=== PATIENT | female | born 1955 | race Caucasian/White ===

== ENCOUNTER → 2016-04-03 | Outpatient (CLI) | payer MEDICARE ==
[2016-04-03 09:31] LABS: ANION GAP 12 (5-19); BLOOD UREA NITROGEN 47 mg/dL (7-20); CALCIUM 9.4 mg/dL (8.4-10.2); CARBON DIOXIDE 25 mmol/L (22-30); CHLORIDE 102 mmol/L (98-107); CREATININE RESULT 1.12 mg/dL (0.52-1.25); SODIUM 138.7 mmol/L (137-145)
[2016-04-03 09:49] LABS: GLUCOSE 431 mg/dL (75-110)
[2016-04-04 11:38] LABS: CREATININE URINE 48.3 mg/dL (Not Estab.); MICROALBUMIN URINE 85.2 ug/mL (Not Estab.)
== END ==
LOC: OD 07:01
PROVIDERS: ATTEND Internal Medicine Nephrology
DX: N18.2 Chronic kidney disease, stage 2 (mild) (principal); R80.1 Persistent proteinuria, unspecified; E55.9 Vitamin D deficiency, unspecified
CPT/HCPCS: 36415; 80048; 82043; 82306; 82570

== ENCOUNTER → 2016-06-16 | Outpatient (CLI) | payer MEDICARE | LOC: OD 09:14 | PROVIDERS: ATTEND Family Medicine | DX: E11.65 Type 2 diabetes mellitus with hyperglycemia (principal) | CPT/HCPCS: 36415; 83036 ==

== ENCOUNTER 2016-06-18 10:12 | Inpatient (IN) | payer MEDICARE ==
--- NOTE | 2016-06-18 10:25 | ER Document Report ---
Addendum entered and electronically signed by VLAD GREGORIO NP 06/18/16 12:31 : Course - Re-evaluation Re-evalutation: 06/18/16 12:30 Patient reports having vomited prior to having the syncopal episode. Patient vomited once in the lobby. Additional medications ordered. - Vital Signs Vital signs: Temp Pulse Resp BP Pulse Ox 97.4 F 93 18 145/81 H 100 06/18/16 10:23 06/18/16 10:23 06/18/16 10:23 06/18/16 10:23 06/18/16 10:23 - Laboratory Result Diagrams: 06/18/16 11:02 06/18/16 11:02 Laboratory results interpreted by me: 06/18/16 11:02 Potassium 3.5 L Chloride 93 L Carbon Dioxide 31 H BUN 32 H Original Note: ED Medical Screen (RME) - General Stated Complaint: SYNCOPE Mode of Arrival: Medic Information source: Patient Notes: Patient called EMS for syncopal episode. Patient reports that she had felt dizzy with nausea and vomiting. Accu-Chek per EMS was 220. Complains of generalized weakness. Patient states that she has right occipital headache pain after passing out and hitting her head on the floor. hx: Diabetes, chronic kidney disease I have greeted and performed a rapid initial assessment of this patient. A comprehensive ED assessment and evaluation of the patient, analysis of test results and completion of the medical decision making process will be conducted by additional ED providers. TRAVEL OUTSIDE OF THE [place] IN LAST 30 DAYS: No - Related Data Allergies/Adverse Reactions: No Known Allergies Allergy (Verified 06/18/16 10:28) Past Medical History - Past Medical History Cardiac Medical History: Reports: Hx Hypercholesterolemia, Hx Hypertension Endocrine Medical History: Reports: Hx Diabetes Mellitus Type 2 Past Surgical History: Reports: Hx Section - x2 - Immunizations Hx Diphtheria, Pertussis, Tetanus Vaccination: Yes Physical Exam - Vital signs Vitals: Temp Pulse Resp BP Pulse Ox 97.4 F 93 18 145/81 H 100 06/18/16 10:23 06/18/16 10:23 06/18/16 10:23 06/18/16 10:23 06/18/16 10:23 - Neurological Neuro grossly intact: Yes Cognition: Normal [place] Coma Scale Eye Opening: Spontaneous [place] Coma Scale Verbal: Oriented [place] Coma Scale Motor: Obeys Commands [place] Coma Scale Total: 15 Course - Vital Signs Vital signs: Temp Pulse Resp BP Pulse Ox 97.4 F 93 18 145/81 H 100 06/18/16 10:23 06/18/16 10:23 06/18/16 10:23 06/18/16 10:23 06/18/16 10:23
[2016-06-18 11:20] LABS: ABSOLUTE EOSINOPHILS # (AUTO) 0.1 10^3/uL (0.0-0.6); ABSOLUTE LYMPHOCYTES (AUTO) 2.1 10^3/uL (0.5-4.7); ABSOLUTE MONOCYTES (AUTO) 0.5 10^3/uL (0.1-1.4); ABSOLUTE NEUT (AUTO) 5.7 10^3/uL (1.7-8.2); BASOPHILS % (AUTO) 0.4 % (0-2); EOSINOPHILS % (AUTO) 0.7 % (0-6); HEMATOCRIT 38.1 % (36.0-47.0); HGB HCT DIFFERENCE 0.9; LYMPHOCYTES % (AUTO) 25.2 % (13-45); MEAN CORPUSCULAR HEMOGLOBIN 28.8 pg (27.0-33.4); MEAN CORPUSCULAR HGB CONC 34.1 g/dL (32.0-36.0); MEAN CORPUSCULAR VOLUME 85 fl (80-97); MONOCYTES % (AUTO) 6.1 % (3-13); RED BLOOD COUNT 4.52 10^6/uL (3.72-5.28); RED CELL DISTRIBUTION WIDTH 13.2 % (11.5-14.0); SEGMENTED NEUTROPHILS % (AUTO) 67.6 % (42-78); WHITE BLOOD COUNT 8.5 10^3/uL (4.0-10.5)
[2016-06-18 11:28] LABS: ALANINE AMINOTRANSFERASE 19 U/L (9-52); ALBUMIN 3.7 g/dL (3.5-5.0); ALKALINE PHOSPHATASE 92 U/L (38-126); ANION GAP 15 (5-19); ASPARTATE AMINO TRANSFERASE 18 U/L (14-36); BILIRUBIN,DIRECT 0.2 mg/dL (0.0-0.4); BILIRUBIN,TOTAL 0.4 mg/dL (0.2-1.3); BLOOD UREA NITROGEN 32 mg/dL (7-20); CALCIUM 9.6 mg/dL (8.4-10.2); CARBON DIOXIDE 31 mmol/L (22-30); CHLORIDE 93 mmol/L (98-107); CREATINE KINASE 32 U/L (30-135); CREATININE RESULT 0.91 mg/dL (0.52-1.25); GLUCOSE 91 mg/dL (75-110); LIPASE 87.3 U/L (23-300); MAGNESIUM 1.9 mg/dL (1.6-2.3); POTASSIUM 3.5 mmol/L (3.6-5.0); SODIUM 139.4 mmol/L (137-145); TOTAL PROTEIN 6.9 g/dL (6.3-8.2)
[2016-06-18 11:40] LABS: CREATINE KINASE MB 1.04 ng/mL (<4.55)
[2016-06-18 11:42] LABS: TROPONIN I < 0.012 ng/mL
[2016-06-18] MEDS ORDERED: ONDANSETRON 4 MG TAB.RAPDIS PO ONE (12:23)
--- NOTE | 2016-06-18 13:16 | EKG REPORT ---
SEVERITY:- ABNORMAL ECG - SINUS RHYTHM LEFT ANTERIOR FASCICULAR BLOCK PROBABLE LVH WITH SECONDARY REPOL ABNRM : Confirmed by: Edi Jenkins MD 18-Jun-2016 13:16:12
--- NOTE | 2016-06-18 14:39 | ER Document Report ---
ED General <ABILIO STRONG - Last Filed: 06/18/16 17:02> - General Time seen by provider: 14:10 Mode of Arrival: Medic Information source: Patient TRAVEL OUTSIDE OF THE [place] IN LAST 30 DAYS: No - HPI Onset: Other - see HPI note Associated symptoms: Diarrhea, Headache, Nausea, Vomiting, Weakness, Other - dizzy <CEZAR SARABIA - Last Filed: 06/18/16 17:11> - General Chief Complaint: Syncope Stated Complaint: SYNCOPE Notes: Patient is a 60 year old female presenting to the emergency department for syncope. Patient states she had a "blacking out" episode today; patient states she was going to get some grapes from the kitchen and woke up on the ground in her daughter's bedroom. Patient also had a syncopal event yesterday. Patient has had multiple episodes of vomiting, nausea, and diarrhea over the past month. Patient complains that she has been falling every other day or so over the past month; patient states she does not always "black out" when she falls. Patient has some weakness and is very dizzy like she is going to fall down. During exam, patient states she is still nauseous but hungry and she has a headache. Patient's blood glucose level was 220 via EMS. Patient has a history of diabetes mellitus and is on 2 insulin shots. Patient denies any loss of vision, dysuria, chest pain, or shortness of breath. Patient has no known allergies. Patient's PCP is Dr. Holloway. 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 denies: Chest pain Respiratory: No symptoms reported Gastrointestinal: See HPI, Nausea, Vomiting Genitourinary: No symptoms reported. denies: Dysuria Female Genitourinary: No symptoms reported Musculoskeletal: No symptoms reported Skin: No symptoms reported Hematologic/Lymphatic: No symptoms reported Neurological/Psychological: See HPI, Weakness, Gait changes, Headaches -: Yes All other systems reviewed and negative <CEZAR SARABIA - Last Filed: 06/18/16 17:11> Physical Exam <ABILIO STRONG - Last Filed: 06/18/16 17:02> - Vital signs Interpretation: Hypertensive <CEZAR SARABIA - Last Filed: 06/18/16 17:11> - Vital signs Vitals: Temp Pulse Resp BP Pulse Ox 97.4 F 93 18 145/81 H 100 06/18/16 10:23 06/18/16 10:23 06/18/16 10:23 06/18/16 10:23 06/18/16 10:23 - Notes Notes: GENERAL: Well-appearing, well-nourished and in no acute distress HEAD: Atraumatic, normocephalic EYES: Pupils equal round and reactive to light, mild persistent horizontal nystagmus, sclera anicteric, no conjunctival injection or discharge ENT: Nares patent, oropharynx clear without exudates. Dry mucous membranes. NECK: Normal range of motion, supple, no carotid bruits LUNGS: Breath sounds clear to auscultation bilaterally and equal. No wheezes rales or rhonchi HEART: Normal S1S2, Regular rate and rhythm without murmurs, Equal peripheral pulses ABDOMEN: Soft, non-tender, No appreciable mass EXTREMITIES: Normal range of motion, no calf tenderness, Negative Homans, no edema NEUROLOGICAL: GCS 15, Cranial nerves II-XII intact. Normal speech without aphasia, No Pronator Drift, 5/5 RUE strength, 5/5 RLE strength, 5/5 LUE strength , 5/5 LLE strength, No cerebellar abnormalities including normal finger-nose testing, ataxic with the tendency to fall to the right PSYCH: Normal mood, normal affect SKIN: Warm, Dry, no cyanosis, Cap refill < 2 sec (CEZAR SARABIA) Course - Laboratory Result Diagrams: 06/18/16 11:02 06/18/16 11:02 - EKG Interpretation by Me EKG shows normal: Sinus rhythm Rate: Normal Rhythm: NSR [place]/QRS: Left axis deviation, LAHB/LAFB Heart block present: No: 1st Degree, Mobitz 1, Mobitz 2, CHB (3rd degree block) <ABILIO STRONG - Last Filed: 06/18/16 17:02> - Laboratory Result Diagrams: 06/18/16 11:02 06/18/16 11:02 - Consults Dr. Rizzo Time consulted: 16:50 Dr. Palma Time consulted: 16:51 Consulted provider: will see as inpatient <CEZAR SARABIA - Last Filed: 06/18/16 17:11> - Re-evaluation Re-evalutation: 06/18/16 15:21 Patient was very ataxic on her road test. She would've fallen without help with ambulation. This was prior to her fluid bolus and orthostatics are pending at this point. Unclear cause for her vomiting and diarrhea for the last week but her abdomen seems benign. (ABILIO STRONG) - Vital Signs Vital signs: Temp Pulse Resp BP Pulse Ox 97.4 F 94 18 114/83 100 06/18/16 10:23 06/18/16 16:26 06/18/16 10:23 06/18/16 16:26 06/18/16 16:00 - Laboratory Laboratory results interpreted by me: 06/18/16 11:02 Potassium 3.5 L Chloride 93 L Carbon Dioxide 31 H BUN 32 H - EKG Interpretation by Me Additional EKG results interpreted by me: 06/18/16 14:42 Poor R-wave progression anteriorly with inverted T waves in 1 and aVL ( ABILIO STRONG) - Consults Dr. Rizzo Reason for consultation: 06/18/16 16:[address] Rizzo for possible admission; told to contact Dr. Palma for next admission. (CEZAR SARABIA) Dr. Palma Reason for consultation: 06/18/16 16:[address] Palma for possible admission; he will call back. 06/18/16 16:[address] Palma; patient will be admitted. (CEZAR SARABIA) Discharge - Discharge Admitting Provider: Hospitalist - Dr. Juan A Palma <ABILIO STRONG - Last Filed: 06/18/16 17:02> <CEZAR SARABIA - Last Filed: 06/18/16 17:11> - Discharge Clinical Impression: Syncope and collapse, Ataxia, Prerenal azotemia, Dehydration Referrals: KINJAL HOLLOWAY MD [Primary Care Provider] - Follow up as needed Scribe Attestation: 06/18/16 17:02 I personally performed the services described in the documentation, reviewed and edited the documentation which was dictated to the scribe in my presence, and it accurately records my words and actions. (ABILIO STRONG) Scribe Documentation - Scribe Written by Scrhernan:: Cezar Sarabia 06/18/16 16:15 acting as scribe for :: Melissa <CEZAR SARABIA - Last Filed: 06/18/16 17:11>
[2016-06-18] MEDS ORDERED: NORMAL SALINE 1000 ML 1,000 ML IV ONE (14:40)
[2016-06-18] MEDS ORDERED: ONDANSETRON HCL INJ/PF 4 MG/2 ML SDV IV ONE (14:40)
[2016-06-18] MEDS ORDERED: POTASSI CL 20 MEQ/NS 1L 1,000 ML IV PRN (17:48)
[2016-06-18] MEDS ORDERED: ACETAMINOPHEN 325 MG TABLET PO PRN (17:48)
[2016-06-18] MEDS ORDERED: ONDANSETRON HCL INJ/PF 4 MG/2 ML SDV IV PRN (17:53)
[2016-06-18] MEDS ORDERED: GLUCAGON,HUMAN RECOMB 1 MG INJ IM PRN (17:55)
[2016-06-18] MEDS ORDERED: DEXTROSE 40% GEL 15 GM TUBE PO PRN ×2 (17:55)
[2016-06-18] MEDS ORDERED: DEXTROSE 50%-WATER 25 GM/50 ML DISP.SYRIN IV PRN ×2 (17:55)
--- NOTE | 2016-06-18 18:06 | PDOC H&P ---
History of Present Illness Admission Date/PCP: KINJAL CABRERA MD Patient complains of: weakness and "passing out" History of Present Illness: IGLESIA BLANCHARD is a 60 year old female presents to the emergency department from home after an episode where she apparently blacked out. She states that last month she has not felt well with intermittent nausea and vomiting, frequent high blood sugars in the 500s and occasional low sugars in the 50s, frequent stools occurring about every other day she'll have 3-6 loose bowel movements daily and decreased oral intake. She's noted over the last week postural dizziness particularly when standing she's felt like she might pass out, couple of times she's lost her balance, but today she actually went into another room and when she stood the next thing she knew she awoke on her back with a headache. She denies fevers, chills, chest pain, palpitations, abdominal pain, hematuria, dysuria, melena, hematochezia, numbness or tingling, slurred speech, difficulty swallowing, sore throat, odynophagia, swollen glands, night sweats. Evaluation in the emergency department and demonstrates profound orthostasis and clinical evidence of volume depletion and so we were asked to admit for further evaluation and management. 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 Endocrine Medical History: Reports: Diabetes Mellitus Type 2 Past Surgical History Past Surgical History: Reports: Section - x2, Orthopedic Surgery - Toe amputation for osteomyelitis Social History Information Source: Patient Smoking Status: Never Smoker Frequency of Alcohol Use: None Hx Recreational Drug Use: No Hx Prescription Drug Abuse: No - Advance Directive Resuscitation Status: Full Code Family History Family History: None Parental Family History Reviewed: Yes Children Family History Reviewed: Yes Sibling(s) Family History Reviewed.: Yes Medication/Allergy Home Medications: Amlodipine Besylate 5 mg PO DAILY 01/21/15 Aspirin [Ecotrin 81 mg EC Tablet] 81 mg PO DAILY 01/21/15 Ergocalciferol (Vitamin D2) [Drisdol 50,000 unit (1.25MG) Capsule] 1 cap PO Q7D 01/21/15 Levothyroxine Sodium 88 mcg PO DAILY 01/21/15 Lisinopril 20 mg PO BID 01/21/15 Omeprazole [Prilosec] 40 mg PO DAILY 01/21/15 Oxycodone HCl/Acetaminophen [Oxycodone-Acetaminophen 10-325] 1 each PO Q4H PRN 01/21/15 Insulin Glargine,Hum.rec.anlog [Lantus Insulin 100 Unit/mL] 30 unit SUBCUT QHS # 0 insuln.pen 01/24/15 Insulin Glargine,Hum.rec.anlog [Lantus Insulin 100 Unit/mL] 38 unit SUBCUT DAILY #0 insuln.pen 01/24/15 Clindamycin 600 mg/D5w RTU [Cleocin RTU 600 mg/D5w 50 ml Premix Bag] 600 mg IV Q8 10 Days 01/31/15 Diphenhydramine HCl [Benadryl 50 mg Capsule] 50 mg PO Q6 5 Days 01/31/15 Famotidine [Pepcid 20 mg Tablet] 20 mg PO DAILY #5 tablet 01/31/15 Prednisone 3 tab PO DAILY 5 Days 01/31/15 Allergies/Adverse Reactions: No Known Allergies Allergy (Verified 06/18/16 10:28) Review of Systems Constitutional: ABSENT: chills, fever(s), headache(s), weight gain, weight loss Eyes: ABSENT: visual disturbances Ears: ABSENT: hearing changes Cardiovascular: ABSENT: chest pain, dyspnea on exertion, edema, orthropnea, palpitations Respiratory: ABSENT: cough, hemoptysis Gastrointestinal: PRESENT: diarrhea, nausea, vomiting. ABSENT: abdominal pain, constipation, hematemesis, hematochezia Genitourinary: ABSENT: dysuria, hematuria Musculoskeletal: ABSENT: joint swelling Integumentary: ABSENT: rash, wounds Neurological: PRESENT: syncope, weakness. ABSENT: abnormal gait, abnormal speech, confusion, dizziness, focal weakness, numbness Psychiatric: ABSENT: anxiety, depression Endocrine: ABSENT: cold intolerance, heat intolerance, polydipsia, polyuria Hematologic/Lymphatic: ABSENT: easy bleeding, easy bruising Physical Exam Vital Signs: Temp Pulse Resp BP Pulse Ox 97.4 F 94 18 114/83 100 06/18/16 10:23 06/18/16 16:26 06/18/16 10:23 06/18/16 16:06/18/16 16:00 Intake & Output 06/17/16 06/18/16 06/19/16 06:59 06:59 06:59 Weight 60.9 kg PHYSICAL EXAM GENERAL: NAD; well developed, well nourished; no obese; alert and oriented to person, place, time, situation HEENT: normocephalic, atraumatic; EOMI, PERRLA, no conjunctival injection, no scleral icterus; oral mucosa very dry; neck supple, no LAD, normal ROM RESPIRATORY: no accessory muscle use, no increased WOB, good air entry bilaterally; no wheezes, rales, rhonchi; no inspiratory crackles CARDIO: no JVD; RRR; soft 2/6 systolic murmur; no tachycardia VASCULAR: no carotid bruit; no abdominal bruit; no pallor; 2+ radial, DP pulse ; normal capillary refill GI: soft; nondistended; normal bowel sounds; no hepato spleno megaly; no rebound, rigidity, guarding; nontenderd NEURO: normal patella reflexes; normal sensation; no dysarthria; no nystagmus ; tongue protrudes midline; normal finger to nose; MSK: 5/5 strength; normal ROM hips; no tenderness EXTREMITIES: no calf tender; no palpable cords in calf; no clubbing, cyanosis , pedal edema PSYCH: normal affect, normal mood SKIN: warm; dry; no petechiae; no telengectasias; no jaundice; no rash Results Laboratory Results: 06/18/16 11:02 06/18/16 11:02 06/18/16 06/18/16 11:02 11:02 WBC 8.5 RBC 4.52 Hgb 13.0 Hct 38.1 MCV 85 MCH 28.8 MCHC 34.1 RDW 13.2 Plt Count 258 Seg Neutrophils % 67.6 Lymphocytes % 25.2 Monocytes % 6.1 Eosinophils % 0.7 Basophils % 0.4 Absolute Neutrophils 5.7 Absolute Lymphocytes 2.1 Absolute Monocytes 0.5 Absolute Eosinophils 0.1 Absolute Basophils 0.0 Sodium 139.4 Potassium 3.5 L Chloride 93 L Carbon Dioxide 31 H Anion Gap 15 BUN 32 H Creatinine 0.91 Est GFR ( Amer) > 60 Est GFR (Non-Af Amer) > 60 Glucose 91 Calcium 9.6 Magnesium 1.9 Total Bilirubin 0.4 AST 18 ALT 19 Alkaline Phosphatase 92 Total Protein 6.9 Albumin 3.7 Lipase 87.3 06/18/16 06/18/16 11:02 11:02 Creatine Kinase 32 CK-MB (CK-2) 1.04 Troponin I < 0.012 Impressions: Chest X-Ray 06/18/16 10:30 IMPRESSION: NO SIGNIFICANT RADIOGRAPHIC FINDING IN THE CHEST. Head CT 06/18/16 12:32 IMPRESSION: NORMAL BRAIN CT WITHOUT CONTRAST. Status: Imported from PACS Assessment & Plan - Diagnosis (1) Dehydration Is this a current diagnosis for this admission?: YesPlan: Etiology remains unclear but trying to piece together the events of the last month my suspicion is with a hemoglobin A1c of 14.0 that her sugars have been running rampantly [id number] leading to polyuria and ultimately dehydration. Fortunately she is not showing any renal insufficiency though her CBC does show hemoconcentration as she is normally mildly anemic. Plan is to admit for IV fluid hydration through the night with careful hemodynamic monitoring and monitor her volume status. (2) Syncope and collapse Is this a current diagnosis for this admission?: YesPlan: Severe orthostasis found in the emergency department likely accounts for her postural dizziness and even syncope. Again I believe this is related to rampant hyperglycemia. We'll check carotid Dopplers as she is clearly at risk for peripheral arterial disease and check a morning lipid panel. CT of the head is negative for any intracranial abnormality as well as any evidence of contusions. EKG is nondiagnostic for ischemic changes. At her first set of cardiac enzymes completely normal. (3) Diabetes Qualifiers: Diabetes mellitus type: type 2 Diabetes mellitus complication status: with unspecified complications Diabetes mellitus correction insulin use: with correction use Qualified Code(s): E11.8 - Type 2 diabetes mellitus with unspecified complications; Z79.4 - USP (current) use of insulin Is this a current diagnosis for this admission?: YesPlan: Very poorly controlled with hemoglobin A1c greater than 14. Will start with a basal bolus regimen and titrate to effect. Patient reports labile blood sugars at home with some episodes of hypoglycemia so we will have to monitor carefully for that and respond according to the protocol. (4) GERD (gastroesophageal reflux disease) Qualifiers: Esophagitis presence: without esophagitis Qualified Code(s): K21.9 - Gastro-esophageal reflux disease without esophagitis Is this a current diagnosis for this admission?: YesPlan: Start PPI therapy. (5) Hypertension Is this a current diagnosis for this admission?: YesPlan: Hold antihypertensive regimen for now. He initiated as her clinical condition changes and dictates. (6) Hypothyroidism Qualifiers: Hypothyroidism type: unspecified Qualified Code(s): E03.9 - Hypothyroidism, unspecified Is this a current diagnosis for this admission?: YesPlan: Check a morning TSH and adjust home dose of Synthroid as needed. - Time Time Spent: 50 to 70 Minutes Anticipated discharge: Home Within: within 24 hours
[2016-06-18] MEDS: PANTOPRAZOLE SODIUM 40 MG VIAL IV SCH (22:14)
[2016-06-18] MEDS: INSULIN GLARGINE,HUM.REC.ANLOG 300 UNIT/3 ML INSULN.PEN SUBCUT SCH (22:25)
[2016-06-18] MEDS: INSULIN LISPRO 100 UNIT/ML 3 ML VIAL SUBCUT PRN (22:26)
[2016-06-18 23:05] LABS: APPEARANCE,URINE SLIGHTLY-CLOUDY; BILIRUBIN,URINE NEGATIVE (NEGATIVE); GLUCOSE, URINE NEGATIVE (NEGATIVE); KETONES,URINE NEGATIVE (NEGATIVE); LEUKOCYTE ESTERASE,URINE NEGATIVE (NEGATIVE); NITRITE,URINE NEGATIVE (NEGATIVE); PROTEIN,URINE 100 mg/dL (NEGATIVE); URINE SPECIFIC GRAVITY 1.013; UROBILINOGEN,URINE NEGATIVE mg/dL (<2.0)
[2016-06-19 01:47] LABS: URINE BARBITURATES SCREEN NEGATIVE; URINE METHADONE SCREEN NEGATIVE; URINE OPIATES LOW NEGATIVE; URINE PHENCYCLIDINE SCREEN NEGATIVE
[2016-06-19 06:13] LABS: ABSOLUTE EOSINOPHILS # (AUTO) 0.1 10^3/uL (0.0-0.6); ABSOLUTE LYMPHOCYTES (AUTO) 3.2 10^3/uL (0.5-4.7); ABSOLUTE MONOCYTES (AUTO) 0.8 10^3/uL (0.1-1.4); ABSOLUTE NEUT (AUTO) 4.8 10^3/uL (1.7-8.2); BASOPHILS % (AUTO) 0.4 % (0-2); EOSINOPHILS % (AUTO) 1.1 % (0-6); HEMATOCRIT 31.3 % (36.0-47.0); HGB HCT DIFFERENCE 0.2; LYMPHOCYTES % (AUTO) 36.1 % (13-45); MEAN CORPUSCULAR HEMOGLOBIN 28.6 pg (27.0-33.4); MEAN CORPUSCULAR HGB CONC 33.8 g/dL (32.0-36.0); MEAN CORPUSCULAR VOLUME 85 fl (80-97); MONOCYTES % (AUTO) 9.1 % (3-13); RED BLOOD COUNT 3.68 10^6/uL (3.72-5.28); RED CELL DISTRIBUTION WIDTH 13.4 % (11.5-14.0); SEGMENTED NEUTROPHILS % (AUTO) 53.3 % (42-78)
[2016-06-19 06:22] LABS: ANION GAP 9 (5-19); BLOOD UREA NITROGEN 32 mg/dL (7-20); CALCIUM 8.5 mg/dL (8.4-10.2); CARBON DIOXIDE 29 mmol/L (22-30); CHLORIDE 100 mmol/L (98-107); CHOLESTEROL 131.64 mg/dL (0-200); Direct HDL 33 mg/dL (>40); GLUCOSE 107 mg/dL (75-110); HEMOGLOBIN 10.5 g/dL (12.0-15.5); MAGNESIUM 1.9 mg/dL (1.6-2.3); POTASSIUM 4.1 mmol/L (3.6-5.0); TRIGLYCERIDES 210 mg/dL (<150)
[2016-06-19 06:35] LABS: DIRECT LDL < 30 mg/dL (<100)
[2016-06-19] MEDS ORDERED: POTASSI CL 20 MEQ/D5NS 1L 1,000 ML IV PRN (07:07)
[2016-06-19] MEDS: PANTOPRAZOLE SODIUM 40 MG VIAL IV SCH ×2 (08:57→21:16)
[2016-06-19] MEDS: ENOXAPARIN SODIUM INJ 40 MG/0.4 ML DISP.SYRIN SUBCUT SCH (08:58)
[2016-06-19] MEDS ORDERED: LEVOTHYROXINE SODIUM 0.088 MG TABLET PO SCH (12:00)
[2016-06-19] MEDS: INSULIN LISPRO 100 UNIT/ML 3 ML VIAL SUBCUT PRN (14:37)
--- NOTE | 2016-06-19 14:50 | PDOC PROGRESS REPORT ---
Subjective Progress Note for:: 06/19/16 Subjective:: Reason for visit: Follow-up hyperglycemia, frequent falls, nausea vomiting Hospital course: IGLESIA BLANCHARD is a 60 year old female presents to the emergency department from home after an episode where she apparently blacked out. She states that last month she has not felt well with intermittent nausea and vomiting, frequent high blood sugars in the 500s and occasional low sugars in the 50s, frequent stools occurring about every other day she'll have 3-6 loose bowel movements daily and decreased oral intake. She's noted over the last week postural dizziness particularly when standing she's felt like she might pass out, couple of times she's lost her balance, but today she actually went into another room and when she stood the next thing she knew she awoke on her back with a headache. She denies fevers, chills, chest pain, palpitations, abdominal pain, hematuria, dysuria, melena, hematochezia, numbness or tingling, slurred speech, difficulty swallowing, sore throat, odynophagia, swollen glands , night sweats. Evaluation in the emergency department and demonstrates profound orthostasis and clinical evidence of volume depletion and so we were asked to admit for further evaluation and management. She was admitted to the hospital and given IV fluids and monitored on telemetry without any significant ectopy or cardiac dysrhythmias. Her capillary blood glucose levels have fluctuated with some mild hypoglycemia this morning at 60. Likewise, the patient's mental state has also fluctuated with episodic confusion , and perseverations. Physical therapy worked with her this morning and stated she seemed confused at the time and was very unsteady on her feet requiring assistance and a rolling walker to maintain adequate gait. She continues to complain of dull aching headache, global and nonradiating, worsened with position and without associated symptoms of numbness tingling, vision changes, hearing changes. She continues to suffer from nausea and vomiting within an hour of eating. Subjective: As above; denies chest pain, palpitations, fever, chills, slurred speech, difficulty swallowing, unilateral weakness, numbness or tingling. ROS: per HPI plus a total of 10 systems reviewed, pertinent positives and negatives noted above, remaining systems negative. Physical Exam Vital Signs: Temp Pulse Resp BP Pulse Ox 98.1 F 99 17 136/70 H 100 06/19/16 11:13 06/19/16 11:13 06/19/16 11:13 06/19/16 11:13 06/19/16 11:13 Intake & Output 06/18/16 06/19/16 06/20/16 06:59 06:59 06:59 Intake Total 1000 Output Total 2 Balance 998 PHYSICAL EXAM GENERAL: NAD; well developed, well nourished; no obese; alert and oriented to person, place, time HEENT: normocephalic, atraumatic; EOMI, PERRLA, no conjunctival injection, no scleral icterus; oral mucosa very dry; neck supple, no LAD, normal ROM RESPIRATORY: no accessory muscle use, no increased WOB, good air entry bilaterally; no wheezes, rales, rhonchi; no inspiratory crackles CARDIO: no JVD; RRR; soft 2/6 systolic murmur; no tachycardia VASCULAR: no carotid bruit; no abdominal bruit; no pallor; 2+ radial, DP pulse ; normal capillary refill GI: soft; nondistended; absent bowel sounds; no hepato spleno megaly; no rebound, rigidity, guarding; diffusely tender across the lower abdomen NEURO: normal patella reflexes; normal sensation; no dysarthria; no nystagmus ; tongue protrudes midline; normal finger to nose; MSK: 5/5 strength; normal ROM hips; no tenderness EXTREMITIES: no calf tender; no palpable cords in calf; no clubbing, cyanosis , pedal edema PSYCH: flat affect, restless mood; she perseverates a bit, repeating herself frequently asking for a change in her diet. As soon as I left the room, she called out for her nurse then the CUT TOBACCO BULKER and then caught a respiratory therapist outside the door asking each of them for a change in her diet. SKIN: warm; dry; no petechiae; no telengectasias; no jaundice; no rash Results Laboratory Results: Labs reviewed, CBC shows H&H back to baseline at 11 and 31 WBCs and 9.0 platelet count 221; chemistries this morning show BUN 32 creatinine is 0.9 and the rest of her electrolytes are within normal limits; her blood sugar did drop to 59 this morning but was 181 during the night. Her magnesium was normal at 1.9 and phosphorus 4.2. Cholesterol shows triglycerides at 210 total cholesterol 131 LDL less than 30 HDL of only 33 and a TSH is low at 0.15; her urine drug screen was negative Impressions: Chest X-Ray 06/18/16 10:30 IMPRESSION: NO SIGNIFICANT RADIOGRAPHIC FINDING IN THE CHEST. Head CT 06/18/16 12:32 IMPRESSION: NORMAL BRAIN CT WITHOUT CONTRAST. Carotid Doppler Study 06/19/16 00:00 IMPRESSION: MILD HETEROGENOUS PLAQUE. LESS THAN 50% STENOSIS. Status: Imported from PACS Assessment & Plan - Diagnosis (1) Altered mental status, unspecified Qualifiers: Altered mental status type: delirium Qualified Code(s): R41.0 - Disorientation, unspecified Is this a current diagnosis for this admission?: YesPlan: Unclear etiology but possibly related to the borderline hypoglycemia from this morning. His worrisome about this is seems to have been occurring over the course of the last month though honestly the history is very difficult to elicit from the patient. Something about this case from the beginning that seems odd to me but I can't quite put my finger on it. Her head CT was negative , just showing some microvascular changes and involutional changes thought to be appropriate for age. I am concerned though with this nausea and vomiting and otherwise unremarkable laboratory evaluation for an intracranial event. We' ll send for MRI of the brain looking for mass, mass effect, stroke, etc. (2) Dehydration Is this a current diagnosis for this admission?: YesPlan: Etiology remains unclear but trying to piece together the events of the last month my suspicion is with a hemoglobin A1c of 14.0 that her sugars have been running rampantly [id number] leading to polyuria and ultimately dehydration. Fortunately she is not showing any renal insufficiency though her CBC does show hemoconcentration as she is normally mildly anemic. That being said, she is continuing to have nausea and vomiting particularly after eating meals raising suspicion for GI tract disease including biliary disease. We'll send for CT scan of the abdomen and pelvis. (3) Syncope and collapse Is this a current diagnosis for this admission?: YesPlan: Severe orthostasis found in the emergency department likely accounts for her postural dizziness and even syncope however it still persists after IV fluid resuscitation. Again I believe this is related to rampant hyperglycemia. carotid Dopplers show scattered plaque but no stenosis and a a morning lipid panel shows an unusual pattern with hypertriglyceridemia predominant and a nearly absent LDL and low HDL. CT of the head is negative for any intracranial abnormality as well as any evidence of contusions. EKG is nondiagnostic for ischemic changes. cardiac enzymes completely normal. We'll check echocardiogram, MRI as noted above. Check a B12 level (4) Diabetes Qualifiers: Diabetes mellitus type: type 2 Diabetes mellitus complication status: with unspecified complications Diabetes mellitus exterminator helper insulin use: with halfway use Qualified Code(s): E11.8 - Type 2 diabetes mellitus with unspecified complications; Z79.4 - alf (current) use of insulin Is this a current diagnosis for this admission?: YesPlan: Very poorly controlled with hemoglobin A1c greater than 14. Continue basal bolus regimen and titrate to effect and change IV fluids to D5 until oral intake is more adequate. Patient reports labile blood sugars at home with some episodes of hypoglycemia so we will have to monitor carefully for that and respond according to the protocol. (5) GERD (gastroesophageal reflux disease) Qualifiers: Esophagitis presence: without esophagitis Qualified Code(s): K21.9 - Gastro-esophageal reflux disease without esophagitis Is this a current diagnosis for this admission?: YesPlan: Continue PPI therapy. Follow-up CT scan. We have no GI coverage. (6) Hypertension Is this a current diagnosis for this admission?: Yes (7) Hypothyroidism Qualifiers: Hypothyroidism type: unspecified Qualified Code(s): E03.9 - Hypothyroidism, unspecified Is this a current diagnosis for this admission?: YesPlan: TSH is a bit low and adjust home dose of Synthroid . - Time Time Spent with patient: 35 or more minutes Medications reviewed and adjusted accordingly: Yes - Inpatient Certification Based on my medical assessment, after consideration of the patient's comorbidities, presenting symptoms, or acuity I expect that the services needed warrant INPATIENT care.: Yes I certify that my determination is in accordance with my understanding of Medicare's requirements for reasonable and necessary INPATIENT services [42 CFR 412.3e].: Yes Medical Necessity: Need For IV Fluids, Need For Continuous Telemetry Monitoring , Risk of Complication if Not Cared For in Hospital, Risk of Diagnosis Which Will Require Inpatient Eval/Care/Monitoring - Plan Summary Plan Summary: Changed to inpatient status as I'm concerned for ileus contributing to her nausea and vomiting. Workup underway and unable to complete or safely discharge without at least 2 nights in the hospital.
[2016-06-19] MEDS ORDERED: BISACODYL 5 MG TABEC PO ONE (17:18)
[2016-06-19] MEDS ORDERED: METOCLOPRAMIDE HCL INJ/PF 10 MG/2 ML SDV IV ONE (18:00)
--- NOTE | 2016-06-19 19:32 | XCELERA REPORT ---
[address] [address] Transthoracic Echocardiogram Report Name: IGLESIA BLANCHARD Age: 60 yrs Gender: Female : 1955 Patient Status: Inpatient Patient Location: 5\S\532\S\A Study Date: 06/19/2016 01:41 PM Height: 60 in Weight: 132 lb BSA: 1.6 m2 Procedure: A complete two-dimensional transthoracic echocardiogram was performed (2D, M-mode, spectral and color flow Doppler). The study was technically adequate with some images being suboptimal in quality. Reason For Study: orthostatic hypotension Ordering Physician: MARY POLLACK Performed By: John Paul Vaca Interpretation Summary The left ventricular ejection fraction is normal. Doppler measurements suggest pseudonormalized left ventricular relaxation, which is associated with grade II/IV or mild to moderate diastolic dysfunction There is mild concentric left ventricular hypertrophy. The left ventricle is grossly normal size. Wall motion cannot be accurately commented on, but no definite regional wall motion abnormalities noted. The right ventricular systolic function is normal. The left atrial size is normal. The right atrium is normal in size There is a trace to mild amount of mitral regurgitation There is no mitral valve stenosis. There is a trace to mild amount of aortic regurgitation There is no aortic valve stenosis There is a trace or physiologic amount of tricuspid regurgitation Right ventricular systolic pressure is estimated to be elevated at 30- 40mmHg. There is mild pulmonary hypertension by echo The aortic root is not well visualized but is probably normal size. The inferior vena cava appeared normal and decreased > 50% with respiration (RAP 5-10 mmHg) Minimal pericardial effusion. MMode/2D Measurements \T\ Calculations RVDd: 1.8 cm LVIDd: 3.9 cm FS: 35.7 % Ao root diam: 2.7 cm IVSd: 1.3 cm LVIDs: 2.5 cm EDV(Teich): 64.7 ml LVPWd: 1.2 cm ESV(Teich): 22.0 ml Ao root area: 5.9 cm2 EF(Teich): 66.0 % LA dimension: 2.8 cm Doppler Measurements \T\ Calculations MV E max susy: MV P1/2t max susy: Ao V2 max: LV V1 max P.0 cm/sec 73.5 cm/sec 138.8 cm/sec 3.4 mmHg MV A max susy: MV P1/2t: 38.2 msec Ao max PG: LV V1 max: 128.3 cm/sec 7.7 mmHg 92.1 cm/sec MV E/A: 0.58 MVA(P1/2t): 5.8 cm2 MV dec slope: 563.6 cm/sec2 PA V2 max: PI end-d susy: TR max susy: RAP systole: 98.2 cm/sec 118.4 cm/sec 260.0 cm/sec 10.0 mmHg PA max P.9 mmHg TR max P.1 mmHg RVSP(TR): 37.1 mmHg Left Ventricle The left ventricle is grossly normal size. There is mild concentric left ventricular hypertrophy. The left ventricular ejection fraction is normal. Doppler measurements suggest pseudonormalized left ventricular relaxation, which is associated with grade II/IV or mild to moderate diastolic dysfunction. Wall motion cannot be accurately commented on, but no definite regional wall motion abnormalities noted. Right Ventricle The right ventricle is grossly normal size. There is normal right ventricular wall thickness. The right ventricular systolic function is normal. Atria The right atrium is normal in size. The left atrial size is normal. Interarterial septum not well visualized and not well dopplered. Cannot comment on ASD/PFO presence. Mitral Valve The mitral valve leaflets are sclerotic, but show no functional abnormalities. There is no mitral valve stenosis. There is a trace to mild amount of mitral regurgitation. Aortic Valve The aortic valve is grossly normal. There is no aortic valve stenosis. There is a trace to mild amount of aortic regurgitation. Tricuspid Valve The tricuspid valve is not well visualized, but is grossly normal. There is no tricuspid stenosis. There is a trace or physiologic amount of tricuspid regurgitation. Right ventricular systolic pressure is estimated to be elevated at 30-40mmHg. There is mild pulmonary hypertension by echo. Pulmonic Valve The pulmonic valve is not well visualized. Great Vessels The aortic root is not well visualized but is probably normal size. The inferior vena cava appeared normal and decreased > 50% with respiration (RAP 5-10 mmHg). Effusions Minimal pericardial effusion. : MARY POLLACK > Citlaly Crocker
[2016-06-19] MEDS ORDERED: DULOXETINE HCL 30 MG CAPSULE.DR PO SCH (22:00)
[2016-06-19] MEDS: INSULIN GLARGINE,HUM.REC.ANLOG 300 UNIT/3 ML INSULN.PEN SUBCUT SCH (22:43)
[2016-06-20] MEDS: ENOXAPARIN SODIUM INJ 40 MG/0.4 ML DISP.SYRIN SUBCUT SCH (08:06)
[2016-06-20] MEDS: METOCLOPRAMIDE HCL INJ/PF 10 MG/2 ML SDV IV SCH ×4 (08:06→22:53)
[2016-06-20] MEDS ORDERED: ENALAPRILAT DIHYDRATE INJ/PF 1.25 MG/1 ML SDV IV PRN (09:21)
[2016-06-20] MEDS: INSULIN LISPRO 100 UNIT/ML 3 ML VIAL SUBCUT PRN ×3 (09:56→16:58)
[2016-06-20] MEDS: LEVOTHYROXINE SODIUM 0.05 MG TABLET PO SCH (11:18)
[2016-06-20] MEDS: LACTOBACILLUS ACIDOPHILUS 250 MG TAB PO SCH ×2 (11:18→16:58)
[2016-06-20] MEDS: PANTOPRAZOLE SODIUM 40 MG VIAL IV SCH ×2 (11:19→22:53)
[2016-06-20] MEDS: INSULIN GLARGINE,HUM.REC.ANLOG 300 UNIT/3 ML INSULN.PEN SUBCUT SCH (11:37)
--- NOTE | 2016-06-20 17:47 | PDOC PROGRESS REPORT ---
Subjective Progress Note for:: 06/20/16 Subjective:: Reason for visit: Follow-up hyperglycemia, frequent falls, nausea vomiting Hospital course: IGLESIA BLANCHARD is a 60 year old female presents to the emergency department from home after an episode where she apparently blacked out. She states that last month she has not felt well with intermittent nausea and vomiting, frequent high blood sugars in the 500s and occasional low sugars in the 50s, frequent stools occurring about every other day she'll have 3-6 loose bowel movements daily and decreased oral intake. She's noted over the last week postural dizziness particularly when standing she's felt like she might pass out, couple of times she's lost her balance, but today she actually went into another room and when she stood the next thing she knew she awoke on her back with a headache. She denies fevers, chills, chest pain, palpitations, abdominal pain, hematuria, dysuria, melena, hematochezia, numbness or tingling, slurred speech, difficulty swallowing, sore throat, odynophagia, swollen glands , night sweats. Evaluation in the emergency department and demonstrates profound orthostasis and clinical evidence of volume depletion and so we were asked to admit for further evaluation and management. She was admitted to the hospital and given IV fluids and monitored on telemetry without any significant ectopy or cardiac dysrhythmias. Her capillary blood glucose levels have fluctuated with some mild hypoglycemia this morning at 60. Likewise, the patient's mental state has also fluctuated with episodic confusion , and perseverations. Physical therapy worked with her this morning and stated she seemed confused at the time and was very unsteady on her feet requiring assistance and a rolling walker to maintain adequate gait. She continues to complain of dull aching headache, global and nonradiating, worsened with position and without associated symptoms of numbness tingling, vision changes, hearing changes. She c/o suffering from nausea and vomiting within an hour of eating. She reports improved oral intake since initiation of the Reglan therapy, states she tolerated a meal for the first time in a long time. States her nausea has improved significantly however she is now complaining of multiple bowel movements described as thick consistency and as many as 6-8 in the last 12 hours. She denies abdominal pain. She still feels a bit dizzy when she is up on her feet at first but recovers quickly and markedly improved from presentation. MRI of the brain negative. CT of the head negative. Carotid Dopplers show diffuse heterogenous plaque with less than 50% bilateral stenosis. CT of the abdomen and pelvis just shows a massively distended stomach. Echocardiogram shows normal LV function with grade 2 diastolic dysfunction, mild pulmonary hypertension. Subjective: As above; denies chest pain, palpitations, fever, chills, slurred speech, difficulty swallowing, unilateral weakness, numbness or tingling. ROS: per HPI plus a total of 10 systems reviewed, pertinent positives and negatives noted above, remaining systems negative. Physical Exam Vital Signs: Temp Pulse Resp BP Pulse Ox 98 F 96 19 140/85 H 100 06/20/16 16:00 06/20/16 16:00 06/20/16 16:00 06/20/16 16:00 06/20/16 16:00 Intake & Output 06/19/16 06/20/16 06/21/16 06:59 06:59 06:59 Intake Total 3103 854 Output Total 1602 500 Balance 1501 354 Weight 60.2 kg PHYSICAL EXAM GENERAL: NAD; well developed, well nourished; no obese; alert and oriented to person, place, time HEENT: normocephalic, atraumatic; EOMI, PERRLA, no conjunctival injection, no scleral icterus; oral mucosa moist; neck supple, no LAD, normal ROM RESPIRATORY: no accessory muscle use, no increased WOB, good air entry bilaterally; no wheezes, rales, rhonchi; no inspiratory crackles CARDIO: no JVD; RRR; soft 2/6 systolic murmur; no tachycardia VASCULAR: no pallor; 2+ radial, DP pulse; normal capillary refill GI: soft; nondistended; good bowel sounds; no hepato spleno megaly; no rebound , rigidity, guarding; resolved tenderness across the lower abdomen NEURO: normal patella reflexes; normal sensation; no dysarthria; MSK: 5/5 strength; normal ROM hips; no tenderness EXTREMITIES: no calf tender; no palpable cords in calf; no clubbing, cyanosis , pedal edema PSYCH: A bit hyperactive affect today, normal mood; SKIN: warm; dry; no petechiae; no telengectasias; no jaundice; no rash Results Impressions: Abdomen/Pelvis CT 06/19/16 00:00 IMPRESSION: 1. GASTRIC DISTENTION. THIS COULD BE AN INCIDENTAL FINDING SECONDARY TO RECENT ORAL INTAKE ALTHOUGH OTHER CONSIDERATIONS ARE GASTROPARESIS OR GASTRIC OUTLET OBSTRUCTION. NO BOWEL DILATION. 2. DISTENDED URINARY BLADDER. AGAIN THIS COULD BE AN INCIDENTAL FINDING BUT OTHER CONSIDERATIONS WOULD BE BLADDER OUTLET OBSTRUCTION. 3. CORTICAL CYSTS IN BOTH KIDNEYS. 4. NO OTHER SIGNIFICANT OR ACUTE FINDING IN THE ABDOMEN OR PELVIS ON CT SCAN WITH IV CONTRAST. Carotid Doppler Study 06/19/16 00:00 IMPRESSION: MILD HETEROGENOUS PLAQUE. LESS THAN 50% STENOSIS. Head MRI 06/19/16 11:10 IMPRESSION: NORMAL MRI OF THE BRAIN WITHOUT INTRAVENOUS GADOLINIUM CONTRAST. Assessment & Plan - Diagnosis (1) Altered mental status, unspecified Qualifiers: Altered mental status type: delirium Qualified Code(s): R41.0 - Disorientation, unspecified Is this a current diagnosis for this admission?: YesPlan: Unclear etiology but possibly related to the borderline hypoglycemia from yesterday morning. Head CT and MRI were negative for acute intracranial pathology. Her mental state has improved this morning and she appears to be back to baseline. (2) Dehydration Is this a current diagnosis for this admission?: Yes (3) Syncope and collapse Is this a current diagnosis for this admission?: Yes (4) Diabetes Qualifiers: Diabetes mellitus type: type 2 Diabetes mellitus complication status: with unspecified complications Diabetes mellitus exterminator termite insulin use: with exterminator termite use Qualified Code(s): E11.8 - Type 2 diabetes mellitus with unspecified complications; Z79.4 - terminal operations supervisor (current) use of insulin Is this a current diagnosis for this admission?: YesPlan: Very poorly controlled with hemoglobin A1c greater than 14. Continue basal bolus regimen and titrate to effect and change IV fluids to D5 until oral intake is more adequate. Patient reports labile blood sugars at home with some episodes of hypoglycemia so we will have to monitor carefully for that and respond according to the protocol. States she's been evaluated by endocrinology in [place] but that's too far for her to travel routinely and has not been able to make it to her last few appointments. She is requesting referral to local endocrinology. (5) GERD (gastroesophageal reflux disease) Qualifiers: Esophagitis presence: without esophagitis Qualified Code(s): K21.9 - Gastro-esophageal reflux disease without esophagitis Is this a current diagnosis for this admission?: Yes (6) Hypertension Is this a current diagnosis for this admission?: Yes (7) Hypothyroidism Qualifiers: Hypothyroidism type: unspecified Qualified Code(s): E03.9 - Hypothyroidism, unspecified Is this a current diagnosis for this admission?: Yes (8) Gastroparesis Is this a current diagnosis for this admission?: YesPlan: Based on patient's clinical presentation, labs and CT findings I have a strong suspicion for this diagnosis. Furthermore she is markedly improved with initiation of Reglan therapy. I believe the frequent bowel movements now represent a form of dumping syndrome as her GI tract awakens from the gastroparesis. Recommend continuing the Reglan and, monitoring for adverse reaction. - Time Time Spent with patient: 25-34 minutes Medications reviewed and adjusted accordingly: Yes Anticipated discharge: Home Within: within 24 hours
[2016-06-21] MEDS: METOCLOPRAMIDE HCL INJ/PF 10 MG/2 ML SDV IV SCH ×2 (08:15→11:13)
[2016-06-21] MEDS: INSULIN LISPRO 100 UNIT/ML 3 ML VIAL SUBCUT PRN ×2 (08:15→11:29)
[2016-06-21] MEDS: ENOXAPARIN SODIUM INJ 40 MG/0.4 ML DISP.SYRIN SUBCUT SCH (08:15)
[2016-06-21] MEDS: PANTOPRAZOLE SODIUM 40 MG VIAL IV SCH (11:12)
[2016-06-21] MEDS: LEVOTHYROXINE SODIUM 0.05 MG TABLET PO SCH (11:13)
[2016-06-21] MEDS: LACTOBACILLUS ACIDOPHILUS 250 MG TAB PO SCH (11:13)
[2016-06-21] MEDS: INSULIN GLARGINE,HUM.REC.ANLOG 300 UNIT/3 ML INSULN.PEN SUBCUT SCH (11:13)
[2016-06-21 13:55] VITALS: BP 140/85
--- NOTE | 2016-06-21 15:11 | PDOC DISCHARGE SUMMARY ---
General - Admit/Disc Date/PCP Admission Date/Primary Care Provider: 06/19/16 11:17 KINJAL HOLLOWAY MD Discharge Date: 06/21/16 - Discharge Diagnosis (1) Gastroparesis Is this a current diagnosis for this admission?: YesSummary: I believe this is the primary reason for her presentation. CT scan of the abdomen and pelvis showed a large distended stomach full of luid and once we started her on Reglan she had an immediate response. She was able to tolerate solid food without any nausea or vomiting for 48 hours now. Furthermore her bowels began moving, initially copious amounts consistent with the dumping syndrome but now returned to more normal formed stool. In general she feels significantly better for the first time in 30 days. I recommend continuing the Reglan therapy. She is to follow-up with Dr. Holloway her PCP this week for consideration of outpatient nuclear medicine gastric emptying study. Her diabetes is very poorly controlled with a hemoglobin A1c greater than 14 however her blood sugars here were quite labile as well, clearly putting her at risk for the formation of gastroparesis. (2) Altered mental status, unspecified Is this a current diagnosis for this admission?: YesSummary: Unclear etiology but possibly related to the borderline hypoglycemia from yesterday morning. Head CT and MRI were negative for acute intracranial pathology. Her mental state has improved this morning and she appears to be back to baseline. (3) Dehydration Is this a current diagnosis for this admission?: YesSummary: Secondary lack of oral intake and persistent nausea and vomiting for one month. Resolved with IV fluids and treatment of her gastroparesis. (4) Syncope and collapse Is this a current diagnosis for this admission?: YesSummary: Secondary to the above. Resolved. She has been up ambulating in the room, and bathing at the bedside table in an upright position without any difficulty whatsoever for the last 2 days. (5) Diabetes Is this a current diagnosis for this admission?: YesSummary: Her blood sugars remained very labile during her hospitalization dropping as low as 50 where she became symptomatic and running as high as the 400s. I dramatically adjusted her dose of long-acting insulin and covered with a sliding scale with only minimal coverage required and her sugars since she began eating the restricted diabetic diet here have averaged approximately 200- 250 with no further episodes of hypoglycemia. She was encouraged to follow-up with Dr. Holloway for additional titration of her insulin regimen. She may need referral to a local senior business development manager as she cannot make the appointments in [place] it's just too far for her to manage logistically. (6) GERD (gastroesophageal reflux disease) Is this a current diagnosis for this admission?: Yes (7) Hypertension Is this a current diagnosis for this admission?: YesSummary: Blood pressures not well controlled, she is to follow-up with Dr. Colon this week for further titration of her antihypertensive regimen. (8) Hypothyroidism Is this a current diagnosis for this admission?: YesSummary: Her TSH was on the low side and so her thyroid medication was decreased to 50 g daily - Additional Information Resuscitation Status: Full Code Discharge Diet: Diabetic Discharge Activity: Activity As Tolerated, Balance Activity w/Rest Home Medications: Ergocalciferol (Vitamin D2) [Vitamin D2] 50,000 units PO Q7D 06/18/16 Lisinopril [Prinivil 10 mg Tablet] 10 mg PO DAILY 06/18/16 Omeprazole 40 mg PO DAILY 06/18/16 Oxycodone HCl/Acetaminophen [Percocet 10-325 mg Tablet] 1 tab PO Q6HP PRN Insulin Glargine,Hum.rec.anlog [Lantus Insulin 100 Unit/mL] 15 unit SUBCUT DAILY #1 insuln.pen 06/21/16 Insulin Lispro [Humalog Insulin (Lispro) 100 unit/mL] 0 - 12 unit SUBCUT AC #1 vial 06/21/16 Levothyroxine Sodium [Synthroid 0.05 mg Tablet] 0.05 mg PO DAILY #30 tablet Metoclopramide HCl [Reglan] 5 mg PO BIDACLS #60 tablet 06/21/16 History of Present Illness Patient complains of: weakness and "passing out" History of Present Illness: IGLESIA BLANCHARD is a 60 year old female presents to the emergency department from home after an episode where she apparently blacked out. She states that last month she has not felt well with intermittent nausea and vomiting, frequent high blood sugars in the 500s and occasional low sugars in the 50s, frequent stools occurring about every other day she'll have 3-6 loose bowel movements daily and decreased oral intake. She's noted over the last week postural dizziness particularly when standing she's felt like she might pass out, couple of times she's lost her balance, but today she actually went into another room and when she stood the next thing she knew she awoke on her back with a headache. She denies fevers, chills, chest pain, palpitations, abdominal pain, hematuria, dysuria, melena, hematochezia, numbness or tingling, slurred speech, difficulty swallowing, sore throat, odynophagia, swollen glands, night sweats. Hospital Course Hospital Course: IGLESIA BLANCHARD is a 60 year old female presents to the emergency department from home after an episode where she apparently blacked out. She states that last month she has not felt well with intermittent nausea and vomiting, frequent high blood sugars in the 500s and occasional low sugars in the 50s, frequent stools occurring about every other day she'll have 3-6 loose bowel movements daily and decreased oral intake. She's noted over the last week postural dizziness particularly when standing she's felt like she might pass out, couple of times she's lost her balance, but today she actually went into another room and when she stood the next thing she knew she awoke on her back with a headache. She denies fevers, chills, chest pain, palpitations, abdominal pain, hematuria, dysuria, melena, hematochezia, numbness or tingling, slurred speech, difficulty swallowing, sore throat, odynophagia, swollen glands, night sweats. Evaluation in the emergency department and demonstrates profound orthostasis and clinical evidence of volume depletion and so we were asked to admit for further evaluation and management. She was admitted to the hospital and given IV fluids and monitored on telemetry without any significant ectopy or cardiac dysrhythmias. Her capillary blood glucose levels have fluctuated with some mild hypoglycemia this morning at 60. Likewise, the patient's mental state has also fluctuated with episodic confusion , and perseverations. Physical therapy worked with her this morning and stated she seemed confused at the time and was very unsteady on her feet requiring assistance and a rolling walker to maintain adequate gait. She continues to complain of dull aching headache, global and nonradiating, worsened with position and without associated symptoms of numbness tingling, vision changes, hearing changes. She c/o suffering from nausea and vomiting within an hour of eating. She reports improved oral intake since initiation of the Reglan therapy, states she tolerated a meal for the first time in a long time. States her nausea has improved significantly however she is now complaining of multiple bowel movements described as thick consistency and as many as 6-8 in the last 12 hours. She denies abdominal pain. She still feels a bit dizzy when she is up on her feet at first but recovers quickly and markedly improved from presentation. MRI of the brain negative. CT of the head negative. Carotid Dopplers show diffuse heterogenous plaque with less than 50% bilateral stenosis. CT of the abdomen and pelvis just shows a massively distended stomach. Echocardiogram shows normal LV function with grade 2 diastolic dysfunction, mild pulmonary hypertension. In general, once we started the Reglan therapy she returned to baseline and in fact feels like this is the best she has felt in over 30 days. She is stable for discharge home at this time follow up with her PCP in one week. Physical Exam Vital Signs: Temp Pulse Resp BP Pulse Ox 98.2 F 91 16 140/85 H 100 06/21/16 13:50 06/21/16 13:50 06/21/16 13:50 06/21/16 13:50 06/21/16 13:50 Intake & Output 06/20/16 06/21/16 06/22/16 06:59 06:59 06:59 Intake Total 3103 1254 Output Total 1602 1300 Balance 1501 -46 Weight 60.2 kg 60.3 kg PHYSICAL EXAM GENERAL: NAD; well developed, well nourished; no obese; alert and oriented to person, place, time HEENT: normocephalic, atraumatic; EOMI, PERRLA, no conjunctival injection, no scleral icterus; oral mucosa moist; neck supple, no LAD, normal ROM RESPIRATORY: no accessory muscle use, no increased WOB, good air entry bilaterally; no wheezes, rales, rhonchi; no inspiratory crackles CARDIO: no JVD; RRR; soft 2/6 systolic murmur; no tachycardia VASCULAR: no pallor; 2+ radial, DP pulse; normal capillary refill GI: soft; nondistended; good bowel sounds; no hepato spleno megaly; no rebound , rigidity, guarding; resolved tenderness across the lower abdomen NEURO: normal patella reflexes; normal sensation; no dysarthria; MSK: 5/5 strength; normal ROM hips; no tenderness EXTREMITIES: no calf tender; no palpable cords in calf; no clubbing, cyanosis , pedal edema PSYCH: A bit hyperactive affect today, normal mood; SKIN: warm; dry; no petechiae; no telengectasias; no jaundice; no rash Results Impressions: Chest X-Ray 06/18/16 10:30 IMPRESSION: NO SIGNIFICANT RADIOGRAPHIC FINDING IN THE CHEST. Head CT 06/18/16 12:32 IMPRESSION: NORMAL BRAIN CT WITHOUT CONTRAST. Abdomen/Pelvis CT 06/19/16 00:00 IMPRESSION: 1. GASTRIC DISTENTION. THIS COULD BE AN INCIDENTAL FINDING SECONDARY TO RECENT ORAL INTAKE ALTHOUGH OTHER CONSIDERATIONS ARE GASTROPARESIS OR GASTRIC OUTLET OBSTRUCTION. NO BOWEL DILATION. 2. DISTENDED URINARY BLADDER. AGAIN THIS COULD BE AN INCIDENTAL FINDING BUT OTHER CONSIDERATIONS WOULD BE BLADDER OUTLET OBSTRUCTION. 3. CORTICAL CYSTS IN BOTH KIDNEYS. 4. NO OTHER SIGNIFICANT OR ACUTE FINDING IN THE ABDOMEN OR PELVIS ON CT SCAN WITH IV CONTRAST. Carotid Doppler Study 06/19/16 00:00 IMPRESSION: MILD HETEROGENOUS PLAQUE. LESS THAN 50% STENOSIS. Head MRI 06/19/16 11:10 IMPRESSION: NORMAL MRI OF THE BRAIN WITHOUT INTRAVENOUS GADOLINIUM CONTRAST. Qualifiers PATEINT BEING DISCHARGED WITH ANY OF THE FOLLOWING DIAGNOSIS?: No VTE patient discharged on overlapping Therapy?: No Reason(s) for not prescribing Overlap Therapy:: Not indicated Plan Time Spent: Greater than 30 Minutes
== END 2016-06-21 12:40 | disposition home or self-care (01) | DRG 74 ==
LOC: ER 10:12 → EH 17:48 → UNDOADMOB 18:29 → 5 20:12 → OBSVTOIN 06-19 11:17
DX: E11.43 Type 2 diabetes mellitus with diabetic autonomic (poly)neuropathy (principal); E11.65 Type 2 diabetes mellitus with hyperglycemia; K31.84 Gastroparesis; E86.0 Dehydration; R55 Syncope and collapse; K21.9 Gastro-esophageal reflux disease without esophagitis; E03.9 Hypothyroidism, unspecified; I10 Essential (primary) hypertension; Z79.82 Long term (current) use of aspirin; Z79.4 Long term (current) use of insulin; Z79.899 Other long term (current) drug therapy
CPT/HCPCS: 36415; 70450; 70551; 71020; 74177; 80048; 80053; 80061; 80307; 81001; 82550; 82553; 82607; 82962; 83690; 83735; 84100; 84443; 84484; 85025; 93005; 93010; 93306; 93880; 96361; 96374; 99285; G0378; G8978-GP; G8979-GP; J1650; J1815; J2405; J2765; J3480; J3490; J7030; S0119; S0164

== ENCOUNTER → 2016-09-01 | Outpatient (CLI) | payer MEDICARE ==
[2016-09-01 08:54] LABS: ABSOLUTE EOSINOPHILS # (AUTO) 0.4 10^3/uL (0.0-0.6); ABSOLUTE LYMPHOCYTES (AUTO) 1.1 10^3/uL (0.5-4.7); ABSOLUTE MONOCYTES (AUTO) 0.5 10^3/uL (0.1-1.4); ABSOLUTE NEUT (AUTO) 8.4 10^3/uL (1.7-8.2); BASOPHILS % (AUTO) 0.2 % (0-2); EOSINOPHILS % (AUTO) 3.5 % (0-6); HEMATOCRIT 38.6 % (36.0-47.0); HEMOGLOBIN 12.6 g/dL (12.0-15.5); HGB HCT DIFFERENCE -0.8; LYMPHOCYTES % (AUTO) 10.7 % (13-45); MEAN CORPUSCULAR HEMOGLOBIN 28.2 pg (27.0-33.4); MEAN CORPUSCULAR HGB CONC 32.7 g/dL (32.0-36.0); MEAN CORPUSCULAR VOLUME 86 fl (80-97); MONOCYTES % (AUTO) 5.2 % (3-13); RED BLOOD COUNT 4.47 10^6/uL (3.72-5.28); SEGMENTED NEUTROPHILS % (AUTO) 80.4 % (42-78); WHITE BLOOD COUNT 10.4 10^3/uL (4.0-10.5)
[2016-09-01 08:58] LABS: APPEARANCE,URINE CLEAR; BILIRUBIN,URINE NEGATIVE (NEGATIVE); GLUCOSE, URINE >=500 mg/dL (NEGATIVE); KETONES,URINE NEGATIVE (NEGATIVE); LEUKOCYTE ESTERASE,URINE NEGATIVE (NEGATIVE); NITRITE,URINE NEGATIVE (NEGATIVE); PROTEIN,URINE NEGATIVE (NEGATIVE); URINE SPECIFIC GRAVITY 1.026; UROBILINOGEN,URINE NEGATIVE mg/dL (<2.0)
[2016-09-01 09:23] LABS: ALBUMIN 3.3 g/dL (3.5-5.0); ANION GAP 11 (5-19); BLOOD UREA NITROGEN 29 mg/dL (7-20); CALCIUM 9.6 mg/dL (8.4-10.2); CARBON DIOXIDE 26 mmol/L (22-30); CHLORIDE 94 mmol/L (98-107); CREATININE RESULT 0.92 mg/dL (0.52-1.25); PHOSPHORUS 3.9 mg/dL (2.5-4.5); POTASSIUM 5.1 mmol/L (3.6-5.0); SODIUM 130.6 mmol/L (137-145)
[2016-09-01 09:45] LABS: GLUCOSE 584 mg/dL (75-110)
[2016-09-02 07:07] LABS: VITAMIN D 25-HYDROXY 29.3 ng/mL (30.0-100.0)
[2016-09-02 12:38] LABS: CREATININE URINE 33.3 mg/dL (Not Estab.); MICROALBUMIN URINE 77.4 ug/mL (Not Estab.)
== END ==
LOC: OD 08:09
PROVIDERS: ATTEND Internal Medicine Nephrology
DX: I12.9 Hypertensive chronic kidney disease with stage 1 through stage 4 chronic kidney disease, or unspecified chronic kidney disease (principal); N18.3 Chronic kidney disease, stage 3 (moderate); E55.9 Vitamin D deficiency, unspecified; E11.29 Type 2 diabetes mellitus with other diabetic kidney complication
CPT/HCPCS: 36415; 80048; 81001; 82040; 82043; 82306; 82570; 83970; 84100; 85025

== ENCOUNTER → 2016-12-11 | Outpatient (CLI) | payer MEDICARE ==
[2016-12-11 08:56] LABS: ANION GAP 8 (5-19); BLOOD UREA NITROGEN 30 mg/dL (7-20); CALCIUM 9.2 mg/dL (8.4-10.2); CARBON DIOXIDE 29 mmol/L (22-30); CHLORIDE 102 mmol/L (98-107); CHOLESTEROL 174.56 mg/dL (0-200); CREATININE RESULT 1.14 mg/dL (0.52-1.25); Direct HDL 61 mg/dL (>40); GLUCOSE 265 mg/dL (75-110); POTASSIUM 4.1 mmol/L (3.6-5.0); SODIUM 139.3 mmol/L (137-145); TRIGLYCERIDES 176 mg/dL (<150)
[2016-12-11 09:07] LABS: DIRECT LDL 38 mg/dL (<100)
[2016-12-11 09:15] LABS: VLDL CHOLESTEROL 35.2 mg/dL (10-31)
== END ==
LOC: OD 07:12
PROVIDERS: ATTEND Family Medicine
DX: E03.9 Hypothyroidism, unspecified (principal); E11.65 Type 2 diabetes mellitus with hyperglycemia; E78.2 Mixed hyperlipidemia; I10 Essential (primary) hypertension; Z79.899 Other long term (current) drug therapy
CPT/HCPCS: 36415; 80048; 80061; 83036; 84443

== ENCOUNTER → 2017-01-05 | Outpatient (CLI) | payer MEDICARE ==
[2017-01-05 09:10] LABS: ANION GAP 11 (5-19); BLOOD UREA NITROGEN 21 mg/dL (7-20); CALCIUM 9.1 mg/dL (8.4-10.2); CARBON DIOXIDE 25 mmol/L (22-30); CHLORIDE 108 mmol/L (98-107); CREATININE RESULT 0.86 mg/dL (0.52-1.25); GLUCOSE 304 mg/dL (75-110); SODIUM 143.7 mmol/L (137-145)
[2017-01-07 12:38] LABS: CREATININE URINE 120.8 mg/dL (Not Estab.)
[2017-01-07 13:03] LABS: MICROALBUMIN URINE 4173.3 ug/mL (Not Estab.)
== END ==
LOC: OD 07:33
PROVIDERS: ATTEND Internal Medicine Nephrology
DX: N18.2 Chronic kidney disease, stage 2 (mild) (principal); R80.1 Persistent proteinuria, unspecified
CPT/HCPCS: 36415; 80048; 82043; 82570

== ENCOUNTER → 2017-02-04 | Outpatient (CLI) | payer MEDICARE ==
[2017-02-04 09:31] LABS: ANION GAP 7 (5-19); BLOOD UREA NITROGEN 35 mg/dL (7-20); CALCIUM 9.6 mg/dL (8.4-10.2); CARBON DIOXIDE 27 mmol/L (22-30); CHLORIDE 107 mmol/L (98-107); CREATININE RESULT 1.09 mg/dL (0.52-1.25); GLUCOSE 306 mg/dL (75-110); POTASSIUM 4.7 mmol/L (3.6-5.0); SODIUM 141.2 mmol/L (137-145)
[2017-02-04 09:59] LABS: THYROID STIMULATING HORMONE 2.56 uIU/mL (0.47-4.68)
== END ==
LOC: OD 08:17
PROVIDERS: ATTEND Internal Medicine Nephrology
DX: N17.9 Acute kidney failure, unspecified (principal); I12.9 Hypertensive chronic kidney disease with stage 1 through stage 4 chronic kidney disease, or unspecified chronic kidney disease; N18.9 Chronic kidney disease, unspecified; E11.29 Type 2 diabetes mellitus with other diabetic kidney complication
CPT/HCPCS: 36415; 80048; 82088; 82533; 83835; 84244; 84439; 84443

== ENCOUNTER → 2017-03-09 | Outpatient (CLI) | payer MEDICARE ==
[2017-03-09 08:44] LABS: ANION GAP 7 (5-19); BLOOD UREA NITROGEN 22 mg/dL (7-20); CALCIUM 9.1 mg/dL (8.4-10.2); CARBON DIOXIDE 25 mmol/L (22-30); CHLORIDE 114 mmol/L (98-107); CREATININE RESULT 0.92 mg/dL (0.52-1.25); GLUCOSE 78 mg/dL (75-110); POTASSIUM 5.2 mmol/L (3.6-5.0); SODIUM 146.2 mmol/L (137-145)
== END ==
LOC: OD 07:36
PROVIDERS: ATTEND Internal Medicine Nephrology
DX: N18.3 Chronic kidney disease, stage 3 (moderate) (principal); N13.30 Unspecified hydronephrosis
CPT/HCPCS: 36415; 80048

== ENCOUNTER 2017-05-04 13:45 | Inpatient (IN) | payer MEDICARE, MEDICAID ==
[2017-05-04] MEDS ORDERED: IPRATROPIUM/ALBUTEROL 0.5-2.5 MG/3 ML AMPUL NEB ONE ×2 (14:40→14:42)
--- NOTE | 2017-05-04 14:54 | ER Document Report ---
ED General - General Chief Complaint: Flu Symptoms Stated Complaint: FLU SYMPTOMS Time Seen by Provider: 05/04/17 14:40 Information source: Patient TRAVEL OUTSIDE OF THE [place] IN LAST 30 DAYS: No - HPI Patient complains to provider of: I think I have the flu Onset: Other - Wednesday Onset/Duration: Gradual Quality of pain: Achy Associated symptoms: Body/muscle aches, Chills, Nonproductive cough, Fever, Shortness of breath. denies: Hurts to breath, Nausea, Vomiting, Slow to respond Exacerbated by: Coughing Relieved by: Denies Similar symptoms previously: No Recently seen / treated by doctor: No Notes: She lives with her grandchild who is recently diagnosed with the flu. Patient did not get the flu shot - Related Data Allergies/Adverse Reactions: No Known Allergies Allergy (Verified 05/04/17 13:46) Past Medical History - General Information source: Patient - Social History Smoking Status: Former Smoker Chew tobacco use (# tins/day): No Frequency of alcohol use: None Drug Abuse: None Lives with: Family Family History: None Patient has suicidal ideation: No Patient has homicidal ideation: No - Past Medical History Cardiac Medical History: Reports: Hx Hypercholesterolemia, Hx Hypertension Other: Patient denies Neurological Medical History: Reports: None Endocrine Medical History: Reports: Hx Diabetes Mellitus Type 2 Renal/ Medical History: Reports: None. Denies: Hx Peritoneal Dialysis Malignancy Medical History: Reports: None GI Medical History: Reports: None Musculoskeltal Medical History: Reports None Skin Medical History: Reports None Psychiatric Medical History: Reports: None Traumatic Medical History: Reports: None Past Surgical History: Reports: Hx Section - x2, Hx Orthopedic Surgery - Toe amputation for osteomyelitis right pinky - Immunizations Hx Diphtheria, Pertussis, Tetanus Vaccination: Yes Review of Systems - Review of Systems Constitutional: Chills, Fever, Malaise, Weakness EENT: Nose congestion Cardiovascular: No symptoms reported Respiratory: Cough, Short of breath, Wheezing Gastrointestinal: Other - Loose stool today Genitourinary: No symptoms reported Female Genitourinary: No symptoms reported Skin: No symptoms reported Hematologic/Lymphatic: No symptoms reported Neurological/Psychological: No symptoms reported Physical Exam - Vital signs Vitals: Temp Pulse Resp BP Pulse Ox 98.8 F 97 20 152/83 H 86 L 05/04/17 14:15 05/04/17 14:15 05/04/17 14:15 05/04/17 14:15 05/04/17 14:15 Interpretation: Hypoxic - Notes Notes: PHYSICAL EXAMINATION: GENERAL: Patient is sitting up in bed with moderate respiratory distress. She is well-nourished and appears acutely ill HEAD: Atraumatic, normocephalic. EYES: Pupils equal round and reactive to light, extraocular movements intact, conjunctiva are normal. ENT: Nares patent, oropharynx clear without exudates. Dry mucous membranes. NECK: Normal range of motion, supple without lymphadenopathy LUNGS: Moderate wheezing bilaterally inspiratory and expiratory HEART: Regular rate and rhythm without murmurs ABDOMEN: Soft, nontender, nondistended abdomen. No guarding, no rebound. No masses appreciated. Pneumonic areas to patient's abdominal wall where she injects her insulin Female : deferred Musculoskeletal: Normal range of motion, no pitting or edema. No cyanosis. Right pinky toe has been surgically removed. NEUROLOGICAL: Cranial nerves grossly intact. Normal speech, normal gait. Normal sensory, motor exams PSYCH: Normal mood, normal affect. SKIN: Warm, Dry, normal turgor, no rashes or lesions noted. Course - Re-evaluation Re-evalutation: 05/04/17 17:05 Labs- All tests 24 hr 05/04/17 05/04/17 05/04/17 14:40 14:40 14:40 WBC 10.0 RBC 3.85 Hgb 10.7 L Hct 32.5 L MCV 85 MCH 27.9 MCHC 33.0 RDW 14.8 H Plt Count 218 Seg Neutrophils % 84.8 H Lymphocytes % 6.7 L Monocytes % 8.0 Eosinophils % 0.0 Basophils % 0.5 Absolute Neutrophils 8.5 H Absolute Lymphocytes 0.7 Absolute Monocytes 0.8 Absolute Eosinophils 0.0 Absolute Basophils 0.0 PT 12.8 INR 0.90 VBG pH VBG pCO2 VBG HCO3 VBG Base Excess Sodium 144.6 Potassium 4.5 Chloride 109 H Carbon Dioxide 24 Anion Gap 12 BUN 43 H Creatinine 1.24 Est GFR ( Amer) 53 L Est GFR (Non-Af Amer) 44 L Glucose 173 H Lactic Acid Calcium 8.7 Total Bilirubin 0.2 Direct Bilirubin 0.2 Neonat Total Bilirubin Not Reportable Neonat Direct Bilirubin Not Reportable Neonat Indirect Bili Not Reportable AST 47 H ALT 41 Alkaline Phosphatase 111 Total Protein 6.1 L Albumin 3.3 L Influenza A (Rapid) Influenza B (Rapid) 05/04/17 05/04/17 05/04/17 14:40 14:40 15:50 WBC RBC Hgb Hct MCV MCH MCHC RDW Plt Count Seg Neutrophils % Lymphocytes % Monocytes % Eosinophils % Basophils % Absolute Neutrophils Absolute Lymphocytes Absolute Monocytes Absolute Eosinophils Absolute Basophils PT INR VBG pH 7.29 L VBG pCO2 52.9 VBG HCO3 24.7 VBG Base Excess -2.3 Sodium Potassium Chloride Carbon Dioxide Anion Gap BUN Creatinine Est GFR ( Amer) Est GFR (Non-Af Amer) Glucose Lactic Acid 1.3 Calcium Total Bilirubin Direct Bilirubin Neonat Total Bilirubin Neonat Direct Bilirubin Neonat Indirect Bili AST ALT Alkaline Phosphatase Total Protein Albumin Influenza A (Rapid) NEGATIVE Influenza B (Rapid) NEGATIVE 05/04/17 17:05 Chest X-Ray 05/04/17 14:26 IMPRESSION: Infiltrates involving the left lower lobe, left mid lung zone and probably lateral aspect the right lung base. - Vital Signs Vital signs: Temp Pulse Resp BP Pulse Ox 98.8 F 97 22 H 152/83 H 86 L 05/04/17 14:15 05/04/17 14:15 05/04/17 15:00 05/04/17 14:15 05/04/17 14:15 - Laboratory Result Diagrams: 05/04/17 14:40 05/04/17 14:40 Laboratory results interpreted by me: 05/04/17 05/04/17 05/04/17 14:40 14:40 14:40 Hgb 10.7 L Hct 32.5 L RDW 14.8 H Seg Neutrophils % 84.8 H Lymphocytes % 6.7 L Absolute Neutrophils 8.5 H VBG pH 7.29 L Chloride 109 H BUN 43 H Est GFR ( Amer) 53 L Est GFR (Non-Af Amer) 44 L Glucose 173 H AST 47 H Total Protein 6.1 L Albumin 3.3 L - Diagnostic Test Radiology reviewed: Image reviewed, Reports reviewed - EKG Interpretation by Me EKG shows normal: Sinus rhythm Rate: Tachycardia - 104 [place]/QRS: Left axis deviation Discharge - Discharge Clinical Impression: Pneumonia, Hypoxia, Anemia, Uncontrolled diabetes mellitus Condition: Stable Disposition: ADMITTED INPATIENT Admitting Provider: Hospitalist - Dr. Reyes Unit Admitted: Telemetry
[2017-05-04 14:58] LABS: ABSOLUTE LYMPHOCYTES (AUTO) 0.7 10^3/uL (0.5-4.7); ABSOLUTE MONOCYTES (AUTO) 0.8 10^3/uL (0.1-1.4); ABSOLUTE NEUT (AUTO) 8.5 10^3/uL (1.7-8.2); BASOPHILS % (AUTO) 0.5 % (0-2); HEMATOCRIT 32.5 % (36.0-47.0); HEMOGLOBIN 10.7 g/dL (12.0-15.5); LYMPHOCYTES % (AUTO) 6.7 % (13-45); MEAN CORPUSCULAR HEMOGLOBIN 27.9 pg (27.0-33.4); MEAN CORPUSCULAR VOLUME 85 fl (80-97); PLATELET COUNT 218 10^3/uL (150-450); RED BLOOD COUNT 3.85 10^6/uL (3.72-5.28); RED CELL DISTRIBUTION WIDTH 14.8 % (11.5-14.0); SEGMENTED NEUTROPHILS % (AUTO) 84.8 % (42-78); TOTAL CELLS COUNTED % (AUTO) 100 %
[2017-05-04 14:59] LABS: VENOUS BLOOD BASE EXCESS -2.3 mmol/L; VENOUS BLOOD HCO3 24.7 mmol/L (20-32); VENOUS BLOOD PCO2 52.9 mmHg (35-63); VENOUS BLOOD PH 7.29 (7.30-7.42)
[2017-05-04 15:03] LABS: PROTHROMBIN TIME 12.8 SEC (11.4-15.4)
[2017-05-04 15:11] LABS: ALANINE AMINOTRANSFERASE 41 U/L (9-52); ALBUMIN 3.3 g/dL (3.5-5.0); ALKALINE PHOSPHATASE 111 U/L (38-126); ANION GAP 12 (5-19); ASPARTATE AMINO TRANSFERASE 47 U/L (14-36); BILIRUBIN,DIRECT 0.2 mg/dL (0.0-0.4); BILIRUBIN,TOTAL 0.2 mg/dL (0.2-1.3); BLOOD UREA NITROGEN 43 mg/dL (7-20); CALCIUM 8.7 mg/dL (8.4-10.2); CARBON DIOXIDE 24 mmol/L (22-30); CHLORIDE 109 mmol/L (98-107); GLUCOSE 173 mg/dL (75-110); POTASSIUM 4.5 mmol/L (3.6-5.0); SODIUM 144.6 mmol/L (137-145); TOTAL PROTEIN 6.1 g/dL (6.3-8.2)
--- NOTE | 2017-05-04 15:51 | RADIOLOGY REPORT (SQ) ---
EXAM DESCRIPTION: CHEST SINGLE VIEW COMPLETED DATE/TIME: 05/04/2017 3:39 pm REASON FOR STUDY: bed3 sepsis protocol COMPARISON: 06/18/2016 EXAM PARAMETERS: NUMBER OF VIEWS: One view. TECHNIQUE: Single frontal radiographic view of the chest acquired. RADIATION DOSE: NA LIMITATIONS: None. FINDINGS: . LUNGS AND PLEURA: Increasing retrocardiac density. Linear density left lower lung zone and minimal i ll-defined density lateral aspect of the right base. Changes probably represent pneumonic infiltrate s MEDIASTINUM AND HILAR STRUCTURES: No masses. Contour normal. HEART AND VASCULAR STRUCTURES: Heart normal in size. Normal vasculature. BONES: No acute findings. HARDWARE: None in the chest. OTHER: No other significant finding. IMPRESSION: Infiltrates involving the left lower lobe, left mid lung zone and probably lateral aspec t the right lung base. TECHNICAL DOCUMENTATION: JOB ID: [id number] [employer]- All Rights Reserved
[2017-05-04] MEDS ORDERED: CEFTRIAXONE INJ 1000 MG VIAL IV ONE (16:04)
[2017-05-04] MEDS ORDERED: AZITHROMYCIN INJ 500 MG VIAL IV ONE (16:04)
[2017-05-04] MEDS ORDERED: NORMAL SALINE 1000 ML 1,000 ML IV ONE (16:05)
[2017-05-04 16:48] LABS: A TYPE INFLUENZA AG NEGATIVE (NEGATIVE); B INFLUENZA AG NEGATIVE (NEGATIVE)
[2017-05-04] MEDS ORDERED: ONDANSETRON HCL INJ/PF 4 MG/2 ML SDV IV PRN (17:18)
[2017-05-04] MEDS ORDERED: DEXTROSE 5%-1/2 NORMAL SALINE 1,000 ML IV PRN (17:18)
[2017-05-04] MEDS ORDERED: TEMAZEPAM 7.5 MG CAPSULE PO PRN (17:18)
[2017-05-04] MEDS ORDERED: GUAIFENESIN/CODEINE PHOS 100-10 MG/ 5 ML UDC PO PRN (17:30)
--- NOTE | 2017-05-04 17:44 | PDOC H&P ---
History of Present Illness Admission Date/PCP: 05/04/17 16:32 KINJAL CABRERA MD Patient complains of: Difficulty breathing generalized malaise and cough for 2 days History of Present Illness: IGLESIA BLANCHARD is a 61 year old female is into the emergency room with complaints of difficulty breathing and shortness of breath and just not feeling well since Wednesday. She was found to be hypoxemic in the emergency room and x- ray did show pneumonia bilaterally especially involving the left lung. And has history of exposure to someone with possible flu both flu test done on her has been negative. No nausea vomiting dizziness diaphoresis or any other pertinent symptoms Past Medical History Cardiac Medical History: Reports: Hyperlipidema, Hypertension Neurological Medical History: Reports: None Endocrine Medical History: Reports: Diabetes Mellitus Type 2 Renal/ Medical History: Reports: None Malignancy Medical History: Reports: None GI Medical History: Reports: None Musculoskeltal Medical History: Reports: None Skin Medical History: Reports: None Psychiatric Medical History: Reports: None Traumatic Medical History: Reports: None Past Surgical History Past Surgical History: Reports: Section - x2, Orthopedic Surgery - Toe amputation for osteomyelitis right pinky Social History Lives with: Family Smoking Status: Former Smoker Frequency of Alcohol Use: None Hx Recreational Drug Use: No Drugs: None Hx Prescription Drug Abuse: No Family History Family History: None Parental Family History Reviewed: Yes Children Family History Reviewed: Yes Sibling(s) Family History Reviewed.: Unknown Medication/Allergy Allergies/Adverse Reactions: No Known Allergies Allergy (Verified 05/04/17 13:46) Review of Systems Constitutional: PRESENT: fatigue, weakness Cardiovascular: ABSENT: chest pain, dyspnea on exertion, edema, orthropnea, palpitations Respiratory: PRESENT: cough, dyspnea, sputum. ABSENT: hemoptysis Gastrointestinal: ABSENT: abdominal pain, constipation, diarrhea, hematemesis, hematochezia, nausea, vomiting Genitourinary: ABSENT: dysuria, hematuria Musculoskeletal: PRESENT: back pain Integumentary: ABSENT: rash, wounds Neurological: ABSENT: abnormal gait, abnormal speech, confusion, dizziness, focal weakness, syncope Hematologic/Lymphatic: ABSENT: easy bleeding, easy bruising Physical Exam Vital Signs: Temp Pulse Resp BP Pulse Ox 98.8 F 97 22 H 152/83 H 86 L 05/04/17 14:15 05/04/17 14:15 05/04/17 15:00 05/04/17 14:15 05/04/17 14:15 General appearance: PRESENT: no acute distress, well-developed - Acutely ill looking but not toxic Head exam: PRESENT: atraumatic Eye exam: PRESENT: conjunctiva pink, EOMI, PERRLA. ABSENT: scleral icterus Ear exam: PRESENT: normal external ear exam Mouth exam: PRESENT: dry mucosa Neck exam: ABSENT: carotid bruit, JVD, lymphadenopathy, thyromegaly Respiratory exam: PRESENT: crackles, decreased breath sounds, rales - Left more than right, rhonchi, tachypnea, unlabored. ABSENT: accessory muscle use, clear to auscultation delma, prolonged expiratory phas, wheezes Cardiovascular exam: PRESENT: RRR. ABSENT: diastolic murmur, rubs, systolic murmur GI/Abdominal exam: PRESENT: ascites Rectal exam: PRESENT: deferred Extremities exam: PRESENT: full ROM. ABSENT: calf tenderness, clubbing, pedal edema Neurological exam: PRESENT: alert, awake, oriented to person, oriented to place , oriented to time, oriented to situation. ABSENT: motor sensory deficit Psychiatric exam: PRESENT: appropriate affect, normal mood. ABSENT: homicidal ideation, suicidal ideation Skin exam: PRESENT: dry, intact, warm. ABSENT: cyanosis, rash Results Laboratory Results: 05/04/17 05/04/17 05/04/17 14:40 14:40 14:40 Hgb 10.7 L Hct 32.5 L RDW 14.8 H Seg Neutrophils % 84.8 H Lymphocytes % 6.7 L Absolute Neutrophils 8.5 H VBG pH 7.29 L Chloride 109 H BUN 43 H Est GFR ( Amer) 53 L Est GFR (Non-Af Amer) 44 L Glucose 173 H AST 47 H Total Protein 6.1 L Albumin 3.3 L Impressions: Chest X-Ray 05/04/17 14:26 IMPRESSION: Infiltrates involving the left lower lobe, left mid lung zone and probably lateral aspect the right lung base. Assessment & Plan - Diagnosis (1) Acute respiratory failure Qualifiers: Respiratory failure complication: hypoxia Qualified Code(s): J96.01 - Acute respiratory failure with hypoxia Is this a current diagnosis for this admission?: Yes Plan: Patient was hypoxemic on arrival. Will continue Oxygen support, bronchodilators (2) Pneumonia Qualifiers: Aspiration pneumonia type: unspecified Laterality: bilateral Is this a current diagnosis for this admission?: Yes Plan: We will obtain sputum and blood cultures. Patient has been started on Zithromax as well as ceftriaxone and she will be continued on these. Will give antitussives and Oxygen Monitor IMCU Flu test is negative (3) Hypertension Qualifiers: Hypertension type: essential hypertension Qualified Code(s): I10 - Essential (primary) hypertension Is this a current diagnosis for this admission?: Yes Plan: BP is actually high, will monitor and give meds as appropriate - Time Time Spent: 50 to 70 Minutes Medications reviewed and adjusted accordingly: Yes Anticipated discharge: Home Within: within 72 hours - Inpatient Certification Medical Necessity: Need Close Monitoring Due to Risk of Patient Decompensation, Need for IV Antibiotics
[2017-05-04] MEDS: OXYCODONE-ACETAMINOPHEN 5-325 MG TABLET PO PRN (17:51)
[2017-05-04] MEDS ORDERED: INFLUENZA ADLT QUAD (36MOS+) 2017-18 VAC 0.5 ML SYR IM PRN (20:24)
[2017-05-04] MEDS ORDERED: GLUCAGON,HUMAN RECOMB 1 MG INJ IM PRN (21:26)
[2017-05-04] MEDS ORDERED: DEXTROSE 40% GEL 15 GM TUBE PO PRN ×2 (21:26)
--- NOTE | 2017-05-04 22:45 | EKG REPORT ---
SEVERITY:- ABNORMAL ECG - SINUS TACHYCARDIA LEFT AXIS DEVIATION BORDERLINE R WAVE PROGRESSION, ANTERIOR LEADS NONSPECIFIC T ABNORMALITIES, LATERAL LEADS : Confirmed by: Citlaly Crocker 04-May-2017 22:44:51
[2017-05-04] MEDS: GUAIFENESIN/CODEINE PHOS 100-10 MG/ 5 ML UDC PO PRN (23:00)
[2017-05-04] MEDS: GUAIFENESIN 600 MG TABLET.SA PO SCH (23:06)
[2017-05-05] MEDS: INSULIN LISPRO 100 UNIT/ML 3 ML VIAL SUBCUT PRN ×3 (00:33→23:11)
[2017-05-05] MEDS: OXYCODONE-ACETAMINOPHEN 5-325 MG TABLET PO PRN ×3 (01:23→23:12)
[2017-05-05] MEDS: IPRATROPIUM/ALBUTEROL 0.5-2.5 MG/3 ML AMPUL NEB PRN ×3 (02:29→16:28)
[2017-05-05 03:46] LABS: AMORPHOUS SEDIMENT,URINE TRACE /HPF; APPEARANCE,URINE CLOUDY; BILIRUBIN,URINE NEGATIVE (NEGATIVE); COLOR,URINE YELLOW; GLUCOSE, URINE 150 mg/dL (NEGATIVE); KETONES,URINE NEGATIVE (NEGATIVE); LEUKOCYTE ESTERASE,URINE NEGATIVE (NEGATIVE); NITRITE,URINE NEGATIVE (NEGATIVE); PROTEIN,URINE >=500 mg/dL (NEGATIVE); URINE SPECIFIC GRAVITY 1.016; UROBILINOGEN,URINE NEGATIVE mg/dL (<2.0)
[2017-05-05 05:08] LABS: ABSOLUTE LYMPHOCYTES (AUTO) 1.1 10^3/uL (0.5-4.7); ABSOLUTE MONOCYTES (AUTO) 1.4 10^3/uL (0.1-1.4); ABSOLUTE NEUT (AUTO) 8.1 10^3/uL (1.7-8.2); BASOPHILS % (AUTO) 0.3 % (0-2); EOSINOPHILS % (AUTO) 0.1 % (0-6); HEMATOCRIT 27.2 % (36.0-47.0); LYMPHOCYTES % (AUTO) 10.1 % (13-45); MEAN CORPUSCULAR HEMOGLOBIN 28.4 pg (27.0-33.4); MEAN CORPUSCULAR HGB CONC 33.2 g/dL (32.0-36.0); MEAN CORPUSCULAR VOLUME 86 fl (80-97); MONOCYTES % (AUTO) 13.5 % (3-13); PLATELET COUNT 179 10^3/uL (150-450); RED BLOOD COUNT 3.19 10^6/uL (3.72-5.28); RED CELL DISTRIBUTION WIDTH 14.6 % (11.5-14.0); TOTAL CELLS COUNTED % (AUTO) 100 %; WHITE BLOOD COUNT 10.6 10^3/uL (4.0-10.5)
[2017-05-05 05:29] LABS: ANION GAP 10 (5-19); BLOOD UREA NITROGEN 45 mg/dL (7-20); CALCIUM 7.9 mg/dL (8.4-10.2); CARBON DIOXIDE 21 mmol/L (22-30); CHLORIDE 106 mmol/L (98-107); GLUCOSE 319 mg/dL (75-110); SODIUM 136.5 mmol/L (137-145)
[2017-05-05 05:49] LABS: POTASSIUM 3.5 mmol/L (3.6-5.0)
[2017-05-05] MEDS: GUAIFENESIN 600 MG TABLET.SA PO SCH ×2 (09:06→23:12)
[2017-05-05] MEDS: AZITHROMYCIN 500 MG in DEXTROSE 5%-WATER 250 ML IV SCH (09:06)
[2017-05-05] MEDS: ENOXAPARIN SODIUM INJ 40 MG/0.4 ML DISP.SYRIN SUBCUT SCH (09:06)
[2017-05-05] MEDS ORDERED: CEFTRIAXONE 1 GM/D5W RTU 1 GM/50 ML RTUPB IV SCH (10:00)
[2017-05-05] MEDS: CEFTRIAXONE SODIUM 1,000 MG in NORMAL SALINE 50 ML IV SCH (18:08)
[2017-05-05] MEDS ORDERED: BENZONATATE 100 MG CAPSULE PO PRN (18:22)
[2017-05-05] MEDS ORDERED: (PENDING PHARMACY ID) (Oxycodone Hcl/Acetaminophen [Percocet 10-325 Mg Tablet] 1 TAB) PO PRN (18:32)
--- NOTE | 2017-05-05 18:33 | PDOC PROGRESS REPORT ---
Subjective Progress Note for:: 05/05/17 Subjective:: She states that she continues to cough a lot. Nursing also reports that patient is having diarrhea. Patient states that his diarrhea started this week. Patient reports that her grand child was diagnosed with flu. Reason For Visit: ACUTE RESPIRATORY FAILURE,LEFT LOBAR PNEUMONIA Physical Exam Vital Signs: Temp Pulse Resp BP Pulse Ox 97.7 F 78 22 H 128/52 H 98 05/05/17 11:17 05/05/17 16:28 05/05/17 16:28 05/05/17 11:17 05/05/17 16:28 Intake & Output 05/04/17 05/05/17 05/06/17 06:59 06:59 06:59 Intake Total 923 357 Balance 923 357 Weight 78.5 kg 78.5 kg General appearance: PRESENT: mild distress, morbidly obese, well-developed, well -nourished Head exam: PRESENT: atraumatic, normocephalic Eye exam: PRESENT: conjunctiva pink, EOMI. ABSENT: scleral icterus Ear exam: PRESENT: normal external ear exam Mouth exam: PRESENT: moist, tongue midline Neck exam: ABSENT: carotid bruit, JVD, lymphadenopathy, thyromegaly Respiratory exam: PRESENT: accessory muscle use, prolonged expiratory phas, wheezes. ABSENT: rales, rhonchi Cardiovascular exam: PRESENT: RRR. ABSENT: diastolic murmur, rubs, systolic murmur Pulses: PRESENT: normal dorsalis pedis pul Vascular exam: PRESENT: normal capillary refill GI/Abdominal exam: PRESENT: normal bowel sounds, soft. ABSENT: distended, guarding, mass, organolmegaly, rebound, tenderness Rectal exam: PRESENT: deferred Extremities exam: PRESENT: full ROM. ABSENT: calf tenderness, clubbing, pedal edema Musculoskeletal exam: PRESENT: full ROM Neurological exam: PRESENT: alert, awake, oriented to person, oriented to place , oriented to time, oriented to situation, CN II-XII grossly intact. ABSENT: motor sensory deficit Psychiatric exam: PRESENT: appropriate affect, normal mood. ABSENT: homicidal ideation, suicidal ideation Skin exam: PRESENT: dry, intact, warm. ABSENT: cyanosis, rash Results Laboratory Results: 05/05/17 04:39 05/05/17 04:39 05/05/17 05/05/17 05/05/17 03:00 04:39 04:39 WBC 10.6 H RBC 3.19 L Hgb 9.0 L Hct 27.2 L MCV 86 MCH 28.4 MCHC 33.2 RDW 14.6 H Plt Count 179 Seg Neutrophils % 76.0 Lymphocytes % 10.1 L Monocytes % 13.5 H Eosinophils % 0.1 Basophils % 0.3 Absolute Neutrophils 8.1 Absolute Lymphocytes 1.1 Absolute Monocytes 1.4 Absolute Eosinophils 0.0 Absolute Basophils 0.0 Sodium 136.5 L Potassium 3.5 L D Chloride 106 Carbon Dioxide 21 L Anion Gap 10 BUN 45 H Creatinine 1.26 H Est GFR ( Amer) 52 L Est GFR (Non-Af Amer) 43 L Glucose 319 H Calcium 7.9 L Urine Color YELLOW Urine Appearance CLOUDY Urine pH 5.0 Ur Specific [place] 1.016 Urine Protein >=500 H Urine Glucose (UA) 150 H Urine Ketones NEGATIVE Urine Blood SMALL H Urine Nitrite NEGATIVE Ur Leukocyte Esterase NEGATIVE Urine WBC (Auto) 2 Urine RBC (Auto) 1 Impressions: Chest X-Ray 05/04/17 14:26 IMPRESSION: Infiltrates involving the left lower lobe, left mid lung zone and probably lateral aspect the right lung base. Assessment & Plan - Diagnosis (1) Acute respiratory failure Qualifiers: Respiratory failure complication: hypoxia Qualified Code(s): J96.01 - Acute respiratory failure with hypoxia Is this a current diagnosis for this admission?: Yes Plan: Secondary to viral illness: We will continue breathing treatments, steroids, antibiotics (2) Hyponatremia Is this a current diagnosis for this admission?: Yes Plan: Secondary to Hyperglycemia: Will continue to monitor. (3) Hypokalemia Is this a current diagnosis for this admission?: Yes Plan: Will give Potassium replacement. Will check BMP and Mg in am. (4) Pneumonia Qualifiers: Aspiration pneumonia type: unspecified Laterality: bilateral Is this a current diagnosis for this admission?: Yes Plan: Rocephin and Azithromycin (5) Diabetes Qualifiers: Diabetes mellitus type: type 2 Diabetes mellitus complication status: with unspecified complications Diabetes mellitus parts counterman insulin use: with correction use Qualified Code(s): E11.8 - Type 2 diabetes mellitus with unspecified complications (6) Hypertension Qualifiers: Hypertension type: essential hypertension Qualified Code(s): I10 - Essential (primary) hypertension Is this a current diagnosis for this admission?: Yes Plan: Will restart medications. - Time Time Spent with patient: 25-34 minutes
[2017-05-05] MEDS ORDERED: POTASSIUM CHLORIDE 10 MEQ TABLET.SA PO ONE (19:00)
[2017-05-05] MEDS ORDERED: INSULIN GLARGINE,HUM.REC.ANLOG 300 UNIT/3 ML INSULN.PEN SUBCUT SCH (22:00)
[2017-05-05] MEDS ORDERED: BISACODYL 10 MG SUPP.RECT PR ONE (22:15)
[2017-05-05] MEDS: OXYCODONE HCL IR 5 MG TABLET PO PRN (23:12)
[2017-05-05] MEDS: METHYLPREDNISOLONE INJ 125 MG/2 ML SDV IV SCH (23:12)
[2017-05-06] MEDS: IPRATROPIUM/ALBUTEROL 0.5-2.5 MG/3 ML AMPUL NEB PRN ×2 (05:15→14:24)
[2017-05-06] MEDS: METHYLPREDNISOLONE INJ 125 MG/2 ML SDV IV SCH ×3 (06:02→21:05)
[2017-05-06] MEDS: OXYCODONE HCL IR 5 MG TABLET PO PRN (06:02)
[2017-05-06] MEDS: OXYCODONE-ACETAMINOPHEN 5-325 MG TABLET PO PRN (06:02)
[2017-05-06] MEDS: LEVOTHYROXINE SODIUM 0.05 MG TABLET PO SCH (06:02)
[2017-05-06] MEDS: GUAIFENESIN/CODEINE PHOS 100-10 MG/ 5 ML UDC PO PRN ×2 (07:15→23:40)
[2017-05-06 07:18] LABS: ABSOLUTE LYMPHOCYTES (AUTO) 0.5 10^3/uL (0.5-4.7); ABSOLUTE MONOCYTES (AUTO) 0.1 10^3/uL (0.1-1.4); ABSOLUTE NEUT (AUTO) 5.8 10^3/uL (1.7-8.2); ABSOLUTE RETICS # 0.047 10^6/uL (0.028-0.122); BASOPHILS % (AUTO) 0.1 % (0-2); HEMATOCRIT 29.8 % (36.0-47.0); HEMOGLOBIN 9.9 g/dL (12.0-15.5); LYMPHOCYTES % (AUTO) 7.8 % (13-45); MEAN CORPUSCULAR HEMOGLOBIN 28.1 pg (27.0-33.4); MEAN CORPUSCULAR HGB CONC 33.3 g/dL (32.0-36.0); MEAN CORPUSCULAR VOLUME 85 fl (80-97); PLATELET COUNT 196 10^3/uL (150-450); RED BLOOD COUNT 3.53 10^6/uL (3.72-5.28); RED CELL DISTRIBUTION WIDTH 14.5 % (11.5-14.0); RETICULOCYTE COUNT (AUTO) 1.33 % (0.66-2.85); SEGMENTED NEUTROPHILS % (AUTO) 90.1 % (42-78); TOTAL CELLS COUNTED % (AUTO) 100 %; WHITE BLOOD COUNT 6.4 10^3/uL (4.0-10.5)
[2017-05-06 07:29] LABS: ALANINE AMINOTRANSFERASE 41 U/L (9-52); ALBUMIN 2.9 g/dL (3.5-5.0); ALKALINE PHOSPHATASE 97 U/L (38-126); ANION GAP 10 (5-19); ASPARTATE AMINO TRANSFERASE 40 U/L (14-36); BLOOD UREA NITROGEN 48 mg/dL (7-20); CALCIUM 8.4 mg/dL (8.4-10.2); CARBON DIOXIDE 20 mmol/L (22-30); CHLORIDE 107 mmol/L (98-107); GLUCOSE 268 mg/dL (75-110); POTASSIUM 4.8 mmol/L (3.6-5.0); SODIUM 137.4 mmol/L (137-145); TOTAL PROTEIN 5.6 g/dL (6.3-8.2)
[2017-05-06 08:41] LABS: BILIRUBIN,TOTAL < 0.1 mg/dL (0.2-1.3); IRON(TIBC) < 10.1 ug/dL (37-170)
[2017-05-06] MEDS: INSULIN LISPRO 100 UNIT/ML 3 ML VIAL SUBCUT PRN ×4 (08:41→22:13)
[2017-05-06] MEDS ORDERED: LISINOPRIL 10 MG TABLET PO SCH (10:00)
[2017-05-06] MEDS ORDERED: FUROSEMIDE 40 MG TABLET PO SCH (10:00)
[2017-05-06] MEDS: AZITHROMYCIN 500 MG in DEXTROSE 5%-WATER 250 ML IV SCH (10:16)
[2017-05-06] MEDS: GUAIFENESIN 600 MG TABLET.SA PO SCH ×2 (10:18→21:05)
[2017-05-06] MEDS: CLONIDINE HCL 0.1 MG TABLET PO SCH (10:18)
[2017-05-06] MEDS: ENOXAPARIN SODIUM INJ 40 MG/0.4 ML DISP.SYRIN SUBCUT SCH (10:19)
--- NOTE | 2017-05-06 12:18 | Physician Advisory Note ---
Physician Advisor ProgressNote .: Pursuant to the plan for [facility], I have reviewed the medical record for this patient. Physician Advisor Statement: Nice documentation of Ac Resp Failure. Pt was hypoxemic & in respiratory distress in ED, using accessory muscles to breathe on exam 05/05/17 w/O2 sat as low as 95% on 2L O2 that day (gives P/F ratio of 286). Please consider documenting, if you agree: 1. "Pneumonia, suspect possible * type, evidenced by " *Gram neg? Gram positive? Specific bacteria? (If just considering viral PNA, there would be no need for abx....) H&P already nicely documents supporting findings of cough, dyspnea, sputum , crackles, rhonchi, hypoxemia, decreased BS which indicates consolidation, demonstrable infiltrate by CXR, & vital signs note tachycardia & repeated RR >24. - Please document if there was also any evidence of (+) fever, pleuritic CP, chills, rigors, mental status changes due to PNA, leukocytosis, . Thanks for all you do! CK
[2017-05-06] MEDS: ERGOCALCIFEROL (VITAMIN D2) 50000 UNIT (1.25 MG) CAPSULE PO SCH (17:07)
[2017-05-06] MEDS: CEFTRIAXONE SODIUM 1,000 MG in NORMAL SALINE 50 ML IV SCH (17:08)
[2017-05-06] MEDS ORDERED: HYDRALAZINE HCL INJ/PF 20 MG/1 ML SDV ONE (17:33)
[2017-05-06] MEDS ORDERED: HYDRALAZINE HCL INJ/PF 20 MG/1 ML SDV IV ONE (18:00)
[2017-05-06] MEDS ORDERED: NORMAL SALINE 1000 ML 500 ML IV ONE (18:30)
[2017-05-06] MEDS ORDERED: NORMAL SALINE 500 ML IV ONE (18:30)
--- NOTE | 2017-05-06 18:39 | PDOC PROGRESS REPORT ---
Subjective Progress Note for:: 05/06/17 Subjective:: Pt states that her breathing has improved. However, nursing states that pt was complaining of chest pain. Nursing reports that pt had elevated blood pressure. Reason For Visit: ACUTE RESPIRATORY FAILURE,LEFT LOBAR PNEUMONIA Physical Exam Vital Signs: Temp Pulse Resp BP Pulse Ox 98.4 F 70 18 179/76 H 98 05/06/17 10:46 05/06/17 14:28 05/06/17 14:28 05/06/17 10:46 05/06/17 14:28 Intake & Output 05/05/17 05/06/17 05/07/17 06:59 06:59 06:59 Intake Total 923 2518 Balance 923 2518 Weight 78.5 kg 79.8 kg General appearance: PRESENT: no acute distress, well-developed, well-nourished Head exam: PRESENT: atraumatic, normocephalic Eye exam: PRESENT: conjunctiva pink, EOMI. ABSENT: scleral icterus Ear exam: PRESENT: normal external ear exam Mouth exam: PRESENT: moist, tongue midline Neck exam: ABSENT: carotid bruit, JVD, lymphadenopathy, thyromegaly Respiratory exam: PRESENT: clear to auscultation delma. ABSENT: rales, rhonchi, wheezes Cardiovascular exam: PRESENT: bradycardia Pulses: PRESENT: normal dorsalis pedis pul Vascular exam: PRESENT: normal capillary refill GI/Abdominal exam: PRESENT: normal bowel sounds, soft. ABSENT: distended, guarding, mass, organolmegaly, rebound, tenderness Rectal exam: PRESENT: deferred Extremities exam: PRESENT: full ROM. ABSENT: calf tenderness, clubbing, pedal edema Neurological exam: PRESENT: alert, awake, oriented to person, oriented to place , oriented to time, oriented to situation, CN II-XII grossly intact. ABSENT: motor sensory deficit Psychiatric exam: PRESENT: appropriate affect, normal mood. ABSENT: homicidal ideation, suicidal ideation Skin exam: PRESENT: dry, intact, warm. ABSENT: cyanosis, rash Results Laboratory Results: 05/06/17 06:23 05/06/17 06:23 05/06/17 05/06/17 06:23 06:23 WBC 6.4 RBC 3.53 L Hgb 9.9 L Hct 29.8 L MCV 85 MCH 28.1 MCHC 33.3 RDW 14.5 H Plt Count 196 Seg Neutrophils % 90.1 H Lymphocytes % 7.8 L Monocytes % 2.0 L Eosinophils % 0.0 Basophils % 0.1 Absolute Neutrophils 5.8 Absolute Lymphocytes 0.5 Absolute Monocytes 0.1 Absolute Eosinophils 0.0 Absolute Basophils 0.0 Retic Count (auto) 1.33 Absolute Retic 0.047 Sodium 137.4 Potassium 4.8 Chloride 107 Carbon Dioxide 20 L Anion Gap 10 BUN 48 H Creatinine 1.37 H Est GFR ( Amer) 48 L Est GFR (Non-Af Amer) 39 L Glucose 268 H Calcium 8.4 Magnesium 2.0 Iron < 10.1 L TIBC 265 % Saturation UNABLE TO CALCULATE Ferritin 110.00 Total Bilirubin < 0.1 L AST 40 H ALT 41 Alkaline Phosphatase 97 Total Protein 5.6 L Albumin 2.9 L Vitamin B12 871.0 Folate 12.20 05/06/17 11:15 Troponin I 0.036 Impressions: Chest X-Ray 05/04/17 14:26 IMPRESSION: Infiltrates involving the left lower lobe, left mid lung zone and probably lateral aspect the right lung base. Assessment & Plan - Diagnosis (1) Acute respiratory failure Qualifiers: Respiratory failure complication: hypoxia Qualified Code(s): J96.01 - Acute respiratory failure with hypoxia Is this a current diagnosis for this admission?: Yes Plan: Secondary to viral illness: We will continue breathing treatments, steroids, antibiotics (2) Hyponatremia Is this a current diagnosis for this admission?: Yes Plan: Secondary to Hyperglycemia: Resolved. (3) Hypokalemia Is this a current diagnosis for this admission?: Yes Plan: Resolved. (4) Pneumonia Qualifiers: Aspiration pneumonia type: unspecified Laterality: bilateral Is this a current diagnosis for this admission?: Yes Plan: Rocephin and Azithromycin. Will discontinue antibiotics. (5) Diabetes Qualifiers: Diabetes mellitus type: type 2 Diabetes mellitus complication status: with unspecified complications Diabetes mellitus terminal press operator insulin use: with mcc use Qualified Code(s): E11.8 - Type 2 diabetes mellitus with unspecified complications Plan: Will increase Lantus dose. (6) Hypertension Qualifiers: Hypertension type: essential hypertension Qualified Code(s): I10 - Essential (primary) hypertension Is this a current diagnosis for this admission?: Yes Plan: Will give Hydralazine IV X 1 and placed on Hydralazine 50mg PO Q8. (7) Acute renal injury due to hypovolemia Is this a current diagnosis for this admission?: Yes Plan: Will discontinue Lisinopril. Will give NS 500ml Bolus X 1. Will discontinue Lasix. Will check BMP. (8) Chest pain Is this a current diagnosis for this admission?: No Plan: Most likely Secondary to Hypertension: Troponins negative. Will check EKG. (9) Iron (Fe) deficiency anemia Is this a current diagnosis for this admission?: Yes Plan: Will place on Iron Replacement. Will check occult stools. - Time Time Spent with patient: 25-34 minutes
[2017-05-06] MEDS: HYDRALAZINE HCL 50 MG TABLET PO SCH (21:05)
[2017-05-06] MEDS: INSULIN GLARGINE,HUM.REC.ANLOG 300 UNIT/3 ML INSULN.PEN SUBCUT SCH (22:13)
--- NOTE | 2017-05-06 22:45 | EKG REPORT ---
SEVERITY:- ABNORMAL ECG - SINUS RHYTHM PROBABLE LEFT ATRIAL ABNORMALITY BORDERLINE LEFT AXIS DEVIATION CONSIDER ANTEROSEPTAL INFARCT : Confirmed by: Citlaly Crocker 06-May-2017 22:45:26
[2017-05-07] MEDS: IPRATROPIUM/ALBUTEROL 0.5-2.5 MG/3 ML AMPUL NEB PRN ×2 (01:09→13:44)
[2017-05-07] MEDS: LEVOTHYROXINE SODIUM 0.05 MG TABLET PO SCH (05:27)
[2017-05-07] MEDS: HYDRALAZINE HCL 50 MG TABLET PO SCH ×3 (05:27→22:27)
[2017-05-07] MEDS: METHYLPREDNISOLONE INJ 125 MG/2 ML SDV IV SCH ×3 (05:27→22:27)
[2017-05-07] MEDS: INSULIN LISPRO 100 UNIT/ML 3 ML VIAL SUBCUT PRN ×2 (08:09→22:27)
[2017-05-07] MEDS: OXYCODONE HCL IR 5 MG TABLET PO PRN ×2 (08:11→11:50)
[2017-05-07] MEDS: OXYCODONE-ACETAMINOPHEN 5-325 MG TABLET PO PRN ×2 (08:12→11:52)
[2017-05-07] MEDS ORDERED: LANSOPRAZOLE 30 MG TAB.RAP.DR PO ONE (09:30)
[2017-05-07] MEDS ORDERED: AZITHROMYCIN 250 MG TABLET PO SCH (10:00)
[2017-05-07] MEDS: CLONIDINE HCL 0.1 MG TABLET PO SCH (10:55)
[2017-05-07] MEDS: GUAIFENESIN 600 MG TABLET.SA PO SCH ×2 (10:55→22:27)
[2017-05-07] MEDS: IRON SUCROSE COMPLEX INJ/PF 100 MG/5 ML SDV IV SCH (10:55)
[2017-05-07] MEDS ORDERED: FUROSEMIDE INJ/PF 40 MG/4 ML SDV IV ONE (16:02)
[2017-05-07] MEDS: CEFTRIAXONE SODIUM 1,000 MG in NORMAL SALINE 50 ML IV SCH (17:41)
[2017-05-07] MEDS: GUAIFENESIN/CODEINE PHOS 100-10 MG/ 5 ML UDC PO PRN ×2 (17:42→23:24)
--- NOTE | 2017-05-07 20:58 | PDOC PROGRESS REPORT ---
Subjective Progress Note for:: 05/07/17 Subjective:: Pt reports that cough medicine help her a lot. Pt was asking how long she would have to stay in the hospital. Reason For Visit: ACUTE RESPIRATORY FAILURE,LEFT LOBAR PNEUMONIA Physical Exam Vital Signs: Temp Pulse Resp BP Pulse Ox 97.4 F 86 20 169/72 H 99 05/07/17 15:25 05/07/17 19:00 05/07/17 15:25 05/07/17 15:25 05/07/17 15:25 Intake & Output 05/06/17 05/07/17 05/08/17 06:59 06:59 06:59 Intake Total 2518 3145 524 Balance 2518 3145 524 Weight 79.8 kg 80.7 kg General appearance: PRESENT: no acute distress, morbidly obese, well-developed, well-nourished Head exam: PRESENT: atraumatic, normocephalic Eye exam: PRESENT: conjunctiva pink, EOMI, PERRLA. ABSENT: scleral icterus Ear exam: PRESENT: normal external ear exam Mouth exam: PRESENT: moist, tongue midline Neck exam: ABSENT: carotid bruit, JVD, lymphadenopathy, thyromegaly Respiratory exam: PRESENT: other - coarse breath sounds, prolonged expiratory phase, accessory muscle use Cardiovascular exam: PRESENT: RRR. ABSENT: diastolic murmur, rubs, systolic murmur Pulses: PRESENT: normal dorsalis pedis pul Vascular exam: PRESENT: normal capillary refill GI/Abdominal exam: PRESENT: normal bowel sounds, soft. ABSENT: distended, guarding, mass, organolmegaly, rebound, tenderness Rectal exam: PRESENT: deferred Extremities exam: PRESENT: full ROM. ABSENT: calf tenderness, clubbing, pedal edema Neurological exam: PRESENT: alert, awake, oriented to person, oriented to place , oriented to time, oriented to situation, CN II-XII grossly intact. ABSENT: motor sensory deficit Psychiatric exam: PRESENT: appropriate affect, normal mood. ABSENT: homicidal ideation, suicidal ideation Skin exam: PRESENT: dry, intact, warm. ABSENT: cyanosis, rash Results Laboratory Results: 05/06/17 06:23 05/06/17 06:23 05/06/17 06:23 Transferrin 194 L 05/05/17 03:00 Clean Catch Midstream Urine Culture - Final NO GROWTH 2 DAYS 05/06/17 05/06/17 05/07/17 11:15 18:45 00:50 Troponin I 0.036 0.040 0.036 05/07/17 07:08 Troponin I 0.036 Impressions: Chest X-Ray 05/04/17 14:26 IMPRESSION: Infiltrates involving the left lower lobe, left mid lung zone and probably lateral aspect the right lung base. Assessment & Plan - Diagnosis (1) Acute respiratory failure Qualifiers: Respiratory failure complication: hypoxia Qualified Code(s): J96.01 - Acute respiratory failure with hypoxia Is this a current diagnosis for this admission?: Yes Plan: Secondary to viral illness: Improving. Will discontinue antibiotics. (2) Hyponatremia Is this a current diagnosis for this admission?: Yes Plan: Secondary to Hyperglycemia: Resolved. (3) Hypokalemia Is this a current diagnosis for this admission?: Yes Plan: Resolved. (4) Pneumonia Qualifiers: Aspiration pneumonia type: unspecified Laterality: bilateral Is this a current diagnosis for this admission?: Yes Plan: Secondary to viral pneumonia: Rocephin and Azithromycin. Will discontinue antibiotics. (5) Diabetes Qualifiers: Diabetes mellitus type: type 2 Diabetes mellitus complication status: with unspecified complications Diabetes mellitus fpc insulin use: with fpc use Qualified Code(s): E11.8 - Type 2 diabetes mellitus with unspecified complications Plan: We will continue current regimen (6) Hypertension Qualifiers: Hypertension type: essential hypertension Qualified Code(s): I10 - Essential (primary) hypertension Is this a current diagnosis for this admission?: Yes Plan: We will increase patient's clonidine to twice daily and add Norvasc (7) Acute renal injury due to hypovolemia Is this a current diagnosis for this admission?: Yes Plan: BMP in a.m. If renal function has improved will restart BETO inhibitor. (8) Chest pain Is this a current diagnosis for this admission?: No Plan: Most likely Secondary to Hypertension: Troponins negative. Will check EKG. (9) Iron (Fe) deficiency anemia Is this a current diagnosis for this admission?: Yes Plan: We will continue iron replacement. occult stools pending - Time Time Spent with patient: 15-24 minutes
[2017-05-07] MEDS: INSULIN GLARGINE,HUM.REC.ANLOG 300 UNIT/3 ML INSULN.PEN SUBCUT SCH (22:27)
[2017-05-08] MEDS: IPRATROPIUM/ALBUTEROL 0.5-2.5 MG/3 ML AMPUL NEB PRN ×3 (04:32→21:20)
[2017-05-08] MEDS: HYDRALAZINE HCL 50 MG TABLET PO SCH ×3 (05:37→22:11)
[2017-05-08] MEDS: LEVOTHYROXINE SODIUM 0.05 MG TABLET PO SCH (05:37)
[2017-05-08] MEDS: METHYLPREDNISOLONE INJ 125 MG/2 ML SDV IV SCH ×2 (05:37→14:35)
[2017-05-08] MEDS: LANSOPRAZOLE 30 MG TAB.RAP.DR PO SCH (05:37)
[2017-05-08] MEDS: OXYCODONE HCL IR 5 MG TABLET PO PRN (05:37)
[2017-05-08] MEDS: OXYCODONE-ACETAMINOPHEN 5-325 MG TABLET PO PRN ×2 (05:37→22:33)
[2017-05-08] MEDS: INSULIN LISPRO 100 UNIT/ML 3 ML VIAL SUBCUT PRN ×3 (08:53→17:22)
[2017-05-08 09:40] LABS: HEMATOCRIT 31.4 % (36.0-47.0); HEMOGLOBIN 10.2 g/dL (12.0-15.5); MEAN CORPUSCULAR HEMOGLOBIN 27.4 pg (27.0-33.4); MEAN CORPUSCULAR HGB CONC 32.7 g/dL (32.0-36.0); MEAN CORPUSCULAR VOLUME 84 fl (80-97); PLATELET COUNT 235 10^3/uL (150-450); RED BLOOD COUNT 3.74 10^6/uL (3.72-5.28); RED CELL DISTRIBUTION WIDTH 14.6 % (11.5-14.0); WHITE BLOOD COUNT 12.6 10^3/uL (4.0-10.5)
[2017-05-08 09:42] LABS: ANION GAP 13 (5-19); BLOOD UREA NITROGEN 52 mg/dL (7-20); CALCIUM 8.6 mg/dL (8.4-10.2); CARBON DIOXIDE 19 mmol/L (22-30); CHLORIDE 109 mmol/L (98-107); GLUCOSE 194 mg/dL (75-110); SODIUM 140.7 mmol/L (137-145)
[2017-05-08] MEDS ORDERED: AMLODIPINE BESYLATE 10 MG TABLET PO SCH (10:00)
[2017-05-08 10:08] LABS: ABSOLUTE LYMPHOCYTES# (MANUAL) 0.5 10^3/uL (0.5-4.7); ABSOLUTE MONOCYTES # (MANUAL) 0.6 10^3/uL (0.1-1.4); ABSOLUTE NEUTROPHILS# (MANUAL) 11.5 10^3/uL (1.7-8.2); BAND NEUTROPHILS % (MANUAL) 2 % (3-5); BASOPHILS % (MANUAL) 0 % (0-2); EOSINOPHILS % (MANUAL) 0 % (0-6); LYMPHOCYTES % (MANUAL) 4 % (13-45); MONOCYTES % (MANUAL) 5 % (3-13); PLATELET COMMENT ADEQUATE; RBC MORPHOLOGY COMMENT NORMO-CYTIC/CHROMIC; SEGMENTED NEUTROPHILS % (MAN) 89 % (42-78); TOTAL CELLS COUNTED 100
[2017-05-08 10:10] LABS: HYPOCHROMASIA SLIGHT
[2017-05-08] MEDS: CLONIDINE HCL 0.1 MG TABLET PO SCH ×2 (10:49→22:11)
[2017-05-08] MEDS: IRON SUCROSE COMPLEX INJ/PF 100 MG/5 ML SDV IV SCH (10:50)
[2017-05-08] MEDS: GUAIFENESIN 600 MG TABLET.SA PO SCH ×2 (10:50→22:10)
--- NOTE | 2017-05-08 16:26 | PDOC PROGRESS REPORT ---
Subjective Progress Note for:: 05/08/17 Subjective:: Patient was upset this morning because she wanted to go home to see her grandchild. Patient states that she is very upset that she is sick. Reason For Visit: ACUTE RESPIRATORY FAILURE,LEFT LOBAR PNEUMONIA Physical Exam Vital Signs: Temp Pulse Resp BP Pulse Ox 97.4 F 91 18 177/66 H 97 05/08/17 12:03 05/08/17 14:00 05/08/17 12:03 05/08/17 12:03 05/08/17 12:03 Intake & Output 05/07/17 05/08/17 05/09/17 06:59 06:59 06:59 Intake Total 3145 1023 Balance 3145 1023 Weight 80.7 kg 78.2 kg General appearance: PRESENT: mild distress, well-developed, well-nourished Head exam: PRESENT: atraumatic, normocephalic Eye exam: PRESENT: conjunctiva pink, EOMI. ABSENT: scleral icterus Ear exam: PRESENT: normal external ear exam Mouth exam: PRESENT: moist, tongue midline Neck exam: ABSENT: carotid bruit, JVD, lymphadenopathy, thyromegaly Respiratory exam: PRESENT: wheezes - scant wheezing, Pt able to speak in complete sentences, Improved breath sounds. Cardiovascular exam: PRESENT: RRR. ABSENT: diastolic murmur, rubs, systolic murmur Pulses: PRESENT: normal dorsalis pedis pul Vascular exam: PRESENT: normal capillary refill GI/Abdominal exam: PRESENT: normal bowel sounds, soft. ABSENT: distended, guarding, mass, organolmegaly, rebound, tenderness Rectal exam: PRESENT: deferred Extremities exam: PRESENT: full ROM. ABSENT: calf tenderness, clubbing, pedal edema Musculoskeletal exam: PRESENT: full ROM Neurological exam: PRESENT: alert, awake, oriented to person, oriented to place , oriented to time, oriented to situation, CN II-XII grossly intact. ABSENT: motor sensory deficit Psychiatric exam: PRESENT: appropriate affect, normal mood. ABSENT: homicidal ideation, suicidal ideation Skin exam: PRESENT: dry, intact, warm. ABSENT: cyanosis, rash Results Laboratory Results: 05/08/17 09:05 05/08/17 09:05 05/08/17 05/08/17 09:05 09:05 WBC 12.6 H RBC 3.74 Hgb 10.2 L Hct 31.4 L MCV 84 MCH 27.4 MCHC 32.7 RDW 14.6 H Plt Count 235 Seg Neutrophils % Not Reportable Lymphocytes % Not Reportable Monocytes % Not Reportable Eosinophils % Not Reportable Basophils % Not Reportable Absolute Neutrophils Not Reportable Absolute Lymphocytes Not Reportable Absolute Monocytes Not Reportable Absolute Eosinophils Not Reportable Absolute Basophils Not Reportable Sodium 140.7 Potassium 4.0 Chloride 109 H Carbon Dioxide 19 L Anion Gap 13 BUN 52 H Creatinine 1.26 H Est GFR ( Amer) 52 L Est GFR (Non-Af Amer) 43 L Glucose 194 H Calcium 8.6 05/06/17 05/06/17 05/07/17 11:15 18:45 00:50 Troponin I 0.036 0.040 0.036 05/07/17 07:08 Troponin I 0.036 Impressions: Chest X-Ray 05/04/17 14:26 IMPRESSION: Infiltrates involving the left lower lobe, left mid lung zone and probably lateral aspect the right lung base. Assessment & Plan - Diagnosis (1) Acute respiratory failure Qualifiers: Respiratory failure complication: hypoxia Qualified Code(s): J96.01 - Acute respiratory failure with hypoxia Is this a current diagnosis for this admission?: Yes Plan: Secondary to viral illness: Improving. Will change steroids to Methylprednisolone 40 mg IV Q12. (2) Hyponatremia Is this a current diagnosis for this admission?: Yes Plan: Secondary to Hyperglycemia: Resolved. (3) Hypokalemia Is this a current diagnosis for this admission?: Yes Plan: Resolved. (4) Pneumonia Qualifiers: Aspiration pneumonia type: unspecified Laterality: bilateral Is this a current diagnosis for this admission?: Yes Plan: Secondary to viral pneumonia: antibiotics discontinued. (5) Diabetes Qualifiers: Diabetes mellitus type: type 2 Diabetes mellitus complication status: with unspecified complications Diabetes mellitus assisted insulin use: with assisted use Qualified Code(s): E11.8 - Type 2 diabetes mellitus with unspecified complications Plan: Will continue Lantus at 40units QHS and add Humalog 5 units with meals. (6) Hypertension Qualifiers: Hypertension type: essential hypertension Qualified Code(s): I10 - Essential (primary) hypertension Is this a current diagnosis for this admission?: Yes Plan: Will discontinue Norvasc. Will place pt on Procardia 60 mg p.o. daily with first dose now (7) Acute renal injury due to hypovolemia Is this a current diagnosis for this admission?: Yes Plan: Resolving. Will check BMP in am before restarting Lisinopril. (8) Chest pain Is this a current diagnosis for this admission?: No Plan: Most likely Secondary to Hypertension: Troponins negative. (9) Iron (Fe) deficiency anemia Is this a current diagnosis for this admission?: Yes Plan: We will continue iron replacement. occult stools pending. Need to see GI as outpatient for colonoscopy and EGD. - Time Time Spent with patient: 25-34 minutes Anticipated discharge: Home with Homehealth
[2017-05-08] MEDS ORDERED: NIFEDIPINE 30 MG TAB.ER.24 PO ONE (17:00)
[2017-05-08] MEDS ORDERED: METHYLPREDNISOLONE INJ 40 MG/1 ML SDV IV SCH (18:00)
[2017-05-08] MEDS ORDERED: SORBITOL 70% SOLUTION 30 ML UDC PO ONE (21:18)
[2017-05-08] MEDS ORDERED: BISACODYL 5 MG TABEC PO ONE (21:19)
[2017-05-08] MEDS ORDERED: SENNOSIDES/DOCUSATE 8.6-50 MG 1 EACH TABLET PO PRN (21:20)
[2017-05-08] MEDS ORDERED: SORBITOL 70% SOLUTION 30 ML UDC ONE ×2 (21:49→21:55)
[2017-05-08] MEDS: METHYLPREDNISOLONE INJ 40 MG/1 ML SDV IV SCH (22:12)
[2017-05-08] MEDS: GUAIFENESIN/CODEINE PHOS 100-10 MG/ 5 ML UDC PO PRN (22:14)
[2017-05-08] MEDS: INSULIN GLARGINE,HUM.REC.ANLOG 300 UNIT/3 ML INSULN.PEN SUBCUT SCH (22:19)
[2017-05-09] MEDS: HYDRALAZINE HCL 50 MG TABLET PO SCH ×2 (06:14→14:25)
[2017-05-09] MEDS: LEVOTHYROXINE SODIUM 0.05 MG TABLET PO SCH (06:14)
[2017-05-09] MEDS: LANSOPRAZOLE 30 MG TAB.RAP.DR PO SCH (06:15)
[2017-05-09] MEDS: CLONIDINE HCL 0.1 MG TABLET PO SCH (10:44)
[2017-05-09] MEDS: GUAIFENESIN/CODEINE PHOS 100-10 MG/ 5 ML UDC PO PRN (10:45)
[2017-05-09] MEDS: IRON SUCROSE COMPLEX INJ/PF 100 MG/5 ML SDV IV SCH (10:45)
[2017-05-09] MEDS: NIFEDIPINE 30 MG TAB.ER.24 PO SCH (10:45)
[2017-05-09] MEDS: GUAIFENESIN 600 MG TABLET.SA PO SCH ×2 (10:45→21:52)
[2017-05-09] MEDS: METHYLPREDNISOLONE INJ 40 MG/1 ML SDV IV SCH (10:46)
[2017-05-09] MEDS ORDERED: INSULIN NPH (ISOPHANE), HUMAN 100 UNIT/ML 3 ML SUBCUT SCH (16:00)
[2017-05-09] MEDS: RINGERS SOLUTION,LACTATED 1,000 ML IV PRN (17:03)
[2017-05-09] MEDS ORDERED: PANTOPRAZOLE SODIUM 80 MG in NORMAL SALINE 100 ML IV ONE (17:20)
--- NOTE | 2017-05-09 17:21 | PDOC PROGRESS REPORT ---
Subjective Progress Note for:: 05/09/17 Subjective:: Patient was upset this morning because she has been vomiting. Nurse states that she is given her Zofran but Zofran has not stopped patient from vomiting. Nursing states that patient's vomiting of black colored material. Reason For Visit: ACUTE RESPIRATORY FAILURE,LEFT LOBAR PNEUMONIA Physical Exam Vital Signs: Temp Pulse Resp BP Pulse Ox 97.4 F 59 L 20 100/48 L 93 05/09/17 14:19 05/09/17 16:30 05/09/17 16:30 05/09/17 16:30 05/09/17 16:30 Intake & Output 05/08/17 05/09/17 05/10/17 06:59 06:59 06:59 Intake Total 1023 2134 Output Total 1 Balance 1023 2133 Weight 78.2 kg 77.3 kg General appearance: PRESENT: no acute distress, well-developed, well-nourished Head exam: PRESENT: atraumatic, normocephalic Eye exam: PRESENT: conjunctiva pink, EOMI. ABSENT: scleral icterus Ear exam: PRESENT: normal external ear exam Mouth exam: PRESENT: moist, tongue midline Neck exam: ABSENT: carotid bruit, JVD, lymphadenopathy, thyromegaly Respiratory exam: PRESENT: clear to auscultation delma. ABSENT: rales, rhonchi, wheezes Cardiovascular exam: PRESENT: RRR. ABSENT: diastolic murmur, rubs, systolic murmur Pulses: PRESENT: normal dorsalis pedis pul Vascular exam: PRESENT: normal capillary refill GI/Abdominal exam: PRESENT: normal bowel sounds, soft. ABSENT: distended, guarding, mass, organolmegaly, rebound, tenderness Rectal exam: PRESENT: deferred Extremities exam: PRESENT: full ROM. ABSENT: calf tenderness, clubbing, pedal edema Musculoskeletal exam: PRESENT: full ROM Neurological exam: PRESENT: alert, awake, oriented to person, oriented to place , oriented to time, oriented to situation, CN II-XII grossly intact. ABSENT: motor sensory deficit Psychiatric exam: PRESENT: anxious. ABSENT: homicidal ideation, suicidal ideation Skin exam: PRESENT: dry, intact, warm. ABSENT: cyanosis, rash Results Laboratory Results: 05/08/17 09:05 05/08/17 09:05 05/06/17 05/06/17 05/07/17 11:15 18:45 00:50 Troponin I 0.036 0.040 0.036 05/07/17 07:08 Troponin I 0.036 Impressions: Chest X-Ray 05/04/17 14:26 IMPRESSION: Infiltrates involving the left lower lobe, left mid lung zone and probably lateral aspect the right lung base. Assessment & Plan - Diagnosis (1) concern for Upper GI Bleed Is this a current diagnosis for this admission?: Yes Plan: Will place on a PPI drip. (2) Acute respiratory failure Qualifiers: Respiratory failure complication: hypoxia Qualified Code(s): J96.01 - Acute respiratory failure with hypoxia Is this a current diagnosis for this admission?: Yes Plan: Secondary to viral illness: will discontinue steroids due to coffee grind emesis. Will discontinue steroids. (3) Hyponatremia Is this a current diagnosis for this admission?: Yes Plan: Secondary to Hyperglycemia: Resolved. (4) Hypokalemia Is this a current diagnosis for this admission?: Yes Plan: Resolved. (5) Pneumonia Qualifiers: Aspiration pneumonia type: unspecified Laterality: bilateral Is this a current diagnosis for this admission?: Yes Plan: Secondary to viral pneumonia: antibiotics discontinued. (6) Diabetes Qualifiers: Diabetes mellitus type: type 2 Diabetes mellitus complication status: with unspecified complications Diabetes mellitus terminologist insulin use: with terminologist use Qualified Code(s): E11.8 - Type 2 diabetes mellitus with unspecified complications Plan: Will hold scheduled insulin and continue with SSI. (7) Hypertension Qualifiers: Hypertension type: essential hypertension Qualified Code(s): I10 - Essential (primary) hypertension Is this a current diagnosis for this admission?: Yes Plan: Will continue Procardia and reduce dose of Clonidine. Will try to wean pt off clonidine (8) Acute renal injury due to hypovolemia Is this a current diagnosis for this admission?: Yes Plan: Resolved. (9) Chest pain Is this a current diagnosis for this admission?: No Plan: Most likely Secondary to Hypertension: Troponins negative. (10) Iron (Fe) deficiency anemia Is this a current diagnosis for this admission?: Yes Plan: We will continue iron replacement. Emesis positive for blood. Will consult surgery. - Time Time Spent with patient: 25-34 minutes
[2017-05-09] MEDS ORDERED: PANTOPRAZOLE SODIUM 40 MG VIAL IV ONE (17:50)
[2017-05-09] MEDS: NORMAL SALINE 100 ML with PANTOPRAZOLE SODIUM 80 MG IV PRN ×2 (19:59)
[2017-05-10] MEDS: DEXTROSE 50%-WATER 25 GM/50 ML DISP.SYRIN IV PRN ×2 (04:38→11:50)
[2017-05-10] MEDS: LEVOTHYROXINE SODIUM 0.05 MG TABLET PO SCH (05:16)
[2017-05-10] MEDS: RINGERS SOLUTION,LACTATED 1,000 ML IV PRN ×2 (05:46→17:54)
[2017-05-10] MEDS: NORMAL SALINE 100 ML with PANTOPRAZOLE SODIUM 80 MG IV PRN ×4 (06:30→17:55)
[2017-05-10] MEDS: IRON SUCROSE COMPLEX INJ/PF 100 MG/5 ML SDV IV SCH (11:17)
[2017-05-10] MEDS: NIFEDIPINE 30 MG TAB.ER.24 PO SCH (11:21)
[2017-05-10] MEDS: GUAIFENESIN 600 MG TABLET.SA PO SCH ×2 (11:21→21:24)
[2017-05-10] MEDS: CLONIDINE HCL 0.1 MG TABLET PO SCH (17:47)
[2017-05-10] MEDS: OXYCODONE HCL IR 5 MG TABLET PO PRN (21:20)
[2017-05-10] MEDS: GUAIFENESIN/CODEINE PHOS 100-10 MG/ 5 ML UDC PO PRN (21:29)
[2017-05-11] MEDS: OXYCODONE-ACETAMINOPHEN 5-325 MG TABLET PO PRN ×3 (00:38→22:48)
[2017-05-11] MEDS: DEXTROSE 50%-WATER 25 GM/50 ML DISP.SYRIN IV PRN (06:20)
[2017-05-11] MEDS: LEVOTHYROXINE SODIUM 0.05 MG TABLET PO SCH (06:27)
[2017-05-11] MEDS: NORMAL SALINE 100 ML with PANTOPRAZOLE SODIUM 80 MG IV PRN ×2 (06:33)
[2017-05-11] MEDS: GUAIFENESIN 600 MG TABLET.SA PO SCH ×2 (09:40→22:46)
[2017-05-11] MEDS: NIFEDIPINE 30 MG TAB.ER.24 PO SCH ×2 (09:41→17:35)
[2017-05-11] MEDS ORDERED: DEXTROSE 5%-NORMAL SALINE 1,000 ML IV PRN (12:53)
--- NOTE | 2017-05-11 14:42 | PDOC PROGRESS REPORT ---
Subjective Progress Note for:: 05/11/17 Subjective:: Patient is complaining of shortness of breath and chest congestion that seems to have worsened since yesterday patient states she has a lot of wheezing as well She has a cough that is nonproductive She has not had any further vomiting of coffee-ground material ;she has no diarrhea; She is tolerating liquid diet, and would be hungry for more food Blood sugars have been running low Reason For Visit: ACUTE RESPIRATORY FAILURE,LEFT LOBAR PNEUMONIA Physical Exam Vital Signs: Temp Pulse Resp BP Pulse Ox 97.7 F 70 22 H 114/48 L 91 L 05/11/17 11:22 05/11/17 11:22 05/11/17 11:22 05/11/17 11:22 05/11/17 11:22 Intake & Output 05/10/17 05/11/17 05/12/17 00:59 00:59 00:59 Intake Total 959 2477 1984 Output Total 1 0 Balance 958 2477 1984 Weight 77.3 kg 78.1 kg 81.5 kg General appearance: PRESENT: cooperative, mild distress - Because of the cough and chest congestion she does appear ill Head exam: PRESENT: atraumatic, normocephalic Eye exam: PRESENT: conjunctiva pink, EOMI, PERRLA. ABSENT: scleral icterus Neck exam: ABSENT: carotid bruit, JVD, lymphadenopathy, thyromegaly Respiratory exam: PRESENT: rhonchi - Bilaterally. ABSENT: accessory muscle use Cardiovascular exam: PRESENT: RRR. ABSENT: diastolic murmur, rubs, systolic murmur Pulses: PRESENT: normal dorsalis pedis pul GI/Abdominal exam: PRESENT: normal bowel sounds, soft. ABSENT: distended, guarding, mass, organolmegaly, rebound, tenderness Neurological exam: PRESENT: alert, awake, oriented to person, oriented to place , oriented to time, oriented to situation, CN II-XII grossly intact. ABSENT: motor sensory deficit Results Laboratory Results: 05/08/17 09:05 05/08/17 09:05 05/06/17 05/06/17 05/07/17 11:15 18:45 00:50 Troponin I 0.036 0.040 0.036 05/07/17 07:08 Troponin I 0.036 Impressions: Chest X-Ray 05/04/17 14:26 IMPRESSION: Infiltrates involving the left lower lobe, left mid lung zone and probably lateral aspect the right lung base. Assessment & Plan - Time Time Spent with patient: (1) concern for Upper GI Bleed Is this a current diagnosis for this admission?: Yes Plan: Will place on a PPI drip. (1) Acute respiratory failure Qualifiers: Respiratory failure complication: hypoxia Qualified Code(s): J96.01 - Acute respiratory failure with hypoxia Is this a current diagnosis for this admission?: Yes Plan: Secondary to viral illness and bilateral pneumonia chest x-ray performed on 05/04 suggestive of bilateral pneumonia ; we will repeat chest x-ray today Reevaluate antibiotic management Patient had leukocytosis, no fever (2) Pneumonia Qualifiers: Aspiration pneumonia type: unspecified Laterality: bilateral Is this a current diagnosis for this admission?: Yes Plan: Will repeat chest x-ray : thought to be viral in etiology on admission ; will reevaluate management ; resume antibiotics if indicated (3) Diabetes Qualifiers: Diabetes mellitus type: type 2 Diabetes mellitus complication status: with unspecified complications Diabetes mellitus equipment operator intermodal yard insulin use: with equipment operator intermodal yard use Qualified Code(s): E11.8 - Type 2 diabetes mellitus with unspecified complications Plan: Will hold scheduled insulin and continue with SSI. Blood sugars are running low increased diet (4) Hypertension Qualifiers: Hypertension type: essential hypertension Qualified Code(s): I10 - Essential (primary) hypertension Is this a current diagnosis for this admission?: Yes Plan: continue present medications Blood pressure is well controlled (5) Acute renal injury due to hypovolemia Is this a current diagnosis for this admission?: Yes Plan: Resolved. (6) Chest pain Is this a current diagnosis for this admission?: No Plan: Patient had negative troponins She may be a candidate for stress testing prior to discharge once clinically stable (7) Iron (Fe) deficiency anemia Is this a current diagnosis for this admission?: Yes Plan: We will continue iron replacement. (8) coffee-ground vomiting on admission It has stopped Likely secondary to gastritis We will continue PPI Follow-up H&H Patient may be seen by GI as an outpatient (9) Fluid overload Patient has a history of diastolic dysfunction Last echocardiogram performed in May 2016 showed normal EF diastolic dysfunction and pulmonary hypertension we will diurese the patient with Lasix 20 mg twice a day Reevaluate in 24 hours Time Spent with patient: 25-34 minutes
[2017-05-11 15:21] LABS: ABSOLUTE EOSINOPHILS # (AUTO) 0.1 10^3/uL (0.0-0.6); ABSOLUTE LYMPHOCYTES (AUTO) 1.3 10^3/uL (0.5-4.7); ABSOLUTE MONOCYTES (AUTO) 0.7 10^3/uL (0.1-1.4); ABSOLUTE NEUT (AUTO) 8.7 10^3/uL (1.7-8.2); BASOPHILS % (AUTO) 0.2 % (0-2); HEMATOCRIT 23.3 % (36.0-47.0); LYMPHOCYTES % (AUTO) 11.9 % (13-45); MEAN CORPUSCULAR HEMOGLOBIN 28.3 pg (27.0-33.4); MEAN CORPUSCULAR HGB CONC 33.9 g/dL (32.0-36.0); MEAN CORPUSCULAR VOLUME 84 fl (80-97); MONOCYTES % (AUTO) 6.7 % (3-13); PLATELET COUNT 211 10^3/uL (150-450); RED BLOOD COUNT 2.79 10^6/uL (3.72-5.28); RED CELL DISTRIBUTION WIDTH 14.7 % (11.5-14.0); SEGMENTED NEUTROPHILS % (AUTO) 80.2 % (42-78); TOTAL CELLS COUNTED % (AUTO) 100 %; WHITE BLOOD COUNT 10.8 10^3/uL (4.0-10.5)
[2017-05-11] MEDS: OXYCODONE HCL IR 5 MG TABLET PO PRN ×2 (15:25→22:49)
[2017-05-11 15:30] LABS: ANION GAP 6 (5-19); BLOOD UREA NITROGEN 64 mg/dL (7-20); CALCIUM 7.8 mg/dL (8.4-10.2); CARBON DIOXIDE 22 mmol/L (22-30); CHLORIDE 108 mmol/L (98-107); GLUCOSE 156 mg/dL (75-110); SODIUM 135.7 mmol/L (137-145)
[2017-05-11 15:32] LABS: HEMOGLOBIN 7.9 g/dL (12.0-15.5)
--- NOTE | 2017-05-11 15:41 | RADIOLOGY REPORT (SQ) ---
EXAM DESCRIPTION: CHEST SINGLE VIEW COMPLETED DATE/TIME: 05/11/2017 3:27 pm REASON FOR STUDY: SOB COMPARISON: 05/04/2017, 06/18/2016 EXAM PARAMETERS: NUMBER OF VIEWS: One view. TECHNIQUE: Single frontal radiographic view of the chest acquired. RADIATION DOSE: NA LIMITATIONS: None. FINDINGS: LUNGS AND PLEURA: Increasing bibasilar infiltrates when compared to 05/04/2017. Linear ban dlike infiltrate left mid lung zone on the recent chest x-ray has regressed. Upper lung zones remain clear. MEDIASTINUM AND HILAR STRUCTURES: No masses. Contour normal. HEART AND VASCULAR STRUCTURES: Heart normal in size. Normal vasculature. BONES: No acute findings. HARDWARE: None in the chest. OTHER: No other significant finding. IMPRESSION: Persistent and increasing bibasilar infiltrates. TECHNICAL DOCUMENTATION: JOB ID: [id number] [employer]- All Rights Reserved
[2017-05-11] MEDS: FUROSEMIDE INJ/PF 20 MG/2 ML SDV IV SCH (17:27)
[2017-05-11] MEDS: CLONIDINE HCL 0.1 MG TABLET PO SCH (17:29)
[2017-05-11] MEDS: INSULIN LISPRO 100 UNIT/ML 3 ML VIAL SUBCUT PRN (17:45)
[2017-05-11] MEDS ORDERED: LEVOFLOXACIN 750 MG/D5W RTU 750 MG/150 ML RTUPB IV SCH (18:00)
[2017-05-11] MEDS: BUDESONIDE NEB 0.5 MG/2 ML AMPUL NEB SCH (20:28)
[2017-05-11] MEDS: PANTOPRAZOLE SODIUM 40 MG VIAL IV SCH (22:46)
[2017-05-12] MEDS: OXYCODONE HCL IR 5 MG TABLET PO PRN (03:45)
[2017-05-12] MEDS: OXYCODONE-ACETAMINOPHEN 5-325 MG TABLET PO PRN (03:46)
[2017-05-12] MEDS: LEVOTHYROXINE SODIUM 0.05 MG TABLET PO SCH (06:16)
[2017-05-12] MEDS: FUROSEMIDE INJ/PF 20 MG/2 ML SDV IV SCH ×2 (06:16→17:59)
[2017-05-12] MEDS: BUDESONIDE NEB 0.5 MG/2 ML AMPUL NEB SCH ×2 (08:38→20:55)
[2017-05-12] MEDS: IPRATROPIUM/ALBUTEROL 0.5-2.5 MG/3 ML AMPUL NEB PRN ×2 (08:39→20:55)
[2017-05-12] MEDS: GUAIFENESIN 600 MG TABLET.SA PO SCH ×2 (10:15→22:40)
[2017-05-12] MEDS: PANTOPRAZOLE SODIUM 40 MG VIAL IV SCH ×2 (10:15→22:40)
--- NOTE | 2017-05-12 17:30 | PDOC PROGRESS REPORT ---
Subjective Progress Note for:: 05/12/17 Subjective:: Patient seen on rounds. She is sitting on the side of the bed off oxygen. She continues to have a congested cough. She denies chest pain, dyspnea or palpitations. She denies any nausea, vomiting or diarrhea. She denies any pain. Remaining review of systems are negative Reason For Visit: ACUTE RESPIRATORY FAILURE,LEFT LOBAR PNEUMONIA Physical Exam Vital Signs: Temp Pulse Resp BP Pulse Ox 98.0 F 86 16 116/52 L 89 L 05/12/17 15:50 05/12/17 15:50 05/12/17 15:50 05/12/17 15:50 05/12/17 15:50 Intake & Output 05/11/17 05/12/17 05/13/17 06:59 06:59 06:59 Intake Total 3432 806 400 Balance 3432 806 400 Weight 81.5 kg 82.7 kg General appearance: PRESENT: no acute distress, morbidly obese, well-developed, well-nourished Head exam: PRESENT: atraumatic, normocephalic Eye exam: PRESENT: conjunctiva pink, EOMI, PERRLA. ABSENT: scleral icterus Ear exam: PRESENT: normal external ear exam Mouth exam: PRESENT: moist, tongue midline Neck exam: ABSENT: carotid bruit, JVD, lymphadenopathy, thyromegaly Respiratory exam: PRESENT: rales - bibasilar, rhonchi, symmetrical, unlabored Cardiovascular exam: PRESENT: RRR. ABSENT: diastolic murmur, rubs, systolic murmur Pulses: PRESENT: normal dorsalis pedis pul Vascular exam: PRESENT: normal capillary refill GI/Abdominal exam: PRESENT: normal bowel sounds, soft. ABSENT: distended, guarding, mass, organolmegaly, rebound, tenderness Rectal exam: PRESENT: deferred Extremities exam: PRESENT: full ROM. ABSENT: calf tenderness, clubbing, pedal edema Musculoskeletal exam: PRESENT: ambulatory, full ROM, normal inspection Neurological exam: PRESENT: alert, awake, oriented to person, oriented to place , oriented to time, oriented to situation, CN II-XII grossly intact. ABSENT: motor sensory deficit Psychiatric exam: PRESENT: flat affect Skin exam: PRESENT: dry, intact, warm. ABSENT: cyanosis, rash Results Laboratory Results: 05/11/17 15:03 05/11/17 15:03 05/06/17 05/06/17 05/07/17 11:15 18:45 00:50 Troponin I 0.036 0.040 0.036 NT-Pro-B Natriuret Pep 05/07/17 05/11/17 07:08 15:03 Troponin I 0.036 NT-Pro-B Natriuret Pep 2150 H Impressions: Chest X-Ray 05/11/17 14:58 IMPRESSION: Persistent and increasing bibasilar infiltrates. Assessment & Plan - Diagnosis (1) Acute respiratory failure Qualifiers: Respiratory failure complication: hypoxia Qualified Code(s): J96.01 - Acute respiratory failure with hypoxia Is this a current diagnosis for this admission?: Yes Plan: Continue nebulizers, steroid and wean oxygen (2) Hypoxia Is this a current diagnosis for this admission?: Yes Plan: Continue nebulizers, oxygen, will add IS and PEP valve. Increase activity with nursing and PT (3) COPD (chronic obstructive pulmonary disease) with acute bronchitis Is this a current diagnosis for this admission?: Yes Plan: As above (4) Anemia Qualifiers: Anemia type: iron deficiency Is this a current diagnosis for this admission?: Yes Plan: Presently stable (5) Hypokalemia Is this a current diagnosis for this admission?: Yes Plan: Replete and monitor (6) Hyponatremia Is this a current diagnosis for this admission?: Yes Plan: REsolved (7) Acute renal injury due to hypovolemia Is this a current diagnosis for this admission?: Yes Plan: Improved with hydration, avoid nephrotoxic medications and dosages (8) Diabetes Qualifiers: Diabetes mellitus type: type 2 Diabetes mellitus complication status: with unspecified complications Diabetes mellitus intermodal truck driver insulin use: with intermodal truck driver use Qualified Code(s): E11.8 - Type 2 diabetes mellitus with unspecified complications (9) GERD (gastroesophageal reflux disease) Qualifiers: Esophagitis presence: without esophagitis Qualified Code(s): K21.9 - Gastro -esophageal reflux disease without esophagitis (11) Hypertension Qualifiers: Hypertension type: essential hypertension Qualified Code(s): I10 - Essential (primary) hypertension Is this a current diagnosis for this admission?: Yes (12) Hypothyroidism Qualifiers: Hypothyroidism type: unspecified Qualified Code(s): E03.9 - Hypothyroidism , unspecified - Time Time Spent with patient: 25-34 minutes Medications reviewed and adjusted accordingly: Yes Anticipated discharge: Home with Homehealth, SNF
[2017-05-12] MEDS: NIFEDIPINE 30 MG TAB.ER.24 PO SCH (17:59)
[2017-05-12] MEDS: INSULIN LISPRO 100 UNIT/ML 3 ML VIAL SUBCUT PRN ×2 (17:59→22:40)
[2017-05-12] MEDS: CLONIDINE HCL 0.1 MG TABLET PO SCH (17:59)
[2017-05-13 06:06] LABS: ABSOLUTE EOSINOPHILS # (AUTO) 0.1 10^3/uL (0.0-0.6); ABSOLUTE MONOCYTES (AUTO) 0.9 10^3/uL (0.1-1.4); ABSOLUTE NEUT (AUTO) 10.6 10^3/uL (1.7-8.2); BASOPHILS % (AUTO) 0.2 % (0-2); EOSINOPHILS % (AUTO) 0.6 % (0-6); HEMATOCRIT 23.2 % (36.0-47.0); LYMPHOCYTES % (AUTO) 7.9 % (13-45); MEAN CORPUSCULAR HEMOGLOBIN 27.5 pg (27.0-33.4); MEAN CORPUSCULAR HGB CONC 32.7 g/dL (32.0-36.0); MEAN CORPUSCULAR VOLUME 84 fl (80-97); MONOCYTES % (AUTO) 7.5 % (3-13); PLATELET COUNT 229 10^3/uL (150-450); RED BLOOD COUNT 2.76 10^6/uL (3.72-5.28); RED CELL DISTRIBUTION WIDTH 14.8 % (11.5-14.0); SEGMENTED NEUTROPHILS % (AUTO) 83.8 % (42-78); TOTAL CELLS COUNTED % (AUTO) 100 %; WHITE BLOOD COUNT 12.6 10^3/uL (4.0-10.5)
[2017-05-13 06:07] LABS: ANION GAP 7 (5-19); BLOOD UREA NITROGEN 50 mg/dL (7-20); CALCIUM 8.1 mg/dL (8.4-10.2); CARBON DIOXIDE 23 mmol/L (22-30); CHLORIDE 107 mmol/L (98-107); GLUCOSE 226 mg/dL (75-110); POTASSIUM 4.4 mmol/L (3.6-5.0); SODIUM 136.9 mmol/L (137-145)
[2017-05-13 06:11] LABS: HEMOGLOBIN 7.6 g/dL (12.0-15.5)
[2017-05-13] MEDS: FUROSEMIDE INJ/PF 20 MG/2 ML SDV IV SCH (06:51)
[2017-05-13] MEDS: LEVOTHYROXINE SODIUM 0.05 MG TABLET PO SCH (06:52)
[2017-05-13] MEDS: BUDESONIDE NEB 0.5 MG/2 ML AMPUL NEB SCH ×2 (08:56→21:15)
[2017-05-13] MEDS: OXYCODONE HCL IR 5 MG TABLET PO PRN (09:03)
[2017-05-13] MEDS: INSULIN LISPRO 100 UNIT/ML 3 ML VIAL SUBCUT PRN ×3 (10:00→19:07)
[2017-05-13] MEDS: PANTOPRAZOLE SODIUM 40 MG VIAL IV SCH ×2 (10:00→22:51)
[2017-05-13] MEDS: GUAIFENESIN 600 MG TABLET.SA PO SCH ×2 (10:00→22:51)
[2017-05-13] MEDS ORDERED: BISACODYL 10 MG SUPP.RECT PR ONE (14:15)
--- NOTE | 2017-05-13 14:35 | PDOC PROGRESS REPORT ---
Subjective Progress Note for:: 05/13/17 Subjective:: The patient is resting in her bed. She is quite frustrated today. She continues to be short of breath. She continues to have a cough. She states she is no better since she came to the hospital a week ago. She denies fever chills. No chest pain or heart palpitations. No nausea vomiting or diarrhea. No dysuria, frequency or hematuria. Reason For Visit: ACUTE RESPIRATORY FAILURE,LEFT LOBAR PNEUMONIA Physical Exam Vital Signs: Temp Pulse Resp BP Pulse Ox 98.5 F 86 18 137/57 H 99 05/13/17 08:52 05/13/17 08:52 05/13/17 08:52 05/13/17 08:52 05/13/17 08:52 Intake & Output 05/12/17 05/13/17 05/14/17 06:59 06:59 06:59 Intake Total 806 1302 Balance 806 1302 Weight 82.7 kg 84.8 kg General appearance: PRESENT: no acute distress, well-developed, well-nourished, other - She is receiving oxygen via nasal cannula Head exam: PRESENT: atraumatic, normocephalic Mouth exam: PRESENT: moist, tongue midline Respiratory exam: PRESENT: clear to auscultation delma, decreased breath sounds. ABSENT: rales, rhonchi, wheezes Cardiovascular exam: PRESENT: RRR. ABSENT: diastolic murmur, rubs, systolic murmur GI/Abdominal exam: PRESENT: normal bowel sounds, soft. ABSENT: distended, guarding, mass, organolmegaly, rebound, tenderness Rectal exam: PRESENT: deferred Extremities exam: PRESENT: full ROM, other - She has significant bilateral pitting edema. ABSENT: calf tenderness, clubbing, pedal edema Neurological exam: PRESENT: alert, awake, oriented to person, oriented to place , oriented to time, oriented to situation, CN II-XII grossly intact. ABSENT: motor sensory deficit Psychiatric exam: PRESENT: agitated, anxious, other - Tearful Skin exam: PRESENT: dry, intact, warm. ABSENT: cyanosis, rash Results Laboratory Results: 05/13/17 05:30 05/13/17 05:30 05/13/17 05/13/17 05:30 05:30 WBC 12.6 H RBC 2.76 L Hgb 7.6 L Hct 23.2 L MCV 84 MCH 27.5 MCHC 32.7 RDW 14.8 H Plt Count 229 Seg Neutrophils % 83.8 H Lymphocytes % 7.9 L Monocytes % 7.5 Eosinophils % 0.6 Basophils % 0.2 Absolute Neutrophils 10.6 H Absolute Lymphocytes 1.0 Absolute Monocytes 0.9 Absolute Eosinophils 0.1 Absolute Basophils 0.0 Sodium 136.9 L Potassium 4.4 Chloride 107 Carbon Dioxide 23 Anion Gap 7 BUN 50 H Creatinine 1.39 H Est GFR ( Amer) 47 L Est GFR (Non-Af Amer) 39 L Glucose 226 H Calcium 8.1 L 05/06/17 05/06/17 05/07/17 11:15 18:45 00:50 Troponin I 0.036 0.040 0.036 NT-Pro-B Natriuret Pep 05/07/17 05/11/17 07:08 15:03 Troponin I 0.036 NT-Pro-B Natriuret Pep 2150 H Impressions: Chest X-Ray 05/11/17 14:58 IMPRESSION: Persistent and increasing bibasilar infiltrates. Assessment & Plan - Diagnosis (1) Acute respiratory failure Qualifiers: Respiratory failure complication: hypoxia Qualified Code(s): J96.01 - Acute respiratory failure with hypoxia Is this a current diagnosis for this admission?: Yes Plan: She is not ready now about the patient is still requiring 3 L of oxygen. She still is significantly short of breath and frequently coughing. I am going to get a CT scan of her chest for further evaluation. We will continue aggressive breathing treatments and oxygen support as needed. I also am going to obtain a d-dimer. We have also been diuresing her with IV Lasix. She has cardiomegaly noted on her chest x-ray. I am going to get an echocardiogram as well to see if that is contributing to her shortness of breath (2) Pneumonia Qualifiers: Aspiration pneumonia type: unspecified Laterality: bilateral Is this a current diagnosis for this admission?: Yes Plan: Concerns for community-acquired pathogen such as gram positives and atypicals. She is completed a week's worth of appropriate antibiotic therapy but is still quite short of breath. I am going to get a CT of the chest for further evaluation. For now I will not change her antibiotic therapy. (4) COPD (chronic obstructive pulmonary disease) with acute bronchitis Is this a current diagnosis for this admission?: Yes Plan: Stable (5) Acute kidney injury Is this a current diagnosis for this admission?: Yes Plan: Likely due to overdiuresis.I am going to cut her Lasix back to 20 mg IV once daily. (6) Anemia Qualifiers: Anemia type: iron deficiency Is this a current diagnosis for this admission?: Yes Plan: She has had a precipitous drop in hemoglobin since the time of admission. I am going to type and screen her today. We will obtain an anemia panel for further evaluation. It could be that her anemia is contributing to her shortness of breath. We will await these results. Will recheck a CBC this afternoon and in the morning. (7) Hyponatremia Is this a current diagnosis for this admission?: Yes Plan: She will have a chemistry panel drawn in the morning. (8) Uncontrolled diabetes mellitus Is this a current diagnosis for this admission?: Yes Plan: Continue current regimen. (9) GERD (gastroesophageal reflux disease) Qualifiers: Esophagitis presence: without esophagitis Qualified Code(s): K21.9 - Gastro -esophageal reflux disease without esophagitis Is this a current diagnosis for this admission?: Yes Plan: Stable (10) Hypertension Qualifiers: Hypertension type: essential hypertension Qualified Code(s): I10 - Essential (primary) hypertension Is this a current diagnosis for this admission?: Yes Plan: Stable (11) Hypothyroidism Qualifiers: Hypothyroidism type: unspecified Qualified Code(s): E03.9 - Hypothyroidism , unspecified Is this a current diagnosis for this admission?: Yes Plan: Continue Synthroid (12) Full code status Is this a current diagnosis for this admission?: Yes - Time Time Spent with patient: 25-34 minutes - Inpatient Certification Medical Necessity: Need Close Monitoring Due to Risk of Patient Decompensation, Need for IV Antibiotics, Other - Inpatient hospitalization remains necessary. The patient is no better after a week's worth of IV antibiotics. She needs a CT scan of her chest and echocardiogram today. She is also had a precipitous drop in her hemoglobin and this needs to be looked into prior to discharge as well.
--- NOTE | 2017-05-13 14:36 | RADIOLOGY REPORT (SQ) ---
EXAM DESCRIPTION: CT CHEST WITHOUT COMPLETED DATE/TIME: 05/13/2017 2:18 pm REASON FOR STUDY: sob, hypoxia, persistent infiltrates COMPARISON: None. TECHNIQUE: CT scan performed of the chest without intravenous contrast. Images reviewed with lung, soft tissue and bone windows. Reconstructed coronal and sagittal MPR images reviewed. All images st ored on PACS. All CT scanners at this facility use dose modulation, iterative reconstruction, and/or weight based d osing when appropriate to reduce radiation dose to as low as reasonably achievable (ALARA). [facility]: Dose Right [facility]: CareDose [facility]: Dose Right [facility]: Teradose 4D [facility]: [employer] RADIATION DOSE: CT Rad equipment meets quality standard of care and radiation dose reduction techniq ues were employed. CTDIvol: 11.9 mGy. DLP: 415 mGy-cm. mGy. LIMITATIONS: No technical limitations. FINDINGS: LUNGS AND PLEURA: Segmental airspace disease with air bronchograms in the left lower lobe. More patchy subsegmental airspace disease in the right lower lobe and middle lobe with associated t ree-and-bud pattern in a bronchial vascular distribution. Patchy ground-glass attenuation in the upp er lobes, right greater than left. Trace pleural effusions. HILAR AND MEDIASTINAL STRUCTURES: Subcentimeter mediastinal nodes. Left hilar node measuring about 1 cm in diameter. HEART AND VASCULAR STRUCTURES: No aneurysm. No pericardial effusion. UPPER ABDOMEN: Body wall edema. THYROID AND OTHER SOFT TISSUES: No masses. No adenopathy. BONES: No significant finding. HARDWARE: None in the chest. OTHER: No other significant findings. IMPRESSION: Diffuse mixed alveolar and interstitial pattern with more focal consolidation in the lef t lower lobe. Findings are most likely due to infection, however aspiration, hypersensitivity and sa rcoid could have similar appearance. TECHNICAL DOCUMENTATION: JOB ID: [id number] Quality ID # [id number]: Final reports with documentation of one or more dose reduction techniques (e.g., Au tomated exposure control, adjustment of the mA and/or kV according to patient size, use of iterative reconstruction technique) 2010 [employer]- All Rights Reserved
[2017-05-13 16:17] LABS: ABSOLUTE EOSINOPHILS # (AUTO) 0.1 10^3/uL (0.0-0.6); ABSOLUTE LYMPHOCYTES (AUTO) 1.4 10^3/uL (0.5-4.7); ABSOLUTE MONOCYTES (AUTO) 1.2 10^3/uL (0.1-1.4); ABSOLUTE NEUT (AUTO) 10.3 10^3/uL (1.7-8.2); ABSOLUTE RETICS # 0.055 10^6/uL (0.028-0.122); BASOPHILS % (AUTO) 0.3 % (0-2); EOSINOPHILS % (AUTO) 0.8 % (0-6); HEMATOCRIT 22.3 % (36.0-47.0); LYMPHOCYTES % (AUTO) 10.8 % (13-45); MEAN CORPUSCULAR HEMOGLOBIN 27.7 pg (27.0-33.4); MEAN CORPUSCULAR HGB CONC 33.5 g/dL (32.0-36.0); MEAN CORPUSCULAR VOLUME 83 fl (80-97); MONOCYTES % (AUTO) 8.8 % (3-13); PLATELET COUNT 257 10^3/uL (150-450); RED CELL DISTRIBUTION WIDTH 14.7 % (11.5-14.0); RETICULOCYTE COUNT (AUTO) 2.04 % (0.66-2.85); SEGMENTED NEUTROPHILS % (AUTO) 79.3 % (42-78); TOTAL CELLS COUNTED % (AUTO) 100 %
[2017-05-13 16:33] LABS: HEMOGLOBIN 7.5 g/dL (12.0-15.5)
[2017-05-13 16:38] LABS: IRON(TIBC) 10.6 ug/dL (37-170)
[2017-05-13] MEDS ORDERED: NORMAL SALINE 250 ML IV PRN ×2 (16:44)
[2017-05-13] MEDS: DOCUSATE SODIUM 100 MG CAPSULE PO SCH (19:07)
[2017-05-13] MEDS: CLONIDINE HCL 0.1 MG TABLET PO SCH (19:09)
[2017-05-13] MEDS: NIFEDIPINE 30 MG TAB.ER.24 PO SCH (19:10)
--- NOTE | 2017-05-13 19:13 | XCELERA REPORT ---
[address] [address] Lower Extremity Venous Evaluation Name: IGLESIA BLANCHARD Age: 61 yrs Gender: Female : 1955 Patient Status: Inpatient Patient Location: [address] [place], [place] [id number] Study Date: 05/13/2017 09:13 AM Procedure: Color flow and duplex imaging bilaterally of the veins of the lower extremities as well as the Common Femoral veins. Reason For Study: swelling Ordering Physician: BRODY REA Performed By: Cassie Quevedo Right Sided Venous Evaluation Not able to visualize the Common Femoral and Peroneal veins, due to patient's inability to participate as well as tissue edema. Otherwise normal vessel filling wall to wall, compression and augmentation as well as Colour flow down to the infrageniculate veins. Left Sided Venous Evaluation Not able to visualize the Common Femoral and Peroneal veins, due to patient's inability to participate as well as tissue edema. Otherwise normal vessel filling wall to wall, compression and augmentation as well as Colour flow down to the infrageniculate veins. Interpretation Summary Negative for DVT, study not comprehensive due to above limitations. : BRODY REA > Elroy Zapata
--- NOTE | 2017-05-13 20:17 | RADIOLOGY REPORT (SQ) ---
EXAM DESCRIPTION: NM LUNG VENT/PERF SCAN COMPLETED DATE/TIME: 05/13/2017 6:57 pm REASON FOR STUDY: positive d dimer, sob, hypoxia COMPARISON: Earlier CT exam RADIONUCLIDE AND DOSE: 4.88 millicuries TC-99m MAA Intravenous 31.0 millicuries TC-99m DTPA Inhaled aerosol TECHNIQUE: Eight views of the lungs acquired post ventilation of DTPA aerosol. Eight matching views of the lungs acquired following injection of MAA. LIMITATIONS: None. FINDINGS: VENTILATION: Heterogeneous distribution of DTPA aerosol during ventilatory phase. Multipl e areas of photopenia correlating with multiple areas of airspace disease -effusion seen on recent CT scan. PERFUSION: Perfusion images with heterogeneous activity and multiple areas of photopenia. No ventila tion-perfusion mismatches. OTHER: No other significant finding. IMPRESSION: No ventilation-perfusion mismatches.Multiple areas of photopenia correlating with multip le areas of airspace disease -effusion seen on recent CT scan. TECHNICAL DOCUMENTATION: JOB ID: [id number] [id number] 2010 [employer]- All Rights Reserved
[2017-05-13] MEDS ORDERED: MEROPENEM 500 MG in NORMAL SALINE 50 ML IV SCH (22:00)
[2017-05-13] MEDS: MEROPENEM 1 GM in NORMAL SALINE 100 ML IV SCH (22:50)
[2017-05-14] MEDS: INSULIN LISPRO 100 UNIT/ML 3 ML VIAL SUBCUT PRN ×5 (01:05→21:25)
[2017-05-14] MEDS: LEVOTHYROXINE SODIUM 0.05 MG TABLET PO SCH (06:39)
[2017-05-14] MEDS: BUDESONIDE NEB 0.5 MG/2 ML AMPUL NEB SCH ×2 (08:38→20:53)
[2017-05-14 09:29] LABS: ABSOLUTE BASOPHILS # (AUTO) 0.1 10^3/uL (0.0-0.2); ABSOLUTE EOSINOPHILS # (AUTO) 0.2 10^3/uL (0.0-0.6); ABSOLUTE LYMPHOCYTES (AUTO) 1.4 10^3/uL (0.5-4.7); ABSOLUTE MONOCYTES (AUTO) 1.3 10^3/uL (0.1-1.4); ABSOLUTE NEUT (AUTO) 10.9 10^3/uL (1.7-8.2); BASOPHILS % (AUTO) 0.4 % (0-2); EOSINOPHILS % (AUTO) 1.8 % (0-6); LYMPHOCYTES % (AUTO) 9.7 % (13-45); MEAN CORPUSCULAR HGB CONC 33.2 g/dL (32.0-36.0); MEAN CORPUSCULAR VOLUME 84 fl (80-97); MONOCYTES % (AUTO) 9.7 % (3-13); PLATELET COUNT 259 10^3/uL (150-450); RED BLOOD COUNT 3.68 10^6/uL (3.72-5.28); RED CELL DISTRIBUTION WIDTH 14.9 % (11.5-14.0); SEGMENTED NEUTROPHILS % (AUTO) 78.4 % (42-78); TOTAL CELLS COUNTED % (AUTO) 100 %; WHITE BLOOD COUNT 13.9 10^3/uL (4.0-10.5)
[2017-05-14 09:30] LABS: HEMOGLOBIN 10.3 g/dL (12.0-15.5)
[2017-05-14] MEDS: FUROSEMIDE INJ/PF 20 MG/2 ML SDV IV SCH (10:11)
[2017-05-14] MEDS: PANTOPRAZOLE SODIUM 40 MG VIAL IV SCH (10:12)
[2017-05-14] MEDS: MEROPENEM 1 GM in NORMAL SALINE 100 ML IV SCH ×2 (10:16→21:23)
[2017-05-14] MEDS: DOCUSATE SODIUM 100 MG CAPSULE PO SCH ×2 (10:42→17:40)
[2017-05-14] MEDS: GUAIFENESIN 600 MG TABLET.SA PO SCH ×2 (10:42→21:16)
[2017-05-14] MEDS: DOXYCYCLINE HYCLATE 100 MG in DEXTROSE 5%-WATER 250 ML IV SCH ×2 (10:48→21:27)
[2017-05-14 10:55] LABS: ANION GAP 7 (5-19); BLOOD UREA NITROGEN 39 mg/dL (7-20); CALCIUM 8.5 mg/dL (8.4-10.2); CARBON DIOXIDE 25 mmol/L (22-30); CHLORIDE 108 mmol/L (98-107); GLUCOSE 193 mg/dL (75-110); POTASSIUM 4.5 mmol/L (3.6-5.0); SODIUM 140.3 mmol/L (137-145)
--- NOTE | 2017-05-14 13:34 | PDOC PROGRESS REPORT ---
Subjective Subjective:: The patient is sitting on the side of her bed. She is feeling slightly better status post transfusion. We discussed the results of her CT scan. She was seen by Dr. Reed from the pulmonology service however his note is not yet dictated. She states her breathing is still difficult. She states she does get short of breath especially if she moves around. She does think it is a little bit better since yesterday. She denies fever chills. No chest pain or heart palpitations. No nausea, vomiting or diarrhea. No dysuria, frequency or hematuria. Reason For Visit: ACUTE RESPIRATORY FAILURE,LEFT LOBAR PNEUMONIA Physical Exam Vital Signs: Temp Pulse Resp BP Pulse Ox 98.1 F 102 H 18 132/51 H 94 05/14/17 11:18 05/14/17 11:18 05/14/17 11:18 05/14/17 11:18 05/14/17 11:18 Intake & Output 05/13/17 05/14/17 05/15/17 06:59 06:59 06:59 Intake Total 1302 2220 650 Balance 1302 2220 650 Weight 84.8 kg 89.6 kg General appearance: PRESENT: no acute distress, well-developed, well-nourished, other - She is receiving oxygen via nasal cannula Head exam: PRESENT: atraumatic, normocephalic Mouth exam: PRESENT: moist, tongue midline Respiratory exam: PRESENT: wheezes, other - She has some wheezing and coarse breath sounds throughout all lung [place]. Cardiovascular exam: PRESENT: RRR. ABSENT: diastolic murmur, rubs, systolic murmur GI/Abdominal exam: PRESENT: normal bowel sounds, soft. ABSENT: distended, guarding, mass, organolmegaly, rebound, tenderness Rectal exam: PRESENT: deferred, heme (+) stool - She had a heme positive stool yesterday. Extremities exam: PRESENT: full ROM. ABSENT: calf tenderness, clubbing, pedal edema Musculoskeletal exam: PRESENT: ambulatory Neurological exam: PRESENT: alert, awake, oriented to person, oriented to place , oriented to time, oriented to situation, CN II-XII grossly intact. ABSENT: motor sensory deficit Psychiatric exam: PRESENT: anxious, normal mood. ABSENT: homicidal ideation, suicidal ideation Skin exam: PRESENT: dry, intact, warm. ABSENT: cyanosis, rash Results Laboratory Results: 05/14/17 08:57 05/14/17 08:57 05/13/1718 05/13/17 15:57 15:57 15:57 WBC RBC Hgb Hct MCV MCH MCHC RDW Plt Count Seg Neutrophils % Lymphocytes % Monocytes % Eosinophils % Basophils % Absolute Neutrophils Absolute Lymphocytes Absolute Monocytes Absolute Eosinophils Absolute Basophils Retic Count (auto) 2.04 Absolute Retic 0.055 Sodium Potassium Chloride Carbon Dioxide Anion Gap BUN Creatinine Est GFR ( Amer) Est GFR (Non-Af Amer) Glucose Calcium Magnesium Iron 10.6 L TIBC 216 L % Saturation 5 Ferritin 467.00 H Vitamin B12 884.0 Folate 11.70 Stool Occult Blood Blood Type O POSITIVE Antibody Screen NEGATIVE 05/13/17 05/13/17 05/14/17 15:57 16:05 08:57 WBC 13.0 H RBC 2.70 L Hgb 7.5 L Hct 22.3 L MCV 83 MCH 27.7 MCHC 33.5 RDW 14.7 H Plt Count 257 Seg Neutrophils % 79.3 H Lymphocytes % 10.8 L Monocytes % 8.8 Eosinophils % 0.8 Basophils % 0.3 Absolute Neutrophils 10.3 H Absolute Lymphocytes 1.4 Absolute Monocytes 1.2 Absolute Eosinophils 0.1 Absolute Basophils 0.0 Retic Count (auto) Absolute Retic Sodium 140.3 Potassium 4.5 Chloride 108 H Carbon Dioxide 25 Anion Gap 7 BUN 39 H Creatinine 1.26 H Est GFR ( Amer) 52 L Est GFR (Non-Af Amer) 43 L Glucose 193 H Calcium 8.5 Magnesium 2.0 Iron TIBC % Saturation Ferritin Vitamin B12 Folate Stool Occult Blood POSITIVE Blood Type Antibody Screen 05/14/17 08:57 WBC 13.9 H RBC 3.68 L Hgb 10.3 L D Hct 31.0 L MCV 84 MCH 28.0 MCHC 33.2 RDW 14.9 H Plt Count 259 Seg Neutrophils % 78.4 H Lymphocytes % 9.7 L Monocytes % 9.7 Eosinophils % 1.8 Basophils % 0.4 Absolute Neutrophils 10.9 H Absolute Lymphocytes 1.4 Absolute Monocytes 1.3 Absolute Eosinophils 0.2 Absolute Basophils 0.1 Retic Count (auto) Absolute Retic Sodium Potassium Chloride Carbon Dioxide Anion Gap BUN Creatinine Est GFR ( Amer) Est GFR (Non-Af Amer) Glucose Calcium Magnesium Iron TIBC % Saturation Ferritin Vitamin B12 Folate Stool Occult Blood Blood Type Antibody Screen 05/06/17 05/06/17 05/07/17 11:15 18:45 00:50 Troponin I 0.036 0.040 0.036 NT-Pro-B Natriuret Pep 05/07/17 05/11/17 05/14/17 07:08 15:03 08:57 Troponin I 0.036 NT-Pro-B Natriuret Pep 2150 H 3550 H Impressions: Chest X-Ray 05/11/17 14:58 IMPRESSION: Persistent and increasing bibasilar infiltrates. Chest CT 05/13/17 00:00 IMPRESSION: Diffuse mixed alveolar and interstitial pattern with more focal consolidation in the left lower lobe. Findings are most likely due to infection , however aspiration, hypersensitivity and sarcoid could have similar appearance. Lung Scan-VQ NM 05/13/17 00:00 IMPRESSION: No ventilation-perfusion mismatches.Multiple areas of photopenia correlating with multiple areas of airspace disease -effusion seen on recent CT scan. Assessment & Plan - Diagnosis (1) Acute respiratory failure Qualifiers: Respiratory failure complication: hypoxia Qualified Code(s): J96.01 - Acute respiratory failure with hypoxia Is this a current diagnosis for this admission?: Yes Plan: The patient continues to be hypoxic. She was seen by the pulmonology service and we certainly appreciate their assistance.Yesterday she had a noncontrasted CT scan of the chest which revealed patchy subsegmental airspace disease in the right lower lobe and middle lobe with associated tree-in-bud pattern in a bronchial vascular distribution. She also had groundglass attenuation in the upper lobes right greater than left. She also had an elevated d-dimer yesterday. She subsequently had a VQ scan which was unremarkable and showed no evidence of a pulmonary embolus. She had a 2D echocardiogram performed today but the results are not yet back. Certainly she has significant issues on her CT chest. Yesterday her antibiotic coverage was broadened. Her Zithromax and Rocephin were stopped. She was placed on IV meropenem and doxycycline. She does seem to be much improved today. She is wheezing and we will start her on prednisone today as well. She will continue aggressive breathing treatments and oxygen support as needed. She was quite anemic and her hemoglobin continued to drop. She was transfused 2 units of packed red blood cells. This may have helped her breathing as well. Also we will need to follow-up with her echocardiogram results as she has been requiring IV Lasix. I suspect due to her long-standing diabetes mellitus that she has some diastolic heart failure. (2) Pneumonia Qualifiers: Aspiration pneumonia type: unspecified Laterality: bilateral Is this a current diagnosis for this admission?: Yes Plan: Initial concerns for community-acquired pathogens. She was on almost a week of IV Zithromax and Rocephin with no improvement. At this point I am more concerned about gram negatives. Yesterday afternoon the patient was placed on IV meropenem and doxycycline. This is day #2 of treatment with this regimen. (3) Diastolic CHF Qualifiers: Heart failure chronicity: acute Qualified Code(s): I50.31 - Acute diastolic (congestive) heart failure Is this a current diagnosis for this admission?: Yes Plan: A 2D echocardiogram is pending. I suspect she has some diastolic congestive heart failure issues. She has been requiring IV Lasix during this hospitalization. Her Lasix has been cut back to 20 mg once daily. She can likely be transitioned over to an oral regimen tomorrow. She does have a 2D echocardiogram pending for clarification. (4) COPD (chronic obstructive pulmonary disease) Qualifiers: COPD type: COPD with acute exacerbation Qualified Code(s): J44.1 - Chronic obstructive pulmonary disease with (acute) exacerbation Is this a current diagnosis for this admission?: Yes Plan: I believe the patient is developing a COPD exacerbation as well. I am going to place her on 60 mg of p.o. prednisone today. She will continue breathing treatments as well. We will await recommendations from the pulmonology service. (5) Acute kidney injury Is this a current diagnosis for this admission?: Yes Plan: Improving. Likely due to overdiuresis. She will continue Lasix 20 mg once daily. She was receiving it twice daily. (6) Anemia Qualifiers: Anemia type: iron deficiency Is this a current diagnosis for this admission?: Yes Plan: The patient had a heme positive stool. Her hemoglobin continued to drift downwards. She has been transfused 2 units of packed red blood cells. She has an iron deficiency anemia and likely slow GI losses. If her hemoglobin remains stable she can likely be referred to gastroenterology as an outpatient. We will see what her hemoglobin does over the next day or 2. We do not have GI here at this point. (7) Hyponatremia Is this a current diagnosis for this admission?: Yes Plan: Resolved. She will have a chemistry panel drawn in the morning. (8) Uncontrolled diabetes mellitus Is this a current diagnosis for this admission?: Yes Plan: The patient Lantus was held at the time of admission. I am starting her on steroids today and her blood sugars are ready quite uncontrolled. I am going to place her on Lantus 30 mg nightly. We may need to adjust this as we go along. She may need some mealtime coverage. (9) GERD (gastroesophageal reflux disease) Qualifiers: Esophagitis presence: without esophagitis Qualified Code(s): K21.9 - Gastro -esophageal reflux disease without esophagitis Is this a current diagnosis for this admission?: Yes Plan: I am placing her on Prevacid twice daily in light of her GI bleeding. (10) Hypertension Qualifiers: Hypertension type: essential hypertension Qualified Code(s): I10 - Essential (primary) hypertension Is this a current diagnosis for this admission?: Yes Plan: Stable (11) Hypothyroidism Qualifiers: Hypothyroidism type: unspecified Qualified Code(s): E03.9 - Hypothyroidism , unspecified Is this a current diagnosis for this admission?: Yes Plan: Continue Synthroid (12) Full code status Is this a current diagnosis for this admission?: Yes - Time Time Spent with patient: 25-34 minutes - Inpatient Certification Medical Necessity: Need Close Monitoring Due to Risk of Patient Decompensation - Inpatient hospitalization remains necessary. She is having some GI bleeding. We need to make sure that her hemoglobin remained stable. She also is still requiring oxygen and parenteral therapies. She is requiring pulmonology evaluation. Timing of disposition will be determined by her clinical course., Need for Nebulizer Therapy and Monitoring of Response, Need for IV Antibiotics
[2017-05-14] MEDS: IPRATROPIUM/ALBUTEROL 0.5-2.5 MG/3 ML AMPUL NEB SCH ×2 (16:20→23:47)
[2017-05-14] MEDS: LANSOPRAZOLE 30 MG TAB.RAP.DR PO SCH (17:40)
[2017-05-14] MEDS: CLONIDINE HCL 0.1 MG TABLET PO SCH (17:40)
[2017-05-14] MEDS: NIFEDIPINE 30 MG TAB.ER.24 PO SCH (17:42)
[2017-05-14] MEDS: OXYCODONE HCL IR 5 MG TABLET PO PRN ×2 (17:49→21:16)
--- NOTE | 2017-05-14 18:50 | XCELERA REPORT ---
[address] [address] Transthoracic Echocardiogram Report Name: IGLESIA BLANCHARD Age: 61 yrs Gender: Female : 1955 Patient Status: Inpatient Patient Location: [address] [place] [address] Study Date: 05/14/2017 09:43 AM Height: 57 in Weight: 186 lb BSA: 1.7 m2 Procedure: A complete two-dimensional transthoracic echocardiogram was performed (2D, M-mode, spectral and color flow Doppler). The study was technically adequate with some images being suboptimal in quality. Reason For Study: cardiomegally, sob, chf Ordering Physician: BRODY REA Performed By: Camila Cheema Interpretation Summary The left ventricular ejection fraction is normal. There is borderline concentric left ventricular hypertrophy. Doppler measurements suggest pseudonormalized left ventricular relaxation, which is associated with grade II/IV or mild to moderate diastolic dysfunction The left ventricle is grossly normal size. Wall motion cannot be accurately commented on, but no definite regional wall motion abnormalities noted. The right ventricular systolic function is normal. The right atrium is normal. The left atrial size is normal. There is a trace to mild amount of mitral regurgitation There is no mitral valve stenosis. No aortic regurgitation is present. There is no aortic valve stenosis There is a mild amount of tricuspid regurgitation There is moderate to severe pulmonary hypertension by echo Right ventricular systolic pressure is estimated to be elevated at 50- 60mmHg. The aortic root is not well visualized but is probably normal size. The inferior vena cava appeared normal and decreased > 50% with respiration (RAP 5-10 mmHg) There is no pericardial effusion. MMode/2D Measurements & Calculations RVDd: 2.9 cm LVIDd: 4.4 cm FS: 43.8 % Ao root diam: 2.5 cm IVSd: 1.0 cm LVIDs: 2.5 cm EDV(Teich): 88.7 ml LVPWd: 0.95 cm ESV(Teich): 22.0 ml Ao root area: 4.9 cm2 EF(Teich): 75.2 % LA dimension: 3.3 cm Doppler Measurements & Calculations MV E max susy: MV P1/2t max susy: Ao V2 max: LV V1 max P.8 cm/sec 131.3 cm/sec 195.9 cm/sec 6.1 mmHg MV A max susy: MV P1/2t: 83.5 msec Ao max PG: LV V1 max: 140.2 cm/sec 15.3 mmHg 123.4 cm/sec MV E/A: 0.93 MVA(P1/2t): 2.6 cm2 MV dec slope: 460.4 cm/sec2 MV dec time: 0.27 sec PA V2 max: PI end-d susy: TR max susy: 100.7 cm/sec 126.2 cm/sec 388.2 cm/sec PA max PG: TR max P.1 mmHg 60.3 mmHg Left Ventricle The left ventricle is grossly normal size. There is borderline concentric left ventricular hypertrophy. The left ventricular ejection fraction is normal. Doppler measurements suggest pseudonormalized left ventricular relaxation, which is associated with grade II/IV or mild to moderate diastolic dysfunction. Wall motion cannot be accurately commented on, but no definite regional wall motion abnormalities noted. Right Ventricle The right ventricle is grossly normal size. There is normal right ventricular wall thickness. The right ventricular systolic function is normal. Atria The right atrium is normal. The left atrial size is normal. Interarterial septum not well visualized and not well dopplered. Cannot comment on ASD/PFO presence. Mitral Valve The mitral valve is grossly normal. There is no mitral valve stenosis. There is a trace to mild amount of mitral regurgitation. Aortic Valve The aortic valve is grossly normal. There is no aortic valve stenosis. No aortic regurgitation is present. Tricuspid Valve The tricuspid valve is not well visualized, but is grossly normal. There is no tricuspid stenosis. There is a mild amount of tricuspid regurgitation. There is moderate to severe pulmonary hypertension by echo. Right ventricular systolic pressure is estimated to be elevated at 50-60mmHg. Pulmonic Valve The pulmonic valve is not well visualized. Great Vessels The aortic root is not well visualized but is probably normal size. The inferior vena cava appeared normal and decreased > 50% with respiration (RAP 5-10 mmHg). Effusions There is no pericardial effusion. : BRODY REA > Citlaly Crocker
[2017-05-14] MEDS: INSULIN GLARGINE,HUM.REC.ANLOG 300 UNIT/3 ML INSULN.PEN SUBCUT SCH (21:23)
[2017-05-15] MEDS: LANSOPRAZOLE 30 MG TAB.RAP.DR PO SCH ×2 (06:05→16:44)
[2017-05-15] MEDS: LEVOTHYROXINE SODIUM 0.05 MG TABLET PO SCH (06:06)
[2017-05-15 07:04] LABS: ABSOLUTE BASOPHILS # (AUTO) 0.1 10^3/uL (0.0-0.2); ABSOLUTE EOSINOPHILS # (AUTO) 0.2 10^3/uL (0.0-0.6); ABSOLUTE LYMPHOCYTES (AUTO) 1.5 10^3/uL (0.5-4.7); ABSOLUTE MONOCYTES (AUTO) 1.5 10^3/uL (0.1-1.4); ABSOLUTE NEUT (AUTO) 9.4 10^3/uL (1.7-8.2); BASOPHILS % (AUTO) 0.6 % (0-2); EOSINOPHILS % (AUTO) 1.4 % (0-6); HEMATOCRIT 29.8 % (36.0-47.0); HEMOGLOBIN 9.9 g/dL (12.0-15.5); LYMPHOCYTES % (AUTO) 11.8 % (13-45); MEAN CORPUSCULAR HEMOGLOBIN 28.2 pg (27.0-33.4); MEAN CORPUSCULAR HGB CONC 33.3 g/dL (32.0-36.0); MEAN CORPUSCULAR VOLUME 85 fl (80-97); MONOCYTES % (AUTO) 11.7 % (3-13); PLATELET COUNT 231 10^3/uL (150-450); RED BLOOD COUNT 3.52 10^6/uL (3.72-5.28); RED CELL DISTRIBUTION WIDTH 14.7 % (11.5-14.0); SEGMENTED NEUTROPHILS % (AUTO) 74.5 % (42-78); TOTAL CELLS COUNTED % (AUTO) 100 %; WHITE BLOOD COUNT 12.6 10^3/uL (4.0-10.5)
[2017-05-15 07:13] LABS: ANION GAP 5 (5-19); BLOOD UREA NITROGEN 36 mg/dL (7-20); CALCIUM 8.4 mg/dL (8.4-10.2); CARBON DIOXIDE 27 mmol/L (22-30); CHLORIDE 107 mmol/L (98-107); GLUCOSE 165 mg/dL (75-110); POTASSIUM 4.4 mmol/L (3.6-5.0); SODIUM 138.8 mmol/L (137-145)
[2017-05-15] MEDS: INSULIN LISPRO 100 UNIT/ML 3 ML VIAL SUBCUT PRN ×3 (08:35→22:07)
[2017-05-15] MEDS: IPRATROPIUM/ALBUTEROL 0.5-2.5 MG/3 ML AMPUL NEB SCH ×2 (09:09→16:36)
[2017-05-15] MEDS: BUDESONIDE NEB 0.5 MG/2 ML AMPUL NEB SCH ×2 (09:09→20:26)
[2017-05-15] MEDS: FUROSEMIDE INJ/PF 20 MG/2 ML SDV IV SCH (09:14)
[2017-05-15] MEDS: GUAIFENESIN 600 MG TABLET.SA PO SCH ×2 (09:14→22:02)
[2017-05-15] MEDS: MEROPENEM 1 GM in NORMAL SALINE 100 ML IV SCH ×2 (09:14→22:03)
[2017-05-15] MEDS: DOXYCYCLINE HYCLATE 100 MG in DEXTROSE 5%-WATER 250 ML IV SCH ×2 (09:14→22:04)
[2017-05-15] MEDS: DOCUSATE SODIUM 100 MG CAPSULE PO SCH ×2 (09:14→17:51)
[2017-05-15] MEDS ORDERED: FUROSEMIDE INJ/PF 20 MG/2 ML SDV IV SCH (14:25)
--- NOTE | 2017-05-15 14:33 | PDOC PROGRESS REPORT ---
Subjective Progress Note for:: 05/15/17 Subjective:: Patient seen on rounds. She is sitting on the side of the bed off oxygen. She is feeling slightly better status post transfusion. We discussed the results of her CT scan. She was seen by Dr. Reed from the pulmonology service however his note is not yet dictated. She states her breathing is still difficult. She states she does get short of breath especially if she moves around. She does think it is a little bit better since yesterday. She denies fever chills. No chest pain or heart palpitations. No nausea, vomiting or diarrhea. No dysuria, frequency or hematuria. Reason For Visit: ACUTE RESPIRATORY FAILURE,LEFT LOBAR PNEUMONIA Physical Exam Vital Signs: Temp Pulse Resp BP Pulse Ox 98.3 F 89 21 H 135/54 H 96 05/15/17 12:08 05/15/17 12:08 05/15/17 12:08 05/15/17 12:08 05/15/17 12:08 Intake & Output 05/14/17 05/15/17 05/16/17 06:59 06:59 06:59 Intake Total 2220 1590 355 Output Total 825 300 Balance 2220 765 55 Weight 89.6 kg 89.6 kg General appearance: PRESENT: no acute distress, morbidly obese, well-developed, well-nourished Head exam: PRESENT: atraumatic, normocephalic Eye exam: PRESENT: conjunctiva pink, EOMI, PERRLA. ABSENT: scleral icterus Ear exam: PRESENT: normal external ear exam Mouth exam: PRESENT: moist, tongue midline Neck exam: ABSENT: carotid bruit, JVD, lymphadenopathy, thyromegaly Respiratory exam: PRESENT: rhonchi, symmetrical, wheezes, other - Right lower lung field. ABSENT: rales Cardiovascular exam: PRESENT: RRR. ABSENT: diastolic murmur, rubs, systolic murmur Pulses: PRESENT: normal dorsalis pedis pul Vascular exam: PRESENT: normal capillary refill GI/Abdominal exam: PRESENT: normal bowel sounds, soft. ABSENT: distended, guarding, mass, organolmegaly, rebound, tenderness Rectal exam: PRESENT: deferred Extremities exam: PRESENT: +2 edema - Bilateral lower extremities Neurological exam: PRESENT: alert, awake, oriented to person, oriented to place , oriented to time, oriented to situation, CN II-XII grossly intact. ABSENT: motor sensory deficit Psychiatric exam: PRESENT: flat affect Skin exam: PRESENT: dry, intact, warm. ABSENT: cyanosis, rash Results Laboratory Results: 05/15/17 06:27 05/15/17 06:27 18 05/15/17 06:27 06:27 WBC 12.6 H RBC 3.52 L Hgb 9.9 L Hct 29.8 L MCV 85 MCH 28.2 MCHC 33.3 RDW 14.7 H Plt Count 231 Seg Neutrophils % 74.5 Lymphocytes % 11.8 L Monocytes % 11.7 Eosinophils % 1.4 Basophils % 0.6 Absolute Neutrophils 9.4 H Absolute Lymphocytes 1.5 Absolute Monocytes 1.5 H Absolute Eosinophils 0.2 Absolute Basophils 0.1 Sodium 138.8 Potassium 4.4 Chloride 107 Carbon Dioxide 27 Anion Gap 5 BUN 36 H Creatinine 1.11 Est GFR ( Amer) > 60 Est GFR (Non-Af Amer) 50 L Glucose 165 H Calcium 8.4 Magnesium 1.8 05/06/17 05/06/17 05/07/17 11:15 18:45 00:50 Troponin I 0.036 0.040 0.036 NT-Pro-B Natriuret Pep 05/07/17 05/11/17 05/14/17 07:08 15:03 08:57 Troponin I 0.036 NT-Pro-B Natriuret Pep 2150 H 3550 H Impressions: Chest X-Ray 05/11/17 14:58 IMPRESSION: Persistent and increasing bibasilar infiltrates. Chest CT 05/13/17 00:00 IMPRESSION: Diffuse mixed alveolar and interstitial pattern with more focal consolidation in the left lower lobe. Findings are most likely due to infection , however aspiration, hypersensitivity and sarcoid could have similar appearance. Lung Scan-VQ NM 05/13/17 00:00 IMPRESSION: No ventilation-perfusion mismatches.Multiple areas of photopenia correlating with multiple areas of airspace disease -effusion seen on recent CT scan. Assessment & Plan - Diagnosis (1) Acute respiratory failure Qualifiers: Respiratory failure complication: hypoxia Qualified Code(s): J96.01 - Acute respiratory failure with hypoxia Is this a current diagnosis for this admission?: Yes Plan: Continue nebulizers, and a bad coverage was broadened on 05/13. Echocardiogram on shows grade 2/4 diastolic function. She has increasing lower extremity edema will diuresis well. (2) Hypoxia Is this a current diagnosis for this admission?: Yes Plan: Continue nebulizers, oxygen, will add IS and PEP valve. Increase activity with nursing and PT (3) COPD (chronic obstructive pulmonary disease) with acute bronchitis Is this a current diagnosis for this admission?: Yes Plan: As above (4) Anemia Qualifiers: Anemia type: iron deficiency Is this a current diagnosis for this admission?: Yes Plan: Presently stable (5) Hypokalemia Is this a current diagnosis for this admission?: Yes Plan: Replete and monitor (6) Hyponatremia Is this a current diagnosis for this admission?: Yes Plan: REsolved (7) Acute renal injury due to hypovolemia Is this a current diagnosis for this admission?: Yes Plan: Improved with hydration, avoid nephrotoxic medications and dosages (8) Diabetes Qualifiers: Diabetes mellitus type: type 2 Diabetes mellitus complication status: with unspecified complications Diabetes mellitus assisted insulin use: with assisted use Qualified Code(s): E11.8 - Type 2 diabetes mellitus with unspecified complications (9) GERD (gastroesophageal reflux disease) Qualifiers: Esophagitis presence: without esophagitis Qualified Code(s): K21.9 - Gastro -esophageal reflux disease without esophagitis Is this a current diagnosis for this admission?: Yes Plan: Continue PPI therapy (10) Gastroparesis Plan: Continue current medication (11) Hypertension Qualifiers: Hypertension type: essential hypertension Qualified Code(s): I10 - Essential (primary) hypertension Is this a current diagnosis for this admission?: Yes Plan: She is normotensive continue current medication (12) Hypothyroidism Qualifiers: Hypothyroidism type: unspecified Qualified Code(s): E03.9 - Hypothyroidism , unspecified Is this a current diagnosis for this admission?: Yes Plan: Continue Synthroid (13) Diastolic CHF, acute Is this a current diagnosis for this admission?: Yes Plan: Diuresis with 40 mg IV daily Lasix - Time Time Spent with patient: 25-34 minutes Medications reviewed and adjusted accordingly: Yes Anticipated discharge: Home with Homehealth, SNF
[2017-05-15] MEDS: OXYCODONE HCL IR 5 MG TABLET PO PRN (14:58)
[2017-05-15] MEDS: NIFEDIPINE 30 MG TAB.ER.24 PO SCH (17:51)
[2017-05-15] MEDS: CLONIDINE HCL 0.1 MG TABLET PO SCH (17:51)
[2017-05-15] MEDS: IPRATROPIUM/ALBUTEROL 0.5-2.5 MG/3 ML AMPUL NEB PRN (20:26)
[2017-05-15] MEDS: INSULIN GLARGINE,HUM.REC.ANLOG 300 UNIT/3 ML INSULN.PEN SUBCUT SCH (22:05)
[2017-05-16] MEDS: IPRATROPIUM/ALBUTEROL 0.5-2.5 MG/3 ML AMPUL NEB SCH ×3 (00:20→16:53)
[2017-05-16] MEDS: LEVOTHYROXINE SODIUM 0.05 MG TABLET PO SCH (06:07)
[2017-05-16] MEDS: LANSOPRAZOLE 30 MG TAB.RAP.DR PO SCH ×2 (06:07→17:41)
[2017-05-16] MEDS: BUDESONIDE NEB 0.5 MG/2 ML AMPUL NEB SCH ×2 (08:40→21:52)
[2017-05-16] MEDS: DOCUSATE SODIUM 100 MG CAPSULE PO SCH ×2 (09:35→17:41)
[2017-05-16] MEDS: MEROPENEM 1 GM in NORMAL SALINE 100 ML IV SCH ×2 (09:35→22:39)
[2017-05-16] MEDS: GUAIFENESIN 600 MG TABLET.SA PO SCH ×2 (09:35→22:39)
[2017-05-16] MEDS: FUROSEMIDE INJ/PF 40 MG/4 ML SDV IV SCH (09:36)
[2017-05-16] MEDS: OXYCODONE HCL IR 5 MG TABLET PO PRN (09:37)
[2017-05-16] MEDS: DOXYCYCLINE HYCLATE 100 MG in DEXTROSE 5%-WATER 250 ML IV SCH ×2 (09:45→22:39)
--- NOTE | 2017-05-16 12:20 | PDOC PROGRESS REPORT ---
Subjective Subjective:: Patient states she in general is feeling better She is comfortable on the nasal cannula in no acute distress laying flat ; no chest pain no fever no chills Reason For Visit: ACUTE RESPIRATORY FAILURE,LEFT LOBAR PNEUMONIA Physical Exam Vital Signs: Temp Pulse Resp BP Pulse Ox 98.8 F 90 19 126/62 H 91 L 05/16/17 07:56 05/16/17 07:56 05/16/17 07:56 05/16/17 07:56 05/16/17 07:56 Intake & Output 05/15/17 05/16/17 05/17/17 00:59 00:59 00:59 Intake Total 1460 1499 547 Output Total 825 1050 300 Balance 635 449 247 Weight 89.6 kg 89.6 kg 89.9 kg General appearance: PRESENT: no acute distress, morbidly obese, well-developed, well-nourished Head exam: PRESENT: atraumatic, normocephalic Eye exam: PRESENT: conjunctiva pink, EOMI, PERRLA. ABSENT: scleral icterus Ear exam: PRESENT: normal external ear exam Mouth exam: PRESENT: moist, tongue midline Neck exam: ABSENT: carotid bruit, JVD, Respiratory exam: PRESENT: rhonchi, symmetrical, wheezes, other - Right lower lung field. ABSENT: rales Cardiovascular exam: PRESENT: RRR. ABSENT: diastolic murmur, rubs, systolic murmur Pulses: PRESENT: normal dorsalis pedis pul Vascular exam: PRESENT: normal capillary refill GI/Abdominal exam: PRESENT: normal bowel sounds, soft. ABSENT: distended, guarding, mass, organolmegaly, rebound, tenderness Rectal exam: PRESENT: deferred Extremities exam: PRESENT: +2 edema - Bilateral lower extremities Neurological exam: PRESENT: alert, awake, oriented to person, oriented to place , oriented to time, oriented to situation, CN II-XII grossly intact. ABSENT: motor sensory deficit Psychiatric exam: PRESENT: flat affect Skin exam: PRESENT: dry, intact, warm. ABSENT: cyanosis, rash Results Laboratory Results: 05/15/17 06:27 05/15/17 06:27 05/13/17 15:57 Transferrin 136 L 05/06/17 05/06/17 05/07/17 11:15 18:45 00:50 Troponin I 0.036 0.040 0.036 NT-Pro-B Natriuret Pep 05/07/17 05/11/17 05/14/17 07:08 15:03 08:57 Troponin I 0.036 NT-Pro-B Natriuret Pep 2150 H 3550 H Impressions: Chest X-Ray 05/11/17 14:58 IMPRESSION: Persistent and increasing bibasilar infiltrates. Chest CT 05/13/17 00:00 IMPRESSION: Diffuse mixed alveolar and interstitial pattern with more focal consolidation in the left lower lobe. Findings are most likely due to infection , however aspiration, hypersensitivity and sarcoid could have similar appearance. Lung Scan-VQ NM 05/13/17 00:00 IMPRESSION: No ventilation-perfusion mismatches.Multiple areas of photopenia correlating with multiple areas of airspace disease -effusion seen on recent CT scan. Assessment & Plan - Time Time Spent with patient: (1) Acute respiratory failure Qualifiers: Respiratory failure complication: hypoxia Qualified Code(s): J96.01 - Acute respiratory failure with hypoxia Is this a current diagnosis for this admission?: Yes Plan: Secondary to viral illness and bilateral pneumonia chest x-ray performed on 05/04 suggestive of bilateral pneumonia ; Pneumonia has improved We will repeat chest x-ray Continue doxycycline and cefepime (2) Pneumonia Qualifiers: Aspiration pneumonia type: unspecified Laterality: bilateral Is this a current diagnosis for this admission?: Yes Plan: As above (3) Diabetes Qualifiers: Diabetes mellitus type: type 2 Diabetes mellitus complication status: with unspecified complications Diabetes mellitus behavioral science chair insulin use: with behavioral science chair use Qualified Code(s): E11.8 - Type 2 diabetes mellitus with unspecified complications Plan: Continue present management (4) Hypertension Qualifiers: Hypertension type: essential hypertension Qualified Code(s): I10 - Essential (primary) hypertension Is this a current diagnosis for this admission?: Yes Plan: continue present medications Blood pressure is well controlled (5) Acute renal injury due to hypovolemia Is this a current diagnosis for this admission?: Yes Plan: Resolved. (6) Chest pain Is this a current diagnosis for this admission?: No Plan: Patient had negative troponins She may be a candidate for stress testing prior to discharge once clinically stable (7) Iron (Fe) deficiency anemia Is this a current diagnosis for this admission?: Yes Plan: We will continue iron replacement. (8) coffee-ground vomiting on admission It has stopped Likely secondary to gastritis We will continue PPI H&H has been stable Patient should have endoscopy prior to discharge or as an outpatient for evaluation (9) Fluid overload BNP was quite elevated 2 days ago Patient does have diastolic dysfunction We will repeat a BNP in a.m. Continue diuresis with Lasix IV Time Spent with patient: 25-34 minutes
--- NOTE | 2017-05-16 14:11 | RADIOLOGY REPORT (SQ) ---
EXAM DESCRIPTION: CHEST SINGLE VIEW COMPLETED DATE/TIME: 05/16/2017 1:31 pm REASON FOR STUDY: SOB COMPARISON: 05/11/2017 NUMBER OF VIEWS: One view. TECHNIQUE: Single frontal radiographic image of the chest acquired. LIMITATIONS: None. FINDINGS: LUNGS AND PLEURA: Persistent airspace disease in the lower lobes. No definite cavitation. No large effusions. MEDIASTINUM AND HEART: Stable heart size and mediastinal structures. BONY STRUCTURES: No acute findings. HARDWARE: None. OTHER: No other significant finding. IMPRESSION: Persistent airspace disease without significant change. TECHNICAL DOCUMENTATION: JOB ID: [id number]
[2017-05-16] MEDS: CLONIDINE HCL 0.1 MG TABLET PO SCH (17:41)
[2017-05-16] MEDS: NIFEDIPINE 30 MG TAB.ER.24 PO SCH (17:41)
[2017-05-16] MEDS: INSULIN GLARGINE,HUM.REC.ANLOG 300 UNIT/3 ML INSULN.PEN SUBCUT SCH (22:37)
[2017-05-17] MEDS: IPRATROPIUM/ALBUTEROL 0.5-2.5 MG/3 ML AMPUL NEB SCH ×3 (00:07→16:14)
[2017-05-17] MEDS: LEVOTHYROXINE SODIUM 0.05 MG TABLET PO SCH (06:07)
[2017-05-17] MEDS: LANSOPRAZOLE 30 MG TAB.RAP.DR PO SCH ×2 (06:07→18:33)
[2017-05-17 07:12] LABS: ABSOLUTE BASOPHILS # (AUTO) 0.1 10^3/uL (0.0-0.2); ABSOLUTE EOSINOPHILS # (AUTO) 0.4 10^3/uL (0.0-0.6); ABSOLUTE LYMPHOCYTES (AUTO) 1.5 10^3/uL (0.5-4.7); ABSOLUTE MONOCYTES (AUTO) 0.9 10^3/uL (0.1-1.4); ABSOLUTE NEUT (AUTO) 8.1 10^3/uL (1.7-8.2); BASOPHILS % (AUTO) 0.5 % (0-2); EOSINOPHILS % (AUTO) 3.6 % (0-6); HEMATOCRIT 30.8 % (36.0-47.0); HEMOGLOBIN 10.1 g/dL (12.0-15.5); LYMPHOCYTES % (AUTO) 13.9 % (13-45); MEAN CORPUSCULAR HEMOGLOBIN 28.3 pg (27.0-33.4); MEAN CORPUSCULAR HGB CONC 32.8 g/dL (32.0-36.0); MEAN CORPUSCULAR VOLUME 86 fl (80-97); MONOCYTES % (AUTO) 8.2 % (3-13); PLATELET COUNT 287 10^3/uL (150-450); RED BLOOD COUNT 3.58 10^6/uL (3.72-5.28); SEGMENTED NEUTROPHILS % (AUTO) 73.8 % (42-78); TOTAL CELLS COUNTED % (AUTO) 100 %
[2017-05-17 07:34] LABS: ANION GAP 7 (5-19); BLOOD UREA NITROGEN 36 mg/dL (7-20); CALCIUM 8.5 mg/dL (8.4-10.2); CARBON DIOXIDE 26 mmol/L (22-30); CHLORIDE 104 mmol/L (98-107); GLUCOSE 156 mg/dL (75-110); POTASSIUM 4.3 mmol/L (3.6-5.0); SODIUM 136.6 mmol/L (137-145)
[2017-05-17] MEDS: BUDESONIDE NEB 0.5 MG/2 ML AMPUL NEB SCH ×2 (09:48→21:03)
[2017-05-17] MEDS: GUAIFENESIN 600 MG TABLET.SA PO SCH ×2 (10:12→21:36)
[2017-05-17] MEDS: MEROPENEM 1 GM in NORMAL SALINE 100 ML IV SCH ×2 (10:12→21:37)
[2017-05-17] MEDS: FUROSEMIDE INJ/PF 40 MG/4 ML SDV IV SCH (10:12)
[2017-05-17] MEDS: DOCUSATE SODIUM 100 MG CAPSULE PO SCH ×2 (10:12→18:32)
[2017-05-17] MEDS: DOXYCYCLINE HYCLATE 100 MG in DEXTROSE 5%-WATER 250 ML IV SCH ×2 (10:12→21:37)
[2017-05-17] MEDS ORDERED: BISACODYL 10 MG SUPP.RECT PR PRN (10:39)
[2017-05-17] MEDS: INSULIN LISPRO 100 UNIT/ML 3 ML VIAL SUBCUT PRN ×3 (13:30→23:02)
--- NOTE | 2017-05-17 14:50 | RADIOLOGY REPORT (SQ) ---
EXAM DESCRIPTION: CHEST SINGLE VIEW COMPLETED DATE/TIME: 05/17/2017 12:54 pm REASON FOR STUDY: SOB COMPARISON: CT chest 05/13/2017 Chest films 05/07/2017, 05/11/2017, 05/16/2017, 06/18/2016 EXAM PARAMETERS: NUMBER OF VIEWS: One view. TECHNIQUE: Single frontal radiographic view of the chest acquired. RADIATION DOSE: NA LIMITATIONS: None. FINDINGS: LUNGS AND PLEURA: Persistent dense consolidation in the left lower lobe worrisome for pneu monia, similar compared to previous studies. There is patchy bilateral airspace disease, edema versus pneumonia. This has progressed compared to previous studies No gross pleural effusions or pneumothorax. MEDIASTINUM AND HILAR STRUCTURES: No masses. Contour normal. HEART AND VASCULAR STRUCTURES: Stable mild cardiomegaly BONES: No acute findings. HARDWARE: Tacks post right shoulder surgery OTHER: No other significant finding. IMPRESSION: Dense consolidation with air bronchograms in the left retrocardiac region persists, unch anged, worrisome for pneumonia. Superimposed patchy bilateral airspace disease elsewhere in the mid and lower lungs may represent pul monary edema. Multifocal pneumonia is possible. These findings have progressed compared to 8 chest film. TECHNICAL DOCUMENTATION: JOB ID: [id number] [employer]- All Rights Reserved
[2017-05-17] MEDS: CLONIDINE HCL 0.1 MG TABLET PO SCH (18:33)
[2017-05-17] MEDS: NIFEDIPINE 30 MG TAB.ER.24 PO SCH (18:33)
--- NOTE | 2017-05-17 18:49 | PDOC PROGRESS REPORT ---
Subjective Progress Note for:: 05/17/17 Subjective:: Patient seen on rounds. She is sitting on the side of the bed off oxygen. She is feeling slightly better status post transfusion. We discussed the results of her CT scan. She was seen by Dr. Reed from the pulmonology service however his note is not yet dictated. She is complaining about constipation today She states she does get short of breath especially if she moves around. She does think it is a little bit better since yesterday. She denies fever chills. No chest pain or heart palpitations. No nausea, vomiting or diarrhea. No dysuria, frequency or hematuria. Reason For Visit: ACUTE RESPIRATORY FAILURE,LEFT LOBAR PNEUMONIA Physical Exam Vital Signs: Temp Pulse Resp BP Pulse Ox 98.2 F 95 20 173/69 H 95 05/17/17 15:48 05/17/17 15:48 05/17/17 15:48 05/17/17 15:48 05/17/17 15:48 Intake & Output 05/16/17 05/17/17 05/18/17 06:59 06:59 06:59 Intake Total 1736 2148 500 Output Total 1350 1300 Balance 386 848 500 Weight 89.9 kg 90.8 kg General appearance: PRESENT: no acute distress, morbidly obese, well-developed, well-nourished Head exam: PRESENT: atraumatic, normocephalic Eye exam: PRESENT: conjunctiva pink, EOMI, PERRLA. ABSENT: scleral icterus Ear exam: PRESENT: normal external ear exam Mouth exam: PRESENT: moist, tongue midline Teeth exam: PRESENT: poor dentation Neck exam: ABSENT: carotid bruit, JVD, lymphadenopathy, thyromegaly Respiratory exam: PRESENT: rhonchi, symmetrical, unlabored Cardiovascular exam: PRESENT: RRR. ABSENT: diastolic murmur, rubs, systolic murmur Pulses: PRESENT: normal dorsalis pedis pul Vascular exam: PRESENT: normal capillary refill GI/Abdominal exam: PRESENT: normal bowel sounds, soft. ABSENT: distended, guarding, mass, organolmegaly, rebound, tenderness Rectal exam: PRESENT: deferred Extremities exam: PRESENT: full ROM. ABSENT: calf tenderness, clubbing, pedal edema Neurological exam: PRESENT: alert, awake, oriented to person, oriented to place , oriented to time, oriented to situation, CN II-XII grossly intact. ABSENT: motor sensory deficit Psychiatric exam: PRESENT: appropriate affect, normal mood. ABSENT: homicidal ideation, suicidal ideation Skin exam: PRESENT: dry, intact, warm. ABSENT: cyanosis, rash Results Laboratory Results: 05/17/17 07:03 05/17/17 07:03 05/17/17 05/17/17 07:03 07:03 WBC 11.0 H RBC 3.58 L Hgb 10.1 L Hct 30.8 L MCV 86 MCH 28.3 MCHC 32.8 RDW 15.0 H Plt Count 287 Seg Neutrophils % 73.8 Lymphocytes % 13.9 Monocytes % 8.2 Eosinophils % 3.6 Basophils % 0.5 Absolute Neutrophils 8.1 Absolute Lymphocytes 1.5 Absolute Monocytes 0.9 Absolute Eosinophils 0.4 Absolute Basophils 0.1 Sodium 136.6 L Potassium 4.3 Chloride 104 Carbon Dioxide 26 Anion Gap 7 BUN 36 H Creatinine 1.08 Est GFR ( Amer) > 60 Est GFR (Non-Af Amer) 52 L Glucose 156 H Calcium 8.5 05/06/17 05/06/17 05/07/17 11:15 18:45 00:50 Troponin I 0.036 0.040 0.036 NT-Pro-B Natriuret Pep 05/07/17 05/11/17 05/14/17 07:08 15:03 08:57 Troponin I 0.036 NT-Pro-B Natriuret Pep 2150 H 3550 H 05/17/17 07:03 Troponin I NT-Pro-B Natriuret Pep 4190 H Impressions: Chest CT 05/13/17 00:00 IMPRESSION: Diffuse mixed alveolar and interstitial pattern with more focal consolidation in the left lower lobe. Findings are most likely due to infection , however aspiration, hypersensitivity and sarcoid could have similar appearance. Lung Scan-VQ NM 05/13/17 00:00 IMPRESSION: No ventilation-perfusion mismatches.Multiple areas of photopenia correlating with multiple areas of airspace disease -effusion seen on recent CT scan. Chest X-Ray 05/17/17 12:30 IMPRESSION: Dense consolidation with air bronchograms in the left retrocardiac region persists, unchanged, worrisome for pneumonia. Superimposed patchy bilateral airspace disease elsewhere in the mid and lower lungs may represent pulmonary edema. Multifocal pneumonia is possible. These findings have progressed compared to 05/16/2017 chest film. Assessment & Plan - Diagnosis (1) Acute respiratory failure Qualifiers: Respiratory failure complication: hypoxia Qualified Code(s): J96.01 - Acute respiratory failure with hypoxia Is this a current diagnosis for this admission?: Yes Plan: Continue nebulizers, and a bad coverage was broadened on 05/13. Echocardiogram on 216 shows grade 2/4 diastolic function. She has increasing lower extremity edema will diuresis well. (2) Hypoxia Is this a current diagnosis for this admission?: Yes Plan: Continue nebulizers, oxygen, will add IS and PEP valve. Increase activity with nursing and PT (3) COPD (chronic obstructive pulmonary disease) with acute bronchitis Is this a current diagnosis for this admission?: Yes Plan: As above (4) Anemia Qualifiers: Anemia type: iron deficiency Is this a current diagnosis for this admission?: Yes Plan: Presently stable (5) Hypokalemia Is this a current diagnosis for this admission?: Yes Plan: Replete and monitor (6) Hyponatremia Is this a current diagnosis for this admission?: Yes Plan: REsolved (7) Acute renal injury due to hypovolemia Is this a current diagnosis for this admission?: Yes Plan: Improved with hydration, avoid nephrotoxic medications and dosages (8) Diabetes Qualifiers: Diabetes mellitus type: type 2 Diabetes mellitus complication status: with unspecified complications Diabetes mellitus retirement insulin use: with assistant terminal manager use Qualified Code(s): E11.8 - Type 2 diabetes mellitus with unspecified complications Plan: continue current medications and sliding scale coverage (9) GERD (gastroesophageal reflux disease) Qualifiers: Esophagitis presence: without esophagitis Qualified Code(s): K21.9 - Gastro -esophageal reflux disease without esophagitis Is this a current diagnosis for this admission?: Yes Plan: Continue PPI therapy (10) Gastroparesis Plan: Continue current medication (11) Hypertension Qualifiers: Hypertension type: essential hypertension Qualified Code(s): I10 - Essential (primary) hypertension Is this a current diagnosis for this admission?: Yes Plan: She is normotensive continue current medication (12) Hypothyroidism Qualifiers: Hypothyroidism type: unspecified Qualified Code(s): E03.9 - Hypothyroidism , unspecified Is this a current diagnosis for this admission?: Yes Plan: Continue Synthroid (13) Diastolic CHF, acute Is this a current diagnosis for this admission?: Yes Plan: Diuresis with 40 mg IV daily Lasix - Time Time Spent with patient: 25-34 minutes Total Critical Time (Minutes): 20 Medications reviewed and adjusted accordingly: Yes Anticipated discharge: SNF
[2017-05-17] MEDS ORDERED: HC ACETATE/PRAMOXINE HCL 10 GM TP PRN (20:30)
[2017-05-17] MEDS: INSULIN GLARGINE,HUM.REC.ANLOG 300 UNIT/3 ML INSULN.PEN SUBCUT SCH (21:35)
[2017-05-17] MEDS: OXYCODONE HCL IR 5 MG TABLET PO PRN (21:36)
[2017-05-18] MEDS: IPRATROPIUM/ALBUTEROL 0.5-2.5 MG/3 ML AMPUL NEB SCH ×3 (00:40→17:27)
[2017-05-18] MEDS: LEVOTHYROXINE SODIUM 0.05 MG TABLET PO SCH (05:14)
[2017-05-18] MEDS: LANSOPRAZOLE 30 MG TAB.RAP.DR PO SCH ×2 (05:14→17:53)
[2017-05-18] MEDS: DEXTROSE 50%-WATER 25 GM/50 ML DISP.SYRIN IV PRN (06:14)
[2017-05-18] MEDS: BUDESONIDE NEB 0.5 MG/2 ML AMPUL NEB SCH ×2 (08:35→21:01)
[2017-05-18] MEDS: FUROSEMIDE INJ/PF 40 MG/4 ML SDV IV SCH (09:15)
[2017-05-18] MEDS: GUAIFENESIN 600 MG TABLET.SA PO SCH ×2 (09:15→22:24)
[2017-05-18] MEDS: MEROPENEM 1 GM in NORMAL SALINE 100 ML IV SCH ×2 (09:15→22:24)
[2017-05-18] MEDS: DOCUSATE SODIUM 100 MG CAPSULE PO SCH ×2 (09:15→17:52)
[2017-05-18] MEDS ORDERED: LINEZOLID 600 MG TABLET PO SCH (10:00)
[2017-05-18] MEDS: METOLAZONE 2.5 MG TABLET PO SCH (10:07)
[2017-05-18] MEDS: INSULIN LISPRO 100 UNIT/ML 3 ML VIAL SUBCUT PRN (13:22)
--- NOTE | 2017-05-18 13:38 | PDOC CONSULTATION ---
Consultation Consult Date: 05/18/17 Attending physician:: RODOLFO VILLALBA Consult reason:: Anemia, secondary to blood loss. nausea and vomiting. Hematemesis. ? history of colon polyp History of Present Illness Admission Date/PCP: 05/04/17 16:32 KINJAL HOLLOWAY MD History of Present Illness: Asked to see this patient for GI work up patient states that had been brought in to [facility] for pedal edema and shortness of breath noted to have acute respiratory distress now better on nasal cannula and able to converse in full sentences patient had episode of hematemesis associated with nausea and vomiting has anemia, now stable, patient states had seen Dr Gonzalez in the past, he has been providing medication for GERD along with Dr Holloway patient thinks has had a colonoscopy in the past ? if had polyps, patient states she has never spoken with Dr Gonzalez in the past she will need a GI work up would schedule her for EGD and colonoscopy will schedule with Propofol sedation she is willing to proceed Past Medical History Cardiac Medical History: Reports: Hyperlipidema, Hypertension Neurological Medical History: Reports: None Endocrine Medical History: Reports: Diabetes Mellitus Type 2 Renal/ Medical History: Reports: None Malignancy Medical History: Reports: None GI Medical History: Reports: None Musculoskeltal Medical History: Reports: None Skin Medical History: Reports: None Psychiatric Medical History: Reports: None Denies: Depression Traumatic Medical History: Reports: None Past Surgical History Past Surgical History: Reports: Section - x2, Orthopedic Surgery - Toe amputation for osteomyelitis right pinky Social History Lives with: Family Smoking Status: Former Smoker Last Time Smoked: 2014 Frequency of Alcohol Use: None Hx Recreational Drug Use: No Drugs: None Hx Prescription Drug Abuse: No - Advance Directive Resuscitation Status: Full Code Family History Family History: None Parental Family History Reviewed: Yes Children Family History Reviewed: Unknown Sibling(s) Family History Reviewed.: Unknown Medication/Allergy Home Medications: Clonidine HCl [Catapres 0.1 mg Tablet] 0.1 mg PO DAILY 05/04/17 Ergocalciferol (Vitamin D2) [Vitamin D2] 50,000 unit PO [id number] 05/04/17 Furosemide [Lasix 40 mg Tablet] 40 mg PO DAILY 05/04/17 Hydrochlorothiazide [Hydrodiuril 25 mg Tablet] 25 mg PO QAM 05/04/17 Insulin Aspart [Novolog Flexpen] 0 unit SUBCUT .SLD SCALE 05/04/17 Insulin Glargine,Hum.rec.anlog [Lantus Solostar] 25 unit SQ DAILY 05/04/17 Levothyroxine Sodium [Synthroid 0.05 mg Tablet] 0.05 mg PO Q6AM 05/04/17 Lisinopril [Prinivil 10 mg Tablet] 20 mg PO DAILY 05/04/17 Omeprazole Magnesium [Prilosec Otc] 20 mg PO DAILY 05/04/17 Oxycodone HCl/Acetaminophen [Percocet 10-325 mg Tablet] 1 tab PO Q4HP PRN Allergies/Adverse Reactions: No Known Allergies Allergy (Verified 05/04/17 13:46) Review of Systems Constitutional: ABSENT: fever(s), headache(s), night sweats, weakness Eyes: ABSENT: visual disturbances Ears: ABSENT: hearing changes Nose, Mouth, and Throat: ABSENT: vertigo Cardiovascular: ABSENT: edema, orthropnea, palpitations Respiratory: ABSENT: dyspnea, hemoptysis Gastrointestinal: PRESENT: abdominal pain, nausea, vomiting. ABSENT: diarrhea, hematochezia Genitourinary: ABSENT: dysuria, hematuria Musculoskeletal: ABSENT: muscle weakness Neurological: ABSENT: syncope, tingling, tremor(s), vertigo Endocrine: ABSENT: polydipsia, polyphagia, polyuria Hematologic/Lymphatic: ABSENT: easy bruising Physical Exam Vital Signs: Temp Pulse Resp BP Pulse Ox 97.8 F 75 14 163/86 H 97 05/18/17 12:00 05/18/17 07:47 05/18/17 12:00 05/18/17 12:00 05/18/17 07:47 Intake & Output 05/17/17 05/18/17 05/19/17 06:59 06:59 06:59 Intake Total 2148 1310 Output Total 1300 1000 Balance 848 310 Weight 90.8 kg 90.6 kg General appearance: PRESENT: no acute distress, well-developed, well-nourished Head exam: PRESENT: atraumatic, normocephalic Eye exam: PRESENT: EOMI, PERRLA. ABSENT: nystagmus, periorbital swelling, scleral icterus Mouth exam: PRESENT: moist, neck supple Throat exam: ABSENT: tonsillar exudate, tonsillogmegaly Neck exam: ABSENT: meningismus, tenderness, thyromegaly Respiratory exam: PRESENT: symmetrical, unlabored. ABSENT: tachypnea, wheezes Cardiovascular exam: PRESENT: RRR, +S1, +S2 GI/Abdominal exam: PRESENT: soft. ABSENT: rebound, rigid, tenderness Extremities exam: ABSENT: joint swelling Musculoskeletal exam: PRESENT: full ROM Neurological exam: PRESENT: oriented to time, oriented to situation, reflexes normal, CN II-XII grossly intact Focused psych exam: ABSENT: restlessness Skin exam: PRESENT: normal color. ABSENT: mottled, pallor, petechiae, urticaria , vesicles Results Laboratory Results: 05/17/17 07:03 05/17/17 07:03 05/06/17 05/06/17 05/07/17 11:15 18:45 00:50 Troponin I 0.036 0.040 0.036 NT-Pro-B Natriuret Pep 05/07/17 05/11/17 05/14/17 07:08 15:03 08:57 Troponin I 0.036 NT-Pro-B Natriuret Pep 2150 H 3550 H 05/17/17 07:03 Troponin I NT-Pro-B Natriuret Pep 4190 H Impressions: Chest CT 05/13/17 00:00 IMPRESSION: Diffuse mixed alveolar and interstitial pattern with more focal consolidation in the left lower lobe. Findings are most likely due to infection , however aspiration, hypersensitivity and sarcoid could have similar appearance. Lung Scan-VQ NM 05/13/17 00:00 IMPRESSION: No ventilation-perfusion mismatches.Multiple areas of photopenia correlating with multiple areas of airspace disease -effusion seen on recent CT scan. Chest X-Ray 05/17/17 12:30 IMPRESSION: Dense consolidation with air bronchograms in the left retrocardiac region persists, unchanged, worrisome for pneumonia. Superimposed patchy bilateral airspace disease elsewhere in the mid and lower lungs may represent pulmonary edema. Multifocal pneumonia is possible. These findings have progressed compared to 05/16/2017 chest film. Assessment & Plan - Diagnosis (1) Melena Plan: ? possible peptic ulcer disease will need EGD Risks, benefits and alternatives are discussed with the patient in detail further recommendations to follow (2) Iron (Fe) deficiency anemia Is this a current diagnosis for this admission?: Yes Plan: will need EGD and colonoscopy Risks, benefits and alternatives are discussed she will need Propofol sedation she is willing to have procedure done (3) GERD (gastroesophageal reflux disease) Qualifiers: Esophagitis presence: without esophagitis Qualified Code(s): K21.9 - Gastro -esophageal reflux disease without esophagitis Is this a current diagnosis for this admission?: Yes Plan: has GERD and currently being treated will exclude possible H.pylori, rule out for peptic ulcer disease - Time Time Spent: 50 to 70 Minutes
[2017-05-18] MEDS: CLONIDINE HCL 0.1 MG TABLET PO SCH (17:52)
[2017-05-18] MEDS: NIFEDIPINE 30 MG TAB.ER.24 PO SCH (17:53)
[2017-05-18] MEDS ORDERED: PEG 3350/NA SULF,BICARB,CL/KCL 4000 ML PO ONE (18:00)
[2017-05-18] MEDS ORDERED: BISACODYL 5 MG TABEC PO ONE (21:00)
[2017-05-18] MEDS ORDERED: SORBITOL 70% SOLUTION 30 ML UDC PO ONE (21:00)
[2017-05-18] MEDS: INSULIN GLARGINE,HUM.REC.ANLOG 300 UNIT/3 ML INSULN.PEN SUBCUT SCH (22:24)
[2017-05-19] MEDS: IPRATROPIUM/ALBUTEROL 0.5-2.5 MG/3 ML AMPUL NEB SCH ×3 (00:33→16:00)
[2017-05-19] MEDS: OXYCODONE HCL IR 5 MG TABLET PO PRN (00:48)
[2017-05-19] MEDS: LEVOTHYROXINE SODIUM 0.05 MG TABLET PO SCH (05:24)
[2017-05-19] MEDS: LANSOPRAZOLE 30 MG TAB.RAP.DR PO SCH ×2 (05:24→18:12)
[2017-05-19] MEDS: BUDESONIDE NEB 0.5 MG/2 ML AMPUL NEB SCH ×2 (08:29→20:36)
[2017-05-19] MEDS: FUROSEMIDE INJ/PF 40 MG/4 ML SDV IV SCH ×2 (09:13→18:14)
[2017-05-19] MEDS: MEROPENEM 1 GM in NORMAL SALINE 100 ML IV SCH (09:14)
[2017-05-19] MEDS ORDERED: MIDAZOLAM 2 MG/2 ML INJ ONE (12:49)
[2017-05-19] MEDS ORDERED: PROPOFOL INJ 200 MG/20 ML VIAL IV ONE (12:50)
[2017-05-19] MEDS: METOLAZONE 2.5 MG TABLET PO SCH (15:30)
[2017-05-19] MEDS: GUAIFENESIN 600 MG TABLET.SA PO SCH ×2 (15:30→21:29)
[2017-05-19] MEDS: DOCUSATE SODIUM 100 MG CAPSULE PO SCH ×2 (15:31→18:16)
--- NOTE | 2017-05-19 16:05 | Operative Report ---
Operative Report DATE OF SURGERY: 05/19/17 Operative Report: The risks, benefits and alternatives of the procedure including risks of bleeding, perforation requiring surgery are explained to the patient in detail and informed consent was obtained. Patient was taken back to the operating room and placed in a left, lateral decubital position. Timeout was called. Propofol medications administered. A rectal examination was done which did not reveal any masses, tears or fissures. An Olympus videoscope was inserted into the patient's rectum. Prep was good. Scope was then carefully advanced all the way to the cecum. The cecum was identified by the usual anatomical landmarks including the ileocecal valve as well as the appendiceal office. Photodocumentation is obtained. Scope was then sequentially pulled back via the various segments of the colon including the ascending colon, hepatic flexure , transverse colon, splenic flexure, descending colon finding to the rectosigmoid portions of the colon. Retroflexion maneuvers performed. The risks benefits and alternatives of the procedure explained to the patient in detail and informed consent is obtained.A GIF Olympus video scope was inserted into the patient's mouth and hypopharynx, the esophagus is identified intubated and insufflated ,the scope was then advanced through the esophagus stomach and duodenum, retroflexion maneuver is done, the esophagus stomach and first and second portions of the duodenum examined PREOPERATIVE DIAGNOSIS: Nausea vomiting, hematemesis. Chronic anemia. History of possible colonic polyp in the past POSTOPERATIVE DIAGNOSIS: Mild right-sided inflammation status post biopsy rule out lymphocytic, microscopic, collagenous colitis. Internal hemorrhoids. Esophageal erosion. Gastritis status post biopsy rule out Helicobacter pylori. Small hiatal hernia OPERATION: Colonoscopy with biopsy. EGD with biopsy SURGEON: RODOLFO VILLALBA ANESTHESIA: LMAC TISSUE REMOVED OR ALTERED: As noted above. COMPLICATIONS: None. ESTIMATED BLOOD LOSS: None. INTRAOPERATIVE FINDINGS: As noted above. PROCEDURE: Patient tolerated procedure well. No immediate postprocedure complications are noted. Patient sent back to her room in good condition. Can resume regular diet Resume regular activity level Should be able to be discharged after no other significant issues ongoing We will wait on biopsies
[2017-05-19] MEDS: CLONIDINE HCL 0.1 MG TABLET PO SCH (18:13)
[2017-05-19] MEDS: NIFEDIPINE 30 MG TAB.ER.24 PO SCH (18:13)
[2017-05-19] MEDS: INSULIN GLARGINE,HUM.REC.ANLOG 300 UNIT/3 ML INSULN.PEN SUBCUT SCH (21:30)
[2017-05-20] MEDS: IPRATROPIUM/ALBUTEROL 0.5-2.5 MG/3 ML AMPUL NEB SCH ×4 (00:13→20:22)
[2017-05-20] MEDS: LANSOPRAZOLE 30 MG TAB.RAP.DR PO SCH ×2 (05:14→17:13)
[2017-05-20] MEDS: LEVOTHYROXINE SODIUM 0.05 MG TABLET PO SCH (05:14)
[2017-05-20] MEDS: INSULIN LISPRO 100 UNIT/ML 3 ML VIAL SUBCUT PRN ×3 (07:53→22:07)
[2017-05-20 08:04] LABS: HEMATOCRIT 29.6 % (36.0-47.0); MEAN CORPUSCULAR HEMOGLOBIN 28.8 pg (27.0-33.4); MEAN CORPUSCULAR HGB CONC 33.8 g/dL (32.0-36.0); MEAN CORPUSCULAR VOLUME 85 fl (80-97); PLATELET COUNT 279 10^3/uL (150-450); RED BLOOD COUNT 3.48 10^6/uL (3.72-5.28); RED CELL DISTRIBUTION WIDTH 14.7 % (11.5-14.0); WHITE BLOOD COUNT 7.5 10^3/uL (4.0-10.5)
[2017-05-20 08:19] LABS: ALANINE AMINOTRANSFERASE 29 U/L (9-52); ALBUMIN 2.5 g/dL (3.5-5.0); ALKALINE PHOSPHATASE 77 U/L (38-126); ANION GAP 9 (5-19); ASPARTATE AMINO TRANSFERASE 17 U/L (14-36); BILIRUBIN,DIRECT 0.1 mg/dL (0.0-0.4); BILIRUBIN,TOTAL 0.2 mg/dL (0.2-1.3); BLOOD UREA NITROGEN 23 mg/dL (7-20); CALCIUM 8.8 mg/dL (8.4-10.2); CARBON DIOXIDE 28 mmol/L (22-30); CHLORIDE 104 mmol/L (98-107); GLUCOSE 177 mg/dL (75-110); SODIUM 141.2 mmol/L (137-145); TOTAL PROTEIN 5.2 g/dL (6.3-8.2)
[2017-05-20] MEDS: BUDESONIDE NEB 0.5 MG/2 ML AMPUL NEB SCH (08:24)
[2017-05-20] MEDS ORDERED: IPRATROPIUM/ALBUTEROL 0.5-2.5 MG/3 ML AMPUL NEB PRN (10:29)
[2017-05-20] MEDS: GUAIFENESIN 600 MG TABLET.SA PO SCH ×2 (10:55→21:18)
[2017-05-20] MEDS: DOCUSATE SODIUM 100 MG CAPSULE PO SCH ×2 (10:56→17:14)
[2017-05-20] MEDS ORDERED: LINEZOLID 600 MG RTU 300 ML IV ONE (11:00)
[2017-05-20] MEDS ORDERED: AMLODIPINE BESYLATE 5 MG TABLET PO ONE (11:30)
[2017-05-20] MEDS: PIPERACILLIN SODIUM/TAZOBACTAM 3.375 GM in NORMAL SALINE 100 ML IV SCH ×2 (11:43→17:13)
[2017-05-20] MEDS ORDERED: LISINOPRIL 10 MG TABLET PO SCH (12:00)
[2017-05-20] MEDS: FUROSEMIDE INJ/PF 40 MG/4 ML SDV IV SCH ×2 (14:04→21:18)
[2017-05-20] MEDS: METHYLPREDNISOLONE INJ 40 MG/1 ML SDV IV SCH ×2 (14:04→21:18)
--- NOTE | 2017-05-20 14:24 | PDOC PROGRESS REPORT ---
Subjective Progress Note for:: 05/20/17 Subjective:: Patient tolerated her procedure well. She underwent both EGD and colonoscopy. Colonoscopy was normal. There was mild inflammation in the right side of the colon and biopsies were obtained. She does have distal esophagitis biopsies are pending We will continue PPI We will await biopsies She has resume a regular diet, no postprocedure complications are noted Reason For Visit: ACUTE RESPIRATORY FAILURE,LEFT LOBAR PNEUMONIA Physical Exam Vital Signs: Temp Pulse Resp BP Pulse Ox 98.0 F 94 16 163/64 H 94 05/20/17 11:56 05/20/17 11:56 05/20/17 11:56 05/20/17 11:56 05/20/17 11:56 Intake & Output 05/19/17 05/20/17 05/21/17 06:59 06:59 06:59 Intake Total 3737 2834 Output Total 0 Balance 3737 2834 Weight 84 kg 79.2 kg General appearance: PRESENT: no acute distress, well-developed, well-nourished Head exam: PRESENT: atraumatic, normocephalic Eye exam: PRESENT: EOMI, PERRLA. ABSENT: nystagmus, periorbital swelling, scleral icterus Mouth exam: PRESENT: moist, neck supple Teeth exam: ABSENT: edentulous Throat exam: ABSENT: tonsillar exudate, tonsillogmegaly Neck exam: ABSENT: meningismus, tenderness, thyromegaly Respiratory exam: PRESENT: symmetrical, unlabored. ABSENT: tachypnea, wheezes Cardiovascular exam: PRESENT: RRR, +S1, +S2 GI/Abdominal exam: PRESENT: soft. ABSENT: rebound, rigid, tenderness Extremities exam: ABSENT: joint swelling Musculoskeletal exam: PRESENT: full ROM Neurological exam: PRESENT: oriented to time, oriented to situation, CN II-XII grossly intact Focused psych exam: ABSENT: restlessness Skin exam: PRESENT: normal color. ABSENT: mottled, pallor, urticaria, vesicles Results Laboratory Results: 05/20/17 07:33 05/20/17 07:33 05/20/17 05/20/17 07:33 07:33 WBC 7.5 RBC 3.48 L Hgb 10.0 L Hct 29.6 L MCV 85 MCH 28.8 MCHC 33.8 RDW 14.7 H Plt Count 279 Sodium 141.2 Potassium 4.0 Chloride 104 Carbon Dioxide 28 Anion Gap 9 BUN 23 H Creatinine 0.92 Est GFR ( Amer) > 60 Est GFR (Non-Af Amer) > 60 Glucose 177 H Calcium 8.8 Magnesium 1.6 Total Bilirubin 0.2 AST 17 ALT 29 Alkaline Phosphatase 77 Total Protein 5.2 L Albumin 2.5 L 05/06/17 05/06/17 05/07/17 11:15 18:45 00:50 Troponin I 0.036 0.040 0.036 NT-Pro-B Natriuret Pep 05/07/17 05/11/17 05/14/17 07:08 15:03 08:57 Troponin I 0.036 NT-Pro-B Natriuret Pep 2150 H 3550 H 05/17/17 07:03 Troponin I NT-Pro-B Natriuret Pep 4190 H Impressions: Chest CT 05/13/17 00:00 IMPRESSION: Diffuse mixed alveolar and interstitial pattern with more focal consolidation in the left lower lobe. Findings are most likely due to infection , however aspiration, hypersensitivity and sarcoid could have similar appearance. Lung Scan-VQ NM 05/13/17 00:00 IMPRESSION: No ventilation-perfusion mismatches.Multiple areas of photopenia correlating with multiple areas of airspace disease -effusion seen on recent CT scan. Chest X-Ray 05/17/17 12:30 IMPRESSION: Dense consolidation with air bronchograms in the left retrocardiac region persists, unchanged, worrisome for pneumonia. Superimposed patchy bilateral airspace disease elsewhere in the mid and lower lungs may represent pulmonary edema. Multifocal pneumonia is possible. These findings have progressed compared to 05/16/2017 chest film. Assessment & Plan - Diagnosis (2) Iron (Fe) deficiency anemia Is this a current diagnosis for this admission?: Yes (3) GERD (gastroesophageal reflux disease) Qualifiers: Esophagitis presence: without esophagitis Qualified Code(s): K21.9 - Gastro -esophageal reflux disease without esophagitis Is this a current diagnosis for this admission?: Yes Plan: Erosive esophagitis noted. He could have had a Fabiola-Stein tear Continue PPI Wait on biopsies, can follow-up as outpatient - Time Time Spent with patient: 15-24 minutes
[2017-05-20] MEDS: CLONIDINE HCL 0.1 MG TABLET PO SCH (17:12)
[2017-05-20] MEDS: ERGOCALCIFEROL (VITAMIN D2) 50000 UNIT (1.25 MG) CAPSULE PO SCH (17:12)
[2017-05-20] MEDS: LINEZOLID 300 ML IV SCH (21:17)
[2017-05-20] MEDS: INSULIN GLARGINE,HUM.REC.ANLOG 300 UNIT/3 ML INSULN.PEN SUBCUT SCH (22:07)
[2017-05-21] MEDS: PIPERACILLIN SODIUM/TAZOBACTAM 3.375 GM in NORMAL SALINE 100 ML IV SCH ×5 (00:33→23:06)
[2017-05-21] MEDS: LANSOPRAZOLE 30 MG TAB.RAP.DR PO SCH (05:57)
[2017-05-21] MEDS: METHYLPREDNISOLONE INJ 40 MG/1 ML SDV IV SCH ×3 (05:58→23:06)
[2017-05-21] MEDS: LEVOTHYROXINE SODIUM 0.05 MG TABLET PO SCH (05:59)
[2017-05-21] MEDS: FUROSEMIDE INJ/PF 40 MG/4 ML SDV IV SCH ×3 (05:59→22:13)
--- NOTE | 2017-05-21 06:43 | PDOC PROGRESS REPORT ---
Subjective Progress Note for:: 05/20/17 Subjective:: Patient refers feeling better. Complains of legs getting swollen since she was admitted to this hospital Reason For Visit: ACUTE RESPIRATORY FAILURE,LEFT LOBAR PNEUMONIA Physical Exam Vital Signs: Temp Pulse Resp BP Pulse Ox 98.0 F 81 22 H 131/60 H 93 05/20/17 03:39 05/20/17 07:00 05/20/17 03:39 05/20/17 03:39 05/20/17 03:39 Intake & Output 05/19/17 05/20/17 05/21/17 06:59 06:59 06:59 Intake Total 3737 2834 Output Total 0 Balance 3737 2834 Weight 84 kg 79.2 kg General appearance: PRESENT: cooperative, obese Head exam: PRESENT: atraumatic, normocephalic Eye exam: PRESENT: EOMI, PERRLA Ear exam: PRESENT: normal external ear exam Mouth exam: PRESENT: moist Neck exam: PRESENT: full ROM. ABSENT: JVD, lymphadenopathy, tenderness Respiratory exam: PRESENT: crackles, decreased breath sounds Cardiovascular exam: PRESENT: RRR. ABSENT: diastolic murmur, systolic murmur GI/Abdominal exam: PRESENT: normal bowel sounds, soft. ABSENT: tenderness Extremities exam: PRESENT: full ROM, other - $+ edema Musculoskeletal exam: PRESENT: ambulatory Neurological exam: PRESENT: alert, awake, oriented to person, oriented to place , oriented to time, oriented to situation, CN II-XII grossly intact Psychiatric exam: PRESENT: appropriate affect, normal mood Skin exam: PRESENT: intact, normal color Results Laboratory Results: 05/17/17 07:03 05/17/17 07:03 05/06/17 05/06/17 05/07/17 11:15 18:45 00:50 Troponin I 0.036 0.040 0.036 NT-Pro-B Natriuret Pep 05/07/17 05/11/17 05/14/17 07:08 15:03 08:57 Troponin I 0.036 NT-Pro-B Natriuret Pep 2150 H 3550 H 05/17/17 07:03 Troponin I NT-Pro-B Natriuret Pep 4190 H Impressions: Chest CT 05/13/17 00:00 IMPRESSION: Diffuse mixed alveolar and interstitial pattern with more focal consolidation in the left lower lobe. Findings are most likely due to infection , however aspiration, hypersensitivity and sarcoid could have similar appearance. Lung Scan-VQ NM 05/13/17 00:00 IMPRESSION: No ventilation-perfusion mismatches.Multiple areas of photopenia correlating with multiple areas of airspace disease -effusion seen on recent CT scan. Chest X-Ray 05/17/17 12:30 IMPRESSION: Dense consolidation with air bronchograms in the left retrocardiac region persists, unchanged, worrisome for pneumonia. Superimposed patchy bilateral airspace disease elsewhere in the mid and lower lungs may represent pulmonary edema. Multifocal pneumonia is possible. These findings have progressed compared to 05/16/2017 chest film. Assessment & Plan - Diagnosis (1) Pulmonary hypertension, moderate to severe Is this a current diagnosis for this admission?: Yes Plan: Continue oxygen supplementation and diuresis (2) Acute respiratory failure Qualifiers: Respiratory failure complication: hypoxia Qualified Code(s): J96.01 - Acute respiratory failure with hypoxia Is this a current diagnosis for this admission?: Yes Plan: Continue oxygen supplementation (3) COPD (chronic obstructive pulmonary disease) Qualifiers: COPD type: COPD with acute exacerbation Qualified Code(s): J44.1 - Chronic obstructive pulmonary disease with (acute) exacerbation Is this a current diagnosis for this admission?: Yes Plan: Continue present treatment (4) Diastolic CHF, acute Is this a current diagnosis for this admission?: Yes Plan: Diuresis and blood pressure control (5) Pneumonia Qualifiers: Aspiration pneumonia type: unspecified Laterality: bilateral Is this a current diagnosis for this admission?: Yes Plan: To place on zyvox and zosyn - Time Time Spent with patient: 15-24 minutes Medications reviewed and adjusted accordingly: Yes Anticipated discharge: Home Within: within 72 hours - Inpatient Certification Based on my medical assessment, after consideration of the patient's comorbidities, presenting symptoms, or acuity I expect that the services needed warrant INPATIENT care.: Yes I certify that my determination is in accordance with my understanding of Medicare's requirements for reasonable and necessary INPATIENT services [42 CFR 412.3e].: Yes Medical Necessity: Need Close Monitoring Due to Risk of Patient Decompensation, Need for Nebulizer Therapy and Monitoring of Response, Need for IV Antibiotics
[2017-05-21] MEDS: INSULIN LISPRO 100 UNIT/ML 3 ML VIAL SUBCUT PRN ×4 (07:10→22:16)
[2017-05-21] MEDS: IPRATROPIUM/ALBUTEROL 0.5-2.5 MG/3 ML AMPUL NEB SCH ×3 (08:32→20:41)
[2017-05-21] MEDS: LINEZOLID 300 ML IV SCH ×2 (09:45→22:06)
[2017-05-21] MEDS: AMLODIPINE BESYLATE 5 MG TABLET PO SCH (09:46)
[2017-05-21] MEDS: DOCUSATE SODIUM 100 MG CAPSULE PO SCH ×2 (09:46→17:16)
[2017-05-21] MEDS: GUAIFENESIN 600 MG TABLET.SA PO SCH ×2 (09:46→22:08)
[2017-05-21] MEDS ORDERED: AMLODIPINE BESYLATE 5 MG TABLET PO SCH (10:00)
[2017-05-21] MEDS: LISINOPRIL 10 MG TABLET PO SCH (11:43)
[2017-05-21] MEDS ORDERED: RIVAROXABAN 10 MG TABLET PO ONE (12:00)
--- NOTE | 2017-05-21 12:02 | PDOC PROGRESS REPORT ---
Subjective Progress Note for:: 05/21/17 Subjective:: Patient complains of bilateral leg swelling. She states that the legs are less swollen when compared to yesterday. Review of systems All organ systems evaluated and negative except as in subjective All significant laboratories and diagnostics have been reviewed Reason For Visit: ACUTE RESPIRATORY FAILURE,LEFT LOBAR PNEUMONIA Physical Exam Vital Signs: Temp Pulse Resp BP Pulse Ox 98.6 F 96 18 169/72 H 94 05/21/17 03:39 05/21/17 03:39 05/21/17 03:39 05/21/17 03:39 05/21/17 03:39 Intake & Output 05/20/17 05/21/17 05/22/17 06:59 06:59 06:59 Intake Total 2834 3146 Output Total 0 4550 Balance 2834 -1404 Weight 79.2 kg General appearance: PRESENT: cooperative, obese Head exam: PRESENT: atraumatic, normocephalic Eye exam: PRESENT: conjunctiva pink, EOMI, PERRLA Mouth exam: PRESENT: moist Respiratory exam: PRESENT: crackles. ABSENT: tachypnea, unlabored Cardiovascular exam: PRESENT: RRR. ABSENT: diastolic murmur, systolic murmur Vascular exam: PRESENT: normal capillary refill GI/Abdominal exam: PRESENT: normal bowel sounds, soft. ABSENT: tenderness Extremities exam: PRESENT: full ROM Musculoskeletal exam: ABSENT: ambulatory - 4+ pitting edema Neurological exam: PRESENT: alert, awake, oriented to person, oriented to place , oriented to time, oriented to situation, CN II-XII grossly intact Psychiatric exam: PRESENT: appropriate affect, normal mood Skin exam: PRESENT: intact, normal color Results Laboratory Results: 05/20/17 07:33 05/20/17 07:33 05/20/17 05/20/17 07:33 07:33 WBC 7.5 RBC 3.48 L Hgb 10.0 L Hct 29.6 L MCV 85 MCH 28.8 MCHC 33.8 RDW 14.7 H Plt Count 279 Sodium 141.2 Potassium 4.0 Chloride 104 Carbon Dioxide 28 Anion Gap 9 BUN 23 H Creatinine 0.92 Est GFR ( Amer) > 60 Est GFR (Non-Af Amer) > 60 Glucose 177 H Calcium 8.8 Magnesium 1.6 Total Bilirubin 0.2 AST 17 ALT 29 Alkaline Phosphatase 77 Total Protein 5.2 L Albumin 2.5 L 05/06/17 05/06/17 05/07/17 11:15 18:45 00:50 Troponin I 0.036 0.040 0.036 NT-Pro-B Natriuret Pep 05/07/17 05/11/17 05/14/17 07:08 15:03 08:57 Troponin I 0.036 NT-Pro-B Natriuret Pep 2150 H 3550 H 05/17/17 07:03 Troponin I NT-Pro-B Natriuret Pep 4190 H Impressions: Chest CT 05/13/17 00:00 IMPRESSION: Diffuse mixed alveolar and interstitial pattern with more focal consolidation in the left lower lobe. Findings are most likely due to infection , however aspiration, hypersensitivity and sarcoid could have similar appearance. Lung Scan-VQ NM 05/13/17 00:00 IMPRESSION: No ventilation-perfusion mismatches.Multiple areas of photopenia correlating with multiple areas of airspace disease -effusion seen on recent CT scan. Chest X-Ray 05/17/17 12:30 IMPRESSION: Dense consolidation with air bronchograms in the left retrocardiac region persists, unchanged, worrisome for pneumonia. Superimposed patchy bilateral airspace disease elsewhere in the mid and lower lungs may represent pulmonary edema. Multifocal pneumonia is possible. These findings have progressed compared to 05/16/2017 chest film. Assessment & Plan - Diagnosis (1) Pulmonary hypertension, moderate to severe Is this a current diagnosis for this admission?: Yes Plan: Continue oxygen supplementation and diuresis. Patient has been extensively evaluated through VQ scan, CTA of the chest and venous Doppler studies of lower extremities. Patient will be placed on Xarelto for DVT prophylaxis. For some unknown reason DVT prophylaxis was stopped. (2) Acute respiratory failure Qualifiers: Respiratory failure complication: hypoxia Qualified Code(s): J96.01 - Acute respiratory failure with hypoxia Is this a current diagnosis for this admission?: Yes Plan: Continue oxygen supplementation (3) COPD (chronic obstructive pulmonary disease) Qualifiers: COPD type: COPD with acute exacerbation Qualified Code(s): J44.1 - Chronic obstructive pulmonary disease with (acute) exacerbation Is this a current diagnosis for this admission?: Yes Plan: Will decrease IV steroids since appears that in the past had given her upset stomach. Otherwise continue with nebulizer treatments (4) Diastolic CHF, acute Is this a current diagnosis for this admission?: Yes Plan: Continue diuresis and blood pressure control. Daughter appears labile (5) Pneumonia Qualifiers: Aspiration pneumonia type: unspecified Laterality: bilateral Is this a current diagnosis for this admission?: Yes Plan: Continue zyvox and zosyn. We will repeat chest x-ray in a.m. - Time Time Spent with patient: 15-24 minutes Medications reviewed and adjusted accordingly: Yes Anticipated discharge: Home with Homehealth Within: within 72 hours - Inpatient Certification Based on my medical assessment, after consideration of the patient's comorbidities, presenting symptoms, or acuity I expect that the services needed warrant INPATIENT care.: Yes I certify that my determination is in accordance with my understanding of Medicare's requirements for reasonable and necessary INPATIENT services [42 CFR 412.3e].: Yes Medical Necessity: Need Close Monitoring Due to Risk of Patient Decompensation - IV diuresis, Need for Pain Control
--- NOTE | 2017-05-21 14:17 | PDOC PROGRESS REPORT ---
Subjective Progress Note for:: 05/21/17 Subjective:: Awake flat affect Reason For Visit: ACUTE RESPIRATORY FAILURE,LEFT LOBAR PNEUMONIA Physical Exam Vital Signs: Temp Pulse Resp BP Pulse Ox 98.0 F 100 14 185/79 H 95 05/21/17 10:59 05/21/17 13:51 05/21/17 13:51 05/21/17 11:42 05/21/17 13:51 Intake & Output 05/20/17 05/21/17 05/22/17 06:59 06:59 06:59 Intake Total 2834 3646 Output Total 0 4550 Balance 2834 -904 Weight 79.2 kg General appearance: PRESENT: no acute distress, cooperative, disheveled, obese, well-developed Head exam: PRESENT: atraumatic, normocephalic Eye exam: PRESENT: conjunctiva pale, EOMI. ABSENT: nystagmus, periorbital swelling Mouth exam: PRESENT: dry mucosa, neck supple, tongue midline Neck exam: ABSENT: carotid bruit, JVD, lymphadenopathy, thyromegaly, tracheal deviation, tracheostomy Respiratory exam: PRESENT: decreased breath sounds, prolonged expiratory phas, rhonchi, symmetrical, unlabored. ABSENT: retraction, stridor Cardiovascular exam: PRESENT: RRR, +S1, +S2 Pulses: PRESENT: normal radial pulses GI/Abdominal exam: PRESENT: diminished bowel sounds, soft Extremities exam: ABSENT: calf tenderness, clubbing Musculoskeletal exam: ABSENT: deformity, dislocation Neurological exam: PRESENT: awake Psychiatric exam: PRESENT: flat affect Skin exam: PRESENT: dry, warm Results Laboratory Results: 05/20/17 07:33 05/20/17 07:33 05/06/17 05/06/17 05/07/17 11:15 18:45 00:50 Troponin I 0.036 0.040 0.036 NT-Pro-B Natriuret Pep 05/07/17 05/11/17 05/14/17 07:08 15:03 08:57 Troponin I 0.036 NT-Pro-B Natriuret Pep 2150 H 3550 H 05/17/17 07:03 Troponin I NT-Pro-B Natriuret Pep 4190 H Impressions: Chest CT 05/13/17 00:00 IMPRESSION: Diffuse mixed alveolar and interstitial pattern with more focal consolidation in the left lower lobe. Findings are most likely due to infection , however aspiration, hypersensitivity and sarcoid could have similar appearance. Lung Scan-VQ NM 05/13/17 00:00 IMPRESSION: No ventilation-perfusion mismatches.Multiple areas of photopenia correlating with multiple areas of airspace disease -effusion seen on recent CT scan. Chest X-Ray 05/17/17 12:30 IMPRESSION: Dense consolidation with air bronchograms in the left retrocardiac region persists, unchanged, worrisome for pneumonia. Superimposed patchy bilateral airspace disease elsewhere in the mid and lower lungs may represent pulmonary edema. Multifocal pneumonia is possible. These findings have progressed compared to 05/16/2017 chest film. Assessment & Plan - Diagnosis (1) Acute renal injury due to hypovolemia Is this a current diagnosis for this admission?: Yes Plan: Improving (2) Acute respiratory failure Qualifiers: Respiratory failure complication: hypoxia Qualified Code(s): J96.01 - Acute respiratory failure with hypoxia Is this a current diagnosis for this admission?: Yes Plan: stable patient in no distress (3) COPD (chronic obstructive pulmonary disease) Qualifiers: COPD type: COPD with acute exacerbation Qualified Code(s): J44.1 - Chronic obstructive pulmonary disease with (acute) exacerbation Is this a current diagnosis for this admission?: Yes Plan: Decreased breath sounds prolonged expiratory phase but no wheezes (4) Pulmonary hypertension, moderate to severe Is this a current diagnosis for this admission?: Yes Plan: Unchanged
--- NOTE | 2017-05-21 14:25 | PDOC CONSULTATION ---
Consultation Consult Date: 05/18/17 Attending physician:: NOELLE DIGGS Consult reason:: dyspnea History of Present Illness Admission Date/PCP: 05/04/17 16:32 KINJAL CABRERA MD History of Present Illness: 61-year-old female acute respiratory distress was subsequently intubated 61-year -old female presented with complaints of hypoxia and dizziness is also noted to have a history of GI bleeding for 38-grps-apca history has not smoked in the last recently she denies hemoptysis although she has spit up some blood in the past but he denies nausea vomiting since she has had some chills and is unaware of any fever she denies any history of chronic lung disease as a child or adolescent she did PPD was negative the dates unknown she is aware of being exposed to passive smoke as a child as well as an adolescent. Says several dogs. She has no recent travel she denies angina-like chest pain sleeps on 2-3 pillows occasional PND occasional nocturnal cough no edema she admits to start restless sleep nocturia 1-2 times per night but denies unrestful sleep or excessive daytime somnolence Past Medical History Cardiac Medical History: Reports: Hyperlipidema, Hypertension Neurological Medical History: Reports: None Endocrine Medical History: Reports: Diabetes Mellitus Type 2 Renal/ Medical History: Reports: None Malignancy Medical History: Reports: None GI Medical History: Reports: None Musculoskeltal Medical History: Reports: None Skin Medical History: Reports: None Psychiatric Medical History: Reports: None Denies: Depression Traumatic Medical History: Reports: None Past Surgical History Past Surgical History: Reports: Section - x2, Orthopedic Surgery - Toe amputation for osteomyelitis right pinky Social History Information Source: [facility] Records Lives with: Family Smoking Status: Former Smoker Last Time Smoked: 2014 Frequency of Alcohol Use: None Hx Recreational Drug Use: No Drugs: None Hx Prescription Drug Abuse: No - Advance Directive Resuscitation Status: Full Code Family History Parental Family History Reviewed: No Children Family History Reviewed: No Sibling(s) Family History Reviewed.: No Medication/Allergy Home Medications: Clonidine HCl [Catapres 0.1 mg Tablet] 0.1 mg PO DAILY 05/04/17 Ergocalciferol (Vitamin D2) [Vitamin D2] 50,000 unit PO [id number] 05/04/17 Furosemide [Lasix 40 mg Tablet] 40 mg PO DAILY 05/04/17 Hydrochlorothiazide [Hydrodiuril 25 mg Tablet] 25 mg PO QAM 05/04/17 Insulin Aspart [Novolog Flexpen] 0 unit SUBCUT .SLD SCALE 05/04/17 Insulin Glargine,Hum.rec.anlog [Lantus Solostar] 25 unit SQ DAILY 05/04/17 Levothyroxine Sodium [Synthroid 0.05 mg Tablet] 0.05 mg PO Q6AM 05/04/17 Lisinopril [Prinivil 10 mg Tablet] 20 mg PO DAILY 05/04/17 Omeprazole Magnesium [Prilosec Otc] 20 mg PO DAILY 05/04/17 Oxycodone HCl/Acetaminophen [Percocet 10-325 mg Tablet] 1 tab PO Q4HP PRN Allergies/Adverse Reactions: No Known Allergies Allergy (Verified 05/04/17 13:46) Review of Systems ROS unobtainable: Due to mental status Physical Exam Vital Signs: Temp Pulse Resp BP Pulse Ox 97.6 F 90 16 155/66 H 99 05/18/17 15:22 05/18/17 15:22 05/18/17 15:22 05/18/17 15:22 05/18/17 15:22 Intake & Output 05/17/17 05/18/17 05/19/17 06:59 06:59 06:59 Intake Total 2148 1310 350 Output Total 1300 1000 Balance 848 310 350 Weight 90.8 kg 90.6 kg General appearance: PRESENT: disheveled, mild distress, obese Head exam: PRESENT: atraumatic, normocephalic Eye exam: PRESENT: conjunctiva pale, EOMI. ABSENT: nystagmus, periorbital swelling, scleral icterus Mouth exam: PRESENT: dry mucosa, neck supple Teeth exam: PRESENT: poor dentation Neck exam: ABSENT: carotid bruit, JVD, lymphadenopathy, thyromegaly, tracheal deviation, tracheostomy Respiratory exam: PRESENT: decreased breath sounds, prolonged expiratory phas, rales, rhonchi, symmetrical, unlabored, wheezes. ABSENT: retraction, stridor Cardiovascular exam: PRESENT: RRR, +S1, +S2 Pulses: PRESENT: normal radial pulses GI/Abdominal exam: PRESENT: diminished bowel sounds, soft Extremities exam: ABSENT: calf tenderness, clubbing Musculoskeletal exam: ABSENT: deformity Neurological exam: PRESENT: awake Psychiatric exam: PRESENT: flat affect Skin exam: PRESENT: dry, warm Results Laboratory Results: 05/17/17 07:03 05/17/17 07:03 05/06/17 05/06/17 05/07/17 11:15 18:45 00:50 Troponin I 0.036 0.040 0.036 NT-Pro-B Natriuret Pep 05/07/17 05/11/17 05/14/17 07:08 15:03 08:57 Troponin I 0.036 NT-Pro-B Natriuret Pep 2150 H 3550 H 05/17/17 07:03 Troponin I NT-Pro-B Natriuret Pep 4190 H Impressions: Chest CT 05/13/17 00:00 IMPRESSION: Diffuse mixed alveolar and interstitial pattern with more focal consolidation in the left lower lobe. Findings are most likely due to infection , however aspiration, hypersensitivity and sarcoid could have similar appearance. Lung Scan-VQ NM 05/13/17 00:00 IMPRESSION: No ventilation-perfusion mismatches.Multiple areas of photopenia correlating with multiple areas of airspace disease -effusion seen on recent CT scan. Chest X-Ray 05/17/17 12:30 IMPRESSION: Dense consolidation with air bronchograms in the left retrocardiac region persists, unchanged, worrisome for pneumonia. Superimposed patchy bilateral airspace disease elsewhere in the mid and lower lungs may represent pulmonary edema. Multifocal pneumonia is possible. These findings have progressed compared to 05/16/2017 chest film. Assessment & Plan - Diagnosis (1) Acute kidney injury Is this a current diagnosis for this admission?: Yes Plan: Due to hypovolemia (2) Acute respiratory failure Qualifiers: Respiratory failure complication: hypoxia Qualified Code(s): J96.01 - Acute respiratory failure with hypoxia Is this a current diagnosis for this admission?: Yes Plan: (3) COPD (chronic obstructive pulmonary disease) Qualifiers: COPD type: COPD with acute exacerbation Qualified Code(s): J44.1 - Chronic obstructive pulmonary disease with (acute) exacerbation Is this a current diagnosis for this admission?: Yes Plan: Decreased breath sounds prolonged expiratory phase but no wheezes (4) Pulmonary hypertension, moderate to severe Is this a current diagnosis for this admission?: Yes Plan: Supplemental O2 noninvasive positive pressure ventilation as needed may need a right heart cath
[2017-05-21] MEDS: HYDRALAZINE HCL INJ/PF 20 MG/1 ML SDV IV PRN (14:49)
[2017-05-21] MEDS: CLONIDINE HCL 0.1 MG TABLET PO SCH (17:13)
[2017-05-21] MEDS ORDERED: APIXABAN 5 MG TABLET PO SCH (18:00)
[2017-05-21] MEDS: PANTOPRAZOLE SODIUM 40 MG VIAL IV SCH (22:05)
[2017-05-21] MEDS: INSULIN GLARGINE,HUM.REC.ANLOG 300 UNIT/3 ML INSULN.PEN SUBCUT SCH (22:15)
[2017-05-22] MEDS: OXYCODONE-ACETAMINOPHEN 5-325 MG TABLET PO PRN (04:18)
[2017-05-22] MEDS: LEVOTHYROXINE SODIUM 0.05 MG TABLET PO SCH (05:19)
[2017-05-22] MEDS: FUROSEMIDE INJ/PF 40 MG/4 ML SDV IV SCH (05:19)
[2017-05-22] MEDS: PIPERACILLIN SODIUM/TAZOBACTAM 3.375 GM in NORMAL SALINE 100 ML IV SCH ×3 (05:19→18:05)
[2017-05-22] MEDS: HYDRALAZINE HCL INJ/PF 20 MG/1 ML SDV IV PRN (05:19)
[2017-05-22 06:48] LABS: ABSOLUTE LYMPHOCYTES (AUTO) 0.7 10^3/uL (0.5-4.7); ABSOLUTE MONOCYTES (AUTO) 0.2 10^3/uL (0.1-1.4); ABSOLUTE NEUT (AUTO) 6.8 10^3/uL (1.7-8.2); BASOPHILS % (AUTO) 0.1 % (0-2); HEMATOCRIT 30.1 % (36.0-47.0); LYMPHOCYTES % (AUTO) 9.2 % (13-45); MEAN CORPUSCULAR HEMOGLOBIN 28.4 pg (27.0-33.4); MEAN CORPUSCULAR HGB CONC 33.3 g/dL (32.0-36.0); MEAN CORPUSCULAR VOLUME 85 fl (80-97); MONOCYTES % (AUTO) 2.8 % (3-13); PLATELET COUNT 263 10^3/uL (150-450); RED BLOOD COUNT 3.53 10^6/uL (3.72-5.28); RED CELL DISTRIBUTION WIDTH 14.7 % (11.5-14.0); SEGMENTED NEUTROPHILS % (AUTO) 87.9 % (42-78); TOTAL CELLS COUNTED % (AUTO) 100 %; WHITE BLOOD COUNT 7.8 10^3/uL (4.0-10.5)
[2017-05-22 07:28] LABS: ANION GAP 10 (5-19); BLOOD UREA NITROGEN 32 mg/dL (7-20); CALCIUM 8.6 mg/dL (8.4-10.2); CARBON DIOXIDE 29 mmol/L (22-30); CHLORIDE 98 mmol/L (98-107); GLUCOSE 315 mg/dL (75-110); POTASSIUM 4.3 mmol/L (3.6-5.0); SODIUM 137.1 mmol/L (137-145)
[2017-05-22] MEDS ORDERED: HYDRALAZINE HCL 50 MG TABLET PO ONE (07:30)
[2017-05-22] MEDS: IPRATROPIUM/ALBUTEROL 0.5-2.5 MG/3 ML AMPUL NEB SCH (08:50)
[2017-05-22] MEDS: INSULIN LISPRO 100 UNIT/ML 3 ML VIAL SUBCUT PRN ×3 (08:52→22:38)
[2017-05-22] MEDS ORDERED: CLONIDINE HCL 0.1 MG TABLET PO ONE (09:30)
[2017-05-22] MEDS: LINEZOLID 300 ML IV SCH (10:27)
[2017-05-22] MEDS: AMLODIPINE BESYLATE 5 MG TABLET PO SCH (10:28)
[2017-05-22] MEDS: GUAIFENESIN 600 MG TABLET.SA PO SCH ×2 (10:28→22:32)
[2017-05-22] MEDS: DOCUSATE SODIUM 100 MG CAPSULE PO SCH ×2 (10:29→18:05)
[2017-05-22] MEDS: PANTOPRAZOLE SODIUM 40 MG VIAL IV SCH ×2 (10:29→22:32)
[2017-05-22] MEDS: LISINOPRIL 10 MG TABLET PO SCH (12:08)
--- NOTE | 2017-05-22 13:15 | PDOC PROGRESS REPORT ---
Subjective Progress Note for:: 05/17/17 Subjective:: Awake flat affect,Still short of breath Reason For Visit: ACUTE RESPIRATORY FAILURE,LEFT LOBAR PNEUMONIA Physical Exam Vital Signs: Temp Pulse Resp BP Pulse Ox 97.6 F 90 16 155/66 H 99 05/18/17 15:22 05/18/17 15:22 05/18/17 15:22 05/18/17 15:22 05/18/17 15:22 Intake & Output 05/17/17 05/18/17 05/19/17 06:59 06:59 06:59 Intake Total 2148 1310 350 Output Total 1300 1000 Balance 848 310 350 Weight 90.8 kg 90.6 kg General appearance: PRESENT: no acute distress, cooperative, disheveled, obese, well-developed Head exam: PRESENT: atraumatic, normocephalic Eye exam: PRESENT: conjunctiva pale, EOMI. ABSENT: nystagmus, periorbital swelling Mouth exam: PRESENT: moist, neck supple, tongue midline Neck exam: ABSENT: carotid bruit, JVD, lymphadenopathy, thyromegaly, tracheal deviation, tracheostomy Respiratory exam: PRESENT: decreased breath sounds, prolonged expiratory phas, rales, rhonchi, symmetrical, unlabored, wheezes. ABSENT: retraction, stridor, tachypnea Cardiovascular exam: PRESENT: RRR, +S1, +S2 Pulses: PRESENT: normal radial pulses GI/Abdominal exam: PRESENT: diminished bowel sounds, soft Extremities exam: ABSENT: calf tenderness, clubbing Musculoskeletal exam: ABSENT: deformity, dislocation Neurological exam: PRESENT: awake Psychiatric exam: PRESENT: flat affect Skin exam: PRESENT: dry, warm Results Laboratory Results: 05/17/17 07:03 05/17/17 07:03 05/06/17 05/06/17 05/07/17 11:15 18:45 00:50 Troponin I 0.036 0.040 0.036 NT-Pro-B Natriuret Pep 05/07/17 05/11/17 05/14/17 07:08 15:03 08:57 Troponin I 0.036 NT-Pro-B Natriuret Pep 2150 H 3550 H 05/17/17 07:03 Troponin I NT-Pro-B Natriuret Pep 4190 H Impressions: Chest CT 05/13/17 00:00 IMPRESSION: Diffuse mixed alveolar and interstitial pattern with more focal consolidation in the left lower lobe. Findings are most likely due to infection , however aspiration, hypersensitivity and sarcoid could have similar appearance. Lung Scan-VQ NM 05/13/17 00:00 IMPRESSION: No ventilation-perfusion mismatches.Multiple areas of photopenia correlating with multiple areas of airspace disease -effusion seen on recent CT scan. Chest X-Ray 05/17/17 12:30 IMPRESSION: Dense consolidation with air bronchograms in the left retrocardiac region persists, unchanged, worrisome for pneumonia. Superimposed patchy bilateral airspace disease elsewhere in the mid and lower lungs may represent pulmonary edema. Multifocal pneumonia is possible. These findings have progressed compared to 05/16/2017 chest film. Assessment & Plan - Diagnosis (1) Acute respiratory failure Qualifiers: Respiratory failure complication: hypoxia Qualified Code(s): J96.01 - Acute respiratory failure with hypoxia Is this a current diagnosis for this admission?: Yes Plan: stable patient in no distress (2) COPD (chronic obstructive pulmonary disease) Qualifiers: COPD type: COPD with acute exacerbation Qualified Code(s): J44.1 - Chronic obstructive pulmonary disease with (acute) exacerbation Is this a current diagnosis for this admission?: Yes Plan: Decreased breath sounds prolonged expiratory phase but no wheezes (3) Pneumonia Qualifiers: Aspiration pneumonia type: unspecified Laterality: bilateral Is this a current diagnosis for this admission?: Yes (4) Pulmonary hypertension, moderate to severe Is this a current diagnosis for this admission?: Yes Plan: Unchanged
--- NOTE | 2017-05-22 13:18 | PDOC PROGRESS REPORT ---
Subjective Progress Note for:: 05/18/17 Subjective:: Awake flat affect,Still short of breath Reason For Visit: ACUTE RESPIRATORY FAILURE,LEFT LOBAR PNEUMONIA Physical Exam Vital Signs: Temp Pulse Resp BP Pulse Ox 97.6 F 90 16 155/66 H 99 05/18/17 15:22 05/18/17 15:22 05/18/17 15:22 05/18/17 15:22 05/18/17 15:22 Intake & Output 05/17/17 05/18/17 05/19/17 06:59 06:59 06:59 Intake Total 2148 1310 350 Output Total 1300 1000 Balance 848 310 350 Weight 90.8 kg 90.6 kg General appearance: PRESENT: no acute distress, cooperative, disheveled, obese, well-developed Head exam: PRESENT: atraumatic, normocephalic Eye exam: PRESENT: conjunctiva pale, EOMI. ABSENT: nystagmus, periorbital swelling, scleral icterus Mouth exam: PRESENT: moist, neck supple, tongue midline Neck exam: ABSENT: carotid bruit, JVD, lymphadenopathy, thyromegaly, tracheal deviation, tracheostomy Respiratory exam: PRESENT: decreased breath sounds, prolonged expiratory phas, rales, rhonchi, symmetrical, unlabored. ABSENT: retraction, stridor, wheezes Cardiovascular exam: PRESENT: RRR, +S1, +S2 Pulses: PRESENT: normal radial pulses GI/Abdominal exam: PRESENT: diminished bowel sounds, soft Extremities exam: ABSENT: calf tenderness, clubbing Musculoskeletal exam: ABSENT: deformity, dislocation Neurological exam: PRESENT: awake Psychiatric exam: PRESENT: flat affect Skin exam: PRESENT: dry, warm Results Laboratory Results: 05/17/17 07:03 05/17/17 07:03 05/06/17 05/06/17 05/07/17 11:15 18:45 00:50 Troponin I 0.036 0.040 0.036 NT-Pro-B Natriuret Pep 05/07/17 05/11/17 05/14/17 07:08 15:03 08:57 Troponin I 0.036 NT-Pro-B Natriuret Pep 2150 H 3550 H 05/17/17 07:03 Troponin I NT-Pro-B Natriuret Pep 4190 H Impressions: Chest CT 05/13/17 00:00 IMPRESSION: Diffuse mixed alveolar and interstitial pattern with more focal consolidation in the left lower lobe. Findings are most likely due to infection , however aspiration, hypersensitivity and sarcoid could have similar appearance. Lung Scan-VQ NM 05/13/17 00:00 IMPRESSION: No ventilation-perfusion mismatches.Multiple areas of photopenia correlating with multiple areas of airspace disease -effusion seen on recent CT scan. Chest X-Ray 05/17/17 12:30 IMPRESSION: Dense consolidation with air bronchograms in the left retrocardiac region persists, unchanged, worrisome for pneumonia. Superimposed patchy bilateral airspace disease elsewhere in the mid and lower lungs may represent pulmonary edema. Multifocal pneumonia is possible. These findings have progressed compared to 05/16/2017 chest film. Assessment & Plan - Diagnosis (1) Acute respiratory failure Qualifiers: Respiratory failure complication: hypoxia Qualified Code(s): J96.01 - Acute respiratory failure with hypoxia Is this a current diagnosis for this admission?: Yes Plan: stable patient at this time (2) COPD (chronic obstructive pulmonary disease) Qualifiers: COPD type: COPD with acute exacerbation Qualified Code(s): J44.1 - Chronic obstructive pulmonary disease with (acute) exacerbation Is this a current diagnosis for this admission?: Yes Plan: Decreased breath sounds prolonged expiratory phase but no wheezes (3) Pneumonia Qualifiers: Aspiration pneumonia type: unspecified Laterality: bilateral Is this a current diagnosis for this admission?: Yes (4) Pulmonary hypertension, moderate to severe Is this a current diagnosis for this admission?: Yes Plan: Unchanged
--- NOTE | 2017-05-22 13:21 | PDOC PROGRESS REPORT ---
Subjective Progress Note for:: 05/19/17 Subjective:: Awake flat affect,improving Reason For Visit: ACUTE RESPIRATORY FAILURE,LEFT LOBAR PNEUMONIA Physical Exam Vital Signs: Temp Pulse Resp BP Pulse Ox 98.0 F 100 14 185/79 H 95 05/21/17 10:59 05/21/17 13:51 05/21/17 13:51 05/21/17 11:42 05/21/17 13:51 Intake & Output 05/20/17 05/21/17 05/22/17 06:59 06:59 06:59 Intake Total 2834 3646 Output Total 0 4550 Balance 2834 -904 Weight 79.2 kg General appearance: PRESENT: no acute distress, cooperative, disheveled, obese, well-developed Head exam: PRESENT: atraumatic, normocephalic Eye exam: PRESENT: conjunctiva pale, EOMI. ABSENT: nystagmus, periorbital swelling, scleral icterus Mouth exam: PRESENT: moist, neck supple, tongue midline Neck exam: ABSENT: carotid bruit, JVD, lymphadenopathy, thyromegaly, tracheal deviation, tracheostomy Respiratory exam: PRESENT: decreased breath sounds, prolonged expiratory phas, rhonchi, symmetrical, unlabored. ABSENT: crackles, rales, retraction, stridor, tachypnea, wheezes Cardiovascular exam: PRESENT: RRR, +S1, +S2 Pulses: PRESENT: normal radial pulses GI/Abdominal exam: PRESENT: diminished bowel sounds, soft Extremities exam: ABSENT: calf tenderness, clubbing Musculoskeletal exam: PRESENT: ambulatory. ABSENT: deformity, dislocation Neurological exam: PRESENT: awake Psychiatric exam: PRESENT: flat affect Skin exam: PRESENT: dry, warm Results Laboratory Results: 05/20/17 07:33 05/20/17 07:33 05/06/17 05/06/17 05/07/17 11:15 18:45 00:50 Troponin I 0.036 0.040 0.036 NT-Pro-B Natriuret Pep 05/07/17 05/11/17 05/14/17 07:08 15:03 08:57 Troponin I 0.036 NT-Pro-B Natriuret Pep 2150 H 3550 H 05/17/17 07:03 Troponin I NT-Pro-B Natriuret Pep 4190 H Impressions: Chest CT 05/13/17 00:00 IMPRESSION: Diffuse mixed alveolar and interstitial pattern with more focal consolidation in the left lower lobe. Findings are most likely due to infection , however aspiration, hypersensitivity and sarcoid could have similar appearance. Lung Scan-VQ NM 05/13/17 00:00 IMPRESSION: No ventilation-perfusion mismatches.Multiple areas of photopenia correlating with multiple areas of airspace disease -effusion seen on recent CT scan. Chest X-Ray 05/17/17 12:30 IMPRESSION: Dense consolidation with air bronchograms in the left retrocardiac region persists, unchanged, worrisome for pneumonia. Superimposed patchy bilateral airspace disease elsewhere in the mid and lower lungs may represent pulmonary edema. Multifocal pneumonia is possible. These findings have progressed compared to 05/16/2017 chest film. Assessment & Plan - Diagnosis (1) Acute respiratory failure Qualifiers: Respiratory failure complication: hypoxia Qualified Code(s): J96.01 - Acute respiratory failure with hypoxia Is this a current diagnosis for this admission?: Yes Plan: stable patient at this time (2) COPD (chronic obstructive pulmonary disease) Qualifiers: COPD type: COPD with acute exacerbation Qualified Code(s): J44.1 - Chronic obstructive pulmonary disease with (acute) exacerbation Is this a current diagnosis for this admission?: Yes Plan: Decreased breath sounds prolonged expiratory phase but no wheezing (3) Pneumonia Qualifiers: Aspiration pneumonia type: unspecified Laterality: bilateral Is this a current diagnosis for this admission?: Yes Plan: No positive cultures (4) Pulmonary hypertension, moderate to severe Is this a current diagnosis for this admission?: Yes Plan: Unchanged
--- NOTE | 2017-05-22 14:09 | PDOC PROGRESS REPORT ---
Subjective Progress Note for:: 05/22/17 Subjective:: .Patient refers that the leg swelling and her breathing are getting better Review of systems All organ systems evaluated and negative except as in subjective All significant laboratories and diagnostics have been reviewed Reason For Visit: ACUTE RESPIRATORY FAILURE,LEFT LOBAR PNEUMONIA Physical Exam Vital Signs: Temp Pulse Resp BP Pulse Ox 97.8 F 96 18 169/76 H 97 05/22/17 04:19 05/22/17 04:19 05/22/17 04:19 05/22/17 04:19 05/22/17 04:19 Intake & Output 05/21/17 05/22/17 05/23/17 06:59 06:59 06:59 Intake Total 3646 2167 Output Total 4550 950 Balance -904 1217 Weight 79.7 kg General appearance: PRESENT: cooperative, obese Head exam: PRESENT: atraumatic, normocephalic Eye exam: PRESENT: conjunctiva pink, EOMI, PERRLA Ear exam: PRESENT: normal external ear exam Mouth exam: PRESENT: moist Neck exam: PRESENT: full ROM. ABSENT: JVD, lymphadenopathy, tenderness Respiratory exam: PRESENT: other - Adequate movement of air with soft basilar crackles Cardiovascular exam: PRESENT: RRR. ABSENT: diastolic murmur, systolic murmur Vascular exam: PRESENT: normal capillary refill GI/Abdominal exam: PRESENT: normal bowel sounds, soft. ABSENT: tenderness Extremities exam: PRESENT: clubbing, other - 3+ pitting edema which extends to pelvic area. On the overall improved. ABSENT: full ROM Musculoskeletal exam: PRESENT: ambulatory Neurological exam: PRESENT: alert, awake, oriented to person, oriented to place , oriented to time, oriented to situation, CN II-XII grossly intact Psychiatric exam: PRESENT: appropriate affect, normal mood Skin exam: PRESENT: intact, normal color Results Laboratory Results: 05/22/17 06:22 05/22/17 06:22 WBC 7.8 RBC 3.53 L Hgb 10.0 L Hct 30.1 L MCV 85 MCH 28.4 MCHC 33.3 RDW 14.7 H Plt Count 263 Seg Neutrophils % 87.9 H Lymphocytes % 9.2 L Monocytes % 2.8 L Eosinophils % 0.0 Basophils % 0.1 Absolute Neutrophils 6.8 Absolute Lymphocytes 0.7 Absolute Monocytes 0.2 Absolute Eosinophils 0.0 Absolute Basophils 0.0 05/06/17 05/06/17 05/07/17 11:15 18:45 00:50 Troponin I 0.036 0.040 0.036 NT-Pro-B Natriuret Pep 05/07/17 05/11/17 05/14/17 07:08 15:03 08:57 Troponin I 0.036 NT-Pro-B Natriuret Pep 2150 H 3550 H 05/17/17 07:03 Troponin I NT-Pro-B Natriuret Pep 4190 H Impressions: Chest CT 05/13/17 00:00 IMPRESSION: Diffuse mixed alveolar and interstitial pattern with more focal consolidation in the left lower lobe. Findings are most likely due to infection , however aspiration, hypersensitivity and sarcoid could have similar appearance. Lung Scan-VQ NM 05/13/17 00:00 IMPRESSION: No ventilation-perfusion mismatches.Multiple areas of photopenia correlating with multiple areas of airspace disease -effusion seen on recent CT scan. Chest X-Ray 05/17/17 12:30 IMPRESSION: Dense consolidation with air bronchograms in the left retrocardiac region persists, unchanged, worrisome for pneumonia. Superimposed patchy bilateral airspace disease elsewhere in the mid and lower lungs may represent pulmonary edema. Multifocal pneumonia is possible. These findings have progressed compared to 05/16/2017 chest film. Assessment & Plan - Diagnosis (1) Pulmonary hypertension, moderate to severe Is this a current diagnosis for this admission?: Yes Plan: Continue aggressive blood pressure management. Will decrease Lasix IV to every 12 hours (2) Acute respiratory failure Qualifiers: Respiratory failure complication: hypoxia Qualified Code(s): J96.01 - Acute respiratory failure with hypoxia Is this a current diagnosis for this admission?: Yes Plan: Resolved. Off oxygen (3) COPD (chronic obstructive pulmonary disease) Qualifiers: COPD type: COPD with acute exacerbation Qualified Code(s): J44.1 - Chronic obstructive pulmonary disease with (acute) exacerbation Is this a current diagnosis for this admission?: Yes Plan: Patient refuses nebulizer treatments and will change to as needed. Discontinued IV steroids since irritates her stomach. (4) Diastolic CHF, acute Is this a current diagnosis for this admission?: Yes Plan: Continue diuresis and blood pressure control. Increase hydralazine and clonidine (5) Pneumonia Qualifiers: Aspiration pneumonia type: unspecified Laterality: bilateral Is this a current diagnosis for this admission?: Yes Plan: Will change Zyvox to oral and continue Zosyn (6) DVT prophylaxis Is this a current diagnosis for this admission?: Yes Plan: DVT prophylaxis was initiated when patient was admitted however she developed an episode where she was vomiting blood and was stopped. After obtaining results of endoscopy opted to restart DVT prophylaxis - Time Time Spent with patient: 15-24 minutes Medications reviewed and adjusted accordingly: Yes Anticipated discharge: Home with Homehealth Within: within 72 hours - Inpatient Certification Based on my medical assessment, after consideration of the patient's comorbidities, presenting symptoms, or acuity I expect that the services needed warrant INPATIENT care.: Yes I certify that my determination is in accordance with my understanding of Medicare's requirements for reasonable and necessary INPATIENT services [42 CFR 412.3e].: Yes Medical Necessity: Need Close Monitoring Due to Risk of Patient Decompensation
--- NOTE | 2017-05-22 14:25 | RADIOLOGY REPORT (SQ) ---
EXAM DESCRIPTION: CHEST PA/LAT COMPLETED DATE/TIME: 05/22/2017 10:01 am REASON FOR STUDY: follow up COMPARISON: CT chest 05/13/2017 AP chest 05/04/2017, Two-view chest 06/18/2016 EXAM PARAMETERS: NUMBER OF VIEWS: two views TECHNIQUE: Digital Frontal and Lateral radiographic views of the chest acquired. RADIATION DOSE: NA LIMITATIONS: none FINDINGS: LUNGS AND PLEURA: There is persistent patchy airspace disease in the bilateral lower lobes , and right middle lobe similar compared to 05/13/2017 CT chest. Findings are worrisome for multifoca l pneumonia. No pleural effusion. No pneumothorax. MEDIASTINUM AND HILAR STRUCTURES: No masses or contour abnormalities. HEART AND VASCULAR STRUCTURES: Borderline cardiomegaly BONES: No acute findings. HARDWARE: None in the chest. OTHER: No other significant finding. IMPRESSION: Persistent multifocal airspace disease similar compared to CT chest 05/13/2017 TECHNICAL DOCUMENTATION: JOB ID: [id number] [employer]- All Rights Reserved Reading location - IP/workstation name: [email or web address]
[2017-05-22] MEDS: CLONIDINE HCL 0.1 MG TABLET PO SCH ×2 (16:03→22:32)
[2017-05-22] MEDS: HYDRALAZINE HCL 50 MG TABLET PO SCH ×2 (16:03→22:32)
[2017-05-22] MEDS ORDERED: FUROSEMIDE INJ/PF 40 MG/4 ML SDV IV ONE (19:45)
[2017-05-22] MEDS: LINEZOLID 600 MG TABLET PO SCH (22:32)
[2017-05-22] MEDS: INSULIN GLARGINE,HUM.REC.ANLOG 300 UNIT/3 ML INSULN.PEN SUBCUT SCH (22:37)
[2017-05-22] MEDS ORDERED: INSULIN GLARGINE,HUM.REC.ANLOG 1,000 UNIT/10 ML UNIT SUBCUT ONE (22:47)
[2017-05-23] MEDS: PIPERACILLIN SODIUM/TAZOBACTAM 3.375 GM in NORMAL SALINE 100 ML IV SCH ×2 (00:26→06:24)
[2017-05-23] MEDS ORDERED: FUROSEMIDE INJ/PF 40 MG/4 ML SDV IV SCH (06:00)
[2017-05-23] MEDS: LEVOTHYROXINE SODIUM 0.05 MG TABLET PO SCH (06:09)
[2017-05-23] MEDS: DEXTROSE 50%-WATER 25 GM/50 ML DISP.SYRIN IV PRN (06:13)
[2017-05-23] MEDS: HYDRALAZINE HCL 50 MG TABLET PO SCH (06:36)
[2017-05-23] MEDS: CLONIDINE HCL 0.1 MG TABLET PO SCH ×3 (06:36→22:17)
[2017-05-23] MEDS ORDERED: ALPRAZOLAM 0.25 MG TABLET PO PRN (09:26)
--- NOTE | 2017-05-23 10:20 | RADIOLOGY REPORT (SQ) ---
EXAM DESCRIPTION: CT HEAD WITHOUT COMPLETED DATE/TIME: 05/23/2017 10:13 am REASON FOR STUDY: dizziness COMPARISON: 06/18/2016. TECHNIQUE: Axial images acquired through the brain without intravenous contrast. Images reviewed wi th bone, brain and subdural windows. Images stored on PACS. All CT scanners at this facility use dose modulation, iterative reconstruction, and/or weight based d osing when appropriate to reduce radiation dose to as low as reasonably achievable (ALARA). [facility]: Dose Right [facility]: CareDose [facility]: Dose Right [facility]: Teradose 4D [facility]: Smart [employer] [place] RADIATION DOSE: CT Rad equipment meets quality standard of care and radiation dose reduction techniq ues were employed. CTDIvol: 64.6 mGy. DLP: 1034 mGy-cm. mGy. LIMITATIONS: None. FINDINGS: VENTRICLES: Normal size and contour. CEREBRUM: No masses. No hemorrhage. No midline shift. No evidence for acute infarction. Normal gra y/white matter differentiation. No areas of low density in the white matter. CEREBELLUM: No masses. No hemorrhage. No alteration of density. No evidence for acute infarction. EXTRAAXIAL SPACES: No fluid collections. No masses. ORBITS AND GLOBE: No intra- or extraconal masses. Normal contour of globe without masses. CALVARIUM: No fracture. PARANASAL SINUSES: No fluid or mucosal thickening. SOFT TISSUES: No mass or hematoma. OTHER: No other significant finding. IMPRESSION: NO ACUTE INTRACRANIAL IMAGING FINDINGS. NO SIGNIFICANT CHANGE FROM PRIOR STUDY. EVIDENCE OF ACUTE STROKE: NO. COMMENT: Quality ID # [id number]: Final reports with documentation of one or more dose reduction techniques (e.g., Automated exposure control, adjustment of the mA and/or kV according to patient size, use of iterative reconstruction technique) TECHNICAL DOCUMENTATION: JOB ID: [id number] [employer]- All Rights Reserved Reading location - IP/workstation name: [email or web address]
[2017-05-23] MEDS: MAGNESIUM SULFATE/D5W 1 GM/100 ML RTUPB IV SCH ×2 (10:25→12:03)
[2017-05-23] MEDS: LINEZOLID 600 MG TABLET PO SCH ×2 (10:26→22:18)
[2017-05-23] MEDS: PANTOPRAZOLE SODIUM 40 MG VIAL IV SCH ×2 (10:26→22:19)
[2017-05-23] MEDS: GUAIFENESIN 600 MG TABLET.SA PO SCH ×2 (10:26→22:18)
[2017-05-23] MEDS: AMLODIPINE BESYLATE 10 MG TABLET PO SCH (10:27)
[2017-05-23] MEDS: FUROSEMIDE INJ/PF 20 MG/2 ML SDV IV SCH ×2 (10:27→22:19)
[2017-05-23] MEDS: DOCUSATE SODIUM 100 MG CAPSULE PO SCH ×2 (10:28→17:09)
[2017-05-23] MEDS: OXYCODONE-ACETAMINOPHEN 5-325 MG TABLET PO PRN (10:31)
[2017-05-23] MEDS: LISINOPRIL 10 MG TABLET PO SCH (12:03)
--- NOTE | 2017-05-23 13:37 | PDOC PROGRESS REPORT ---
Subjective Progress Note for:: 05/23/17 Subjective:: Patient refers that she does not feel like her usual self. She appears to be out of focus today. Patient denies any weakness chest pain or shortness of breath. Nurse reports that patient had hypoglycemic episode which had to be treated with further improvement there is also reports that when patient gets anxious she poops herself Review of systems All organ systems evaluated and negative except as in subjective All significant laboratories and diagnostics have been reviewed Reason For Visit: ACUTE RESPIRATORY FAILURE,LEFT LOBAR PNEUMONIA Physical Exam Vital Signs: Temp Pulse Resp BP Pulse Ox 98.0 F 69 16 116/49 L 97 05/23/17 04:15 05/23/17 04:15 05/23/17 04:15 05/23/17 04:15 05/23/17 04:15 Intake & Output 05/22/17 05/23/17 05/24/17 06:59 06:59 06:59 Intake Total 2167 3386 Output Total 950 1200 Balance 1217 2186 Weight 79.7 kg 80.5 kg General appearance: PRESENT: cooperative, obese Head exam: PRESENT: atraumatic, normocephalic Eye exam: PRESENT: conjunctiva pink, EOMI, PERRLA Ear exam: PRESENT: normal external ear exam Mouth exam: PRESENT: moist Neck exam: PRESENT: full ROM. ABSENT: JVD, lymphadenopathy, tenderness Respiratory exam: PRESENT: other - Adequate movement of air with soft basilar crackles Cardiovascular exam: PRESENT: RRR. ABSENT: diastolic murmur, systolic murmur Vascular exam: PRESENT: normal capillary refill GI/Abdominal exam: PRESENT: normal bowel sounds, soft. ABSENT: tenderness Extremities exam: PRESENT: full ROM - 2-3+ pitting edema. Edema in pelvis area resolving Musculoskeletal exam: PRESENT: ambulatory Neurological exam: PRESENT: alert, awake, oriented to person, oriented to place , oriented to time, oriented to situation, CN II-XII grossly intact Psychiatric exam: PRESENT: appropriate affect, normal mood Skin exam: PRESENT: intact, normal color Results Laboratory Results: 05/22/17 06:22 05/22/17 06:22 05/22/17 06:22 Sodium 137.1 Potassium 4.3 Chloride 98 Carbon Dioxide 29 Anion Gap 10 BUN 32 H Creatinine 1.19 Est GFR ( Amer) 56 L Est GFR (Non-Af Amer) 46 L Glucose 315 H Calcium 8.6 Magnesium 1.5 L 05/06/17 05/06/17 05/07/17 11:15 18:45 00:50 Troponin I 0.036 0.040 0.036 NT-Pro-B Natriuret Pep 05/07/17 05/11/17 05/14/17 07:08 15:03 08:57 Troponin I 0.036 NT-Pro-B Natriuret Pep 2150 H 3550 H 05/17/17 07:03 Troponin I NT-Pro-B Natriuret Pep 4190 H Impressions: Chest CT 05/13/17 00:00 IMPRESSION: Diffuse mixed alveolar and interstitial pattern with more focal consolidation in the left lower lobe. Findings are most likely due to infection , however aspiration, hypersensitivity and sarcoid could have similar appearance. Lung Scan-VQ NM 05/13/17 00:00 IMPRESSION: No ventilation-perfusion mismatches.Multiple areas of photopenia correlating with multiple areas of airspace disease -effusion seen on recent CT scan. Chest X-Ray 05/22/17 00:00 IMPRESSION: Persistent multifocal airspace disease similar compared to CT chest 05/13/2017 Assessment & Plan - Diagnosis (1) Diastolic CHF, acute Is this a current diagnosis for this admission?: Yes Plan: Decrease IV Lasix, hydralazine and clonidine. Continue Norvasc 10 mg p.o. daily (2) Pneumonia Qualifiers: Aspiration pneumonia type: unspecified Laterality: bilateral Is this a current diagnosis for this admission?: Yes Plan: Continue Zyvox and placed on Levaquin p.o. since good absorption equivalent to IV (3) Pulmonary hypertension, moderate to severe Is this a current diagnosis for this admission?: Yes Plan: Clinically improving. Will adjust antihypertensive regimen as likely had dropped to drastically. Decrease IV Lasix (4) Acute respiratory failure Qualifiers: Respiratory failure complication: hypoxia Qualified Code(s): J96.01 - Acute respiratory failure with hypoxia Is this a current diagnosis for this admission?: Yes Plan: Resolved. Off oxygen (5) COPD (chronic obstructive pulmonary disease) Qualifiers: COPD type: COPD with acute exacerbation Qualified Code(s): J44.1 - Chronic obstructive pulmonary disease with (acute) exacerbation Is this a current diagnosis for this admission?: Yes Plan: Patient refuses nebulizer treatments and were changed to as needed. Discontinued IV steroids since irritated her stomach. To place on Advair (6) DVT prophylaxis Is this a current diagnosis for this admission?: Yes Plan: DVT prophylaxis was initiated when patient was admitted however she developed an episode where she was vomiting blood and was stopped. (7) Esophagitis Is this a current diagnosis for this admission?: Yes Plan: Patient had an acute episode of acute upper GI bleeding he woke which was deemed to be due to erosive esophagitis. Biopsy results are still pending. Continue Protonix IV. Patient off DVT prophylaxis for the same reason. She does not tolerate SCDs due to leg swelling but she is ambulatory (8) UGI bleed Is this a current diagnosis for this admission?: Yes Plan: Due to erosive esophagitis and gastritis. Continue Protonix IV. Hemoglobins have been stable (9) Altered mental status Qualifiers: Altered mental status type: disorientation Qualified Code(s): R41.0 - Disorientation, unspecified Is this a current diagnosis for this admission?: Yes Plan: Likely residual due to hypoglycemic episode however cerebral hypoperfusion due to abrupt blood pressure regulation may be contributing to presentation. Patient does not have any deficits however we will go ahead and order a CT of the head - Time Time Spent with patient: 15-24 minutes Medications reviewed and adjusted accordingly: Yes Anticipated discharge: Home with Homehealth Within: within 48 hours - Inpatient Certification Based on my medical assessment, after consideration of the patient's comorbidities, presenting symptoms, or acuity I expect that the services needed warrant INPATIENT care.: Yes I certify that my determination is in accordance with my understanding of Medicare's requirements for reasonable and necessary INPATIENT services [42 CFR 412.3e].: Yes Medical Necessity: Need Close Monitoring Due to Risk of Patient Decompensation - IV diuresis
[2017-05-23] MEDS ORDERED: HYDRALAZINE HCL 50 MG TABLET PO SCH (14:00)
[2017-05-23] MEDS ORDERED: MEROPENEM 1 GM in NORMAL SALINE 50 ML IV SCH (14:00)
[2017-05-23] MEDS: HYDRALAZINE HCL 25 MG TABLET PO SCH ×2 (14:48→22:18)
[2017-05-23] MEDS: LEVOFLOXACIN 750 MG TABLET PO SCH (16:08)
[2017-05-23] MEDS: INSULIN LISPRO 100 UNIT/ML 3 ML VIAL SUBCUT PRN (18:40)
[2017-05-23] MEDS: FLUTICASONE/SALMETEROL DISKUS 250-50 MCG/DOSE IH SCH (22:18)
[2017-05-24] MEDS: INSULIN GLARGINE,HUM.REC.ANLOG 300 UNIT/3 ML INSULN.PEN SUBCUT SCH ×2 (02:48→21:29)
[2017-05-24] MEDS: HYDRALAZINE HCL 25 MG TABLET PO SCH ×3 (05:39→21:31)
[2017-05-24] MEDS: LEVOTHYROXINE SODIUM 0.05 MG TABLET PO SCH (05:39)
[2017-05-24 06:16] LABS: ABSOLUTE BASOPHILS # (AUTO) 0.1 10^3/uL (0.0-0.2); ABSOLUTE EOSINOPHILS # (AUTO) 0.2 10^3/uL (0.0-0.6); ABSOLUTE LYMPHOCYTES (AUTO) 1.7 10^3/uL (0.5-4.7); ABSOLUTE MONOCYTES (AUTO) 0.6 10^3/uL (0.1-1.4); ABSOLUTE NEUT (AUTO) 4.4 10^3/uL (1.7-8.2); BASOPHILS % (AUTO) 0.8 % (0-2); EOSINOPHILS % (AUTO) 2.5 % (0-6); LYMPHOCYTES % (AUTO) 25.1 % (13-45); MEAN CORPUSCULAR HEMOGLOBIN 28.4 pg (27.0-33.4); MEAN CORPUSCULAR HGB CONC 33.4 g/dL (32.0-36.0); MEAN CORPUSCULAR VOLUME 85 fl (80-97); MONOCYTES % (AUTO) 8.5 % (3-13); PLATELET COUNT 270 10^3/uL (150-450); RED BLOOD COUNT 3.51 10^6/uL (3.72-5.28); SEGMENTED NEUTROPHILS % (AUTO) 63.1 % (42-78); TOTAL CELLS COUNTED % (AUTO) 100 %; WHITE BLOOD COUNT 6.9 10^3/uL (4.0-10.5)
[2017-05-24 06:34] LABS: ANION GAP 8 (5-19); BLOOD UREA NITROGEN 35 mg/dL (7-20); CALCIUM 8.3 mg/dL (8.4-10.2); CARBON DIOXIDE 32 mmol/L (22-30); CHLORIDE 99 mmol/L (98-107); GLUCOSE 144 mg/dL (75-110); POTASSIUM 4.2 mmol/L (3.6-5.0); SODIUM 138.7 mmol/L (137-145)
[2017-05-24] MEDS: INSULIN LISPRO 100 UNIT/ML 3 ML VIAL SUBCUT PRN ×4 (08:04→21:29)
[2017-05-24] MEDS: AMLODIPINE BESYLATE 10 MG TABLET PO SCH (09:55)
[2017-05-24] MEDS: GUAIFENESIN 600 MG TABLET.SA PO SCH ×2 (09:55→21:32)
[2017-05-24] MEDS: FUROSEMIDE INJ/PF 20 MG/2 ML SDV IV SCH (09:55)
[2017-05-24] MEDS: LINEZOLID 600 MG TABLET PO SCH ×2 (09:55→21:29)
[2017-05-24] MEDS: CLONIDINE HCL 0.1 MG TABLET PO SCH ×2 (09:55→21:31)
[2017-05-24] MEDS: FLUTICASONE/SALMETEROL DISKUS 250-50 MCG/DOSE IH SCH ×2 (09:56→21:29)
[2017-05-24] MEDS: PANTOPRAZOLE SODIUM 40 MG VIAL IV SCH (09:56)
[2017-05-24] MEDS: DOCUSATE SODIUM 100 MG CAPSULE PO SCH ×2 (09:57→18:07)
[2017-05-24] MEDS ORDERED: NORMAL SALINE 1000 ML 1,000 ML IV PRN (10:59)
[2017-05-24] MEDS: LISINOPRIL 10 MG TABLET PO SCH (12:23)
[2017-05-24] MEDS: OXYCODONE-ACETAMINOPHEN 5-325 MG TABLET PO PRN (13:56)
[2017-05-24] MEDS: LEVOFLOXACIN 750 MG TABLET PO SCH (15:53)
--- NOTE | 2017-05-24 16:29 | PDOC PROGRESS REPORT ---
Subjective Progress Note for:: 05/24/17 Subjective:: Patient is doing well She has no shortness of breath no chest pain ; she is alert and awake ; she has no nausea vomiting O2 sat is 97% on room air Reason For Visit: ACUTE RESPIRATORY FAILURE,LEFT LOBAR PNEUMONIA Physical Exam Vital Signs: Temp Pulse Resp BP Pulse Ox 97.8 F 90 18 150/62 H 97 05/24/17 12:28 05/24/17 12:28 05/24/17 12:28 05/24/17 12:28 05/24/17 12:28 Intake & Output 05/23/17 05/24/17 05/25/17 00:59 00:59 00:59 Intake Total 2551 3621 5 Output Total 1200 450 Balance 1351 3171 5 Weight 79.7 kg 80.5 kg 79.5 kg General appearance: PRESENT: no acute distress, well-nourished Head exam: PRESENT: atraumatic, normocephalic Eye exam: PRESENT: conjunctiva pink, EOMI, PERRLA. ABSENT: scleral icterus Neck exam: ABSENT: carotid bruit, JVD, lymphadenopathy, thyromegaly Respiratory exam: PRESENT: clear to auscultation delma, decreased breath sounds. ABSENT: rales, rhonchi, wheezes Cardiovascular exam: PRESENT: RRR. ABSENT: diastolic murmur, rubs, systolic murmur GI/Abdominal exam: PRESENT: normal bowel sounds, soft. ABSENT: distended, guarding, mass, organolmegaly, rebound, tenderness Extremities exam: PRESENT: full ROM. ABSENT: calf tenderness, clubbing, pedal edema Musculoskeletal exam: PRESENT: ambulatory, normal inspection. ABSENT: deformity Neurological exam: PRESENT: alert, awake, oriented to person, oriented to place , oriented to time, oriented to situation, CN II-XII grossly intact. ABSENT: motor sensory deficit Results Laboratory Results: 05/24/17 06:04 05/24/17 06:04 05/24/17 05/24/17 06:04 06:04 WBC 6.9 RBC 3.51 L Hgb 10.0 L Hct 30.0 L MCV 85 MCH 28.4 MCHC 33.4 RDW 15.0 H Plt Count 270 Seg Neutrophils % 63.1 Lymphocytes % 25.1 Monocytes % 8.5 Eosinophils % 2.5 Basophils % 0.8 Absolute Neutrophils 4.4 Absolute Lymphocytes 1.7 Absolute Monocytes 0.6 Absolute Eosinophils 0.2 Absolute Basophils 0.1 Sodium 138.7 Potassium 4.2 Chloride 99 Carbon Dioxide 32 H Anion Gap 8 BUN 35 H Creatinine 1.52 H Est GFR ( Amer) 42 L Est GFR (Non-Af Amer) 35 L Glucose 144 H Calcium 8.3 L Magnesium 2.0 05/06/17 05/06/17 05/07/17 11:15 18:45 00:50 Troponin I 0.036 0.040 0.036 NT-Pro-B Natriuret Pep 05/07/17 05/11/17 05/14/17 07:08 15:03 08:57 Troponin I 0.036 NT-Pro-B Natriuret Pep 2150 H 3550 H 05/17/17 07:03 Troponin I NT-Pro-B Natriuret Pep 4190 H Impressions: Chest CT 05/13/17 00:00 IMPRESSION: Diffuse mixed alveolar and interstitial pattern with more focal consolidation in the left lower lobe. Findings are most likely due to infection , however aspiration, hypersensitivity and sarcoid could have similar appearance. Lung Scan-VQ NM 05/13/17 00:00 IMPRESSION: No ventilation-perfusion mismatches.Multiple areas of photopenia correlating with multiple areas of airspace disease -effusion seen on recent CT scan. Chest X-Ray 05/22/17 00:00 IMPRESSION: Persistent multifocal airspace disease similar compared to CT chest 05/13/[address] 05/23/17 00:00 IMPRESSION: NO ACUTE INTRACRANIAL IMAGING FINDINGS. NO SIGNIFICANT CHANGE FROM PRIOR STUDY. EVIDENCE OF ACUTE STROKE: NO. Assessment & Plan - Time Time Spent with patient: (1) Diastolic CHF, acute Is this a current diagnosis for this admission?: Yes Plan: Decrease IV Lasix, hydralazine and clonidine. Continue Norvasc 10 mg p.o. daily ; Echo performed on 05/14/2017 showed normal left ventricular function with mild diastolic dysfunction (2) Pneumonia Qualifiers: Aspiration pneumonia type: unspecified Laterality: bilateral Is this a current diagnosis for this admission?: Yes Plan: Patient has been treated with Levaquin and Zyvox with improvement Likely will discharge patient home in a.m. (3) Pulmonary hypertension, moderate to severe Is this a current diagnosis for this admission?: Yes Plan: Clinically improving. Will adjust antihypertensive regimen as likely had dropped to drastically. Decrease IV Lasix (4) Acute respiratory failure Qualifiers: Respiratory failure complication: hypoxia Qualified Code(s): J96.01 - Acute respiratory failure with hypoxia Is this a current diagnosis for this admission?: Yes Plan: Resolved. Off oxygen (5) COPD (chronic obstructive pulmonary disease) Qualifiers: COPD type: COPD with acute exacerbation Qualified Code(s): J44.1 - Chronic obstructive pulmonary disease with (acute) exacerbation Is this a current diagnosis for this admission?: Yes Plan: Patient refuses nebulizer treatments and were changed to as needed. Discontinued IV steroids since irritated her stomach. To place on Advair (6) DVT prophylaxis Is this a current diagnosis for this admission?: Yes Plan: DVT prophylaxis was initiated when patient was admitted however she developed an episode where she was vomiting blood and was stopped. (7) Esophagitis Is this a current diagnosis for this admission?: Yes Plan: Patient had an acute episode of acute upper GI bleeding he woke which was deemed to be due to erosive esophagitis. Biopsy results are still pending. Continue Protonix IV. Patient off DVT prophylaxis for the same reason. She does not tolerate SCDs due to leg swelling but she is ambulatory (8) UGI bleed Is this a current diagnosis for this admission?: Yes Plan: Due to erosive esophagitis and gastritis. Continue Protonix IV. Hemoglobins have been stable (9) Altered mental status Qualifiers: Altered mental status type: disorientation Qualified Code(s): R41.0 - Disorientation, unspecified Is this a current diagnosis for this admission?: Yes Likely secondary to encephalopathy resolved CT of the head was negative (10) acute renal failure Creatinine is 1.5 today We will hydrate gently Hold Lasix Repeat labs in a.m. Time Spent with patient: 25-34 minutes
[2017-05-25] MEDS: OXYCODONE-ACETAMINOPHEN 5-325 MG TABLET PO PRN (04:14)
[2017-05-25 05:27] LABS: ANION GAP 9 (5-19); BLOOD UREA NITROGEN 37 mg/dL (7-20); CALCIUM 8.1 mg/dL (8.4-10.2); CARBON DIOXIDE 29 mmol/L (22-30); CHLORIDE 102 mmol/L (98-107); GLUCOSE 160 mg/dL (75-110); SODIUM 139.7 mmol/L (137-145)
[2017-05-25] MEDS: LEVOTHYROXINE SODIUM 0.05 MG TABLET PO SCH (06:37)
[2017-05-25] MEDS: HYDRALAZINE HCL 25 MG TABLET PO SCH (06:37)
--- NOTE | 2017-05-25 08:50 | RADIOLOGY REPORT (SQ) ---
EXAM DESCRIPTION: CHEST SINGLE VIEW COMPLETED DATE/TIME: 05/25/2017 8:03 am REASON FOR STUDY: SOB COMPARISON: CT chest 05/13/2017 Chest films 05/16/2017, 05/17/2017, 05/22/2017 EXAM PARAMETERS: NUMBER OF VIEWS: One view. TECHNIQUE: Single frontal radiographic view of the chest acquired. RADIATION DOSE: NA LIMITATIONS: None. FINDINGS: LUNGS AND PLEURA: Persistent dense consolidation in the left retrocardiac region in the po steromedial left lung base. Lungs are otherwise well inflated and grossly clear. No pleural effusion. No pneumothorax. MEDIASTINUM AND HILAR STRUCTURES: No masses. Contour normal. HEART AND VASCULAR STRUCTURES: Heart normal in size. Normal vasculature. BONES: No acute findings. HARDWARE: None in the chest. OTHER: No other significant finding. IMPRESSION: Persistent dense consolidation in the left retrocardiac region atelectasis versus pneumo tiny. This finding should be followed to radiographic clearing. TECHNICAL DOCUMENTATION: JOB ID: [id number] [employer]- All Rights Reserved Reading location - IP/workstation name: [email or web address]
[2017-05-25] MEDS: GUAIFENESIN 600 MG TABLET.SA PO SCH (10:18)
[2017-05-25] MEDS: AMLODIPINE BESYLATE 10 MG TABLET PO SCH (10:18)
[2017-05-25] MEDS: CLONIDINE HCL 0.1 MG TABLET PO SCH (10:18)
[2017-05-25] MEDS: DOCUSATE SODIUM 100 MG CAPSULE PO SCH (10:18)
[2017-05-25] MEDS: FLUTICASONE/SALMETEROL DISKUS 250-50 MCG/DOSE IH SCH (10:19)
[2017-05-25 10:25] VITALS: BP 145/69
--- NOTE | 2017-05-25 16:08 | PDOC PROGRESS REPORT ---
Subjective Progress Note for:: 05/25/17 Subjective:: Awake flat affect,improving Reason For Visit: ACUTE RESPIRATORY FAILURE,LEFT LOBAR PNEUMONIA Physical Exam Vital Signs: Temp Pulse Resp BP Pulse Ox 98.6 F 73 14 119/45 L 98 05/25/17 07:34 05/25/17 07:34 05/25/17 07:34 05/25/17 07:34 05/25/17 07:34 Intake & Output 05/24/17 05/25/17 05/26/17 06:59 06:59 06:59 Intake Total 2171 13 Output Total 450 800 Balance 1721 -787 Weight 79.5 kg 83.2 kg General appearance: PRESENT: no acute distress, disheveled, morbidly obese, well -developed Head exam: PRESENT: atraumatic, normocephalic Eye exam: PRESENT: conjunctiva pale. ABSENT: nystagmus, periorbital swelling, scleral icterus Mouth exam: PRESENT: dry mucosa, neck supple, tongue midline Neck exam: ABSENT: carotid bruit, JVD, lymphadenopathy, thyromegaly, tracheal deviation, tracheostomy, other Respiratory exam: PRESENT: decreased breath sounds, prolonged expiratory phas, rales, rhonchi, symmetrical, unlabored. ABSENT: retraction, stridor, tachypnea Cardiovascular exam: PRESENT: RRR, +S1, +S2 Pulses: PRESENT: normal radial pulses GI/Abdominal exam: PRESENT: diminished bowel sounds, soft Extremities exam: ABSENT: calf tenderness, clubbing, joint swelling Musculoskeletal exam: ABSENT: deformity, dislocation Neurological exam: PRESENT: awake Skin exam: PRESENT: dry, warm Results Laboratory Results: 05/24/17 06:04 05/25/17 04:39 05/25/17 04:39 Sodium 139.7 Potassium 4.0 Chloride 102 Carbon Dioxide 29 Anion Gap 9 BUN 37 H Creatinine 1.72 H Est GFR ( Amer) 37 L Est GFR (Non-Af Amer) 30 L Glucose 160 H Calcium 8.1 L 05/06/17 05/06/17 05/07/17 11:15 18:45 00:50 Troponin I 0.036 0.040 0.036 NT-Pro-B Natriuret Pep 05/07/17 05/11/17 05/14/17 07:08 15:03 08:57 Troponin I 0.036 NT-Pro-B Natriuret Pep 2150 H 3550 H 05/17/17 07:03 Troponin I NT-Pro-B Natriuret Pep 4190 H Impressions: Chest CT 05/13/17 00:00 IMPRESSION: Diffuse mixed alveolar and interstitial pattern with more focal consolidation in the left lower lobe. Findings are most likely due to infection , however aspiration, hypersensitivity and sarcoid could have similar appearance. Lung Scan-VQ NM 05/13/17 00:00 IMPRESSION: No ventilation-perfusion mismatches.Multiple areas of photopenia correlating with multiple areas of airspace disease -effusion seen on recent CT scan. Head CT 05/23/17 00:00 IMPRESSION: NO ACUTE INTRACRANIAL IMAGING FINDINGS. NO SIGNIFICANT CHANGE FROM PRIOR STUDY. EVIDENCE OF ACUTE STROKE: NO. Chest X-Ray 05/25/17 08:00 IMPRESSION: Persistent dense consolidation in the left retrocardiac region atelectasis versus pneumonia. This finding should be followed to radiographic clearing. Assessment & Plan - Diagnosis (1) Acute respiratory failure Qualifiers: Respiratory failure complication: hypoxia Qualified Code(s): J96.01 - Acute respiratory failure with hypoxia Is this a current diagnosis for this admission?: Yes Plan: Patient is at or near her baseline (2) COPD (chronic obstructive pulmonary disease) Qualifiers: COPD type: COPD with acute exacerbation Qualified Code(s): J44.1 - Chronic obstructive pulmonary disease with (acute) exacerbation Is this a current diagnosis for this admission?: Yes Plan: Decreased breath sounds prolonged expiratory phase but no wheezing (3) Pneumonia Qualifiers: Aspiration pneumonia type: unspecified Laterality: bilateral Is this a current diagnosis for this admission?: Yes Plan: No positive cultures (4) Pulmonary hypertension, moderate to severe Is this a current diagnosis for this admission?: Yes Plan: Unchanged
--- NOTE | 2017-05-25 16:54 | PDOC DISCHARGE SUMMARY ---
General - Admit/Disc Date/PCP Admission Date/Primary Care Provider: 05/04/17 16:32 KINJAL CABRERA MD Discharge Date: 05/25/17 - Discharge Diagnosis (1) Acute respiratory failure Is this a current diagnosis for this admission?: Yes (2) Hypoxia Is this a current diagnosis for this admission?: Yes (3) COPD (chronic obstructive pulmonary disease) with acute bronchitis Is this a current diagnosis for this admission?: Yes (4) Anemia Is this a current diagnosis for this admission?: Yes (5) Hypokalemia Is this a current diagnosis for this admission?: Yes (6) Hyponatremia Is this a current diagnosis for this admission?: Yes (7) Acute renal injury due to hypovolemia Is this a current diagnosis for this admission?: Yes (9) GERD (gastroesophageal reflux disease) Is this a current diagnosis for this admission?: Yes (11) Hypertension Is this a current diagnosis for this admission?: Yes (12) Hypothyroidism Is this a current diagnosis for this admission?: Yes (13) Diastolic CHF, acute Is this a current diagnosis for this admission?: Yes (14) COPD (chronic obstructive pulmonary disease) Is this a current diagnosis for this admission?: Yes - Additional Information Resuscitation Status: Full Code Discharge Diet: Cardiac, Diabetic Discharge Activity: Activity As Tolerated, Balance Activity w/Rest, Weigh Daily Prescriptions: Amlodipine Besylate [Norvasc 10 mg Tablet] 10 mg PO DAILY #30 tablet Hydralazine HCl [Apresoline 25 mg Tablet] 25 mg PO Q8 #90 tablet Levofloxacin [Levaquin 750 mg Tablet] 750 mg PO DAILY #4 tablet Home Medications: Clonidine HCl [Catapres 0.1 mg Tablet] 0.1 mg PO DAILY 05/04/17 Ergocalciferol (Vitamin D2) [Vitamin D2] 50,000 unit PO [id number] 05/04/17 Furosemide [Lasix 40 mg Tablet] 40 mg PO DAILY 05/04/17 Insulin Aspart [Novolog Flexpen] 0 unit SUBCUT .SLD SCALE 05/04/17 Insulin Glargine,Hum.rec.anlog [Lantus Solostar] 25 unit SQ DAILY 05/04/17 Levothyroxine Sodium [Synthroid 0.05 mg Tablet] 0.05 mg PO Q6AM 05/04/17 Lisinopril [Prinivil 10 mg Tablet] 20 mg PO DAILY 05/04/17 Omeprazole Magnesium [Prilosec Otc] 20 mg PO DAILY 05/04/17 Oxycodone HCl/Acetaminophen [Percocet 10-325 mg Tablet] 1 tab PO Q4HP PRN Amlodipine Besylate [Norvasc 10 mg Tablet] 10 mg PO DAILY #30 tablet 05/25/17 Fluticasone/Salmeterol [Advair 250-50 Diskus 14 Dose/Diskus] 1 inh IH Q12 inhaler 05/25/17 Hydralazine HCl [Apresoline 25 mg Tablet] 25 mg PO Q8 #90 tablet 05/25/17 Levofloxacin [Levaquin 750 mg Tablet] 750 mg PO DAILY #4 tablet 05/25/17 History of Present Illness Patient complains of: Increasing shortness of breath and cough History of Present Illness: IGLESIA BLANCHARD is a 61 year old female is into the emergency room with complaints of difficulty breathing and shortness of breath and just not feeling well since Wednesday. She was found to be hypoxemic in the emergency room and x- ray did show pneumonia bilaterally especially involving the left lung. And has history of exposure to someone with possible flu both flu test done on her has been negative. No nausea vomiting dizziness diaphoresis or any other pertinent symptoms Hospital Course Hospital Course: Patient was admitted to the hospitalist service. She went into acute respiratory distress was subsequently intubated. 61-year-old female presented with complaints of hypoxia and dizziness is also noted to have a history of GI bleeding for [id number] history has not smoked in the last recently she denies hemoptysis although she has spit up some blood in the past but he denies nausea vomiting since she has had some chills and is unaware of any fever she denies any history of chronic lung disease as a child or adolescent she did PPD was negative the dates unknown she is aware of being exposed to passive smoke as a child as well as an adolescent. Says several dogs. She has no recent travel she denies angina-like chest pain sleeps on 2-3 pillows occasional PND occasional nocturnal cough no edema she admits to start restless sleep nocturia 1-2 times per night but denies unrestful sleep or excessive daytime somnolence. Dr. Reed was consulted for pulmonary. Patient was gradually weaned and extubated off the ventilator after several days. She was started on broad- spectrum IV antibiotics. Blood cultures 2 were obtained. Which never grew anything. Chest x-ray showed a left retrocardiac infiltrate. She was later downgraded to the IMCU floor. She was noted to have fluid volume overload. Transthoracic echocardiogram was done. She was noted to have a normal EF with 65%. She had grade 2 over 4 diastolic. She was diuresed. Slow to progress with activity. Therapy was consulted. Discharge planning was consulted as well. Patient has finally weaned from oxygen. She is now euvolemic. She feels ready for discharge home with home health services. Physical Exam Vital Signs: Temp Pulse Resp BP Pulse Ox 98.6 F 73 14 145/69 H 98 05/25/17 10:22 05/25/17 10:22 05/25/17 10:22 05/25/17 10:22 05/25/17 10:22 Intake & Output 05/24/17 05/25/17 05/26/17 06:59 06:59 06:59 Intake Total 2171 13 Output Total 450 800 Balance 1721 -787 Weight 79.5 kg 83.2 kg General appearance: PRESENT: no acute distress, morbidly obese, well-developed, well-nourished Head exam: PRESENT: atraumatic, normocephalic Eye exam: PRESENT: conjunctiva pink, EOMI, PERRLA. ABSENT: scleral icterus Ear exam: PRESENT: normal external ear exam Mouth exam: PRESENT: moist, tongue midline Teeth exam: PRESENT: edentulous Neck exam: ABSENT: carotid bruit, JVD, lymphadenopathy, thyromegaly Respiratory exam: PRESENT: clear to auscultation delma, symmetrical, unlabored. ABSENT: rales, rhonchi, wheezes Cardiovascular exam: PRESENT: RRR. ABSENT: diastolic murmur, rubs, systolic murmur Pulses: PRESENT: normal dorsalis pedis pul Vascular exam: PRESENT: normal capillary refill GI/Abdominal exam: PRESENT: normal bowel sounds, soft. ABSENT: distended, guarding, mass, organolmegaly, rebound, tenderness Rectal exam: PRESENT: deferred Extremities exam: PRESENT: full ROM. ABSENT: calf tenderness, clubbing, pedal edema Musculoskeletal exam: PRESENT: ambulatory, full ROM, normal inspection Neurological exam: PRESENT: alert, awake, oriented to person, oriented to place , oriented to time, oriented to situation, CN II-XII grossly intact. ABSENT: motor sensory deficit Psychiatric exam: PRESENT: appropriate affect, normal mood. ABSENT: homicidal ideation, suicidal ideation Skin exam: PRESENT: dry, intact, warm. ABSENT: cyanosis, rash Results Laboratory Results: 05/24/17 06:04 05/25/17 04:39 05/25/17 04:39 Sodium 139.7 Potassium 4.0 Chloride 102 Carbon Dioxide 29 Anion Gap 9 BUN 37 H Creatinine 1.72 H Est GFR ( Amer) 37 L Est GFR (Non-Af Amer) 30 L Glucose 160 H Calcium 8.1 L 05/06/17 05/06/17 05/07/17 11:15 18:45 00:50 Troponin I 0.036 0.040 0.036 NT-Pro-B Natriuret Pep 05/07/17 05/11/17 05/14/17 07:08 15:03 08:57 Troponin I 0.036 NT-Pro-B Natriuret Pep 2150 H 3550 H 05/17/17 07:03 Troponin I NT-Pro-B Natriuret Pep 4190 H Impressions: Chest CT 05/13/17 00:00 IMPRESSION: Diffuse mixed alveolar and interstitial pattern with more focal consolidation in the left lower lobe. Findings are most likely due to infection , however aspiration, hypersensitivity and sarcoid could have similar appearance. Lung Scan-VQ NM 05/13/17 00:00 IMPRESSION: No ventilation-perfusion mismatches.Multiple areas of photopenia correlating with multiple areas of airspace disease -effusion seen on recent CT scan. Head CT 05/23/17 00:00 IMPRESSION: NO ACUTE INTRACRANIAL IMAGING FINDINGS. NO SIGNIFICANT CHANGE FROM PRIOR STUDY. EVIDENCE OF ACUTE STROKE: NO. Chest X-Ray 05/25/17 08:00 IMPRESSION: Persistent dense consolidation in the left retrocardiac region atelectasis versus pneumonia. This finding should be followed to radiographic clearing. Qualifiers - * PATEINT BEING DISCHARGED WITH ANY OF THE FOLLOWING DIAGNOSIS?: No Plan Discharge Plan: Home with home health Time Spent: Less than 30 Minutes
== END 2017-05-25 11:07 | disposition home health service (06) | DRG 193 ==
LOC: ER 13:45 → EH 16:32 → 3S 19:10
PROVIDERS: ADMIT Emergency Medicine; ATTEND Emergency Medicine
PROC: 30233N1 Transfusion of Nonautologous Red Blood Cells into Peripheral Vein, Percutaneous Approach (ICD-10-PCS; principal; 2017-05-14)
PROC: 0DD68ZX Extraction of Stomach, Via Natural or Artificial Opening Endoscopic, Diagnostic (ICD-10-PCS; 2017-05-19)
PROC: 0DDE8ZX Extraction of Large Intestine, Via Natural or Artificial Opening Endoscopic, Diagnostic (ICD-10-PCS; 2017-05-19 14:30)
PROC: 3E0234Z Introduction of Serum, Toxoid and Vaccine into Muscle, Percutaneous Approach (ICD-10-PCS; 2017-05-25)
DX: J18.1 Lobar pneumonia, unspecified organism (principal); J96.01 Acute respiratory failure with hypoxia; I50.31 Acute diastolic (congestive) heart failure; K27.4 Chronic or unspecified peptic ulcer, site unspecified, with hemorrhage; E87.1 Hypo-osmolality and hyponatremia; N17.9 Acute kidney failure, unspecified; E78.00 Pure hypercholesterolemia, unspecified; I10 Essential (primary) hypertension; D50.9 Iron deficiency anemia, unspecified; E11.65 Type 2 diabetes mellitus with hyperglycemia; E87.6 Hypokalemia; E86.1 Hypovolemia; R07.9 Chest pain, unspecified; I27.20 Pulmonary hypertension, unspecified; K21.9 Gastro-esophageal reflux disease without esophagitis; E03.9 Hypothyroidism, unspecified; J44.9 Chronic obstructive pulmonary disease, unspecified; J20.9 Acute bronchitis, unspecified; K29.70 Gastritis, unspecified, without bleeding; K59.00 Constipation, unspecified; E66.01 Morbid (severe) obesity due to excess calories; Z68.39 Body mass index [BMI] 39.0-39.9, adult; Z79.4 Long term (current) use of insulin; Z79.899 Other long term (current) drug therapy
CPT/HCPCS: 00813; 36415; 36430; 43239; 45380; 70450; 71045; 71046; 71250; 78582; 80048; 80053; 81001; 82271; 82272; 82607; 82728; 82746; 82803; 82962; 83540; 83550; 83605; 83735; 83880; 84466; 84484; 85025; 85027; 85045; 85379; 85610; 86850; 86900; 86901; 86920; 87040; 87086; 87205; 87493; 87804; 88305; 90686; 93005; 93010; 93306; 93970; 96374; 99283; A9540; A9567; G8978-GP; G8979-GP; J0360; J0456; J0696; J1650; J1756; J1815; J1940; J1956; J2020; J2185; J2250; J2405; J2543; J2704; J2920; J2930; J3475; J3490; J7030; J7040; J7060; J7120; J7620; P9016; Q9969; S0164

== ENCOUNTER 2017-06-05 14:24 | Emergency (ER) | payer MEDICARE, MEDICAID ==
--- NOTE | 2017-06-05 14:49 | ER Document Report ---
ED General - General Stated Complaint: LEG PAIN Time Seen by Provider: 06/05/17 14:43 Notes: 61-year-old lady with advanced diabetes and heart failure presents for increased leg swelling for several days with pain despite increased doses of Lasix. This is been constant and increasing. She was found to be hypokalemic and altered by paramedics who gave her D50 which improved her sugar from 47 to the 200s. She takes Lantus at night and short-acting insulin in the morning but states that she did not take it this morning. No fevers increasing redness in her legs cough or other infectious symptoms. Patient is a very poor historian. TRAVEL OUTSIDE OF THE [place] IN LAST 30 DAYS: No - Related Data Allergies/Adverse Reactions: No Known Allergies Allergy (Verified 06/05/17 14:54) Past Medical History - Social History Smoking Status: Former Smoker Family History: None - Past Medical History Cardiac Medical History: Reports: Hx Hypercholesterolemia, Hx Hypertension Endocrine Medical History: Reports: Hx Diabetes Mellitus Type 2 Renal/ Medical History: Denies: Hx Peritoneal Dialysis Psychiatric Medical History: Denies: Hx Depression Past Surgical History: Reports: Hx Section - x2, Hx Orthopedic Surgery - Toe amputation for osteomyelitis right pinky - Immunizations Hx Diphtheria, Pertussis, Tetanus Vaccination: Yes Review of Systems - Review of Systems Notes: REVIEW OF SYSTEMS GEN: Denies fever, chills, weight loss ENT: Denies sore throat, nasal discharge, ear pain EYES: Denies blurry vision, eye pain, discharge CV: Denies chest pain, palpitations, edema RESP: Denies cough, shortness of breath, wheezing GI: Denies abdominal pain, nausea, vomiting, diarrhea MSK: Bilateral leg edema SKIN: Denies rash, skin lesions LYMPH: Denies swollen glands/lymph nodes NEURO: Resolved contusion in setting of low blood sugar PSYCH: Denies depression, suicidal or homicidal ideation PHYSICAL EXAMINATION General: No acute distress, well-nourished Head: Atraumatic, normocephalic ENT: Mouth normal, oropharynx moist, no exudates or tonsillar enlargement Eyes: Conjunctiva normal, pupils equal, lids normal Neck: No JVD, supple, no guarding CVS: Normal rate, regular rhythm, no murmurs Resp: No resp distress, equal and normal breath sounds bilaterally GI: Nondistended, soft, no tenderness to palpation, no rebound or guarding Ext: Chronic symmetric 3+ leg edema bilaterally without acute redness warmth or tenderness. Lymphatic: No lymphadeopathy noted Neuro: Awake, alert. Face symmetric. GCS 15. Physical Exam - Vital signs Vitals: Temp Pulse Resp BP Pulse Ox 98.2 F 83 16 155/79 H 98 06/05/17 14:37 06/05/17 14:37 06/05/17 14:37 06/05/17 14:37 06/05/17 14:37 Course - Re-evaluation Re-evalutation: 06/05/17 14:48 Patient presents with resolved hypoglycemia and altered mental status. Incidentally increasing leg edema in the setting of known heart failure refractory to diuretics. Clinically she is not in respiratory failure, is now alert well oriented with no strokelike symptoms. Her blood sugar in the ED after the dextrose from paramedics is 110. Will closely monitor her blood sugar for dropping, check her labs including a BNP, check a chest x-ray for pulmonary edema and observe her carefully. No fever or infectious symptoms, no evidence of sialitis so I doubt this hypoglycemia is due to sepsis. 06/05/17 16:36 Patient reassessed. Stable. X-ray shows very slight vascular congestion or mild pulmonary edema, not consistent with pneumonia clinically. BNP is slightly elevated, this matches with her legs 1. I will give her IV Lasix here. Will recheck blood sugar. Aside from these 2 issues she does not meet criteria for admission and if she diuresis and her sugar stays normal, she can go home. 06/05/17 17:43 Repeat blood sugar is normal. Patient urinated. Vitals are stable. She is stable for discharge home I will ask her to hold her insulin until she speaks with her doctor on Wednesday. I have discussed with the patient there likely diagnosis, aftercare plan, follow-up plans and my usual and customary return precautions. They verbalized understanding of this. - Vital Signs Vital signs: Temp Pulse Resp BP Pulse Ox 98 F 83 29 H 161/74 H 93 06/05/17 16:01 06/05/17 14:37 06/05/17 17:01 06/05/17 17:01 06/05/17 17:01 - Laboratory Result Diagrams: 06/05/17 14:45 06/05/17 14:45 Laboratory results interpreted by me: 06/05/17 06/05/17 06/05/17 14:45 14:45 14:45 RBC 3.23 L Hgb 9.2 L Hct 27.4 L RDW 15.4 H Seg Neutrophils % 80.2 H Lymphocytes % 9.6 L BUN 28 H Creatinine 1.65 H Est GFR ( Amer) 38 L Est GFR (Non-Af Amer) 32 L NT-Pro-B Natriuret Pep 3600 H Urine Protein 06/05/17 16:00 RBC Hgb Hct RDW Seg Neutrophils % Lymphocytes % BUN Creatinine Est GFR ( Amer) Est GFR (Non-Af Amer) NT-Pro-B Natriuret Pep Urine Protein 30 H - Diagnostic Test Radiology reviewed: Image reviewed, Reports reviewed - EKG Interpretation by Me EKG shows normal: Sinus rhythm Rate: Normal Rhythm: NSR Discharge - Discharge Clinical Impression: Hypoglycemia Condition: Good Disposition: HOME, SELF-CARE Instructions: Hypoglycemia ([facility]) Additional Instructions: You came to the ER with low blood sugar which improved. Please do not take any insulin until Wednesday. Please call your primary care Wednesday morning to adjust her diet and insulin regimen. In terms of your swelling will give you some Lasix to jumpstart diuresis but you need to talk your regular doctor about ongoing adjustments to your medications in order to decrease the swelling. Referrals: KINJAL CABRERA MD [Primary Care Provider] - Follow up as needed
[2017-06-05 15:00] LABS: ABSOLUTE EOSINOPHILS # (AUTO) 0.2 10^3/uL (0.0-0.6); ABSOLUTE MONOCYTES (AUTO) 0.9 10^3/uL (0.1-1.4); ABSOLUTE NEUT (AUTO) 8.2 10^3/uL (1.7-8.2); BASOPHILS % (AUTO) 0.3 % (0-2); EOSINOPHILS % (AUTO) 1.5 % (0-6); HEMATOCRIT 27.4 % (36.0-47.0); HEMOGLOBIN 9.2 g/dL (12.0-15.5); LYMPHOCYTES % (AUTO) 9.6 % (13-45); MEAN CORPUSCULAR HEMOGLOBIN 28.3 pg (27.0-33.4); MEAN CORPUSCULAR HGB CONC 33.4 g/dL (32.0-36.0); MEAN CORPUSCULAR VOLUME 85 fl (80-97); MONOCYTES % (AUTO) 8.4 % (3-13); PLATELET COUNT 162 10^3/uL (150-450); RED BLOOD COUNT 3.23 10^6/uL (3.72-5.28); RED CELL DISTRIBUTION WIDTH 15.4 % (11.5-14.0); SEGMENTED NEUTROPHILS % (AUTO) 80.2 % (42-78); TOTAL CELLS COUNTED % (AUTO) 100 %; WHITE BLOOD COUNT 10.2 10^3/uL (4.0-10.5)
--- NOTE | 2017-06-05 15:12 | RADIOLOGY REPORT (SQ) ---
EXAM DESCRIPTION: CHEST SINGLE VIEW COMPLETED DATE/TIME: 06/05/2017 3:04 pm REASON FOR STUDY: edema COMPARISON: 05/25/2017 EXAM PARAMETERS: NUMBER OF VIEWS: One view. TECHNIQUE: Single frontal radiographic view of the chest acquired. RADIATION DOSE: NA LIMITATIONS: None. FINDINGS: LUNGS AND PLEURA: Patchy bilateral lower lobe airspace disease. Lungs and pleural spaces otherwise grossly clear. MEDIASTINUM AND HILAR STRUCTURES: No masses. Contour normal. HEART AND VASCULAR STRUCTURES: Heart stable in size. Normal vasculature. BONES: No acute findings. HARDWARE: None in the chest. OTHER: No other significant finding. IMPRESSION: PATCHY BILATERAL LOWER LOBE AIRSPACE DISEASE COULD REPRESENT SUBSEGMENTAL ATELECTASIS, A SPIRATION, OR PNEUMONIA. TECHNICAL DOCUMENTATION: JOB ID: [id number] [employer]- All Rights Reserved Reading location - IP/workstation name: [email or web address]
[2017-06-05 15:20] LABS: ANION GAP 8 (5-19); BLOOD UREA NITROGEN 28 mg/dL (7-20); CALCIUM 8.6 mg/dL (8.4-10.2); CARBON DIOXIDE 30 mmol/L (22-30); CHLORIDE 102 mmol/L (98-107); GLUCOSE 84 mg/dL (75-110); POTASSIUM 3.8 mmol/L (3.6-5.0); SODIUM 140.3 mmol/L (137-145)
[2017-06-05] MEDS ORDERED: FUROSEMIDE INJ/PF 40 MG/4 ML SDV IV ONE (15:41)
[2017-06-05 16:37] LABS: APPEARANCE,URINE CLEAR; BILIRUBIN,URINE NEGATIVE (NEGATIVE); COLOR,URINE STRAW; GLUCOSE, URINE NEGATIVE (NEGATIVE); KETONES,URINE NEGATIVE (NEGATIVE); LEUKOCYTE ESTERASE,URINE NEGATIVE (NEGATIVE); NITRITE,URINE NEGATIVE (NEGATIVE); PROTEIN,URINE 30 mg/dL (NEGATIVE); URINE SPECIFIC GRAVITY 1.006; UROBILINOGEN,URINE NEGATIVE mg/dL (<2.0)
[2017-06-05 18:48] VITALS: BP 158/91
--- NOTE | 2017-06-06 10:47 | EKG REPORT ---
SEVERITY:- BORDERLINE ECG - SINUS RHYTHM BORDERLINE LEFT AXIS DEVIATION BORDERLINE R WAVE PROGRESSION, ANTERIOR LEADS : Confirmed by: Citlaly Crocker 06-Jun-2017 10:45:52
== END 2017-06-05 18:30 | disposition home or self-care (01) ==
LOC: ER 14:24
DX: E11.649 Type 2 diabetes mellitus with hypoglycemia without coma (principal); T38.3X6A Underdosing of insulin and oral hypoglycemic [antidiabetic] drugs, initial encounter; Z91.14 Patient's other noncompliance with medication regimen; I11.0 Hypertensive heart disease with heart failure; I50.9 Heart failure, unspecified; Z79.899 Other long term (current) drug therapy
CPT/HCPCS: 93005; 99284; 96374; 36415; 87040; 82962; 85025; 80048; 81001; 83880; 71045; 93010; J1940

== ENCOUNTER → 2017-07-23 | Outpatient (CLI) | payer MEDICARE ==
[2017-07-23 09:15] LABS: ANION GAP 13 (5-19); BLOOD UREA NITROGEN 38 mg/dL (7-20); CARBON DIOXIDE 23 mmol/L (22-30); CHLORIDE 110 mmol/L (98-107); GLUCOSE 92 mg/dL (75-110); PHOSPHORUS 5.8 mg/dL (2.5-4.5); POTASSIUM 4.4 mmol/L (3.6-5.0); SODIUM 146.1 mmol/L (137-145)
== END ==
LOC: OD 08:19
PROVIDERS: ATTEND Internal Medicine Nephrology
DX: N17.9 Acute kidney failure, unspecified (principal); E55.9 Vitamin D deficiency, unspecified
CPT/HCPCS: 36415; 80048; 82306; 83970; 84100

== ENCOUNTER → 2017-09-02 | Outpatient (CLI) | payer MEDICAID, MEDICARE ==
[~2017-09-02] MED LIST: REGADENOSON INJ 0.4 MG/5 ML DISP.SYRIN IV ONE
--- NOTE | 2017-09-02 12:47 | DRAGON STRESS TEST REPORT ---
INTRAVENOUS LEXISCAN CARDIOLITE STRESS TEST USING SINGLE PHOTON EMMISION COMPUTERIZED TOMOGRAPHIC. DATE OF PROCEDURE: September 02, 2017, INDICATION : Congestive heart failure CARDIAC RISK FACTORS: Diabetes, hypertension, dyslipidemia RESTING EKG: Sinus rhythm without any baseline ST-T wave changes STRESS EKG: No significant ST segment changes noted with LexiScan bolus REASON FOR TERMINATION: Protocol. PROCEDURE REPORT: Baseline heart rate 83 beats per minute with blood pressure of 165/86. Patient had no significant complaints. Patient was bolused with Lexiscan 0.4 mg intravenously followed by saline bolus. Heart rate at 2 minutes post bolus 96 with a blood pressure of 162/57. 3 minutes post bolus heart rate 93 with blood pressure of 165/61. No significant EKG changes were noted. Patient had no significant complaints during the procedure or postprocedure. CONCLUSIONS: Normal EKG and hemodynamic response to IV LexiScan. NUCLEAR DATA: At rest the patient was given 10.86 millicuries of technetium 99 sestamibi injected intravenously. As per protocol rest gated SPECT images were obtained. On day of stress test, the patient was given intravenous LexiScan at a dose of 0.4 mg in 5 mL intravenously, followed by flush with normal saline. Subsequently the stress dose of 32.5 millicuries of technetium 99 sestamibi was injected intravenously. As per protocol stress gated images were obtained. NUCLEAR INTERPRETATION: Both raw and processed data were used for interpretation. Visual, qualitative, computer-generated quantitative data was used. There was good myocardial uptake of technetium compound. Motion artifact and soft tissue attenuations were noted. Increased visceral uptake was noted. No definitive areas of transient perfusion defect noted, No definitive areas of fixed perfusion defect or scars noted. Small area of borderline decreased uptake noted in the distal inferolateral wall with SSS of 1 and SDS of 1 therefore felt to be not significant. EKG gated imaging showed LV EF at 63 %, rest and stress gated EF similar visually. T. I D. ratio was 1.08. Lung heart ratio noted to be within normal limits 0.35. No significant extracardiac and abnormal radiotracer activities were noted. RV free wall uptake was noted to be WNL. IMPRESSION: Also refer to comments under nuclear interpretation. Also test results needs to be interpreted in the context of pretest probability. 1. No definitive areas of transient perfusion defect noted. 2. There is no definitive scintigraphic evidence of myocardial infarction/scar. 3. EKG gated imaging shows left ventricular ejection fraction of approx. 63 %. 4. Clinical correlation requested as occasionally single vessel disease or balanced ischemia could be missed. In approximately 10% of the cases Lexiscan may not cause adequate vasodilatory stress. RECOMMENDATIONS: Aggressive risk factor modification and medical management. Further evaluation may be needed if continued symptoms or other high risk indicators are noted on clinical evaluation. Close cardiology follow-up is also recommended. Clinical correlation with echocardiogram derived ejection fraction. Inability to exercise by itself can lead to increased cardiovascular event risks. Consider cardiology consultation and or follow-up if clinically indicated. I am available for cardiology evaluation and consultation if requested by the elementary education tutor, unless patient already has a chemist instrumentation. NICK
== END ==
LOC: RAD 08:27
PROVIDERS: ATTEND Internal Medicine Cardiovascular Disease
DX: I50.9 Heart failure, unspecified (principal)
CPT/HCPCS: 93017; 78452; A9500; J2785; Q9969

== ENCOUNTER → 2017-09-27 | Outpatient (CLI) | payer MEDICARE ==
[2017-09-27 10:17] LABS: ABSOLUTE BASOPHILS # (AUTO) 0.1 10^3/uL (0.0-0.2); ABSOLUTE EOSINOPHILS # (AUTO) 0.4 10^3/uL (0.0-0.6); ABSOLUTE LYMPHOCYTES (AUTO) 2.2 10^3/uL (0.5-4.7); ABSOLUTE MONOCYTES (AUTO) 0.7 10^3/uL (0.1-1.4); ABSOLUTE NEUT (AUTO) 4.8 10^3/uL (1.7-8.2); BASOPHILS % (AUTO) 0.7 % (0-2); HEMATOCRIT 32.7 % (36.0-47.0); HEMOGLOBIN 11.2 g/dL (12.0-15.5); LYMPHOCYTES % (AUTO) 26.8 % (13-45); MEAN CORPUSCULAR HEMOGLOBIN 28.8 pg (27.0-33.4); MEAN CORPUSCULAR HGB CONC 34.2 g/dL (32.0-36.0); MEAN CORPUSCULAR VOLUME 84 fl (80-97); MONOCYTES % (AUTO) 8.3 % (3-13); PLATELET COUNT 224 10^3/uL (150-450); RED BLOOD COUNT 3.87 10^6/uL (3.72-5.28); RED CELL DISTRIBUTION WIDTH 14.5 % (11.5-14.0); SEGMENTED NEUTROPHILS % (AUTO) 59.2 % (42-78); TOTAL CELLS COUNTED % (AUTO) 100 %
[2017-09-27 10:37] LABS: APPEARANCE,URINE CLEAR; BILIRUBIN,URINE NEGATIVE (NEGATIVE); COLOR,URINE STRAW; GLUCOSE, URINE NEGATIVE (NEGATIVE); KETONES,URINE NEGATIVE (NEGATIVE); LEUKOCYTE ESTERASE,URINE NEGATIVE (NEGATIVE); NITRITE,URINE NEGATIVE (NEGATIVE); PROTEIN,URINE 30 mg/dL (NEGATIVE); URINE SPECIFIC GRAVITY 1.011; UROBILINOGEN,URINE NEGATIVE mg/dL (<2.0)
[2017-09-27 10:46] LABS: ALBUMIN 3.5 g/dL (3.5-5.0); ANION GAP 8 (5-19); BLOOD UREA NITROGEN 52 mg/dL (7-20); CALCIUM 8.9 mg/dL (8.4-10.2); CARBON DIOXIDE 31 mmol/L (22-30); CHLORIDE 106 mmol/L (98-107); GLUCOSE 132 mg/dL (75-110); PHOSPHORUS 4.5 mg/dL (2.5-4.5); POTASSIUM 4.3 mmol/L (3.6-5.0); SODIUM 145.2 mmol/L (137-145)
[2017-09-28 12:38] LABS: CREATININE URINE 45.1 mg/dL (Not Estab.); MICROALBUMIN URINE 251.8 ug/mL (Not Estab.)
== END ==
LOC: OD 09:25
PROVIDERS: ATTEND Internal Medicine Nephrology
DX: E11.29 Type 2 diabetes mellitus with other diabetic kidney complication (principal); N18.3 Chronic kidney disease, stage 3 (moderate); D64.9 Anemia, unspecified; E83.39 Other disorders of phosphorus metabolism
CPT/HCPCS: 36415; 80048; 81001; 82040; 82043; 82306; 82570; 83970; 84100; 85025

== ENCOUNTER → 2018-04-12 | Outpatient (CLI) | payer MEDICARE, MEDICAID ==
[2018-04-12 15:31] LABS: ABSOLUTE BASOPHILS # (AUTO) 0.1 10^3/uL (0.0-0.2); ABSOLUTE EOSINOPHILS # (AUTO) 0.4 10^3/uL (0.0-0.6); ABSOLUTE LYMPHOCYTES (AUTO) 1.6 10^3/uL (0.5-4.7); ABSOLUTE MONOCYTES (AUTO) 0.6 10^3/uL (0.1-1.4); ABSOLUTE NEUT (AUTO) 5.6 10^3/uL (1.7-8.2); BASOPHILS % (AUTO) 0.9 % (0-2); EOSINOPHILS % (AUTO) 5.3 % (0-6); HEMATOCRIT 29.7 % (36.0-47.0); LYMPHOCYTES % (AUTO) 19.3 % (13-45); MEAN CORPUSCULAR HGB CONC 33.8 g/dL (32.0-36.0); MEAN CORPUSCULAR VOLUME 86 fl (80-97); MONOCYTES % (AUTO) 7.8 % (3-13); PLATELET COUNT 257 10^3/uL (150-450); RED BLOOD COUNT 3.46 10^6/uL (3.72-5.28); RED CELL DISTRIBUTION WIDTH 13.6 % (11.5-14.0); SEGMENTED NEUTROPHILS % (AUTO) 66.7 % (42-78); TOTAL CELLS COUNTED % (AUTO) 100 %; WHITE BLOOD COUNT 8.3 10^3/uL (4.0-10.5)
[2018-04-12 15:53] LABS: ANION GAP 6 (5-19); BLOOD UREA NITROGEN 26 mg/dL (7-20); CALCIUM 8.3 mg/dL (8.4-10.2); CARBON DIOXIDE 27 mmol/L (22-30); CHLORIDE 106 mmol/L (98-107); GLUCOSE 324 mg/dL (75-110); SODIUM 139.1 mmol/L (137-145)
[2018-04-12 15:54] LABS: POTASSIUM 4.8 mmol/L (3.6-5.0)
== END ==
LOC: OD 14:52
PROVIDERS: ATTEND Internal Medicine Nephrology
DX: E11.29 Type 2 diabetes mellitus with other diabetic kidney complication (principal); N18.3 Chronic kidney disease, stage 3 (moderate); N25.81 Secondary hyperparathyroidism of renal origin; R80.1 Persistent proteinuria, unspecified
CPT/HCPCS: 36415; 80048; 83970; 85025

== ENCOUNTER 2019-07-23 10:29 | Inpatient (IN) | payer MEDICARE, MEDICAID ==
[2019-07-23] MEDS ORDERED: VANCOMYCIN HCL INJ 1000 MG VIAL IV ONE (10:38)
[2019-07-23] MEDS ORDERED: PIPERACILLIN/TAZOBACTAM 4.5 GM VIAL IV ONE (10:38)
[2019-07-23] MEDS ORDERED: RINGERS LACTATED IV ONE (10:44)
[2019-07-23] MEDS ORDERED: DEXTROSE 5%-1/2 NORMAL SALINE 1,000 ML IV ONE (10:48)
[2019-07-23 10:54] LABS: ABSOLUTE BASOPHILS # (AUTO) 0.1 10^3/uL (0.0-0.2); ABSOLUTE EOSINOPHILS # (AUTO) 0.4 10^3/uL (0.0-0.6); ABSOLUTE LYMPHOCYTES (AUTO) 1.5 10^3/uL (0.5-4.7); ABSOLUTE MONOCYTES (AUTO) 0.9 10^3/uL (0.1-1.4); ABSOLUTE NEUT (AUTO) 7.3 10^3/uL (1.7-8.2); EOSINOPHILS % (AUTO) 3.9 % (0-6); HEMATOCRIT 27.2 % (36.0-47.0); HEMOGLOBIN 9.2 g/dL (12.0-15.5); LYMPHOCYTES % (AUTO) 14.5 % (13-45); MEAN CORPUSCULAR HEMOGLOBIN 29.6 pg (27.0-33.4); MEAN CORPUSCULAR HGB CONC 33.7 g/dL (32.0-36.0); MEAN CORPUSCULAR VOLUME 88 fl (80-97); PLATELET COUNT 228 10^3/uL (150-450); RED BLOOD COUNT 3.09 10^6/uL (3.72-5.28); SEGMENTED NEUTROPHILS % (AUTO) 71.6 % (42-78); TOTAL CELLS COUNTED % (AUTO) 100 %; WHITE BLOOD COUNT 10.3 10^3/uL (4.0-10.5)
[2019-07-23 11:00] LABS: PROTHROMBIN TIME 13.2 SEC (11.4-15.4); VENOUS BLOOD BASE EXCESS -3.5 mmol/L; VENOUS BLOOD HCO3 22.4 mmol/L (20-32); VENOUS BLOOD PCO2 43.7 mmHg (35-63); VENOUS BLOOD PH 7.33 (7.30-7.42)
[2019-07-23] MEDS ORDERED: DEXTROSE 50%-WATER 25 GM/50 ML DISP.SYRIN IV ONE ×3 (11:00→11:42)
--- NOTE | 2019-07-23 11:04 | EKG REPORT ---
SEVERITY:- ABNORMAL ECG - SINUS RHYTHM LEFT AXIS DEVIATION NONSPECIFIC T ABNORMALITIES, LATERAL LEADS : Confirmed by: Citlaly Crocker 23-Jul-2019 11:03:48
[2019-07-23 11:12] LABS: ALBUMIN 2.6 g/dL (3.5-5.0); ALKALINE PHOSPHATASE 65 U/L (38-126); ANION GAP 8 (5-19); ASPARTATE AMINO TRANSFERASE 18 U/L (14-36); BILIRUBIN,TOTAL 0.2 mg/dL (0.2-1.3); BLOOD UREA NITROGEN 60 mg/dL (7-20); CALCIUM 8.4 mg/dL (8.4-10.2); CARBON DIOXIDE 23 mmol/L (22-30); CHLORIDE 102 mmol/L (98-107); GLUCOSE 95 mg/dL (75-110); POTASSIUM 4.7 mmol/L (3.6-5.0); TOTAL PROTEIN 5.8 g/dL (6.3-8.2)
--- NOTE | 2019-07-23 11:18 | RADIOLOGY REPORT (SQ) ---
EXAM DESCRIPTION: CHEST SINGLE VIEW IMAGES COMPLETED DATE/TIME: 07/23/2019 11:10 am REASON FOR STUDY: ams COMPARISON: None. NUMBER OF VIEWS: One view. TECHNIQUE: Single frontal radiographic view of the chest acquired. LIMITATIONS: Positioning. FINDINGS: LUNGS AND PLEURA: No opacities, masses or pneumothorax. No pleural effusion. MEDIASTINUM AND HILAR STRUCTURES: No masses. Contour normal. HEART AND VASCULAR STRUCTURES: Heart normal in size. Normal vasculature. BONES: No acute findings. HARDWARE: None in the chest. OTHER: No other significant finding. IMPRESSION: NO SIGNIFICANT RADIOGRAPHIC FINDING IN THE CHEST. TECHNICAL DOCUMENTATION: JOB ID: [id number] [employer]- All Rights Reserved Reading location - IP/workstation name: [email or web address]
[2019-07-23] MEDS ORDERED: DEXTROSE 10%-1/4 NORMAL SALINE 250 ML IV ONE (11:43)
[2019-07-23 11:56] LABS: APPEARANCE,URINE CLEAR; BILIRUBIN,URINE NEGATIVE (NEGATIVE); COLOR,URINE YELLOW; GLUCOSE, URINE NEGATIVE (NEGATIVE); KETONES,URINE NEGATIVE (NEGATIVE); PROTEIN,URINE 100 mg/dL (NEGATIVE); URINE SPECIFIC GRAVITY 1.011; UROBILINOGEN,URINE NEGATIVE mg/dL (<2.0)
--- NOTE | 2019-07-23 12:00 | ER Document Report ---
ED General - General Chief Complaint: Low Blood Sugar Stated Complaint: UNRESPONSIVE Time Seen by Provider: 07/23/19 10:37 Primary Care Provider: LETTY PALUMBO PA-C [Primary Care Provider] - Follow up as needed Mode of Arrival: Medic Information source: [facility] Person[facility], [facility] Records Cannot obtain history due to: Altered mental status TRAVEL OUTSIDE OF THE [place] IN LAST 30 DAYS: No - HPI Notes: Chief complaint: Altered mental status History of present illness: 63-year-old female followed by Dr. Palumbo with a history of diabetes mellitus on insulin, end-stage renal disease on hemodialysis and previous BKA of left lower extremity now presents via EMS after family members found her lying on floor in bedroom at home unresponsive. EMS arrived and found her hypotensive, cool to touch and minimally responsive to deep pain. Her blood glucose at that time was 27. They established IV access and gave D50 IV. She remains obtunded and was transported here. - Related Data Allergies/Adverse Reactions: No Known Allergies Allergy (Verified 06/05/17 14:54) Past Medical History - General Information source: [facility] Person[facility], [facility] Records Cannot obtain history due to: Altered mental status - Social History Smoking Status: Former Smoker Family History: None Patient has suicidal ideation: No Patient has homicidal ideation: No - Past Medical History Cardiac Medical History: Reports: Hx Hypercholesterolemia, Hx Hypertension Endocrine Medical History: Reports: Hx Diabetes Mellitus Type 2 Renal/ Medical History: Reports: Hx End Stage Renal Disease, Hx Hemodialysis. Denies: Hx Peritoneal Dialysis Psychiatric Medical History: Denies: Hx Depression Past Surgical History: Reports: Hx Section - x2, Hx Orthopedic Surgery - Toe amputation for osteomyelitis right pinky - Immunizations Hx Diphtheria, Pertussis, Tetanus Vaccination: Yes Review of Systems - Review of Systems -: Yes ROS unobtainable due to patient's medical condition Physical Exam - Vital signs Vitals: Resp Pulse Ox 15 100 07/23/19 10:33 07/23/19 10:33 - Notes Notes: GENERAL: Elderly female with altered mental status who responds only to painful stimuli. SKIN: Cool, pale, moist. HEAD: Normocephalic atraumatic. EYES: PERRLA. EOMI. Conjunctivae and sclerae clear. EARS: CANALS AND TMS CLEAR. NOSE: CLEAR. MOUTH: Moist mucosa. Good dentition. No stridor or edema. No drooling. Diminished gag reflex. NECK: Supple. No masses or thyromegaly. No adenopathy. Carotids 2+ without bruits. No JVD. BACK: Symmetrical without tenderness. CHEST: Respirations shallow and symmetrical. Breath sounds clear and symmetrical. HEART: Bradycardic regular rhythm. No murmur gallop or rub. ABDOMEN: Soft mildly distended nontender without masses, organomegaly or rebound. Bowel sounds normally active. No bruits. GENITALIA: Normal female. EXTREMITIES: AV fistula left forearm with positive thrill and bruit. BKA of right lower extremity. Left lower extremity shows 1+ edema. No calf tenderness. Cap refill less than 1.5 seconds. Dorsalis pedis and posterior tibial pulses 2 + and symmetrical. NEUROLOGICAL: GCS 10 total (eyes 4, verbal 2, best motor 4). Patient is obtu nded. She is moving all 4 extremities symmetrically and localizes pain. Course - Re-evaluation Re-evalutation: 07/23/19 13:03 Elderly lady with end-stage renal disease on dialysis and also being treated for diabetes with insulin. She was brought in with prolonged hypoglycemia, altered mental status and hypothermia. She was felt to be possibly septic on arrival although once we have got her lactate back this is 1.5 and she had no identified source of infection. We did pull blood cultures initially and empirically gave her a dose of Zosyn and vancomycin for suspected sepsis of undetermined source. Her mentation improved after we got her sugar up with some repeated boluses of 50% dextrose and started her on 10% continuous dextrose infusion IV. We subsequently found out that this lady is a dialysis patient although this was not information we had our disposal initially. Chest x-ray showed no focal infiltrate. Cath urine specimen was unremarkable. She had been marginally hypotensive when she came in but improved with a small fluid bolus and has remained hemodynamically stable. Initial GCS was about 10. She is now still sleepy but oriented x3. Initial core temperature was 89. She has been on a warming blanket and receiving warmed IV fluids here and is now up to 92. We spoke with patient's daughter by telephone and it sounds like patient may have been confused about her insulin and taken an increased dose this morning. Case has been reviewed with the on-call hospitalist Dr. Jacobsen who will admit to [facility]. 07/23/19 13:06 - Vital Signs Vital signs: Temp Pulse Resp BP Pulse Ox 90.4 F L 12 100/47 L 89 L 07/23/19 11:22 07/23/19 12:31 07/23/19 12:31 07/23/19 12:31 - Laboratory Result Diagrams: 07/23/19 10:35 07/23/19 10:35 Laboratory results interpreted by me: 07/23/19 07/23/19 07/23/19 10:32 10:35 10:35 RBC 3.09 L Hgb 9.2 L Hct 27.2 L RDW 15.0 H Sodium 133.0 L BUN 60 H Creatinine 3.03 H Est GFR ( Amer) 19 L Est GFR (MDRD) Non-Af 16 L POC Glucose 119 H Total Protein 5.8 L Albumin 2.6 L Urine Protein 07/23/19 07/23/19 07/23/19 10:35 11:45 12:48 RBC Hgb Hct RDW Sodium BUN Creatinine Est GFR ( Amer) Est GFR (MDRD) Non-Af POC Glucose 208 H 189 H Total Protein Albumin Urine Protein 100 H - EKG Interpretation by Me Additional EKG results interpreted by me: 07/23/19 12:44 Twelve-lead EKG from 1043 hrs. reviewed contemporaneously by me demonstrating sinus bradycardia with a rate of 51 borderline QT prolongation and a QRS axis of -35 degrees. There is borderline QT prolongation. No acute ST changes are present. Critical Care Note - Critical Care Note Total time excluding time spent on procedures (mins): 65 - Hypothermia, altered mental status, hypoglycemia and initiation of sepsis protocol Discharge - Discharge Clinical Impression: Hypoglycemia associated with diabetes, Acute alteration in mental status Hypothermia Qualifiers: Encounter type: initial encounter Qualified Code(s): T68.XXXA - Hypothermia, initial encounter Condition: Fair Disposition: ADMITTED INPATIENT Admitting Provider: Delmar (Hospitalist) Unit Admitted: IMCU Referrals: LETTY PALUMBO PA-C [Primary Care Provider] - Follow up as needed
--- NOTE | 2019-07-23 12:42 | RADIOLOGY REPORT (SQ) ---
EXAM DESCRIPTION: CT HEAD WITHOUT IMAGES COMPLETED DATE/TIME: 07/23/2019 12:31 pm REASON FOR STUDY: AMS COMPARISON: 05/23/2017. TECHNIQUE: Axial images acquired through the brain without intravenous contrast. Images reviewed wi th bone, brain and subdural windows. Additional sagittal and coronal reconstructions were generated. Images stored on PACS. All CT scanners at this facility use dose modulation, iterative reconstruction, and/or weight based d osing when appropriate to reduce radiation dose to as low as reasonably achievable (ALARA). [facility]: Dose Right [facility]: CareDose [facility]: Dose Right [facility]: Teradose 4D [facility]: Smart Chloe + Isabel RADIATION DOSE: CT Rad equipment meets quality standard of care and radiation dose reduction techniq ues were employed. CTDIvol: 53.2 mGy. DLP: 991 mGy-cm. mGy. LIMITATIONS: None. FINDINGS: VENTRICLES: Normal size and contour. CEREBRUM: No masses. No hemorrhage. No midline shift. No evidence for acute infarction. Normal gra y/white matter differentiation. No areas of low density in the white matter. CEREBELLUM: No masses. No hemorrhage. No alteration of density. No evidence for acute infarction. EXTRAAXIAL SPACES: No fluid collections. No masses. ORBITS AND GLOBE: No intra- or extraconal masses. Normal contour of globe without masses. CALVARIUM: No fracture. PARANASAL SINUSES: No fluid or mucosal thickening. SOFT TISSUES: No mass or hematoma. OTHER: No other significant finding. IMPRESSION: NORMAL BRAIN CT WITHOUT CONTRAST. EVIDENCE OF ACUTE STROKE: NO. COMMENT: Quality ID # [id number]: Final reports with documentation of one or more dose reduction techniques (e.g., Automated exposure control, adjustment of the mA and/or kV according to patient size, use of iterative reconstruction technique) TECHNICAL DOCUMENTATION: JOB ID: [id number] 2010 [employer]- All Rights Reserved Reading location - IP/workstation name: [email or web address]
[2019-07-23] MEDS ORDERED: ONDANSETRON HCL INJ/PF 4 MG/2 ML SDV IV PRN (14:28)
[2019-07-23] MEDS ORDERED: ACETAMINOPHEN 325 MG TABLET PO PRN (14:28)
[2019-07-23] MEDS ORDERED: DEXTROSE 50%-WATER 25 GM/50 ML DISP.SYRIN IV PRN ×2 (15:28)
[2019-07-23] MEDS ORDERED: GLUCAGON,HUMAN RECOMB 1 MG INJ IM PRN (15:28)
[2019-07-23] MEDS ORDERED: DEXTROSE 40% GEL 15 GM TUBE PO PRN ×2 (15:28)
--- NOTE | 2019-07-23 15:38 | PDOC H&P ---
History of Present Illness Admission Date/PCP: 07/23/19 13:20 LETTY PALUMBO PA-C Patient complains of: Unresponsive History of Present Illness: IGLESIA BLANCHARD is a 63 year old female with history of diabetes mellitus, ESRD recently started on dialysis in 2019, right BKA, who presents to the hospital via EMS after being found to be unresponsive in her apartment. Her family had called the ambulance. On presentation of the EMS, patient was found to have a blood glucose level of 27 and a core temperature of 92.2F. It is uncertain if she took her insulin today but she she did take 40 units of insulin [unknown what type but suspected to be long-acting] yesterday morning. She had only eaten a sandwich and a V8 drink yesterday. She also took NovoLog 4 units last night according to her sliding scale. However, she cannot identify exactly what her blood sugar was before she took it. In the field, patient was given some dextrose and lactated Ringer's. The patient was obtunded, she was responsive to pain and never lost a pulse. In the ER, patient was placed on bear hugger and warm IV fluids. Patient blood sugar was also noted to drop a few times in the ER and she was subsequently started on a D10 saline slow infusion. Work-up for infection was negative. Patient was empirically given Zosyn and vancomycin ROS: Patient voices no evidence of an infection. She denies any nausea, vomiting, chest pain, shortness of breath, endorses a rare cough. Denies fever, abdominal pain, diarrhea, wounds, headaches, dysuria, polyuria, dizziness, neck pain. Has chronic back pain for which she states she takes percocet. Past Medical History Cardiac Medical History: Reports: Hyperlipidema, Hypertension Endocrine Medical History: Reports: Diabetes Mellitus Type 2 Renal/ Medical History: Reports: End Stage Renal Disease Psychiatric Medical History: Denies: Depression Past Surgical History Past Surgical History: Reports: Section - x2, Orthopedic Surgery - Toe amputation for osteomyelitis right pinky Social History Information Source: Patient Lives with: Family Smoking Status: Former Smoker Frequency of Alcohol Use: None Hx Recreational Drug Use: No Drugs: None Hx Prescription Drug Abuse: No - Advance Directive Resuscitation Status: Full Code Family History Family History: Hypertension Parental Family History Reviewed: Yes Children Family History Reviewed: Unknown Sibling(s) Family History Reviewed.: Unknown Medication/Allergy Home Medications: Ergocalciferol (Vitamin D2) [Vitamin D2] 50,000 unit PO [id number] 05/04/17 Levothyroxine Sodium [Synthroid 0.05 mg Tablet] 0.05 mg PO Q6AM 05/04/17 Omeprazole Magnesium [Prilosec Otc] 40 mg PO DAILY 05/04/17 Amlodipine Besylate [Norvasc 5 mg Tablet] 5 mg PO BID 07/23/19 Aspirin [Ecotrin 81 mg EC Tablet] 81 mg PO DAILY 07/23/19 Atorvastatin Calcium [Lipitor 10 mg Tablet] 10 mg PO QHS 07/23/19 Buspirone HCl [Buspar 10 mg Tablet] 5 mg PO BID 07/23/19 Calcitriol [Rocaltrol] 0.25 mcg PO TID 07/23/19 Carvedilol 25 mg PO BID 07/23/19 Docusate Sodium [Colace 100 mg Capsule] 100 mg PO DAILY 07/23/19 Lisinopril [Zestril] 40 mg PO DAILY 07/23/19 Loratadine [Claritin 10 mg Tablet] 10 mg PO DAILY 07/23/19 Metolazone [Zaroxolyn 2.5 Mg Tablet] 2.5 mg PO TUTHSA 07/23/19 Multivit-Min/Iron/Folic/Lutein [Centrum Silver Women Tablet] 1 each PO DAILY 07/23/19 Sennosides [Senna] 8.6 mg PO BID 07/23/19 Torsemide 100 mg PO DAILY 07/23/19 Allergies/Adverse Reactions: No Known Allergies Allergy (Verified 06/05/17 14:54) Review of Systems Review of Systems: as above Physical Exam Vital Signs: Temp Pulse Resp BP Pulse Ox 90.4 F L 13 104/49 L 99 07/23/19 11:22 07/23/19 14:01 07/23/19 14:01 07/23/19 14:01 Intake & Output 07/22/19 07/23/19 07/24/19 06:59 06:59 06:59 Intake Total 50 Balance 50 Weight 72.9 kg General appearance: PRESENT: no acute distress, cooperative, 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 ABSENT: tachypnea, wheezes Cardiovascular exam: PRESENT: +S1, +S2, systolic murmur - LLSB. ABSENT: tachycardia GI/Abdominal exam: PRESENT: hypoactive bowel sounds, soft. ABSENT: rebound, rigid, tenderness Gentrourinary exam: PRESENT: indwelling catheter Extremities exam: PRESENT: other - Right BKA Neurological exam: PRESENT: alert, awake, oriented to person, oriented to place, oriented to time - needed some help with this Psychiatric exam: ABSENT: agitated, anxious Skin exam: PRESENT: pallor. ABSENT: jaundice Results Laboratory Results: 07/23/19 10:35 07/23/19 10:35 07/23/19 07/23/19 07/23/19 10:35 10:35 10:35 WBC 10.3 RBC 3.09 L Hgb 9.2 L Hct 27.2 L MCV 88 MCH 29.6 MCHC 33.7 RDW 15.0 H Plt Count 228 Seg Neutrophils % 71.6 VBG pH 7.33 VBG pCO2 43.7 VBG HCO3 22.4 VBG Base Excess -3.5 Sodium 133.0 L Potassium 4.7 Chloride 102 Carbon Dioxide 23 Anion Gap 8 BUN 60 H Creatinine 3.03 H Est GFR ( Amer) 19 L Glucose 95 Lactic Acid Calcium 8.4 Total Bilirubin 0.2 AST 18 Alkaline Phosphatase 65 Total Protein 5.8 L Albumin 2.6 L Urine Color Urine Appearance Urine pH Ur Specific [place] Urine Protein Urine Glucose (UA) Urine Ketones Urine Blood Urine RBC (Auto) 07/23/19 07/23/19 07/23/19 10:35 10:35 13:30 WBC RBC Hgb Hct MCV MCH MCHC RDW Plt Count Seg Neutrophils % VBG pH VBG pCO2 VBG HCO3 VBG Base Excess Sodium Potassium Chloride Carbon Dioxide Anion Gap BUN Creatinine Est GFR ( Amer) Glucose Lactic Acid 1.5 0.8 Calcium Total Bilirubin AST Alkaline Phosphatase Total Protein Albumin Urine Color YELLOW Urine Appearance CLEAR Urine pH 5.0 Ur Specific [place] 1.011 Urine Protein 100 H Urine Glucose (UA) NEGATIVE Urine Ketones NEGATIVE Urine Blood NEGATIVE Urine RBC (Auto) 1 07/23/19 10:35 Troponin I < 0.012 Impressions: Chest X-Ray 07/23/19 10:39 IMPRESSION: NO SIGNIFICANT RADIOGRAPHIC FINDING IN THE CHEST. Head CT 07/23/19 12:00 IMPRESSION: NORMAL BRAIN CT WITHOUT CONTRAST. EVIDENCE OF ACUTE STROKE: NO. Assessment and Plan - Diagnosis (1) Hypoglycemia associated with diabetes Is this a current diagnosis for this admission?: Yes Plan: Found at home with BG of 27 and temperature of 92.2 Endorses some prior episodes of hypoglycemia but this is not common. Likely secondary to insulin use and poor food intake yesterday. I will try to contact daughter but no response and voicemail has not been set up. We will hold all insulin for now. Hourly Accu-Cheks. Continue D10 saline solution for now and discontinue later today if BG holds. No need for antibiotics at this point as review of systems was vastly negative, normal chest x-ray, negative urinalysis, no leukocytosis and normal lactic acid level. Infection is unlikely. (2) Hypothermia Qualifiers: Encounter type: initial encounter Qualified Code(s): T68.XXXA - Hypothermia , initial encounter Is this a current diagnosis for this admission?: Yes Plan: Severe hyponatremia as low as 89.4F. secondary to hypoglycemia. No evidence of infection. Received warm IV fluids. Now improved significantly so will de-escalate bear hugger. Will monitor vital signs closely in the IMCU. Check TSH. (3) Acute metabolic encephalopathy due to hypoglycemia Is this a current diagnosis for this admission?: Yes Plan: Resolved at this time. Head CT negative. Patient appears back to normal mental status. (4) ESRD (end stage renal disease) on dialysis Is this a current diagnosis for this admission?: Yes Plan: Started recently last year. Dialyzed via AV access in left forearm. Consult ne phrology. Continue regular dialysis schedule. Still makes urine. (5) Diabetes Qualifiers: Diabetes mellitus type: type 2 Diabetes mellitus fdc insulin use: with fdc use Diabetes mellitus complication status: with unspecified complications Is this a current diagnosis for this admission?: Yes Plan: Patient states she takes 40 units every morning of an insulin which starts with 'B' along with NovoLog sliding scale. Will need to verify what insulin she takes. I do wonder if her insulin requirements may have dropped due to her pro gression to ESRD. We will check an A1c. Continue Accu-Cheks. Insulin on hold for now due to hypoglycemic episode. - Time Time Spent with patient: 35 or more minutes
[2019-07-23] MEDS: CALCITRIOL 0.25 MCG CAPSULE PO SCH (18:10)
[2019-07-23] MEDS: AMLODIPINE BESYLATE 5 MG TABLET PO SCH (21:23)
[2019-07-23] MEDS: BUSPIRONE HCL 10 MG TABLET PO SCH (21:23)
[2019-07-23] MEDS: CARVEDILOL 12.5 MG TABLET PO SCH (21:23)
[2019-07-23] MEDS: HEPARIN SOD (PORCINE) 5,000 UNIT/ML 1 ML VIAL SUBCUT SCH (21:24)
[2019-07-23] MEDS ORDERED: ATORVASTATIN CALCIUM 10 MG TABLET PO SCH (22:00)
[2019-07-24] MEDS ORDERED: LEVOTHYROXINE SODIUM 0.05 MG TABLET PO SCH (06:00)
[2019-07-24] MEDS: HEPARIN SOD (PORCINE) 5,000 UNIT/ML 1 ML VIAL SUBCUT SCH ×2 (06:23→17:31)
[2019-07-24 07:17] LABS: ABSOLUTE BASOPHILS # (AUTO) 0.1 10^3/uL (0.0-0.2); ABSOLUTE EOSINOPHILS # (AUTO) 0.3 10^3/uL (0.0-0.6); ABSOLUTE LYMPHOCYTES (AUTO) 1.6 10^3/uL (0.5-4.7); ABSOLUTE MONOCYTES (AUTO) 0.7 10^3/uL (0.1-1.4); BASOPHILS % (AUTO) 1.1 % (0-2); EOSINOPHILS % (AUTO) 4.1 % (0-6); HEMATOCRIT 29.5 % (36.0-47.0); HEMOGLOBIN 9.7 g/dL (12.0-15.5); LYMPHOCYTES % (AUTO) 20.7 % (13-45); MEAN CORPUSCULAR HEMOGLOBIN 28.9 pg (27.0-33.4); MEAN CORPUSCULAR HGB CONC 32.9 g/dL (32.0-36.0); MEAN CORPUSCULAR VOLUME 88 fl (80-97); MONOCYTES % (AUTO) 8.7 % (3-13); PLATELET COUNT 241 10^3/uL (150-450); RED BLOOD COUNT 3.36 10^6/uL (3.72-5.28); SEGMENTED NEUTROPHILS % (AUTO) 65.4 % (42-78); TOTAL CELLS COUNTED % (AUTO) 100 %; WHITE BLOOD COUNT 7.6 10^3/uL (4.0-10.5)
[2019-07-24 07:37] LABS: ALKALINE PHOSPHATASE 68 U/L (38-126); ANION GAP 8 (5-19); ASPARTATE AMINO TRANSFERASE 19 U/L (14-36); BILIRUBIN,TOTAL 0.3 mg/dL (0.2-1.3); BLOOD UREA NITROGEN 63 mg/dL (7-20); CALCIUM 8.7 mg/dL (8.4-10.2); CARBON DIOXIDE 26 mmol/L (22-30); CHLORIDE 99 mmol/L (98-107); GLUCOSE 167 mg/dL (75-110); POTASSIUM 5.4 mmol/L (3.6-5.0); TOTAL PROTEIN 6.2 g/dL (6.3-8.2)
[2019-07-24] MEDS: INSULIN LISPRO 100 UNIT/ML 3 ML VIAL SUBCUT SCH ×3 (08:27→17:32)
[2019-07-24] MEDS: BUSPIRONE HCL 10 MG TABLET PO SCH (09:34)
[2019-07-24] MEDS: CALCITRIOL 0.25 MCG CAPSULE PO SCH ×2 (09:35→17:31)
[2019-07-24] MEDS ORDERED: LISINOPRIL 10 MG TABLET PO SCH (10:00)
[2019-07-24] MEDS ORDERED: LORATADINE 10 MG TABLET PO SCH (10:00)
[2019-07-24] MEDS ORDERED: INSULIN GLARGINE,HUM.REC.ANLOG 1,000 UNIT/10 ML VIAL SUBCUT SCH (10:00)
[2019-07-24] MEDS ORDERED: ASPIRIN 81 MG TABLET, ENT COATED PO SCH (10:00)
[2019-07-24] MEDS ORDERED: DOCUSATE SODIUM 100 MG CAPSULE PO SCH (10:00)
[2019-07-24] MEDS: AMLODIPINE BESYLATE 5 MG TABLET PO SCH (10:09)
[2019-07-24] MEDS: CARVEDILOL 12.5 MG TABLET PO SCH (10:09)
[2019-07-24] MEDS ORDERED: EPOETIN ALFA-EPBX 2,000 UNIT, EPOETIN ALFA-EPBX 3,000 UNIT in SYRINGE, DISPOSABLE, 1 EACH IV PRN (12:54)
[2019-07-24] MEDS ORDERED: NORMAL SALINE 1000 ML 1,000 ML IV PRN (12:54)
--- NOTE | 2019-07-24 14:11 | PDOC CONSULTATION ---
Consultation Consult Date: 07/24/19 Provider Consulted: JUAN SALDANA Consult reason:: ESRD requiring HD History of Present Illness Admission Date/PCP: 07/23/19 13:20 LETTY PALUMBO PA-C History of Present Illness: IGLESIA BLANCHARD is a 63-year-old lady known to me with history of ESRD on maintenance hemodialysis at [facility] twice a week on Mondays and Fridays since 2019, peripheral vascular disease status post right BKA, hypertension diabetes mellitus type 2 who was brought in by EMS in the emergency room yesterday after she was found unresponsive. EMS found her to have a blood glucose level of 27 with a core temperature of 92.2 and brought her to the emergency room. In the emergency room she was placed in the bur hugger, warm IV fluids and was started on D10. CT scan of the head was negative. I am seeing her today during initiation of hemodialysis. Patient is pretty much awake on her baseline mental status and was able to tell me his part of her history before she actually passed out yesterday. Today her blood sugar is better. She said she is eating good and she feels much better. She actually does not have any other complaints. We are using her left arm AV fistula for her dialysis. Past Medical History Cardiac Medical History: Reports: Hyperlipidemia, Hypertension-primary, Peripheral Vascular Disease Endocrine Medical History: Reports: Diabetes Mellitus Type 2 Renal/ Medical History: Reports: End Stage Renal Disease Psychiatric Medical History: Denies: Depression Hematology Medical History: Reports Anemia of Chronic Kidney Disease Past Surgical History Past Surgical History: Reports: Section - x2, Dialysis Access Surgery AVF, Orthopedic Surgery - Toe amputation for osteomyelitis right pinky, right BKA in 2019 Social History Information Source: Patient, [facility] Records Lives with: Family Smoking Status: Former Smoker Frequency of Alcohol Use: None Hx Recreational Drug Use: No Drugs: None Hx Prescription Drug Abuse: No - Advance Directive Resuscitation Status: Full Code Family History Family History: Reviewed & Not Pertinent Parental Family History Reviewed: Yes Children Family History Reviewed: Yes Sibling(s) Family History Reviewed.: Yes Medication/Allergy Home Medications: Ergocalciferol (Vitamin D2) [Vitamin D2] 50,000 unit PO [id number] 05/04/17 Levothyroxine Sodium [Synthroid 0.05 mg Tablet] 0.05 mg PO Q6AM 05/04/17 Omeprazole Magnesium [Prilosec Otc] 40 mg PO DAILY 05/04/17 Amlodipine Besylate [Norvasc 5 mg Tablet] 5 mg PO BID 07/23/19 Aspirin [Ecotrin 81 mg EC Tablet] 81 mg PO DAILY 07/23/19 Atorvastatin Calcium [Lipitor 10 mg Tablet] 10 mg PO QHS 07/23/19 Buspirone HCl [Buspar 10 mg Tablet] 5 mg PO BID 07/23/19 Calcitriol [Rocaltrol] 0.25 mcg PO TID 07/23/19 Carvedilol 25 mg PO BID 07/23/19 Docusate Sodium [Colace 100 mg Capsule] 100 mg PO DAILY 07/23/19 Lisinopril [Zestril] 40 mg PO DAILY 07/23/19 Loratadine [Claritin 10 mg Tablet] 10 mg PO DAILY 07/23/19 Metolazone [Zaroxolyn 2.5 Mg Tablet] 2.5 mg PO TUTHSA 07/23/19 Multivit-Min/Iron/Folic/Lutein [Centrum Silver Women Tablet] 1 each PO DAILY 07/23/19 Sennosides [Senna] 8.6 mg PO BID 07/23/19 Torsemide 100 mg PO DAILY 07/23/19 Allergies/Adverse Reactions: No Known Allergies Allergy (Verified 06/05/17 14:54) Review of Systems All systems: reviewed and no additional remarkable complaints except as stated Review of Systems: Constitutional: ABSENT: chills, fatigue, fever(s), headache(s), weight gain, weight loss Eyes: ABSENT: visual disturbances Ears: ABSENT: hearing changes Cardiovascular: ABSENT: chest pain, dyspnea on exertion, edema, orthropnea, palpitations Respiratory: ABSENT: cough, dyspnea, hemoptysis Gastrointestinal: ABSENT: abdominal pain, constipation, diarrhea, hematemesis, hematochezia, nausea, vomiting Genitourinary: ABSENT: dysuria, hematuria Musculoskeletal: ABSENT: joint swelling Integumentary: ABSENT: rash, wounds Neurological: ABSENT: abnormal gait, abnormal speech, confusion, dizziness, focal weakness, numbness, syncope Psychiatric: ABSENT: anxiety, depression Endocrine: ABSENT: cold intolerance, heat intolerance, polydipsia, polyuria Hematologic/Lymphatic: ABSENT: easy bleeding, easy bruising, lymphadenopathy Physical Exam Vital Signs: Temp Pulse Resp BP Pulse Ox 98.3 F 80 14 146/53 H 98 07/24/19 12:34 07/24/19 12:34 07/24/19 12:34 07/24/19 12:34 07/24/19 12:34 Intake & Output 07/23/19 07/24/19 07/25/19 06:59 06:59 06:59 Intake Total 530 Output Total 825 Balance -295 Weight 70.9 kg Vitals during dialysis: Blood pressure 158/78, pulse rate of 70, blood flow rate of 300 mL/min and dialysate flow rate of 600 mL/min. Exam: General appearance: No acute distress, cooperative, well-developed, well- nourished Head exam: PRESENT: atraumatic, normocephalic Eye exam: PRESENT: Conjunctiva slightly pale, EOMI, PERRLA. ABSENT: conjunctival injection, scleral icterus Mouth exam: PRESENT: moist, neck supple, tongue midline Neck exam: PRESENT: full ROM. ABSENT: carotid bruit, JVD, lymphadenopathy, thyromegaly Respiratory exam: PRESENT: clear to auscultation bilaterally. ABSENT: rales, rh onchi, stridor, wheezes Cardiovascular exam: PRESENT: RRR, +S1, +S2. ABSENT: systolic murmur Pulses: PRESENT: normal radial pulses, normal dorsalis pedis pulses GI/Abdominal exam: PRESENT: normal bowel sounds, soft. ABSENT: guarding, mass, tenderness Rectal exam: Deferred Extremities exam: PRESENT: full ROM. Left grade 1 lower extremity pitting edema ABSENT: calf tenderness Musculoskeletal: PRESENT: full ROM. Right BKA ABSENT: deformity Neurological exam: PRESENT: alert, Awake, Oriented to person, Oriented to place, Oriented to time, reflexes normal, CN II-XII grossly intact. ABSENT: motor sensory deficit Psychiatric exam: PRESENT: appropriate affect, normal mood. ABSENT: homicidal ideation, suicidal ideation Skin exam: PRESENT: intact, dry, warm. ABSENT: rash Results Laboratory Results: 07/24/19 06:21 07/24/19 06:21 07/23/19 07/23/19 07/23/19 10:35 13:30 16:20 WBC RBC Hgb Hct MCV MCH MCHC RDW Plt Count Seg Neutrophils % Sodium Potassium Chloride Carbon Dioxide Anion Gap BUN Creatinine Est GFR ( Amer) Glucose Lactic Acid 0.8 0.8 Calcium Phosphorus Magnesium Total Bilirubin AST Alkaline Phosphatase Total Protein Albumin TSH 1.23 07/24/19 07/24/19 06:21 06:21 WBC 7.6 RBC 3.36 L Hgb 9.7 L Hct 29.5 L MCV 88 MCH 28.9 MCHC 32.9 RDW 15.0 H Plt Count 241 Seg Neutrophils % 65.4 Sodium 133.3 L Potassium 5.4 H Chloride 99 Carbon Dioxide 26 Anion Gap 8 BUN 63 H Creatinine 3.47 H Est GFR ( Amer) 16 L Glucose 167 H Lactic Acid Calcium 8.7 Phosphorus 6.0 H Magnesium 2.0 Total Bilirubin 0.3 AST 19 Alkaline Phosphatase 68 Total Protein 6.2 L Albumin 3.0 L TSH 07/23/19 10:35 Troponin I < 0.012 Impressions: Chest X-Ray 07/23/19 10:39 IMPRESSION: NO SIGNIFICANT RADIOGRAPHIC FINDING IN THE CHEST. Head CT 07/23/19 12:00 IMPRESSION: NORMAL BRAIN CT WITHOUT CONTRAST. EVIDENCE OF ACUTE STROKE: NO. Assessment & Plan - Diagnosis (1) ESRD (end stage renal disease) on dialysis Is this a current diagnosis for this admission?: Yes Plan: We will do dialysis today for 3 hours, using the patient's left AV fistula, with 2 potassium bath, blood flow rate of 300 mL per minute, dialysate flow rate of 600 mL per minute, ultrafiltration 1.5 to 2 L as tolerated, no heparin and Procrit with 5000 units during dialysis intravenously. Discussed dialysis treatment plan with nurse. Patient will be monitored throughout dialysis treatment. (2) Hyperkalemia Is this a current diagnosis for this admission?: Yes Plan: We will use low, 2 potassium bath during dialysis today. (3) Anemia in chronic kidney disease Is this a current diagnosis for this admission?: Yes Plan: Retacrit 5000 units during dialysis. (4) Acute metabolic encephalopathy due to hypoglycemia Is this a current diagnosis for this admission?: Yes Plan: Blood sugar now improved. Adjustment of insulin doses deferred to hospitalist service. (5) Diabetes mellitus type 2 in nonobese Is this a current diagnosis for this admission?: Yes Plan: Hemoglobin A1c is 10.4. Her diabetes is known to be brittle for a long time. (6) Hypertension Qualifiers: Hypertension type: essential hypertension Qualified Code(s): I10 - Essential (primary) hypertension Is this a current diagnosis for this admission?: Yes (7) Hypothermia Qualifiers: Encounter type: initial encounter Qualified Code(s): T68.XXXA - Hypothermia, initial encounter Is this a current diagnosis for this admission?: Yes Plan: Resolved. (8) Hyponatremia Is this a current diagnosis for this admission?: Yes Plan: Restrict fluids to 48 ounces daily. - Notes Notes: Thank you very much for this consultation. I think once the patient's blood sugar and insulin doses is adequately adjusted, patient may be discharged home from nephrology standpoint. - Time Time Spent: 50 to 70 Minutes
--- NOTE | 2019-07-24 17:58 | PDOC DISCHARGE SUMMARY ---
Impression - Admit/DC Date/PCP Admission Date/Primary Care Provider: 07/23/19 13:20 LETTY PALUMBO PA-C Discharge Date: 07/24/19 - Discharge Diagnosis (1) Hypoglycemia associated with diabetes Is this a current diagnosis for this admission?: Yes (2) Hypothermia Is this a current diagnosis for this admission?: Yes (3) Acute metabolic encephalopathy due to hypoglycemia Is this a current diagnosis for this admission?: Yes (4) ESRD (end stage renal disease) on dialysis Is this a current diagnosis for this admission?: Yes (5) Diabetes Is this a current diagnosis for this admission?: Yes - Additional Information Resuscitation Status: Full Code Discharge Diet: Diabetic Referrals: LETTY PALUMBO PA-C [Primary Care Provider] - Follow up as needed Home Medications: Ergocalciferol (Vitamin D2) [Vitamin D2] 50,000 unit PO [id number] 05/04/17 Levothyroxine Sodium [Synthroid 0.05 mg Tablet] 0.05 mg PO Q6AM 05/04/17 Omeprazole Magnesium [Prilosec Otc] 40 mg PO DAILY 05/04/17 Amlodipine Besylate [Norvasc 5 mg Tablet] 5 mg PO BID 07/23/19 Aspirin [Ecotrin 81 mg EC Tablet] 81 mg PO DAILY 07/23/19 Atorvastatin Calcium [Lipitor 10 mg Tablet] 10 mg PO QHS 07/23/19 Buspirone HCl [Buspar 10 mg Tablet] 5 mg PO BID 07/23/19 Calcitriol [Rocaltrol] 0.25 mcg PO TID 07/23/19 Carvedilol 25 mg PO BID 07/23/19 Docusate Sodium [Colace 100 mg Capsule] 100 mg PO DAILY 07/23/19 Lisinopril [Zestril] 40 mg PO DAILY 07/23/19 Loratadine [Claritin 10 mg Tablet] 10 mg PO DAILY 07/23/19 Metolazone [Zaroxolyn 2.5 mg Tablet] 2.5 mg PO TUTHSA 07/23/19 Multivit-Min/Iron/Folic/Lutein [Centrum Silver Women Tablet] 1 each PO DAILY 07/23/19 Sennosides [Senna] 8.6 mg PO BID 07/23/19 Torsemide 100 mg PO DAILY 07/23/19 Insulin Glargine,Hum.rec.anlog [Lantus Insulin 100 Unit/1 ml 10 ml] 25 unit SUBCUT DAILY unit 07/24/19 History of Present Illiness History of Present Illness: IGLESIA BLANCHARD is a 63 year old female with history of diabetes mellitus, ESRD recently started on dialysis in 2019, right BKA, who presents to the hospital via EMS after being found to be unresponsive in her apartment. Her family had called the ambulance. On presentation of the EMS, patient was found to have a blood glucose level of 27 and a core temperature of 92.2F. It is uncertain if she took her insulin today but she she did take 40 units of insulin [unknown what type but suspected to be long-acting] yesterday morning. She had only eaten a sandwich and a V8 drink yesterday. She also took NovoLog 4 units last night according to her sliding scale. However, she cannot identify exactly what her blood sugar was before she took it. In the field, patient was given some dextrose and lactated Ringer's. The patient was obtunded, she was responsive to pain and never lost a pulse. In the ER, patient was placed on bear hugger and warm IV fluids. Patient blood sugar was also noted to drop a few times in the ER and she was subsequently started on a D10 saline slow infusion. Work-up for infection was negative. Patient was empirically given Zosyn and vancomycin ROS: Patient voices no evidence of an infection. She denies any nausea, vomiting, chest pain, shortness of breath, endorses a rare cough. Denies fever, abdominal pain, diarrhea, wounds, headaches, dysuria, polyuria, dizziness, neck pain. Has chronic back pain for which she states she takes percocet. Hospital Course Hospital Course: Patient was admitted for management of severe hypothermia with core temperature going as low as 89.4F. Hypothermia was suspected to be secondary to hypoglycemia as she had been found with blood sugar of 27 in the field. Patient had taken her Basaglar insulin 40units and some NovoLog sliding scale after eating just a sandwich and a V8 drink the whole day. She has been started on dextrose and given warm fluids IV. In the ER she was placed on bear hugger and D10 solution. Work-up for infection were all negative. Temperature improved with improvement of hypoglycemia. Patient was later taken off warm IV fluids and bear hugger. D10 solution was later discontinued. Patient's glucose held and there were no more episodes of hypoglycemia. Patient's hemoglobin A1c was 10. Today patient was given a reduced dose of 25 units of Lantus this morning and her blood sugar was monitored throughout the day and there has been no recurrence of hypoglycemia throughout. Patient's Basaglar dose has been reduced to 25 units daily and patient has been instructed to check her blood sugar 3 times a day, keep a log and discussed the readings with her primary care provider. Home nurse has been set up to help with medication management and blood sugar checks. Physical Exam Vital Signs: Temp Pulse Resp BP Pulse Ox 98.3 F 70 14 146/53 H 98 07/24/19 12:34 07/24/19 14:00 07/24/19 12:34 07/24/19 12:34 07/24/19 12:34 Intake & Output 07/23/19 07/24/19 07/25/19 06:59 06:59 06:59 Intake Total 530 Output Total 825 Balance -295 Weight 70.9 kg General appearance: PRESENT: no acute distress, cooperative Neck exam: ABSENT: JVD Respiratory exam: PRESENT: clear to auscultation delma, unlabored Cardiovascular exam: PRESENT: +S1, +S2. ABSENT: bradycardia, tachycardia GI/Abdominal exam: PRESENT: soft. ABSENT: tenderness Neurological exam: PRESENT: alert, awake, oriented to person, oriented to place, oriented to time, oriented to situation Results Laboratory Results: WBC 7.6 10^3/uL (4.0-10.5) 07/24/19 06:21 RBC 3.36 10^6/uL (3.72-5.28) L 07/24/19 06:21 Hgb 9.7 g/dL (12.0-15.5) L 07/24/19 06:21 Hct 29.5 % (36.0-47.0) L 07/24/19 06:21 MCV 88 fl (80-97) 07/24/19 06:21 MCH 28.9 pg (27.0-33.4) 07/24/19 06:21 MCHC 32.9 g/dL (32.0-36.0) 07/24/19 06:21 RDW 15.0 % (11.5-14.0) H 07/24/19 06:21 Plt Count 241 10^3/uL (150-450) 07/24/19 06:21 Lymph % (Auto) 20.7 % (13-45) 07/24/19 06:21 [place] % (Auto) 8.7 % (3-13) 07/24/19 06:21 Eos % (Auto) 4.1 % (0-6) 07/24/19 06:21 Baso % (Auto) 1.1 % (0-2) 07/24/19 06:21 Absolute Neuts (auto) 5.0 10^3/uL (1.7-8.2) 07/24/19 06:21 Absolute Lymphs (auto) 1.6 10^3/uL (0.5-4.7) 07/24/19 06:21 Absolute Monos (auto) 0.7 10^3/uL (0.1-1.4) 07/24/19 06:21 Absolute Eos (auto) 0.3 10^3/uL (0.0-0.6) 07/24/19 06:21 Absolute Basos (auto) 0.1 10^3/uL (0.0-0.2) 07/24/19 06:21 Seg Neutrophils % 65.4 % (42-78) 07/24/19 06:21 PT 13.2 SEC (11.4-15.4) 07/23/19 10:35 INR 1.00 07/23/19 10:35 VBG pH 7.33 (7.30-7.42) 07/23/19 10:35 VBG pCO2 43.7 mmHg (35-63) 07/23/19 10:35 VBG HCO3 22.4 mmol/L (20-32) 07/23/19 10:35 VBG Base Excess -3.5 mmol/L 07/23/19 10:35 Sodium 133.3 mmol/L (137-145) L 07/24/19 06:21 Potassium 5.4 mmol/L (3.6-5.0) H 07/24/19 06:21 Chloride 99 mmol/L (98-107) 07/24/19 06:21 Carbon Dioxide 26 mmol/L (22-30) 07/24/19 06:21 Anion Gap 8 (5-19) 07/24/19 06:21 BUN 63 mg/dL (7-20) H 07/24/19 06:21 Creatinine 3.47 mg/dL (0.52-1.25) H 07/24/19 06:21 Est GFR ( Amer) 16 (>60) L 07/24/19 06:21 Est GFR (MDRD) Non-Af 13 (>60) L 07/24/19 06:21 Glucose 167 mg/dL (75-110) H 07/24/19 06:21 POC Glucose 173 mg/dL (70-110) H 07/24/19 17:10 Hemoglobin A1c % 10.4 % (4.7-6.0) H 07/24/19 06:21 Lactic Acid 0.8 mmol/L (0.7-2.1) 07/23/19 16:20 Calcium 8.7 mg/dL (8.4-10.2) 07/24/19 06:21 Phosphorus 6.0 mg/dL (2.5-4.5) H 07/24/19 06:21 Magnesium 2.0 mg/dL (1.6-2.3) 07/24/19 06:21 Total Bilirubin 0.3 mg/dL (0.2-1.3) 07/24/19 06:21 Direct Bilirubin 0.0 mg/dL (0.0-0.4) 07/24/19 06:21 Neonat Total Bilirubin Not Reportable 07/24/19 06:21 Neonat Direct Bilirubin Not Reportable 07/24/19 06:21 Neonat Indirect Bili Not Reportable 07/24/19 06:21 AST 19 U/L (14-36) 07/24/19 06:21 ALT 12 U/L (<35) 07/24/19 06:21 Alkaline Phosphatase 68 U/L (38-126) 07/24/19 06:21 Troponin I < 0.012 ng/mL 07/23/19 10:35 Total Protein 6.2 g/dL (6.3-8.2) L 07/24/19 06:21 Albumin 3.0 g/dL (3.5-5.0) L 07/24/19 06:21 TSH 1.23 uIU/mL (0.47-4.68) 07/23/19 10:35 Urine Color YELLOW 07/23/19 10:35 Urine Appearance CLEAR 07/23/19 10:35 Urine pH 5.0 (5.0-9.0) 07/23/19 10:35 Ur Specific [place] 1.011 07/23/19 10:35 Urine Protein 100 mg/dL (NEGATIVE) H 07/23/19 10:35 Urine Glucose (UA) NEGATIVE mg/dL (NEGATIVE) 07/23/19 10:35 Urine Ketones NEGATIVE mg/dL (NEGATIVE) 07/23/19 10:35 Urine Blood NEGATIVE (NEGATIVE) 07/23/19 10:35 Urine Nitrite (Reflex) NEGATIVE (NEGATIVE) 07/23/19 10:35 Urine Bilirubin NEGATIVE (NEGATIVE) 07/23/19 10:35 Urine Urobilinogen NEGATIVE mg/dL (<2.0) 07/23/19 10:35 Leukocyte Esterase Rfl NEGATIVE (NEGATIVE) 07/23/19 10:35 Urine RBC (Auto) 1 /HPF 07/23/19 10:35 U Hyaline Cast (Auto) 7 /LPF 07/23/19 10:35 Urine WBC (Reflex) 1 /HPF 07/23/19 10:35 Urine Mucus (Auto) RARE /LPF 07/23/19 10:35 Urine Ascorbic Acid NEGATIVE (NEGATIVE) 07/23/19 10:35 07/23/19 10:35 Troponin I < 0.012 Impressions: Chest X-Ray 07/23/19 10:39 IMPRESSION: NO SIGNIFICANT RADIOGRAPHIC FINDING IN THE CHEST. Head CT 07/23/19 12:00 IMPRESSION: NORMAL BRAIN CT WITHOUT CONTRAST. EVIDENCE OF ACUTE STROKE: NO. Plan Time Spent: Greater than 30 Minutes Stroke Is this a Stroke Patient?: No Acute Heart Failure - Is this a Heart Failure Patient?: No
[2019-07-24 18:16] VITALS: BP 146/52
[2019-07-25] MEDS ORDERED: METOLAZONE 2.5 MG TABLET PO SCH (10:00)
[2019-07-28] MEDS ORDERED: ERGOCALCIFEROL (VITAMIN D2) 50000 UNIT (1.25 MG) CAPSULE PO SCH (10:00)
== END 2019-07-24 18:45 | disposition home health service (06) | DRG 637 ==
LOC: ER 10:29 → EH 13:20 → 3S 14:32
PROVIDERS: ADMIT Internal Medicine; ATTEND Internal Medicine
PROC: 5A1D70Z Performance of Urinary Filtration, Intermittent, Less than 6 Hours Per Day (ICD-10-PCS; principal; 2019-07-24)
DX: E11.649 Type 2 diabetes mellitus with hypoglycemia without coma (principal); G93.41 Metabolic encephalopathy; E87.1 Hypo-osmolality and hyponatremia; I12.0 Hypertensive chronic kidney disease with stage 5 chronic kidney disease or end stage renal disease; N18.6 End stage renal disease; R68.0 Hypothermia, not associated with low environmental temperature; E87.5 Hyperkalemia; E11.22 Type 2 diabetes mellitus with diabetic chronic kidney disease; E11.51 Type 2 diabetes mellitus with diabetic peripheral angiopathy without gangrene; D63.1 Anemia in chronic kidney disease; E78.5 Hyperlipidemia, unspecified; H91.91 Unspecified hearing loss, right ear; Z99.2 Dependence on renal dialysis; Z79.82 Long term (current) use of aspirin; Z79.4 Long term (current) use of insulin; Z79.899 Other long term (current) drug therapy; Z89.511 Acquired absence of right leg below knee; Z82.49 Family history of ischemic heart disease and other diseases of the circulatory system; Z87.891 Personal history of nicotine dependence
CPT/HCPCS: 36415; 51702; 70450; 71045; 80053; 81001; 82803; 82962; 83036; 83605; 83735; 84100; 84443; 84484; 85025; 85610; 87040; 93005; 93010; 96361; 96365; 96375; 96376; 99291; J1644; J1815; J2543; J3370; J3490; Q5105

== ENCOUNTER 2019-12-30 12:39 | Inpatient (IN) | payer MEDICARE, MEDICAID ==
[2019-12-30] MEDS ORDERED: PROPOFOL 1,000 MG/100 ML INFUS..BTL IV PRN (12:46)
[2019-12-30] MEDS ORDERED: ONDANSETRON HCL INJ/PF 4 MG/2 ML SDV IV ONE (12:51)
--- NOTE | 2019-12-30 12:51 | ER Document Report ---
ED General - General Chief Complaint: Probable Seizure Stated Complaint: POSSIBLE SEIZURE Notes: HPI: Patient is a 64-year-old female that came by EMS after they intubated her secondary to a very low blood glucose level and possibly a seizure causing respiratory distress. They did give ketamine and succinylcholine and performed rapid sequence intubation. According to EMS the staff provided glucagon and an amp of glucose x2 but was also providing oral glucose gel. They believe she aspirated and that caused the respiratory depression. I called and spoke to the facility who states that the patient's blood sugar was 37. They did state they provided oral glucose gel as well as IM glucagon. They did not witness a seizure. ROS: See HPI Unable to obtain secondary to patient's condition Reviewed vital signs and nursing note as charted by RN. PHYSICAL EXAM: CONSTITUTIONAL: Intubated and unresponsive HEAD: Normocephalic; atraumatic EYES: PERRL ENT: Normal nose; no rhinorrhea; patient appears to have a small tongue laceration with no obvious current active bleeding NECK: Supple without meningismus; no cervical lymphadenopathy, no masses CARD: Regular rate and rhythm; no murmurs; symmetric distal pulses RESP: Normal chest excursion with bagging; decreased breath sounds the left lung field. No rhonchi or wheezing ABD/GI: Normal bowel sounds; non-distended; soft; no palpable organomegaly or masses BACK: The back appears normal and is non-tender to palpation EXT: Right BKA; left pinky toe amputation with no surrounding erythema or indur ation SKIN: No acute lesions noted NEURO: No spontaneous movement TRAVEL OUTSIDE OF THE [place] IN LAST 30 DAYS: No - Related Data Allergies/Adverse Reactions: No Known Allergies Allergy (Verified 12/30/19 13:39) Past Medical History - Social History Smoking Status: Unknown if Ever Smoked Family History: Hypertension - Past Medical History Cardiac Medical History: Reports: Hx Hypercholesterolemia, Hx Hypertension, Hx Peripheral Vascular Disease Endocrine Medical History: Reports: Hx Diabetes Mellitus Type 2 Renal/ Medical History: Reports: Hx End Stage Renal Disease, Hx Hemodialysis. Denies: Hx Peritoneal Dialysis Psychiatric Medical History: Denies: Hx Depression Past Surgical History: Reports: Hx Section - x2, Hx Orthopedic Surgery - Toe amputation for osteomyelitis right pinky, right BKA in 2019 - Immunizations Hx Diphtheria, Pertussis, Tetanus Vaccination: Yes Physical Exam - Vital signs Vitals: Resp Pulse Ox 12 100 12/30/19 12:44 12/30/19 12:44 Course - Re-evaluation Re-evalutation: Given the above history and physical we will switch the patient to a ventilator. We will most likely adjust the tube until we auscultate bilateral breath sounds. Patient's tube is currently 28 at the teeth. We will also obtain every hour Accu-Cheks and basic labs including an EKG. Patient is having no active bleeding on suctioning of the mouth at this time. 12/30/19 12:51 Initial Accu-Chek is 127 here. Patient appears to be suffering from osteomyelitis of the ankle. Unsure if the patient is currently on antibiotics. We will call the facility once again. 12/30/19 13:01 I did call the facility back. He states that the patient had a small toe amputation and has been off antibiotics for extended period of time. They also state that the patient is a dialysis patient and did receive a further dialysis. Next dialysis is not due until Wednesday. They do not know who the patient's linux administrator is. They state that the patient has not had any change to her insulin regimen and deny the patient having any fevers, vomiting, or diarrhea. Patient had a coronavirus test on that was negative. 12/30/19 13:05 EKG shows a heart rate of 53, normal sinus rhythm, left axis deviation, poor R wave progression, supraventricular finding, inverted T waves in aVL. Old EKG f rom June 2019 shows no appreciable change. 12/30/19 14:08 Labs and imaging as recorded. EKG as recorded. I did call and speak directly to the patient's daughter who is the power of workers compensation attorney Pippa. Her phone number is [phone]. We will pull back the tube slightly as seen by the x- ray. 12/30/19 15:21 Repeat Accu-Chek 256. Patient is awake pulling at the cuffs on her wrist. She however does not follow commands such as making an okay sign, but is breathing completely over the vent. I have called and spoken to the forest pathology teacher and we will both do a bedside extubation. He is in route to the ER. 12/30/19 15:36 With the forest pathology teacher at bedside we were able to extubate the patient. Patient is satting excellent at baseline. Aerophysicist does not believe that the patient requires the ICU. Patient is slightly combative. We have provided some Ativan for relaxation. - Vital Signs Vital signs: Temp Pulse Resp BP Pulse Ox 91.7 F L 14 136/57 H 100 12/30/19 14:46 12/30/19 14:46 12/30/19 14:46 12/30/19 14:46 - Laboratory Result Diagrams: 12/30/19 13:09 12/30/19 13:09 Laboratory results interpreted by me: 12/30/19 12/30/19 12/30/19 13:09 13:09 14:23 RBC 3.63 L Hgb 11.3 L Hct 33.3 L RDW 18.7 H Lymph % (Auto) 8.1 L Absolute Neuts (auto) 8.3 H Seg Neutrophils % 80.8 H BUN 62 H Creatinine 4.17 H Est GFR ( Amer) 13 L Est GFR (MDRD) Non-Af 11 L Glucose 117 H POC Glucose 182 H 12/30/19 15:17 RBC Hgb Hct RDW Lymph % (Auto) Absolute Neuts (auto) Seg Neutrophils % BUN Creatinine Est GFR ( Amer) Est GFR (MDRD) Non-Af Glucose POC Glucose 256 H Critical Care Note - Critical Care Note Total time excluding time spent on procedures (mins): 35 Discharge - Discharge Clinical Impression: Respiratory failure Qualifiers: Chronicity: acute Respiratory failure complication: hypoxia Qualified Code(s): J96.01 - Acute respiratory failure with hypoxia Hypothermia Qualifiers: Encounter type: initial encounter Qualified Code(s): T68.XXXA - Hypothermia, initial encounter Condition: Fair Disposition: ADMITTED INPATIENT Admitting Provider: Yovanny (Hospitalist) Unit Admitted: [facility]
[2019-12-30 13:14] LABS: ABSOLUTE BASOPHILS # (AUTO) 0.1 10^3/uL (0.0-0.2); ABSOLUTE EOSINOPHILS # (AUTO) 0.3 10^3/uL (0.0-0.6); ABSOLUTE LYMPHOCYTES (AUTO) 0.8 10^3/uL (0.5-4.7); ABSOLUTE MONOCYTES (AUTO) 0.7 10^3/uL (0.1-1.4); ABSOLUTE NEUT (AUTO) 8.3 10^3/uL (1.7-8.2); BASOPHILS % (AUTO) 0.8 % (0-2); EOSINOPHILS % (AUTO) 3.1 % (0-6); HEMATOCRIT 33.3 % (36.0-47.0); HEMOGLOBIN 11.3 g/dL (12.0-15.5); LYMPHOCYTES % (AUTO) 8.1 % (13-45); MEAN CORPUSCULAR HEMOGLOBIN 31.3 pg (27.0-33.4); MEAN CORPUSCULAR VOLUME 92 fl (80-97); MONOCYTES % (AUTO) 7.2 % (3-13); PLATELET COUNT 225 10^3/uL (150-450); RED BLOOD COUNT 3.63 10^6/uL (3.72-5.28); RED CELL DISTRIBUTION WIDTH 18.7 % (11.5-14.0); SEGMENTED NEUTROPHILS % (AUTO) 80.8 % (42-78); TOTAL CELLS COUNTED % (AUTO) 100 %; WHITE BLOOD COUNT 10.2 10^3/uL (4.0-10.5)
--- NOTE | 2019-12-30 13:22 | RADIOLOGY REPORT (SQ) ---
EXAM DESCRIPTION: CHEST SINGLE VIEW IMAGES COMPLETED DATE/TIME: 12/30/2019 1:06 pm REASON FOR STUDY: 6; intubated patient from [facility] COMPARISON: 07/23/2019. EXAM PARAMETERS: NUMBER OF VIEWS: One view. TECHNIQUE: Single frontal radiographic view of the chest acquired. RADIATION DOSE: NA LIMITATIONS: None. FINDINGS: LUNGS AND PLEURA: No opacities, masses or pneumothorax. No pleural effusion. MEDIASTINUM AND HILAR STRUCTURES: No masses. Contour normal. HEART AND VASCULAR STRUCTURES: Heart normal in size. Normal vasculature. BONES: No acute findings. HARDWARE: Tip of the endotracheal tube at the orifice of the right mainstem bronchus. Nasogastric tu be, tip the stomach. OTHER: No other significant finding. IMPRESSION: ENDOTRACHEAL TUBE DESCRIBED. WITHDRAWAL BY 2-3 CM WOULD IMPROVE POSITIONING. NO ACU TE RADIOGRAPHIC FINDING IN THE CHEST. TECHNICAL DOCUMENTATION: JOB ID: [id number] 2010 [employer]- All Rights Reserved Reading location - IP/workstation name: [email or web address]
[2019-12-30 13:35] LABS: ALBUMIN 3.8 g/dL (3.5-5.0); ALKALINE PHOSPHATASE 97 U/L (38-126); ANION GAP 13 (5-19); ASPARTATE AMINO TRANSFERASE 24 U/L (14-36); BILIRUBIN,DIRECT 0.3 mg/dL (0.0-0.4); BILIRUBIN,TOTAL 0.3 mg/dL (0.2-1.3); BLOOD UREA NITROGEN 62 mg/dL (7-20); CALCIUM 8.8 mg/dL (8.4-10.2); CARBON DIOXIDE 25 mmol/L (22-30); CHLORIDE 105 mmol/L (98-107); GLUCOSE 117 mg/dL (75-110); TOTAL PROTEIN 7.2 g/dL (6.3-8.2)
[2019-12-30] MEDS ORDERED: LORAZEPAM INJ 2 MG/1 ML VIAL IV ONE (15:36)
--- NOTE | 2019-12-30 15:39 | RADIOLOGY REPORT (SQ) ---
EXAM DESCRIPTION: CHEST SINGLE VIEW IMAGES COMPLETED DATE/TIME: 12/30/2019 2:02 pm REASON FOR STUDY: tube placement COMPARISON: Same date at 1305 hours. EXAM PARAMETERS: NUMBER OF VIEWS: One view. TECHNIQUE: Single frontal radiographic view of the chest acquired. RADIATION DOSE: NA LIMITATIONS: None. FINDINGS: LUNGS AND PLEURA: No opacities, masses or pneumothorax. No pleural effusion. MEDIASTINUM AND HILAR STRUCTURES: No masses. Contour normal. HEART AND VASCULAR STRUCTURES: Heart normal in size. Normal vasculature. BONES: No acute findings. HARDWARE: Endotracheal tube tip is at the alia. Esophagogastric tube tip and side-hole are below t he diaphragm within the stomach. OTHER: No other significant finding. IMPRESSION: Endotracheal tube tip is at the alia. Recommend pulling back 1-2 cm. TECHNICAL DOCUMENTATION: JOB ID: [id number] 2010 [employer] All Rights Reserved Reading location - IP/workstation name: [email or web address]
[2019-12-30] MEDS ORDERED: IPRATROPIUM/ALBUTEROL 0.5-2.5 MG/3 ML AMPUL NEB PRN (17:58)
[2019-12-30] MEDS ORDERED: ONDANSETRON 4 MG TAB.RAPDIS PO PRN (17:58)
[2019-12-30] MEDS ORDERED: DEXTROSE 40% GEL 15 GM TUBE PO PRN ×2 (17:58)
[2019-12-30] MEDS ORDERED: ACETAMINOPHEN 325 MG TABLET PO PRN (17:58)
[2019-12-30] MEDS ORDERED: GLUCAGON,HUMAN RECOMB 1 MG INJ IM PRN (17:58)
[2019-12-30] MEDS ORDERED: DEXTROSE 50%-WATER 25 GM/50 ML DISP.SYRIN IV PRN ×2 (17:58)
--- NOTE | 2019-12-30 18:24 | PDOC H&P ---
History of Present Illness Admission Date/PCP: 12/30/19 17:20 Patient complains of: Patient presents emergency room intubated, actually at the skilled nursing for being unresponsive. Only I am unable to obtain any information from her due to speech difficulties. Most of the information was obtained from the computer records History of Present Illness: IGLESIA BLANCHARD is a 64 year old female He was brought to the emergency room after she was apparently found to be hypoglycemic at the skilled nursing. She was said to have poor possibly had a seizure activity leading to also a respiratory distress. She received ketamine and so sign choline and she may have aspirated some oral glucose gel leading to respiratory depression. Apparently her blood sugar was 37 at the skilled nursing. After she got to the emergency room it appears that after evaluation by the inte nsivist patient was successfully extubated. By the time I saw her she was actually quite awake she is very deaf and states difficult to be able to obtain much information from her but according to the skilled nursing there was no history of fever vomiting or diarrhea. She had a coronavirus test done on December 27 that was apparently negative. Patient had a recent small forced left toe amputation and had been treated with antibiotics for osteomyelitis which has been completed. She apparently is also on dialysis with a left dialysis on December 28. Patient POA is crystal, now [id number]. Looking at the computer records it looks like she also presented to the ER in June with hypoglycemia she was also found hypotension and hypothymic just as she was today. Her blood sugar when she initially came to the ER today was 127 and it has subsequently been stable at about 200 for text Past Medical History Cardiac Medical History: Reports: Hyperlipidema, Hypertension, Peripheral Vascular Disease Endocrine Medical History: Reports: Diabetes Mellitus Type 2 Renal/ Medical History: Reports: End Stage Renal Disease Psychiatric Medical History: Denies: Depression Past Surgical History Past Surgical History: Reports: Section - x2, Orthopedic Surgery - Toe amputation for osteomyelitis right pinky, right BKA in 2019 Social History Information Source: [facility] Records Lives with: [facility] Smoking Status: Unknown if Ever Smoked Frequency of Alcohol Use: None Hx Recreational Drug Use: No Drugs: None Hx Prescription Drug Abuse: No - Advance Directive Resuscitation Status: Full Code Family History Family History: None, Hypertension Parental Family History Reviewed: No Children Family History Reviewed: No Sibling(s) Family History Reviewed.: No Medication/Allergy Home Medications: Ergocalciferol (Vitamin D2) [Vitamin D2] 50,000 unit PO [id number] 05/04/17 Levothyroxine Sodium [Synthroid 0.05 mg Tablet] 0.05 mg PO Q6AM 05/04/17 Omeprazole Magnesium [Prilosec Otc] 40 mg PO DAILY 05/04/17 Amlodipine Besylate [Norvasc 5 mg Tablet] 5 mg PO BID 07/23/19 Aspirin [Ecotrin 81 mg EC Tablet] 81 mg PO DAILY 07/23/19 Atorvastatin Calcium [Lipitor 10 mg Tablet] 10 mg PO QHS 07/23/19 Buspirone HCl [Buspar 10 mg Tablet] 5 mg PO BID 07/23/19 Calcitriol [Rocaltrol] 0.25 mcg PO TID 07/23/19 Carvedilol 25 mg PO BID 07/23/19 Docusate Sodium [Colace 100 mg Capsule] 100 mg PO DAILY 07/23/19 Lisinopril [Zestril] 40 mg PO DAILY 07/23/19 Loratadine [Claritin 10 mg Tablet] 10 mg PO DAILY 07/23/19 Metolazone [Zaroxolyn 2.5 mg Tablet] 2.5 mg PO TUTHSA 07/23/19 Multivit-Min/Iron/Folic/Lutein [Centrum Silver Women Tablet] 1 each PO DAILY 07/23/19 Sennosides [Senna] 8.6 mg PO BID 07/23/19 Torsemide 100 mg PO DAILY 07/23/19 Insulin Glargine,Hum.rec.anlog [Lantus Insulin 100 Unit/1 ml 10 ml] 25 unit SUBCUT DAILY unit 07/24/19 Allergies/Adverse Reactions: No Known Allergies Allergy (Verified 12/30/19 13:39) Review of Systems ROS unobtainable: Due to mental status Constitutional: ABSENT: fatigue, weakness Cardiovascular: ABSENT: chest pain, dyspnea on exertion Physical Exam Vital Signs: Temp Pulse Resp BP Pulse Ox 94.0 F L 12 155/55 H 100 12/30/19 17:30 12/30/19 17:30 12/30/19 17:30 12/30/19 17:30 Intake & Output 12/29/19 12/30/19 12/31/19 06:59 06:59 06:59 Intake Total 5 Balance 5 Weight 77.2 kg General appearance: PRESENT: no acute distress, obese Head exam: PRESENT: atraumatic, normocephalic Eye exam: PRESENT: conjunctiva pink, EOMI, PERRLA. ABSENT: scleral icterus Mouth exam: PRESENT: moist, tongue midline Neck exam: ABSENT: carotid bruit, JVD, lymphadenopathy, thyromegaly Respiratory exam: PRESENT: clear to auscultation delma, unlabored. ABSENT: rales, rhonchi, wheezes Cardiovascular exam: PRESENT: RRR, +S1, +S2. ABSENT: diastolic murmur, rubs, systolic murmur GI/Abdominal exam: PRESENT: normal bowel sounds, soft. ABSENT: distended, guarding, mass, organolmegaly, rebound, tenderness Rectal exam: PRESENT: deferred Extremities exam: PRESENT: +1 edema - LLE, other - R BKA. ABSENT: calf tenderness, clubbing, pedal edema Neurological exam: PRESENT: alert, awake, oriented to place, oriented to situa tion. ABSENT: motor sensory deficit Psychiatric exam: ABSENT: homicidal ideation, suicidal ideation Skin exam: PRESENT: intact, warm. ABSENT: cyanosis, rash Results Laboratory Results: 12/30/19 13:09 12/30/19 13:09 12/30/19 12/30/19 13:09 13:09 WBC 10.2 RBC 3.63 L Hgb 11.3 L Hct 33.3 L MCV 92 MCH 31.3 MCHC 34.0 RDW 18.7 H Plt Count 225 Seg Neutrophils % 80.8 H Sodium 142.7 Potassium 5.0 Chloride 105 Carbon Dioxide 25 Anion Gap 13 BUN 62 H Creatinine 4.17 H Est GFR ( Amer) 13 L Glucose 117 H Calcium 8.8 Total Bilirubin 0.3 AST 24 Alkaline Phosphatase 97 Total Protein 7.2 Albumin 3.8 Impressions: Chest X-Ray 12/30/19 14:29 IMPRESSION: Endotracheal tube tip is at the alia. Recommend pulling back 1-2 cm. Assessment and Plan - Diagnosis (1) Hypothermia Qualifiers: Encounter type: initial encounter Qualified Code(s): T68.XXXA - Hypothermia, initial encounter Is this a current diagnosis for this admission?: Yes Plan: She also had hypothermia during her last admission here with low core temperature. There is no evidence of any infection.TSH was checked at that time and thyroid function tests were all normal. We will use bear hugger and monitor (2) Respiratory failure Qualifiers: Chronicity: acute Respiratory failure complication: hypoxia Qualified Code(s): J96.01 - Acute respiratory failure with hypoxia Is this a current diagnosis for this admission?: Yes (3) Acute alteration in mental status Is this a current diagnosis for this admission?: Yes (4) ESRD (end stage renal disease) on dialysis Is this a current diagnosis for this admission?: Yes (5) Hypoglycemia associated with diabetes Is this a current diagnosis for this admission?: Yes Plan: It is unclear why his blood sugar was found to be in the 30s. She did receive some supplements apparently what her blood sugar has been above 150. At this time will continue to monitor. Will use insulin only judiciously. - Time Time Spent with patient: 35 or more minutes Medications reviewed and adjusted accordingly: Yes Anticipated Discharge Disposition: [facility] Facility Anticipated Discharge Timeframe: within 48 hours - Inpatient Certification Based on my medical assessment, after consideration of the patient's comorbidities, presenting symptoms, or acuity I expect that the services needed warrant INPATIENT care.: Yes Medical Necessity: Need Close Monitoring Due to Risk of Patient Decompensation, Risk of Complication if Not Cared For in Hospital
--- NOTE | 2019-12-30 21:03 | EKG REPORT ---
SEVERITY:- ABNORMAL ECG - SINUS RHYTHM ABERRANT COMPLEX, POSSIBLY SUPRAVENTRICULAR BORDERLINE LEFT AXIS DEVIATION BORDERLINE R WAVE PROGRESSION, ANTERIOR LEADS BORDERLINE PROLONGED QT INTERVAL : Confirmed by: Edi Jenkins MD 30-Dec-2019 21:03:19
[2019-12-31 05:29] LABS: ABSOLUTE BASOPHILS # (AUTO) 0.1 10^3/uL (0.0-0.2); ABSOLUTE EOSINOPHILS # (AUTO) 0.2 10^3/uL (0.0-0.6); ABSOLUTE LYMPHOCYTES (AUTO) 1.3 10^3/uL (0.5-4.7); ABSOLUTE MONOCYTES (AUTO) 0.9 10^3/uL (0.1-1.4); ABSOLUTE NEUT (AUTO) 6.7 10^3/uL (1.7-8.2); EOSINOPHILS % (AUTO) 2.4 % (0-6); HEMATOCRIT 33.8 % (36.0-47.0); HEMOGLOBIN 11.2 g/dL (12.0-15.5); MEAN CORPUSCULAR HEMOGLOBIN 30.6 pg (27.0-33.4); MEAN CORPUSCULAR VOLUME 93 fl (80-97); MONOCYTES % (AUTO) 9.6 % (3-13); PLATELET COUNT 224 10^3/uL (150-450); RED BLOOD COUNT 3.64 10^6/uL (3.72-5.28); RED CELL DISTRIBUTION WIDTH 18.3 % (11.5-14.0); TOTAL CELLS COUNTED % (AUTO) 100 %; WHITE BLOOD COUNT 9.2 10^3/uL (4.0-10.5)
[2019-12-31 05:49] LABS: ANION GAP 16 (5-19); BLOOD UREA NITROGEN 76 mg/dL (7-20); CALCIUM 9.3 mg/dL (8.4-10.2); CARBON DIOXIDE 19 mmol/L (22-30); CHLORIDE 106 mmol/L (98-107); GLUCOSE 90 mg/dL (75-110); POTASSIUM 5.1 mmol/L (3.6-5.0)
[2019-12-31] MEDS ORDERED: INFLUENZA QUAD (6MOS+) 2020-21 VAC 0.5 ML SYR IM ONE (08:00)
[2019-12-31] MEDS: INSULIN REG, HUMAN 100 UNIT/ML 3 ML VIAL (PYX) SUBCUT SCH ×3 (08:14→17:08)
[2019-12-31] MEDS: CARVEDILOL 12.5 MG TABLET PO SCH ×2 (10:42→21:06)
[2019-12-31] MEDS: LISINOPRIL 10 MG TABLET PO SCH (10:42)
[2019-12-31] MEDS: AMLODIPINE BESYLATE 5 MG TABLET PO SCH (10:43)
[2019-12-31] MEDS: ENOXAPARIN SODIUM INJ 30 MG/0.3 ML DISP.SYRIN SUBCUT SCH (10:43)
[2019-12-31] MEDS: DOCUSATE SODIUM 100 MG CAPSULE PO SCH (10:43)
--- NOTE | 2019-12-31 13:57 | PDOC PROGRESS REPORT ---
Subjective Progress Note for:: 12/31/19 Subjective:: Ms. Gaviria is complaining of deafness in L ear. She says this is new. 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 Patient was intubated for a short period Yesterday and extubated after arriving in the ER. Reason For Visit: HYPOGLYCEMIA, END-STAGE RENAL DISEASE Physical Exam Vital Signs: Temp Pulse Resp BP Pulse Ox 97.8 F 75 10 L 150/40 H 96 12/31/19 11:11 12/31/19 11:11 12/31/19 11:11 12/31/19 11:11 12/31/19 11:11 Intake & Output 12/30/19 12/31/19 01/01/20 06:59 06:59 06:59 Intake Total 5 240 Output Total 350 Balance -345 240 Weight 71.4 kg General appearance: PRESENT: no acute distress, well-nourished Head exam: PRESENT: atraumatic, normocephalic Eye exam: PRESENT: conjunctiva pink, EOMI. ABSENT: scleral icterus Mouth exam: PRESENT: moist Neck exam: ABSENT: carotid bruit, JVD, lymphadenopathy, thyromegaly Respiratory exam: PRESENT: clear to auscultation delma, rhonchi, unlabored. ABSENT: rales, wheezes Cardiovascular exam: PRESENT: RRR, +S1, +S2. ABSENT: diastolic murmur, rubs, systolic murmur Pulses: PRESENT: normal dorsalis pedis pul Vascular exam: PRESENT: normal capillary refill GI/Abdominal exam: PRESENT: normal bowel sounds, soft. ABSENT: distended, guarding, mass, organolmegaly, rebound, tenderness Rectal exam: PRESENT: deferred Extremities exam: PRESENT: other - R BKA edema LLE. ABSENT: calf tenderness, clubbing, pedal edema Musculoskeletal exam: PRESENT: deformity Neurological exam: PRESENT: alert, awake, oriented to person, oriented to place, oriented to time. ABSENT: motor sensory deficit Psychiatric exam: PRESENT: appropriate affect, normal mood. ABSENT: homicidal ideation, suicidal ideation Skin exam: PRESENT: dry, intact, warm. ABSENT: cyanosis, rash Results Laboratory Results: 12/31/19 04:51 12/31/19 04:51 12/31/19 12/31/19 04:51 04:51 WBC 9.2 RBC 3.64 L Hgb 11.2 L Hct 33.8 L MCV 93 MCH 30.6 MCHC 33.0 RDW 18.3 H Plt Count 224 Seg Neutrophils % 73.0 Sodium 140.6 Potassium 5.1 H Chloride 106 Carbon Dioxide 19 L Anion Gap 16 BUN 76 H Creatinine 4.47 H Est GFR ( Amer) 12 L Glucose 90 Calcium 9.3 Impressions: Chest X-Ray 12/30/19 14:29 IMPRESSION: Endotracheal tube tip is at the alia. Recommend pulling back 1-2 cm. Assessment and Plan - Diagnosis (1) Hypothermia Qualifiers: Encounter type: initial encounter Qualified Code(s): T68.XXXA - Hypothermia, initial encounter Is this a current diagnosis for this admission?: Yes Plan: She also had hypothermia during her last admission here with low core temperature. There is no evidence of any infection.TSH was checked at that time and thyroid function tests were all normal. We will use bear hugger and monitor 12/30 etiology not quite clear. This has resolved (2) Respiratory failure Qualifiers: Chronicity: acute Respiratory failure complication: hypoxia Qualified Code(s): J96.01 - Acute respiratory failure with hypoxia Is this a current diagnosis for this admission?: Yes Plan: Briefly intubated and subsequently extubated and respiratory status remained stable (3) Acute alteration in mental status Is this a current diagnosis for this admission?: Yes (4) ESRD (end stage renal disease) on dialysis Is this a current diagnosis for this admission?: Yes Plan: Will need dialysis in a.m. and hopefully after that she can be discharged (5) Hypoglycemia associated with diabetes Is this a current diagnosis for this admission?: Yes Plan: It is unclear why his blood sugar was found to be in the 30s. She did receive some supplements apparently what her blood sugar has been above 150. At this time will continue to monitor. Will use insulin only judiciously. 12/30 her blood sugars remain relatively stable and no further episodes of hyp oglycemia. We will continue judicious insulin use - Time Time Spent with patient: 15-24 minutes Anticipated Discharge Disposition: [facility] Facility Anticipated Discharge Timeframe: within 24 hours
[2020-01-01 06:36] LABS: HEMATOCRIT 30.6 % (36.0-47.0); HEMOGLOBIN 10.4 g/dL (12.0-15.5); MEAN CORPUSCULAR HEMOGLOBIN 31.3 pg (27.0-33.4); MEAN CORPUSCULAR HGB CONC 33.8 g/dL (32.0-36.0); MEAN CORPUSCULAR VOLUME 93 fl (80-97); PLATELET COUNT 210 10^3/uL (150-450); RED BLOOD COUNT 3.31 10^6/uL (3.72-5.28); WHITE BLOOD COUNT 8.1 10^3/uL (4.0-10.5)
[2020-01-01 07:08] LABS: ANION GAP 14 (5-19); BLOOD UREA NITROGEN 75 mg/dL (7-20); CALCIUM 8.3 mg/dL (8.4-10.2); CARBON DIOXIDE 18 mmol/L (22-30); CHLORIDE 106 mmol/L (98-107); GLUCOSE 141 mg/dL (75-110); POTASSIUM 4.9 mmol/L (3.6-5.0)
[2020-01-01] MEDS: INSULIN REG, HUMAN 100 UNIT/ML 3 ML VIAL (PYX) SUBCUT SCH ×3 (10:40→18:08)
--- NOTE | 2020-01-01 12:10 | PDOC CONSULTATION ---
Consultation Consult Date: 01/01/20 Provider Consulted: Shea ROGERS Consult reason:: ESRD for hemodialysis. History of Present Illness Admission Date/PCP: 12/30/19 17:20 History of Present Illness: IGLESIA BLANCHARD is a 64 year old female with a history of ESRD on hemodialysis in the background of diabetes mellitus hypertension was admitted with hypoglycemic seizures from the [facility]. She was found to be in respiratory failure and had was emergently intubated but then soon after extubated as sugars got better. She was also found to be hypothermic as well as hypotensive but currently those issues seems to be resolved as I see her on dialysis. She is quite deaf. She denies any specific complaints of any chest pain shortness of breath fever chills. Labs and medications were reviewed. Dialysis orders were reviewed with the treating dialysis nurse. Past Medical History Cardiac Medical History: Reports: Hyperlipidemia, Hypertension-primary, Peripheral Vascular Disease Endocrine Medical History: Reports: Diabetes Mellitus Type 2 Renal/ Medical History: Reports: End Stage Renal Disease, Secondary Hyperparathyroidism Psychiatric Medical History: Denies: Depression Past Surgical History Past Surgical History: Reports: Section - x2, Dialysis Access Surgery AVF, Orthopedic Surgery - Toe amputation for osteomyelitis right pinky, right BKA in 2019 Social History Lives with: [facility] Smoking Status: Unknown if Ever Smoked Frequency of Alcohol Use: None Hx Recreational Drug Use: No Drugs: None Hx Prescription Drug Abuse: No - Advance Directive Resuscitation Status: Full Code Family History Parental Family History Reviewed: Yes - Denies history of ESRD Children Family History Reviewed: Yes Sibling(s) Family History Reviewed.: No Medication/Allergy Home Medications: Ergocalciferol (Vitamin D2) [Vitamin D2] 50,000 unit PO [id number] 05/04/17 Levothyroxine Sodium [Synthroid 0.05 mg Tablet] 0.05 mg PO Q6AM 05/04/17 Amlodipine Besylate [Norvasc 5 mg Tablet] 10 mg PO SUTUTHSA@99907/23/19 Aspirin [Ecotrin 81 mg EC Tablet] 81 mg PO MOWEFR@99907/23/19 Atorvastatin Calcium [Lipitor 10 mg Tablet] 10 mg PO QHS 07/23/19 Buspirone HCl [Buspar 10 mg Tablet] 5 mg PO BID 07/23/19 Calcitriol [Rocaltrol] 0.25 mcg PO MOWEFR@99907/23/19 Carvedilol 25 mg PO SUTUTHSA@1000 07/23/19 Docusate Sodium [Colace 100 mg Capsule] 100 mg PO Q2DAYS 07/23/19 Metolazone [Zaroxolyn 2.5 mg Tablet] 2.5 mg PO TUTHSA@1000 07/23/19 Torsemide 100 mg PO SUTUTHSA@1000 07/23/19 Bisacodyl [Dulcolax 5 mg Tablet] 5 mg PO QHS 12/31/19 Folic Acid/Vitamin B Comp W-C [Nephrocaps Multiple Vitamin Capsule] 1 cap PO DAILY 12/31/19 Insulin Aspart [Novolog Flexpen] 0 unit SUBCUT .SLD SCALE 12/31/19 Insulin Detemir [Levemir Insulin 100 units/mL Insulin Pen] 18 unit SQ QAM 12/31/19 Isosorbide Mononitrate [Imdur 30 mg Tablet.er] 30 mg PO DAILY 12/31/19 Loperamide HCl [Loperamide] 2 mg PO PRN PRN MDD 16 MG 12/31/19 Ondansetron [Zofran Odt 4 mg Tablet] 4 mg PO Q8HP PRN 12/31/19 Oxycodone HCl/Acetaminophen [Percocet 10-325 mg Tablet] 1 tab PO Q12HP PRN 12/31/19 Pantoprazole Sodium [Protonix] 40 mg PO BID 12/31/19 Sevelamer HCl [Renagel 800 mg Tablet] 800 mg PO AC 12/31/19 Sodium Polystyrene Sulfonate [Kayexalate 15 gm/60 ml Susp 60 ml] 60 ml PO PRN PRN 12/31/19 Allergies/Adverse Reactions: No Known Allergies Allergy (Verified 12/30/19 13:39) Review of Systems Constitutional: PRESENT: anorexia, fatigue, weakness. ABSENT: chills, fever(s), headache(s), night sweats Nose, Mouth, and Throat: ABSENT: mouth pain, sore throat Cardiovascular: ABSENT: chest pain, dyspnea on exertion, edema, orthropnea, palpitations Respiratory: ABSENT: dyspnea, hemoptysis Gastrointestinal: ABSENT: abdominal pain, bloating, diarrhea, dysphagia, heartburn, hematemesis, hematochezia Genitourinary: ABSENT: difficulty urinating, hematuria Musculoskeletal: ABSENT: deformity Integumentary: ABSENT: lesions, pruritus, rash Neurological: PRESENT: confusion, convulsions. ABSENT: abnormal speech, focal weakness, tremor(s) Hematologic/Lymphatic: ABSENT: easy bleeding, easy bruising, lymphadenopathy Physical Exam Vital Signs: Temp Pulse Resp BP Pulse Ox 97.6 F 67 16 136/60 H 95 01/01/20 03:42 01/01/20 07:00 01/01/20 03:42 01/01/20 03:42 01/01/20 03:42 Intake & Output 12/31/19 01/01/20 01/02/20 06:59 06:59 06:59 Intake Total 5 1500 1200 Output Total 270 233 3170 Balance -345 650 -1800 Weight 71.4 kg 70.2 kg General appearance: PRESENT: no acute distress Eye exam: PRESENT: EOMI, PERRLA. ABSENT: scleral icterus Ear exam: PRESENT: normal external ear exam Mouth exam: PRESENT: moist Neck exam: ABSENT: meningismus, tenderness, thyromegaly, tracheal deviation Respiratory exam: PRESENT: clear to auscultation delma, decreased breath sounds. ABSENT: crackles Cardiovascular exam: PRESENT: +S1, +S2 GI/Abdominal exam: PRESENT: normal bowel sounds, soft. ABSENT: organomegaly, tenderness Extremities exam: ABSENT: pedal edema Neurological exam: PRESENT: alert, awake, oriented to person, oriented to place Psychiatric exam: PRESENT: appropriate affect Skin exam: ABSENT: cyanosis, erythema, mottled, rash Results Laboratory Results: 01/01/20 05:53 01/01/20 05:53 01/01/20 01/01/20 05:53 05:53 WBC 8.1 RBC 3.31 L Hgb 10.4 L Hct 30.6 L MCV 93 MCH 31.3 MCHC 33.8 RDW 18.0 H Plt Count 210 Sodium 138.2 Potassium 4.9 Chloride 106 Carbon Dioxide 18 L Anion Gap 14 BUN 75 H Creatinine 5.58 H Est GFR ( Amer) 9 L Glucose 141 H Calcium 8.3 L Impressions: Chest X-Ray 12/30/19 14:29 IMPRESSION: Endotracheal tube tip is at the alia. Recommend pulling back 1-2 cm. Assessment & Plan - Diagnosis (1) ESRD (end stage renal disease) on dialysis Is this a current diagnosis for this admission?: Yes Plan: Patient seen on dialysis which is being monitored and supervised. She denies any specific complaints of chest pain or shortness of breath. Labs and medications were reviewed and she is now normoglycemic. Dialysis orders were reviewed with the treating dialysis nurse. (2) Hypoglycemia associated with diabetes Is this a current diagnosis for this admission?: Yes Plan: Currently resolved. (3) Seizures due to metabolic disorder Plan: Apparent seizures with altered mental status in the face of hypoglycemia in the [facility] which prompted her admission to the hospital. Now stable. (4) Acute metabolic encephalopathy due to hypoglycemia Plan: Currently resolved. (5) Acute respiratory failure Qualifiers: Respiratory failure complication: hypoxia Qualified Code(s): J96.01 - Acute respiratory failure with hypoxia Plan: In the face of seizures and hypoglycemia that had her in respiratory failure which necessitated intubation for a brief period of time and now extubated. Stable respiratory status. (6) Diabetes Qualifiers: Diabetes mellitus type: type 2 Diabetes mellitus snf insulin use: with snf use Diabetes mellitus complication status: with unspecified complications Plan: As per hospitalist.
[2020-01-01] MEDS: LISINOPRIL 10 MG TABLET PO SCH (12:43)
--- NOTE | 2020-01-01 12:46 | PDOC TRANSFER SUMMARY ---
Impression - Admit/DC Date/PCP Admission Date/Primary Care Provider: 12/30/19 17:20 Discharge Date: 01/01/20 - Discharge Diagnosis (1) Hypothermia Is this a current diagnosis for this admission?: Yes (2) Respiratory failure Is this a current diagnosis for this admission?: Yes (3) Acute alteration in mental status Is this a current diagnosis for this admission?: Yes (4) ESRD (end stage renal disease) on dialysis Is this a current diagnosis for this admission?: Yes (5) Hypoglycemia associated with diabetes Is this a current diagnosis for this admission?: Yes - Additional Information Resuscitation Status: Full Code Discharge Diet: Diabetic Discharge Activity: Activity As Tolerated Referrals: EKNAN RICHARDS MD [ACTIVE STAFF] - 01/05/20 (F/u diminished hearing Left ear after intubation) Home Medications: Ergocalciferol (Vitamin D2) [Vitamin D2] 50,000 unit PO [id number] 05/04/17 Levothyroxine Sodium [Synthroid 0.05 mg Tablet] 0.05 mg PO Q6AM 05/04/17 Amlodipine Besylate [Norvasc 5 mg Tablet] 10 mg PO SUTUTHSA@99907/23/19 Aspirin [Ecotrin 81 mg EC Tablet] 81 mg PO MOWEFR@99907/23/19 Atorvastatin Calcium [Lipitor 10 mg Tablet] 10 mg PO QHS 07/23/19 Buspirone HCl [Buspar 10 mg Tablet] 5 mg PO BID 07/23/19 Calcitriol [Rocaltrol] 0.25 mcg PO MOWEFR@99907/23/19 Carvedilol 25 mg PO SUTUTHSA@99907/23/19 Docusate Sodium [Colace 100 mg Capsule] 100 mg PO Q2DAYS 07/23/19 Metolazone [Zaroxolyn 2.5 mg Tablet] 2.5 mg PO TUTHSA@99907/23/19 Torsemide 100 mg PO SUTUTHSA@99907/23/19 Bisacodyl [Dulcolax 5 mg Tablet] 5 mg PO QHS 12/31/19 Folic Acid/Vitamin B Comp W-C [Nephrocaps Multiple Vitamin Capsule] 1 cap PO DAILY 12/31/19 Insulin Aspart [Novolog Flexpen] 0 unit SUBCUT .SLD SCALE 12/31/19 Isosorbide Mononitrate [Imdur 30 mg Tablet.er] 30 mg PO DAILY 12/31/19 Loperamide HCl [Loperamide] 2 mg PO PRN PRN MDD 16 MG 12/31/19 Ondansetron [Zofran Odt 4 mg Tablet] 4 mg PO Q8HP PRN 12/31/19 Oxycodone HCl/Acetaminophen [Percocet 10-325 mg Tablet] 1 tab PO Q12HP PRN 12/31/19 Pantoprazole Sodium [Protonix] 40 mg PO BID 12/31/19 Sevelamer HCl [Renagel 800 mg Tablet] 800 mg PO AC 12/31/19 Sodium Polystyrene Sulfonate [Kayexalate 15 gm/60 ml Susp 60 ml] 60 ml PO PRN PRN 12/31/19 Insulin Detemir [Levemir Insulin 100 units/mL Insulin Pen] 10 unit SQ QAM #0 01/01/20 History of Present Illiness History of Present Illness: IGLESIA BLANCHARD is a 64 year old female He was brought to the emergency room after she was apparently found to be hypoglycemic at the intermediate. She was said to have poor possibly had a seizure activity leading to also a respiratory distress. She received ketamine and so sign choline and she may have aspirated some oral glucose gel leading to respiratory depression. Apparently her blood sugar was 37 at the intermediate. After she got to the emergency room it appears that after evaluation by the allergist/immunologist patient was successfully extubated. By the time I saw her she was actually quite awake she is very deaf and states difficult to be able to obtain much information from her but according to the intermediate there was no history of fever vomiting or diarrhea. She had a coronavirus test done on December 27 that was apparently negative. Patient had a recent small forced left toe amputation and had been treated with antibiotics for osteomyelitis which has been completed. She apparently is also on dialysis with a left dialysis on December 28. [place] now [id number]. Looking at the computer records it looks like she also presented to the ER in June with hypoglycemia she was also found hypotension and hypothymic just as she was today. Her blood sugar when she initially came to the ER today was 127 and it has subsequently been stable at about 200 for text Hospital Course Hospital Course: Patient was admitted presumably with hypoglycemia, possible aspiration pneumonia leading to intubation in the intermediate prior to admission, hypothymia and change in mental status. When she arrived in the emergency room her blood sugar was found to be 127. Patient was initially on mechanical ventilation but this was discontinued in the emergency room as it was felt that this was not needed. She has remained stable respiratory jackson throughout her admission. She was found to be hypoglycemic initially from the intermediate with a blood sugar of 37 but she has remained normoglycemic throughout her hospital stay. Her insulin was held and he has been readjusted to 10units daily instead of 18 and this should be further adjusted if needed to prevent hypoglycemia. Her blood sugars have been acceptable while in hospital of insulin. She was initially hypothermic but this quickly resolved. There was no source of infection and patient was not treated with any antibiotics. She did receive dialysis on December 31 which is her usual day of dialysis. Patient did complain of diminished hearing in the left ear. 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 Patient will need follow-up with ENT as outpatient for further evaluation of this complaint. She has otherwise remained hemodynamically stable at this time it is felt that she can be discharged back to intermediate for outpatient follow-up Although the patient apparently had a questionable seizure activity in the intermediate which is possible due to the hypoglycemia there was no evidence of seizure in the hospital. She was not treated for any seizure activity. Physical Exam Vital Signs: Temp Pulse Resp BP Pulse Ox 97.6 F 67 16 136/60 H 95 01/01/20 03:42 01/01/20 07:00 01/01/20 03:42 01/01/20 03:42 01/01/20 03:42 Intake & Output 12/31/19 01/01/20 01/02/20 06:59 06:59 06:59 Intake Total 5 1500 1200 Output Total 433 976 8086 Balance -345 650 -1800 Weight 71.4 kg 70.2 kg General appearance: PRESENT: no acute distress, well-developed, well-nourished Head exam: PRESENT: atraumatic, normocephalic Eye exam: PRESENT: conjunctiva pink. ABSENT: scleral icterus Ear exam: PRESENT: normal external ear exam, other - Deafness Mouth exam: PRESENT: moist, tongue midline Neck exam: ABSENT: carotid bruit, JVD, lymphadenopathy, thyromegaly Respiratory exam: PRESENT: clear to auscultation delma, unlabored. ABSENT: rales, rhonchi, wheezes Cardiovascular exam: PRESENT: RRR, +S1, +S2. ABSENT: diastolic murmur, rubs, systolic murmur Pulses: PRESENT: normal dorsalis pedis pul GI/Abdominal exam: PRESENT: normal bowel sounds, soft. ABSENT: distended, guarding, mass, organolmegaly, rebound, tenderness Rectal exam: PRESENT: deferred Extremities exam: PRESENT: full ROM, other - AV fistula, LUE R bKA L 5th toe amputation. ABSENT: calf tenderness, clubbing, pedal edema Neurological exam: PRESENT: alert, awake, oriented to person, oriented to place, oriented to time, oriented to situation. ABSENT: motor sensory deficit Psychiatric exam: PRESENT: appropriate affect, normal mood. ABSENT: homicidal ideation, suicidal ideation Skin exam: PRESENT: dry, warm. ABSENT: cyanosis, rash Results Laboratory Results: WBC 8.1 10^3/uL (4.0-10.5) 01/01/20 05:53 RBC 3.31 10^6/uL (3.72-5.28) L 01/01/20 05:53 Hgb 10.4 g/dL (12.0-15.5) L 01/01/20 05:53 Hct 30.6 % (36.0-47.0) L 01/01/20 05:53 MCV 93 fl (80-97) 01/01/20 05:53 MCH 31.3 pg (27.0-33.4) 01/01/20 05:53 MCHC 33.8 g/dL (32.0-36.0) 01/01/20 05:53 RDW 18.0 % (11.5-14.0) H 01/01/20 05:53 Plt Count 210 10^3/uL (150-450) 01/01/20 05:53 Lymph % (Auto) 14.0 % (13-45) 12/31/19 04:51 Barber % (Auto) 9.6 % (3-13) 12/31/19 04:51 Eos % (Auto) 2.4 % (0-6) 12/31/19 04:51 Baso % (Auto) 1.0 % (0-2) 12/31/19 04:51 Absolute Neuts (auto) 6.7 10^3/uL (1.7-8.2) 12/31/19 04:51 Absolute Lymphs (auto) 1.3 10^3/uL (0.5-4.7) 12/31/19 04:51 Absolute Monos (auto) 0.9 10^3/uL (0.1-1.4) 12/31/19 04:51 Absolute Eos (auto) 0.2 10^3/uL (0.0-0.6) 12/31/19 04:51 Absolute Basos (auto) 0.1 10^3/uL (0.0-0.2) 12/31/19 04:51 Seg Neutrophils % 73.0 % (42-78) 12/31/19 04:51 Sodium 138.2 mmol/L (137-145) 01/01/20 05:53 Potassium 4.9 mmol/L (3.6-5.0) 01/01/20 05:53 Chloride 106 mmol/L (98-107) 01/01/20 05:53 Carbon Dioxide 18 mmol/L (22-30) L 01/01/20 05:53 Anion Gap 14 (5-19) 01/01/20 05:53 BUN 75 mg/dL (7-20) H 01/01/20 05:53 Creatinine 5.58 mg/dL (0.52-1.25) H 01/01/20 05:53 Est GFR ( Amer) 9 (>60) L 01/01/20 05:53 Est GFR (MDRD) Non-Af 8 (>60) L 01/01/20 05:53 Glucose 141 mg/dL (75-110) H 01/01/20 05:53 POC Glucose 145 mg/dL (70-110) H 01/01/20 05:57 Calcium 8.3 mg/dL (8.4-10.2) L 01/01/20 05:53 Total Bilirubin 0.3 mg/dL (0.2-1.3) 12/30/19 13:09 Direct Bilirubin 0.3 mg/dL (0.0-0.4) 12/30/19 13:09 Neonat Total Bilirubin Not Reportable 12/30/19 13:09 Neonat Direct Bilirubin Not Reportable 12/30/19 13:09 Neonat Indirect Bili Not Reportable 12/30/19 13:09 AST 24 U/L (14-36) 12/30/19 13:09 ALT 18 U/L (<35) 12/30/19 13:09 Alkaline Phosphatase 97 U/L (38-126) 12/30/19 13:09 Total Protein 7.2 g/dL (6.3-8.2) 12/30/19 13:09 Albumin 3.8 g/dL (3.5-5.0) 12/30/19 13:09 Impressions: Chest X-Ray 12/30/19 12:43 IMPRESSION: ENDOTRACHEAL TUBE DESCRIBED. WITHDRAWAL BY 2-3 CM WOULD IMPROVE POSITIONING. NO ACUTE RADIOGRAPHIC FINDING IN THE CHEST. Chest X-Ray 12/30/19 14:29 IMPRESSION: Endotracheal tube tip is at the alia. Recommend pulling back 1-2 cm. Plan Health Concerns: Follow-up with ENT for apparent diminished hearing after a short period of intub ation Stroke Is this a Stroke Patient?: No Acute Heart Failure Is this a Heart Failure Patient?: No
[2020-01-01] MEDS: AMLODIPINE BESYLATE 5 MG TABLET PO SCH ×2 (12:49→13:09)
[2020-01-01] MEDS: DOCUSATE SODIUM 100 MG CAPSULE PO SCH (12:49)
[2020-01-01] MEDS: CARVEDILOL 12.5 MG TABLET PO SCH (12:50)
[2020-01-01] MEDS: ENOXAPARIN SODIUM INJ 30 MG/0.3 ML DISP.SYRIN SUBCUT SCH (12:51)
[2020-01-01] MEDS ORDERED: ACETAMINOPHEN 325 MG TABLET PO PRN (13:24)
[2020-01-01] MEDS ORDERED: ONDANSETRON 4 MG TAB.RAPDIS PO PRN (13:30)
[2020-01-01 15:13] VITALS: BP 144/50
== END 2020-01-01 16:20 | DRG 638 ==
LOC: ER 12:39 → EH 17:20 → 3W 20:19
PROVIDERS: ADMIT Internal Medicine; ATTEND Internal Medicine
PROC: 5A1935Z Respiratory Ventilation, Less than 24 Consecutive Hours (ICD-10-PCS; principal; 2019-12-30)
PROC: 5A1D70Z Performance of Urinary Filtration, Intermittent, Less than 6 Hours Per Day (ICD-10-PCS; 2020-01-01)
DX: E11.649 Type 2 diabetes mellitus with hypoglycemia without coma (principal); I12.0 Hypertensive chronic kidney disease with stage 5 chronic kidney disease or end stage renal disease; N18.6 End stage renal disease; E78.5 Hyperlipidemia, unspecified; E11.51 Type 2 diabetes mellitus with diabetic peripheral angiopathy without gangrene; R68.0 Hypothermia, not associated with low environmental temperature; E11.22 Type 2 diabetes mellitus with diabetic chronic kidney disease; Z99.2 Dependence on renal dialysis; H91.8X1 Other specified hearing loss, right ear; Z89.422 Acquired absence of other left toe(s); Z79.4 Long term (current) use of insulin; E21.3 Hyperparathyroidism, unspecified; Z79.899 Other long term (current) drug therapy
CPT/HCPCS: 36415; 71045; 80048; 80053; 82962; 85025; 85027; 87040; 90471; 90686; 93005; 93010; 94002; 96374; 99291; G0008; J1650; J1815; J2405; J2704